=== PATIENT | male | born 1950 | race Caucasian/White ===

== ENCOUNTER → 2017-02-04 | Outpatient (CLI) | payer BC ==
[2017-02-04 09:48] LABS: CH 35.5; CHCM 35.2; HCT 42.6 % (39.0-53.0); HDW 2.65; HGB 14.9 gm/dL (13.0-17.5); MCH 35.5 pg (25.0-35.0); MCV 101.5 fL (80.0-100.0); Macrocytosis Slight; Mean Platelet Volume 7.3; RDW 14.2 % (11.5-15.5); WBC 5.9 k/uL (3.8-10.6)
[2017-02-04 11:35] LABS: ALT 150 U/L (21-72); AST 156 U/L (17-59); Alkaline Phosphatase 157 U/L (38-126); Anion Gap 7 mmol/L; Blood Urea Nitrogen 10 mg/dL (9-20); Carbon Dioxide 28 mmol/L (22-30); Chloride 107 mmol/L (98-107); Cholesterol 167 mg/dL (<200); Glucose 111 mg/dL (74-99); HDL Cholesterol 82 mg/dL (40-60); Non-African American GFR(MDRD) >60 (>60 ml/min/1.73 sqM); Potassium 4.7 mmol/L (3.5-5.1); Sodium 142 mmol/L (137-145); Total Bilirubin 1.1 mg/dL (0.2-1.3); Total Protein 8.2 g/dL (6.3-8.2)
[2017-02-04 11:41] LABS: Calcium 9.4 mg/dL (8.4-10.2)
== END | disposition home or self-care (01) ==
LOC: LABWHC1 09:21
PROVIDERS: ATTEND Internal Medicine
DX: J45.40 Moderate persistent asthma, uncomplicated (principal); E78.5 Hyperlipidemia, unspecified; Z12.5 Encounter for screening for malignant neoplasm of prostate
CPT/HCPCS: 80061; 80053; 85027; 36415; G0103

== ENCOUNTER 2021-03-16 08:02 | Day surgery (SDC) | payer MEDICARE ==
[2021-03-14 13:19] VITALS: BMI 27.2
[~2021-03-16 08:02] MED LIST: ACETAMINOPHEN TAB 500 MG TAB PO PRN; HEPARIN SODIUM,PORCINE/PF 5,000 UNIT/0.5 ML SYRINGE SQ PRN
[2021-03-16] MEDS ORDERED: CLINDAMYCIN 600 MG in DEXTROSE 5% IN WATER 50 ML IVPB STA ×4 (08:15→08:17)
[2021-03-16 08:45] LABS: Glucose,Whole Blood 118 mg/dL (75-99)
--- NOTE | 2021-03-16 08:48 | P.GSHP ---
History of Present Illness H&P Date: 03/16/21 Chief Complaint: Incarcerated umbilical hernia 70-year-old male seen in the office in December. Patient with history of cirrhosis and hepatitis C. Patient has had good liver function and no further ascites after a previous TIPS procedure. Was told by his liver specialist re cently but now was good time for him to proceed with repair of his symptomatic incarcerated umbilical hernia. Patient with chronic thrombocytopenia however platelet level recently at 80. Complains of intermittent nausea and vomiting at times. Increased soreness and increased size to the umbilical hernia. Past Medical History Past Medical History: Asthma, Cancer, Diabetes Mellitus, GERD/Reflux Additional Past Medical History / Comment(s): umbilical hernia,hx cirrhosis,Hepatitis C-treated(was previous on liver transplant list in the past,had TIPS procedure-prior to TIPS procedure was having recurrent problems with ascites and elevated liver enzymes-which improved after TIPS procedure,hx basal cell CA face and left chest History of Any Multi-Drug Resistant Organisms: None Reported Past Surgical History: Orthopedic Surgery Additional Past Surgical History / Comment(s): TIPS( transjugular intrahepatic portosystemic shunt 2018), sinus surgery, Left wrist tendon injury repair Past Anesthesia/Blood Transfusion Reactions: No Reported Reaction Additional Past Anesthesia/Blood Transfusion Reaction / Comment(s): no problems with prior blood transfusion Smoking Status: Former smoker - Past Family History Mother Family Medical History: No Reported History Medications and Allergies Home Medications Medication Instructions Recorded Confirmed Type Omalizumab [Xolair] 150 mg SQ Q14D 04/28/18 03/16/21 History metFORMIN HCL [Glucophage] 500 mg PO DAILY 04/28/18 03/16/21 History Ferrous Sulfate [Feosol] 325 mg PO Q2D 03/14/21 03/16/21 History Fluticasone Nasal [place] [Flonase 2 spray EA NOSTRIL DAILY 03/14/21 03/16/21 History Nasal [place]] Fluticasone/Salmeterol [Advair 1 inhalation PO BID PRN 03/14/21 03/16/21 History 500-50 Diskus] Lactulose 10 gm PO BID 03/14/21 03/16/21 History Omeprazole 20 mg PO QAM 03/14/21 03/16/21 History Rifaximin [Xifaxan] 550 mg PO BID 03/14/21 03/16/21 History Spironolactone 50 mg PO BID 03/14/21 03/16/21 History diphenhydrAMINE [Benadryl] 50 mg PO HS PRN 03/14/21 03/16/21 History Allergies Allergy/AdvReac Type Severity Reaction Status Date / Time cefuroxime [From Ceftin] AdvReac Rash/Hives Verified 03/16/21 08:19 Surgical - Exam Vital Signs Temp Pulse Resp BP Pulse Ox 98.2 F 88 16 123/63 96 03/16/21 08:33 03/16/21 08:33 03/16/21 08:33 03/16/21 08:33 03/16/21 08:33 Physical exam: General: Well-developed, well-nourished HEENT: Normocephalic, sclerae nonicteric Abdomen: Nondistended, incarcerated umbilical hernia, mildly tender Extremities: No edema Neuro: Alert and oriented Results - Labs Abnormal Lab Results - Last 24 Hours (Table) 03/16/21 Range/Units 08:40 POC Glucose (mg/dL) 118 H (75-99) mg/dL Assessment and Plan (1) Incarcerated umbilical hernia Narrative/Plan: Will proceed with repair incarcerated umbilical hernia with possible mesh at this time. Risks of bleeding, infection, recurrence, bladder and bowel injury, numbness, nerve injury, ascites leak, exacerbation of liver failure, were discussed with the patient. The patient understands and wishes to proceed. Current Visit: Yes Status: Acute Code(s): K42.0 - UMBILICAL HERNIA WITH OBSTRUCTION, WITHOUT GANGRENE SNOMED Code(s): 655996448
[2021-03-16] MEDS: LACTATED RINGERS 1,000 ML IV SCH ×2 (08:49→08:58)
[2021-03-16] MEDS ORDERED: ONDANSETRON 4 MG/2 ML VIAL ONE (08:51)
[2021-03-16] MEDS ORDERED: GLYCOPYRROLATE 0.2 MG/ML 2 ML VIAL ONE (08:55)
[2021-03-16] MEDS ORDERED: SUCCINYLCHOLINE CHLORIDE 100 MG/5 ML SYR IV ONE (08:55)
[2021-03-16] MEDS ORDERED: KETAMINE 10 MG/ML 20 ML VIAL ONE (08:55)
[2021-03-16] MEDS ORDERED: LIDOCAINE 1% INJ 10MG/ML (20 ML MDV) ONE (08:55)
[2021-03-16] MEDS ORDERED: fentaNYL (PF) 50 MCG/ML 2 ML AMP ONE (08:55)
[2021-03-16] MEDS ORDERED: PROPOFOL 10 MG/ML 20 ML VIAL IV ONE (08:55)
[2021-03-16] MEDS ORDERED: NEOSTIGMINE 1 MG/ML 10 ML VIAL ONE (08:55)
[2021-03-16] MEDS ORDERED: ROCURONIUM 10 MG/ML (5 ML VIAL) IV ONE (08:55)
[2021-03-16] MEDS ORDERED: MIDAZOLAM 2 MG/2 ML VIAL ONE (08:55)
[2021-03-16] MEDS ORDERED: BUPIVACAINE (PF) 0.25% 30 ML VIAL SQ ONE ×2 (09:15)
[2021-03-16] MEDS ORDERED: diphenhydrAMINE 50 MG/ML 1 ML VIAL ONE (09:57)
[2021-03-16] MEDS ORDERED: HYDROmorphone 0.5 MG/0.5 ML SYRINGE IVP ONE ×2 (10:01→10:17)
[2021-03-16] MEDS ORDERED: ONDANSETRON 4 MG/2 ML VIAL IVP ONE (10:02)
[2021-03-16] MEDS ORDERED: diphenhydrAMINE 50 MG/ML 1 ML VIAL IVP ONE (10:02)
--- NOTE | 2021-03-16 10:05 | P.OP ---
Date of Procedure: 03/16/21 Procedure(s) Performed: PREOPERATIVE DIAGNOSIS: Incarcerated umbilical hernia POSTOPERATIVE DIAGNOSIS: Same PROCEDURE: Umbilical herniorrhaphy SURGEON: Edilma EBL: Minimal ANESTHESIA: General COMPLICATIONS: None OPERATIVE PROCEDURE: The patient was placed in the operating table in the supine position. A left sided periumbilical incision was made using the scalpel. The subcutaneous tissues were dissected bluntly and with cautery. The hernia sac was identified. The umbilical attachments to the fascia were divided using electrocautery. The hernia sac was partially excised. The hernia sac was closed after the majority of it was removed using a running locking 2-0 Vicryl stitch. This was then reduced back into the preperitoneal space. The defect in the fascia measured less than 1 cm in size. This was closed horizontally using 3 separate interrupted 0 Ethibond mattress sutures. The folding edge was sutured down using 0 Ethibond sutures as well. The subcutaneous tissues were reapproximated using inverted 2-0 & 3-0 Vicryl sutures. The umbilicus was tacked back down to the fascia using a 2-0 Vicryl suture. The skin was closed using 4-0 Monocryl sutures. Skin glue and sterile dressings were then applied. DISPOSITION: Stable to recovery room
[2021-03-16 10:08] VITALS: TEMP 98.6
[2021-03-16] MEDS ORDERED: KETOROLAC 15 MG/ML 1 ML VIAL ONE (10:33)
[2021-03-16] MEDS ORDERED: KETOROLAC 15 MG/ML 1 ML VIAL IVP ONE (10:35)
[2021-03-16] MEDS ORDERED: LACTATED RINGERS 1,000 ML IV ONE ×3 (10:37→13:40)
[2021-03-16 11:23] VITALS: RESP 14
[2021-03-16] MEDS ORDERED: ACETAMINOPHEN TAB 325 MG TAB PO SCH (15:00)
[2021-03-16] MEDS ORDERED: ALBUMIN HUMAN 5% 500 ML in EMPTY BAG 1 BAG IVPB ONE (15:25)
[2021-03-16 16:44] VITALS: BP 101/53; PULSE 91
[2021-03-16] MEDS ORDERED: IBUPROFEN 600 MG TAB PO SCH (18:00)
== END 2021-03-16 18:28 | disposition home or self-care (01) ==
LOC: OR 08:02
PROVIDERS: ATTEND Surgery
DX: K42.0 Umbilical hernia with obstruction, without gangrene (principal); E11.9 Type 2 diabetes mellitus without complications; F41.9 Anxiety disorder, unspecified; J45.909 Unspecified asthma, uncomplicated; K21.9 Gastro-esophageal reflux disease without esophagitis; K74.60 Unspecified cirrhosis of liver; K75.9 Inflammatory liver disease, unspecified; Z79.899 Other long term (current) drug therapy; Z79.84 Long term (current) use of oral hypoglycemic drugs
CPT/HCPCS: 88302; 49587; J2250; J2710; J2405; J2001; J3010; P9045; J1885; J0330; J2704; J1170; J1644

== ENCOUNTER 2021-03-25 02:38 | Emergency (ER) | payer MEDICARE ==
[2021-03-25] MEDS ORDERED: ONDANSETRON 4 MG/2 ML VIAL IVP STA (02:59)
[2021-03-25] MEDS ORDERED: IBUPROFEN 800 MG TAB PO STA (02:59)
[2021-03-25] MEDS ORDERED: MORPHINE SULFATE 4 MG/ML SYRINGE IV STA (02:59)
[2021-03-25] MEDS ORDERED: SODIUM CHLORIDE 0.9% 1,000 ML IV STA (02:59)
[2021-03-25] MEDS ORDERED: ACETAMINOPHEN TAB 500 MG TAB PO STA (02:59)
--- NOTE | 2021-03-25 03:01 | ED ---
Fever HPI - General Chief Complaint: Nausea/Vomiting/Diarrhea Stated Complaint: vomiting, fever Time Seen by Provider: 03/25/21 02:57 Source: patient, EMS, RN notes reviewed, old records reviewed Mode of arrival: EMS Limitations: no limitations - History of Present Illness Initial Comments: This is a 70-year-old male to the ER for evaluation patient is a postop of a hernia surgery coming with severe abdominal pain. This patient again is recent. Patient coming in with fever nausea vomiting abdominal pain persistent fever. No recent other travel history or complaints no cough just nausea vomiting and diarrhea. MD Complaint: fever, malaise, weakness -: hour(s) Temperature Source: subjective Context: sick contacts, multiple patients with similar symptoms Associated Symptoms: chills, rigors, myalgias Treatments Prior to Arrival: none - Related Data Home Medications Medication Instructions Recorded Confirmed Omalizumab [Xolair] 150 mg SQ Q14D 04/28/18 03/16/21 metFORMIN HCL [Glucophage] 500 mg PO DAILY 04/28/18 03/16/21 Ferrous Sulfate [Feosol] 325 mg PO Q2D 03/14/21 03/16/21 Fluticasone Nasal [place] [Flonase 2 spray EA NOSTRIL DAILY 03/14/21 03/16/21 Nasal [place]] Fluticasone/Salmeterol [Advair 1 inhalation PO BID PRN 03/14/21 03/16/21 500-50 Diskus] Lactulose 10 gm PO BID 03/14/21 03/16/21 Omeprazole 20 mg PO QAM 03/14/21 03/16/21 Rifaximin [Xifaxan] 550 mg PO BID 03/14/21 03/16/21 Spironolactone 50 mg PO BID 03/14/21 03/16/21 diphenhydrAMINE [Benadryl] 50 mg PO HS PRN 03/14/21 03/16/21 Previous Rx's Medication Instructions Recorded oxyCODONE HCL [OxyIR] 5 mg PO Q6H PRN 3 Days #6 tab 03/16/21 Ondansetron Odt [Zofran ODT] 4 mg PO Q8HR PRN #10 tab 03/25/21 Allergies Allergy/AdvReac Type Severity Reaction Status Date / Time cefuroxime [From Ceftin] AdvReac Rash/Hives Verified 03/16/21 08:19 Review of Systems ROS Statement: Those systems with pertinent positive or pertinent negative responses have been documented in the HPI. ROS Other: All systems not noted in ROS Statement are negative. Past Medical History Past Medical History: Asthma, Cancer, Diabetes Mellitus, GERD/Reflux Additional Past Medical History / Comment(s): basal cell CA face and left chest History of Any Multi-Drug Resistant Organisms: None Reported Additional Past Surgical History / Comment(s): contractrure release right, sinus surgery, Left writst tendon injury repair Past Anesthesia/Blood Transfusion Reactions: No Reported Reaction Past Psychological History: No Psychological Hx Reported Smoking Status: Never smoker Past Alcohol Use History: None Reported Past Drug Use History: Marijuana General Exam Limitations: no limitations General appearance: alert, in no apparent distress Head exam: Present: atraumatic, normocephalic, normal inspection Eye exam: Present: normal appearance, PERRL, EOMI. Absent: scleral icterus, conjunctival injection, periorbital swelling ENT exam: Present: normal exam, mucous membranes moist Neck exam: Present: normal inspection. Absent: tenderness, meningismus, lymphadenopathy Respiratory exam: Present: normal lung sounds bilaterally. Absent: respiratory distress, wheezes, rales, rhonchi, stridor Cardiovascular Exam: Present: regular rate, normal rhythm, normal heart sounds. Absent: systolic murmur, diastolic murmur, rubs, gallop, clicks GI/Abdominal exam: Present: soft, normal bowel sounds. Absent: distended, tenderness, guarding, rebound, rigid Extremities exam: Present: normal inspection, full ROM, normal capillary refill. Absent: tenderness, pedal edema, joint swelling, calf tenderness Back exam: Present: normal inspection Neurological exam: Present: alert, oriented X3, CN II-XII intact Psychiatric exam: Present: normal affect, normal mood Skin exam: Present: warm, dry, intact, normal color. Absent: rash Course Vital Signs 03/25/21 03/25/21 03/25/21 02:44 03:37 04:42 Temperature 103.1 F H 102.4 F H Pulse Rate 105 H 83 112 H Respiratory 20 24 18 Rate Blood Pressure 109/61 129/50 118/82 O2 Sat by Pulse 94 L 98 98 Oximetry 03/25/21 03/25/21 05:55 06:52 Temperature 99.9 F H 98.2 F Pulse Rate 104 H 93 Respiratory 18 18 Rate Blood Pressure 117/69 100/54 O2 Sat by Pulse 97 95 Oximetry - Reevaluation(s) Reevaluation #1: Medical record is reviewed Patient is adequately improvement pain no other symptoms Informed results and questions answered Patient can be discharged Medical Decision Making - Medical Decision Making 70 male with hernia surgery only prior positive nausea vomiting. Symptoms improved here in the ER patient can be discharged home - Lab Data Result diagrams: 03/25/21 03:21 03/25/21 03:21 Lab Results 03/25/21 03/25/21 03/25/21 Range/Units 03:21 03:21 03:21 WBC 9.3 (3.8-10.6) k/uL RBC 3.56 L (4.30-5.90) m/uL Hgb 13.0 (13.0-17.5) gm/dL Hct 36.5 L (39.0-53.0) % MCV 102.6 H (80.0-100.0) fL MCH 36.4 H (25.0-35.0) pg MCHC 35.5 (31.0-37.0) g/dL RDW 16.4 H (11.5-15.5) % Plt Count 54 L (150-450) k/uL MPV 7.2 Neutrophils % 91 % Lymphocytes % 3 % Monocytes % 4 % Eosinophils % 1 % Basophils % 0 % Neutrophils # 8.5 H (1.3-7.7) k/uL Lymphocytes # 0.3 L (1.0-4.8) k/uL Monocytes # 0.4 (0-1.0) k/uL Eosinophils # 0.1 (0-0.7) k/uL Basophils # 0.0 (0-0.2) k/uL Hyperchromasia Slight Poikilocytosis Slight Anisocytosis Slight Macrocytosis Moderate Sodium 131 L (137-145) mmol/L Potassium 4.0 (3.5-5.1) mmol/L Chloride 105 (98-107) mmol/L Carbon Dioxide 19 L (22-30) mmol/L Anion Gap 7 mmol/L BUN 14 (9-20) mg/dL Creatinine 0.79 (0.66-1.25) mg/dL Est GFR (CKD-EPI)AfAm >90 (>60 ml/min/1.73 sqM) Est GFR (CKD-EPI)NonAf >90 (>60 ml/min/1.73 sqM) Glucose 145 H (74-99) mg/dL Lactic Ac Sepsis Rflx Plasma Lactic Acid Jono (0.7-2.0) mmol/L Calcium 9.2 (8.4-10.2) mg/dL Phosphorus 2.4 L (2.5-4.5) mg/dL Magnesium 1.4 L (1.6-2.3) mg/dL Total Bilirubin 2.4 H (0.2-1.3) mg/dL AST 53 (17-59) U/L ALT 27 (4-49) U/L Alkaline Phosphatase 118 (38-126) U/L Lactate Dehydrogenase 486 (313-618) U/L Troponin I (0.000-0.034) ng/mL C-Reactive Protein 2.3 H (<1.0) mg/dL Total Protein 6.5 (6.3-8.2) g/dL Albumin 2.9 L (3.5-5.0) g/dL Lipase 70 (23-300) U/L Urine Color Light Brown Urine Appearance Clear (Clear) Urine pH 6.0 (5.0-8.0) Ur Specific [place] >1.050 H (1.001-1.035) Urine Protein 1+ H (Negative) Urine Glucose (UA) Trace H (Negative) Urine Ketones Trace H (Negative) Urine Blood Negative (Negative) Urine Nitrite Negative (Negative) Urine Bilirubin 1+ H (Negative) Urine Urobilinogen <2.0 (<2.0) mg/dL Ur Leukocyte Esterase Negative (Negative) Urine RBC 6 H (0-5) /hpf Urine WBC 1 (0-5) /hpf Ur Squamous Epith Cells <1 (0-4) /hpf Urine Mucus Few H (None) /hpf Coronavirus (PCR) (Not Detectd) 03/25/21 03/25/21 03/25/21 Range/Units 03:21 03:21 03:54 WBC (3.8-10.6) k/uL RBC (4.30-5.90) m/uL Hgb (13.0-17.5) gm/dL Hct (39.0-53.0) % MCV (80.0-100.0) fL MCH (25.0-35.0) pg MCHC (31.0-37.0) g/dL RDW (11.5-15.5) % Plt Count (150-450) k/uL MPV Neutrophils % % Lymphocytes % % Monocytes % % Eosinophils % % Basophils % % Neutrophils # (1.3-7.7) k/uL Lymphocytes # (1.0-4.8) k/uL Monocytes # (0-1.0) k/uL Eosinophils # (0-0.7) k/uL Basophils # (0-0.2) k/uL Hyperchromasia Poikilocytosis Anisocytosis Macrocytosis Sodium (137-145) mmol/L Potassium (3.5-5.1) mmol/L Chloride (98-107) mmol/L Carbon Dioxide (22-30) mmol/L Anion Gap mmol/L BUN (9-20) mg/dL Creatinine (0.66-1.25) mg/dL Est GFR (CKD-EPI)AfAm (>60 ml/min/1.73 sqM) Est GFR (CKD-EPI)NonAf (>60 ml/min/1.73 sqM) Glucose (74-99) mg/dL Lactic Ac Sepsis Rflx Y Plasma Lactic Acid Jono 2.4 H* (0.7-2.0) mmol/L Calcium (8.4-10.2) mg/dL Phosphorus (2.5-4.5) mg/dL Magnesium (1.6-2.3) mg/dL Total Bilirubin (0.2-1.3) mg/dL AST (17-59) U/L ALT (4-49) U/L Alkaline Phosphatase (38-126) U/L Lactate Dehydrogenase (313-618) U/L Troponin I <0.012 (0.000-0.034) ng/mL C-Reactive Protein (<1.0) mg/dL Total Protein (6.3-8.2) g/dL Albumin (3.5-5.0) g/dL Lipase (23-300) U/L Urine Color Urine Appearance (Clear) Urine pH (5.0-8.0) Ur Specific [place] (1.001-1.035) Urine Protein (Negative) Urine Glucose (UA) (Negative) Urine Ketones (Negative) Urine Blood (Negative) Urine Nitrite (Negative) Urine Bilirubin (Negative) Urine Urobilinogen (<2.0) mg/dL Ur Leukocyte Esterase (Negative) Urine RBC (0-5) /hpf Urine WBC (0-5) /hpf Ur Squamous Epith Cells (0-4) /hpf Urine Mucus (None) /hpf Coronavirus (PCR) (Not Detectd) 03/25/21 Range/Units 05:27 WBC (3.8-10.6) k/uL RBC (4.30-5.90) m/uL Hgb (13.0-17.5) gm/dL Hct (39.0-53.0) % MCV (80.0-100.0) fL MCH (25.0-35.0) pg MCHC (31.0-37.0) g/dL RDW (11.5-15.5) % Plt Count (150-450) k/uL MPV Neutrophils % % Lymphocytes % % Monocytes % % Eosinophils % % Basophils % % Neutrophils # (1.3-7.7) k/uL Lymphocytes # (1.0-4.8) k/uL Monocytes # (0-1.0) k/uL Eosinophils # (0-0.7) k/uL Basophils # (0-0.2) k/uL Hyperchromasia Poikilocytosis Anisocytosis Macrocytosis Sodium (137-145) mmol/L Potassium (3.5-5.1) mmol/L Chloride (98-107) mmol/L Carbon Dioxide (22-30) mmol/L Anion Gap mmol/L BUN (9-20) mg/dL Creatinine (0.66-1.25) mg/dL Est GFR (CKD-EPI)AfAm (>60 ml/min/1.73 sqM) Est GFR (CKD-EPI)NonAf (>60 ml/min/1.73 sqM) Glucose (74-99) mg/dL Lactic Ac Sepsis Rflx Plasma Lactic Acid Jono (0.7-2.0) mmol/L Calcium (8.4-10.2) mg/dL Phosphorus (2.5-4.5) mg/dL Magnesium (1.6-2.3) mg/dL Total Bilirubin (0.2-1.3) mg/dL AST (17-59) U/L ALT (4-49) U/L Alkaline Phosphatase (38-126) U/L Lactate Dehydrogenase (313-618) U/L Troponin I (0.000-0.034) ng/mL C-Reactive Protein (<1.0) mg/dL Total Protein (6.3-8.2) g/dL Albumin (3.5-5.0) g/dL Lipase (23-300) U/L Urine Color Urine Appearance (Clear) Urine pH (5.0-8.0) Ur Specific [place] (1.001-1.035) Urine Protein (Negative) Urine Glucose (UA) (Negative) Urine Ketones (Negative) Urine Blood (Negative) Urine Nitrite (Negative) Urine Bilirubin (Negative) Urine Urobilinogen (<2.0) mg/dL Ur Leukocyte Esterase (Negative) Urine RBC (0-5) /hpf Urine WBC (0-5) /hpf Ur Squamous Epith Cells (0-4) /hpf Urine Mucus (None) /hpf Coronavirus (PCR) Not Detected (Not Detectd) - Radiology Data Radiology results: report reviewed (CT pelvis negative for acute disease), image reviewed Disposition Clinical Impression: Dehydration, Gastroenteritis, Fever Disposition: HOME SELF-CARE Condition: Good Instructions (If sedation given, give patient instructions): Fever in Adults (ED), Acute Nausea and Vomiting (ED), Colitis (ED) Prescriptions: Ondansetron Odt [Zofran ODT] 4 mg PO Q8HR PRN #10 tab PRN Reason: nausea/vomiting Is patient prescribed a controlled substance at d/c from ED?: No Referrals: Rick Jaquez MD [Primary Care Provider] - 1-2 days
[2021-03-25 03:41] LABS: Anisocytosis Slight; Basophils % (A) 0 %; Eosinophils # (A) 0.1 k/uL (0-0.7); Eosinophils % (A) 1 %; HCT 36.5 % (39.0-53.0); Hyperchromasia Slight; Lymphocytes # (A) 0.3 k/uL (1.0-4.8); Lymphocytes % (A) 3 %; MCH 36.4 pg (25.0-35.0); MCHC 35.5 g/dL (31.0-37.0); MCV 102.6 fL (80.0-100.0); Macrocytosis Moderate; Mean Platelet Volume 7.2; Monocytes # (A) 0.4 k/uL (0-1.0); Monocytes % (A) 4 %; Neutrophils # (A) 8.5 k/uL (1.3-7.7); Neutrophils % (A) 91 %; Poikilocytosis Slight; RBC 3.56 m/uL (4.30-5.90); RDW 16.4 % (11.5-15.5); WBC 9.3 k/uL (3.8-10.6)
[2021-03-25 03:50] LABS: Platelet Count 54 k/uL (150-450)
[2021-03-25 03:56] LABS: ALT 27 U/L (4-49); AST 53 U/L (17-59); African American GFR (CKD) >90 (>60 ml/min/1.73 sqM); Albumin 2.9 g/dL (3.5-5.0); Alkaline Phosphatase 118 U/L (38-126); Anion Gap 7 mmol/L; Blood Urea Nitrogen 14 mg/dL (9-20); C Reactive Protein 2.3 mg/dL (<1.0); Calcium 9.2 mg/dL (8.4-10.2); Carbon Dioxide 19 mmol/L (22-30); Chloride 105 mmol/L (98-107); Glucose 145 mg/dL (74-99); LDH 486 U/L (313-618); Lipase 70 U/L (23-300); Magnesium 1.4 mg/dL (1.6-2.3); Non-African American GFR(CKD) >90 (>60 ml/min/1.73 sqM); Phosphorus 2.4 mg/dL (2.5-4.5); Sodium 131 mmol/L (137-145); Total Bilirubin 2.4 mg/dL (0.2-1.3); Total Protein 6.5 g/dL (6.3-8.2)
--- NOTE | 2021-03-25 04:20 | XR ---
EXAMINATION TYPE: XR chest 2V DATE OF EXAM: 03/25/2021 COMPARISON: 10/01/2010 HISTORY: Weakness TECHNIQUE: 2 views FINDINGS: There is no heart failure nor confluent pneumonic infiltrate. Costophrenic angles are clear . Bony thorax is intact. Heart size is normal. IMPRESSION: No active cardiopulmonary disease. No change.
[2021-03-25 04:47] VITALS: RESP 18
--- NOTE | 2021-03-25 05:02 | CT ---
EXAMINATION TYPE: CT abdomen pelvis w con DATE OF EXAM: 03/25/2021 COMPARISON: None HISTORY: bruising on stomach, vomiting and fever. post op hernia sx x 1week CT DLP: 1074.7 mGycm Automated exposure control for dose reduction was used. CONTRAST: Performed with IV Contrast, patient injected with 100 mL of Isovue 300. There is small left pleural effusion. Heart size is normal. There is no pericardial effusion. Left danette ng base is clear. There is TIPS catheter in the portal vein extending to the inferior vena cava.. Liver somewhat irregu lar consistent with cirrhosis. Gallbladder is intact. Spleen is intact. There is no pancreatic mass. Stomach is intact. There is no adrenal mass. Kidneys show satisfactory contrast opacification. There is no hydronephrosi s. There is 5 mm calculus posterior left kidney. Ureters are not dilated. There is 2 mm calculus lowe r pole left kidney. There is 1 cm cortical cyst posterior left kidney. There is 2 cm cortical cyst la teral left kidney. There is no retroperitoneal adenopathy. Bladder distends smoothly. There is no inguinal hernia. There is retained material in the rectosigmoid colon with small fluid levels consistent with diarrhea. The re is some mild wall thickening of the large bowel. There is also some wall thickening of multiple lo ops of small bowel in the mid abdomen. There is no ascites. There is no free air. There is small amou nt of fluid in the right paracolic gutter. There is 3 cm rounded fluid collection at the umbilicus co nsistent with fluid-containing umbilical hernia. Lumbar vertebra have normal alignment. There is mild compression deformity of L4 vertebra with biconc ave changes. The bony pelvis is intact. Hip joints are intact. IMPRESSION: Right pleural effusion. Liver changes consistent with cirrhosis. There is some wall thickening of the large bowel and the small bowel suggestive of nonspecific inflammatory process. This could be coliti s and enteritis.
[2021-03-25] MEDS ORDERED: SODIUM CHLORIDE 0.9% 1,000 ML IV ONE (05:21)
[2021-03-25 06:29] LABS: Appearance,Urine Clear (Clear); Bilirubin,Urine 1+ (Negative); Blood,Urine Negative (Negative); Color,Urine Light Brown; Glucose,Urine (UA) Trace (Negative); Ketones,Urine Trace (Negative); Leukocyte Esterase,Urine Negative (Negative); Mucus,Urine Few /hpf; Nitrite,Urine Negative (Negative); Protein,Urine 1+ (Negative); RBC,Urine 6 /hpf (0-5); Squamous Epithelial Cell,Urine <1 /hpf (0-4); Urobilinogen,Urine <2.0 mg/dL (<2.0); WBC,Urine 1 /hpf (0-5)
[2021-03-25 06:42] LABS: Specific Gravity,Urine >1.050 (1.001-1.035)
[2021-03-25] MEDS ORDERED: ONDANSETRON 4 MG ODT STARTER PACK 2 TAB BTL PO STA (06:45)
[2021-03-25 06:53] VITALS: BP 100/54; PULSE 93
[2021-03-25 06:54] VITALS: TEMP 98.2
[2021-03-25] MEDS ORDERED: ONDANSETRON 4 MG TAB PO STA (06:55)
== END 2021-03-25 07:03 | disposition home or self-care (01) ==
LOC: EC 02:38
DX: E86.0 Dehydration (principal); K52.9 Noninfective gastroenteritis and colitis, unspecified; J45.909 Unspecified asthma, uncomplicated; K21.9 Gastro-esophageal reflux disease without esophagitis; E11.9 Type 2 diabetes mellitus without complications; Z79.84 Long term (current) use of oral hypoglycemic drugs; Z79.899 Other long term (current) drug therapy; Z79.51 Long term (current) use of inhaled steroids; Z20.822 Contact with and (suspected) exposure to COVID-19; Z88.1 Allergy status to other antibiotic agents
CPT/HCPCS: 36415; 80053; 83605; 83615; 83690; 83735; 84100; 84484; 85025; 86140; 81001; 87635; 71046; 74177; 99285; 96374; 96361; J2405; S0119; Q9967

== ENCOUNTER → 2021-08-01 | Outpatient (CLI) | payer MEDICARE ==
--- NOTE | 2021-08-01 21:02 | CT ---
EXAMINATION TYPE: CT soft tissue neck wo con DATE OF EXAM: 08/01/2021 HISTORY: Generalized enlarged lymph nodes COMPARISON: None available CT DLP: 422.4 mGycm. Automated Exposure Control for Dose Reduction was Utilized. TECHNIQUE: CT scan of the neck is performed without IV contrast, axial images are obtained, coronal and sagittal reformatted images are reviewed. FINDINGS: Unremarkable nasopharynx, oropharynx, hypopharynx, larynx and visualized portion of the trachea and e sophagus. Unremarkable thyroid gland. Right parotid gland lesion measuring 14 x 19 x 29 mm. Unremarka ble left parotid gland and submandibular salivary glands. No pathologically enlarged lymph nodes in t he neck. Minimal arterial atherosclerotic calcifications. Chronic inflammatory changes of the sphenoid sinus a nd maxillary sinuses with previous sinus surgery and mucosal thickening of the ethmoid air cells. Hyp opneumatized left mastoid air cells. No aggressive bone lesion. 2 mm nodule in the right upper lobe a nd 3 mm nodule in the left lung apex, for further CT chest assessment. IMPRESSION: No pathologically enlarged lymph nodes in the neck. Right parotid gland lesion as described above, in completely identified by this CT scan. It could represent Warthin tumor, enlarged lymph node, pleomor phic adenoma or other primary neoplasm of the right parotid gland. Recommend further ultrasound asses sment, surgery consultation and tissue diagnosis. Other incidental findings as described above.
== END | disposition home or self-care (01) ==
LOC: RADCTMAIN 13:20
PROVIDERS: ATTEND Internal Medicine
DX: R59.1 Generalized enlarged lymph nodes (principal)
CPT/HCPCS: 70490

== ENCOUNTER → 2021-08-16 | Outpatient (CLI) | payer MEDICARE ==
[2021-08-16 12:30] LABS: African American GFR (CKD) >90 (>60 ml/min/1.73 sqM); Blood Urea Nitrogen 12 mg/dL (9-20); Non-African American GFR(CKD) >90 (>60 ml/min/1.73 sqM)
--- NOTE | 2021-08-16 14:02 | CT ---
EXAMINATION TYPE: CT soft tissue neck w con DATE OF EXAM: 08/16/2021 12:47 PM COMPARISON: CT dated 08/01/2021 HISTORY: Right neck mass marked by BB. CT DLP: 424 mGycm Automated exposure control for dose reduction was used. CONTRAST: CT scan of the neck is performed following with IV Contrast, patient injected with 100 mL of Isovue M 300. Axial images are obtained, coronal and sagittal reformatted images are reviewed. FINDINGS: Redemonstration of the previously described well-defined solid lesion at the posterior aspect of the superficial portion of the right parotid gland measuring 16 x 19 mm. Tiny tail is seen extending medi ally into the posterior aspect of the deep portion of the right parotid gland. No cystic component or calcification. Unremarkable left parotid gland. Symmetrical unremarkable submandibular salivary glan ds. Grossly unremarkable thyroid gland. Unremarkable nasopharynx, oropharynx, hypopharynx, larynx and visualized portion of the trachea and e sophagus. Scattered arterial atherosclerotic calcifications. Patent major neck vessels. No pathologic ally enlarged lymph nodes in the neck. Persistent chronic inflammatory changes of the visualized port ion of the paranasal sinuses. Osteopenia. No gross aggressive bone lesion. Few bilateral apical pulmo nary nodules measuring up to 3 mm, for further CT chest assessment. IMPRESSION: Right parotid gland solid lesion as described above. As previously described, differential diagnoses include Warthin tumor, enlarged lymph node, pleomorphic adenoma or other primary neoplasm of the righ t parotid gland. Recommend further PET scan assessment and tissue diagnosis. Other findings as descri bed above.
== END | disposition home or self-care (01) ==
LOC: RADCTMAIN 11:38
PROVIDERS: ATTEND Otolaryngology
DX: R22.1 Localized swelling, mass and lump, neck (principal)
CPT/HCPCS: 82565; 84520; 70491; 36415; Q9967

== ENCOUNTER 2021-09-21 09:15 | Day surgery (SDC) | payer MEDICARE ==
[2021-09-21 09:59] VITALS: RESP 16; TEMP 97.6
[2021-09-21] MEDS ORDERED: ALPRAZolam 0.25 MG TAB PO STA (10:00)
[2021-09-21 10:10] LABS: Glucose,Whole Blood 128 mg/dL (75-99)
[2021-09-21 11:49] VITALS: BP 126/61; PULSE 79
--- NOTE | 2021-09-21 13:08 | US ---
EXAMINATION TYPE: US FNA first lesion DATE OF EXAM: 09/21/2021 HISTORY: Right neck mass. FINDINGS: Maximal barrier technique was utilized. Hand hygiene achieved with soap and water and alco hol-based hand rub. The skin overlying a suitable path to the patient's mass in the right neck was lo calized with ultrasound and the overlying skin prepped and draped. Ultrasound was utilized with ster ile technique. Lidocaine was used for local anesthesia. 23-gauge needle was advanced under ultrasoun d guidance and approximately 5 cc of dark fluid were aspirated. Using similar technique, 3 passes wit h a 25-gauge needle were made into the more solid component and aspirated specimen submitted to cytol ogy. Following the procedure, hemostasis achieved and the patient is discharged in stable condition w ithout complication. IMPRESSION:STATUS POST ULTRASOUND GUIDED CORE BIOPSY OF a needle aspiration of right neck MASS, PATHO LOGY IS PENDING. THIS PROCEDURE IS PERFORMED BY THE UNDERSIGNED.
== END 2021-09-21 11:49 | disposition home or self-care (01) ==
LOC: RADPROMAIN 09:15
PROVIDERS: ATTEND Otolaryngology
DX: D11.0 Benign neoplasm of parotid gland (principal); C44.91 Basal cell carcinoma of skin, unspecified
CPT/HCPCS: 10005; 88173; 88305

== ENCOUNTER 2022-04-05 07:21 | Day surgery (SDC) | payer MEDICARE ==
[~2022-04-05 07:21] MED LIST changes: -ACETAMINOPHEN TAB 500 MG TAB PO PRN; -HEPARIN SODIUM,PORCINE/PF 5,000 UNIT/0.5 ML SYRINGE SQ PRN; +LACTATED RINGERS 1,000 ML IV SCH
[2022-04-05 07:41] VITALS: RESP 16; TEMP 98.9
[2022-04-05 07:57] LABS: Glucose,Whole Blood 166 mg/dL (70-110)
[2022-04-05] MEDS ORDERED: PROPOFOL 10 MG/ML 20 ML VIAL IV ONE (08:39)
[2022-04-05] MEDS ORDERED: LIDOCAINE 2% INJ 20 MG/ML (2 ML VIAL) ONE (08:39)
--- NOTE | 2022-04-05 08:48 | P.PCN ---
Date of Procedure: 04/05/22 Procedure(s) Performed: BRIEF HISTORY: Patient is a 71-year-old, pleasant, white female with history of alcoholic cirrhosis of the liver and prior history of esophageal variceal bleeding, status post TIPS in 2019 is scheduled for an upper endoscopy as a part of evaluation of intermittent nausea vomiting for the last 1 month duration. PROCEDURE PERFORMED: Esophagogastroduodenoscopy With biopsy PREOPERATIVE DIAGNOSIS: Nausea vomiting of one month duration. IV sedation per anesthesia. PROCEDURE: After informed consent was obtained, the patient was brought into the endoscopy unit. IV sedation was administered by Anesthesia under continuous monitoring. Initially the Olympus GIF-140 video endoscope was inserted into the mouth. Esophagus intubated without any difficulty. It was gradually advanced into the stomach and duodenum and carefully examined. The bulb and the second part of the duodenum appeared normal. The scope at this time was withdrawn to the stomach, adequately insufflated with air, and upon careful examination, mucosa of the antrum, had gastritis with polyps which were biopsied. Mucosa of thebody, cardia and the fundus had changes consistent with moderate to severe portal hypertensive gastropathy The scope was then withdrawn into the esophagus. The GE junction was located at 39 cm from the incisors. The esophagus appeared normal. There were no erosions or ulcerations seen,. Small distal esophageal varices seen and the patient tolerated the procedure well. IMPRESSION: 1. Mild antral gastritis. 2. Small distal esophageal varices. 3. Moderate to severe portal hypertensive gastropathy RECOMMENDATIONS: The findings of this examination were discussed with the patient as well as his family. He was advised to follow with the biopsy results. Continue with omeprazole 20 mg daily and follow antireflux measures..
[2022-04-05 09:13] VITALS: BP 108/50; PULSE 77
== END 2022-04-05 09:41 | disposition home or self-care (01) ==
LOC: ORWHC2ENDO 07:21
PROVIDERS: ATTEND Internal Medicine Gastroenterology
DX: K29.50 Unspecified chronic gastritis without bleeding (principal); K31.7 Polyp of stomach and duodenum; I85.10 Secondary esophageal varices without bleeding; J44.9 Chronic obstructive pulmonary disease, unspecified; E11.9 Type 2 diabetes mellitus without complications; K21.9 Gastro-esophageal reflux disease without esophagitis; Z87.19 Personal history of other diseases of the digestive system; Z79.899 Other long term (current) drug therapy; Z79.84 Long term (current) use of oral hypoglycemic drugs; Z87.891 Personal history of nicotine dependence; Z91.018 Allergy to other foods
CPT/HCPCS: 88305; 43239; J2704; J2001

== ENCOUNTER 2022-11-08 11:25 | Inpatient (IN) | payer MEDICARE ==
[2022-11-08] MEDS ORDERED: SODIUM CHLORIDE 0.9% 1,000 ML IV ONE ×2 (12:05→14:33)
[2022-11-08 12:31] LABS: Basophils % (A) 0 %; Eosinophils # (A) 1.1 k/uL (0-0.7); Eosinophils % (A) 18 %; HCT 29.9 % (39.0-53.0); HGB 10.7 gm/dL (13.0-17.5); Hyperchromasia Moderate; Lymphocytes # (A) 0.6 k/uL (1.0-4.8); Lymphocytes % (A) 10 %; MCH 35.9 pg (25.0-35.0); MCHC 35.9 g/dL (31.0-37.0); MCV 99.9 fL (80.0-100.0); Macrocytosis Slight; Mean Platelet Volume 7.5; Monocytes # (A) 0.4 k/uL (0-1.0); Monocytes % (A) 6 %; Neutrophils # (A) 3.9 k/uL (1.3-7.7); Neutrophils % (A) 65 %; Poikilocytosis Slight; RBC 2.99 m/uL (4.30-5.90); RDW 15.9 % (11.5-15.5)
[2022-11-08 12:36] LABS: INR 1.2 (<1.2); Partial Thromboplastin Time 22.3 sec (22.0-30.0); Prothrombin Time 12.2 sec (9.0-12.0)
[2022-11-08 12:40] LABS: ALT 38 U/L (4-49); AST 69 U/L (17-59); African American GFR (CKD) >90 (>60 ml/min/1.73 sqM); Albumin 2.3 g/dL (3.5-5.0); Alkaline Phosphatase 189 U/L (38-126); Anion Gap 6 mmol/L; Blood Urea Nitrogen 16 mg/dL (9-20); Calcium 8.4 mg/dL (8.4-10.2); Carbon Dioxide 24 mmol/L (22-30); Chloride 99 mmol/L (98-107); Glucose 246 mg/dL (74-99); Non-African American GFR(CKD) >90 (>60 ml/min/1.73 sqM); Potassium 3.9 mmol/L (3.5-5.1); Sodium 129 mmol/L (137-145); Total Bilirubin 2.7 mg/dL (0.2-1.3); Total Protein 5.5 g/dL (6.3-8.2)
[2022-11-08 12:59] LABS: Platelet Count 79 k/uL (150-450)
--- NOTE | 2022-11-08 13:01 | XR ---
EXAMINATION TYPE: XR chest 2V DATE OF EXAM: 11/08/2022 COMPARISON: 03/25/2021 TECHNIQUE: PA and lateral views submitted. HISTORY: Altered mental status FINDINGS: The lungs are clear and there is no pneumothorax, pleural effusion, or focal pneumonia. Heart size normal and no overt failure. Osseous structures demonstrate hypertrophic and degenerative changes of the spine. Diffuse osteopenia. Hyperinflation suggests COPD. Coarsened interstitium likely reflects chronic inte rstitial pulmonary fibrosis. Similar to prior exam. Metallic stent seen in the upper abdomen. The villa unt of fluid or thickening within the minor fissure. IMPRESSION: 1. No acute process. 2. COPD correlate for chronic interstitial pulmonary fibrosis.
--- NOTE | 2022-11-08 13:32 | ED ---
General Adult HPI - General Chief complaint: Altered Mental Status Stated complaint: AMS Time Seen by Provider: 11/08/22 11:30 Source: patient, EMS, RN notes reviewed, old records reviewed Mode of arrival: EMS Limitations: no limitations - History of Present Illness Initial comments: This a 71-year-old male who presents emergency Department with his and his gives all the history. Patient has a past medical history significant for hepatitis C and cirrhosis. Patient has been admitted multiple times in the past for hepatic encephalopathy. states she has been down and [facility] multiple times but she is looking to stay here and does not want to go today for possible. Patient's altered mental status is been intermittent throughout the week but got much worse since yesterday according to the . Patient does take lactulose 3 times a day at home already. states his been no fevers no chills patient is not any difficulty breathing there's been no nausea vomiting or diarrhea. - Related Data Home Medications Medication Instructions Recorded Confirmed Omalizumab [Xolair] 150 mg SQ Q14D 04/28/18 11/08/22 Ferrous Sulfate [Feosol] 325 mg PO MOWEFR 03/14/21 11/08/22 Fluticasone Nasal [place] [Flonase 2 spray EA NOSTRIL DAILY 03/14/21 11/08/22 Nasal [place]] Lactulose 30 gm PO BID 03/14/21 11/08/22 Omeprazole 20 mg PO DAILY 03/14/21 11/08/22 Rifaximin [Xifaxan] 550 mg PO BID 03/14/21 11/08/22 Fluticasone Propion/Salmeterol 1 puff INHALATION RT-BID 09/07/21 11/08/22 [Advair 500-50 Diskus] Albuterol Sulfate [Albuterol 2 puff PO RT-QID 11/08/22 11/08/22 Sulfate Hfa] Furosemide [Lasix] 40 mg PO BID 11/08/22 11/08/22 Insulin Glargine,Hum.rec.anlog 10 units SQ HS 11/08/22 11/08/22 [Lantus Solostar Pen] Spironolactone [Aldactone] 100 mg PO DAILY 11/08/22 11/08/22 hydrOXYzine HCL [Atarax] 10 mg PO HS 11/08/22 11/08/22 metFORMIN HCL ER [Glucophage XR] 500 mg PO BID 11/08/22 11/08/22 Allergies Allergy/AdvReac Type Severity Reaction Status Date / Time cefuroxime [From Ceftin] AdvReac Rash/Hives Verified 11/08/22 12:30 Review of Systems ROS Statement: Those systems with pertinent positive or pertinent negative responses have been documented in the HPI. ROS Other: All systems not noted in ROS Statement are negative. Past Medical History Past Medical History: Asthma, Cancer, Diabetes Mellitus, GERD/Reflux, Liver Disease, Osteoarthritis (OA) Additional Past Medical History / Comment(s): basal cell CA face and left chest, cirrhosis of the liver, hepatitis C possibly from blood transfusion as a child, palpable mass right parotid ,left leg arthritis with occasional edema to lower leg, has had recent us to r/o dvt was negative test History of Any Multi-Drug Resistant Organisms: None Reported Past Surgical History: Hernia Repair Additional Past Surgical History / Comment(s): sinus surgery, left wrist tendon injury repair, shunt placed "in liver" per patient Past Anesthesia/Blood Transfusion Reactions: No Reported Reaction Past Psychological History: Anxiety, Depression, PTSD Smoking Status: Former smoker Past Alcohol Use History: None Reported, Heavy Past Drug Use History: None Reported - Past Family History Mother Family Medical History: Cancer Additional Family Medical History / Comment(s): patient is unsure if ovarian or colon General Exam - General Exam Comments Initial Comments: GENERAL: Patient is well-developed and well-nourished. Patient is nontoxic and well- hydrated and is in mild distress. ENT: Neck is soft and supple. No significant lymphadenopathy is noted. Oropharynx is clear. Moist mucous membranes. Neck has full range of motion without eliciting any pain. EYES: The sclera were anicteric and conjunctiva were pink and moist. Extraocular movements were intact and pupils were equal round and reactive to light. Eyelids were unremarkable. PULMONARY: Unlabored respirations. Good breath sounds bilaterally. No audible rales rhonchi or wheezing was noted. CARDIOVASCULAR: There is a regular rate and rhythm without any murmurs gallops or rubs. ABDOMEN: Abdomen is mildly distended states this is baseline SKIN: Skin is clear with no lesions or rashes and otherwise unremarkable. NEUROLOGIC: Patient is alert and oriented times one. Cranial nerves II through XII are aaron ssly intact. Motor and sensory are also intact. Normal speech, volume and content. Symmetrical smile. MUSCULOSKELETAL: Normal extremities with adequate strength and full range of motion. LYMPHATICS: No significant lymphadenopathy is noted PSYCHIATRIC: Normal psychiatric evaluation. Limitations: no limitations Course Vital Signs 11/08/22 11/08/22 11:27 13:56 Temperature 98.0 F Pulse Rate 92 82 Respiratory 20 18 Rate Blood Pressure 93/59 93/56 O2 Sat by Pulse 94 L 96 Oximetry Medical Decision Making - Medical Decision Making EKG was interpreted by myself shows a sinus rhythm at 88 bpm MD interval 280 QRSs 1 Q-T intervals 400 QTC is 445 per patient's EKG shows no ST segment elevation or depression. Was pt. sent in by a medical professional or institution (, PA, [facility], urgent care, hospital, or [facility]...) When possible be specific @ -No Did you speak to anyone other than the patient for history (EMS, parent, family, police, friend...)? What history was obtained from this source @ -Patient's gave all of the history Did you review nursing and triage notes (agree or disagree)? Why? @ -I reviewed and agree with nursing and triage notes Were old charts reviewed (outside hosp., previous admission, EMS record, old EKG, old radiological studies, urgent care reports/EKG's, [facility] records)? Report findings @ -No old charts were reviewed Differential Diagnosis (chest pain, altered mental status, abdominal pain women, abdominal pain men, vaginal bleeding, weakness, fever, dyspnea, syncope, headache, dizziness, GI bleed, back pain, seizure, CVA, palpatations, mental health, musculoskeletal)? @ -Differential Altered Mental Status: Hypoglycemia, DKA, hypercapnia, ETOH, overdose, CO poisoning, trauma, myxedema coma, HTN encephalopathy, infection, encephalitis, psychosis, intercranial hemorrhage, hepatic encephalopathy, meningitis, CVA, this is not meant to be an all-inclusive list EKG interpreted by me (3pts min.). @ -As above X-rays interpreted by me (1pt min.). @ -None done CT interpreted by me (1pt min.). @ -None done U/S interpreted by me (1pt. min.). @ -None done What testing was considered but not performed or refused? (CT, X-rays, U/S, labs)? Why? @ -None What meds were considered but not given or refused? Why? @ -None Did you discuss the management of the patient with other professionals (professionals i.e. , PA, [facility], lab, RT, psych nurse, public health social worker, meter reader inspector, teacher, sales and service officer, bilingual case manager)? Give summary @ -I spoke with Dr. Collins and he agreed to admit the patient Was smoking cessation discussed for >3mins.? @ -No Was critical care preformed (if so, how long)? @ -35 minutes Were there social determinants of health that impacted care today? How? (Homelessness, low income, unemployed, alcoholism, drug addiction, trans portation, low edu. Level, literacy, decrease access to med. care, correction, rehab)? @ -No Was there de-escalation of care discussed even if they declined (Discuss DNR or withdrawal of care, Hospice)? DNR status @ -No What co-morbidities impacted this encounter? (DM, HTN, Smoking, COPD, CAD, Cancer, CVA, ARF, Chemo, Hep., AIDS, mental health diagnosis, sleep apnea, morbid obesity)? @ -None Was patient admitted / discharged? Hospital course, mention meds given and route, prescriptions, significant lab abnormalities, going to OR and other pertinent info. @ -Patient came in for altered mental status with a past medical history significant for cirrhosis and hepatic encephalopathy multiple times. Patient's ammonia level is 131*the patient on lactulose and spoke with Dr. dutta who he accepted the admission I admitted the patient Undiagnosed new problem with uncertain prognosis? @ -No Drug Therapy requiring intensive monitoring for toxicity (Heparin, Nitro, Insulin, Cardizem)? @ -No Were any procedures done? @ -No Diagnosis/symptom? @ -Hepatic Encephalopathy Acute, or Chronic, or Acute on Chronic? @ -Acute on chronic Uncomplicated (without systemic symptoms) or Complicated (systemic symptoms)? @ -Complicated Side effects of treatment? @ -No Exacerbation, Progression, or Severe Exacerbation? @ -No Poses a threat to life or bodily function? How? (Chest pain, [place], [place], pneumonia, PE, COPD, DKA, ARF, appy, cholecystitis, CVA, Diverticulitis, Homicidal, Suicidal, threat to staff... and all critical care pts) @ -Yes this could lead to further altered mental status and - Lab Data Result diagrams: 11/08/22 12:20 11/08/22 12:20 Lab Results 11/08/22 11/08/22 11/08/22 Range/Units 12:20 12:20 12:20 WBC 6.0 (3.8-10.6) k/uL RBC 2.99 L (4.30-5.90) m/uL Hgb 10.7 L (13.0-17.5) gm/dL Hct 29.9 L (39.0-53.0) % MCV 99.9 (80.0-100.0) fL MCH 35.9 H (25.0-35.0) pg MCHC 35.9 (31.0-37.0) g/dL RDW 15.9 H (11.5-15.5) % Plt Count 79 L (150-450) k/uL MPV 7.5 Neutrophils % 65 % Lymphocytes % 10 % Monocytes % 6 % Eosinophils % 18 % Basophils % 0 % Neutrophils # 3.9 (1.3-7.7) k/uL Lymphocytes # 0.6 L (1.0-4.8) k/uL Monocytes # 0.4 (0-1.0) k/uL Eosinophils # 1.1 H (0-0.7) k/uL Basophils # 0.0 (0-0.2) k/uL Manual Slide Review Performed Hyperchromasia Moderate Poikilocytosis Slight Macrocytosis Slight PT 12.2 H (9.0-12.0) sec INR 1.2 H (<1.2) APTT 22.3 (22.0-30.0) sec Sodium (137-145) mmol/L Potassium (3.5-5.1) mmol/L Chloride (98-107) mmol/L Carbon Dioxide (22-30) mmol/L Anion Gap mmol/L BUN (9-20) mg/dL Creatinine (0.66-1.25) mg/dL Est GFR (CKD-EPI)AfAm (>60 ml/min/1.73 sqM) Est GFR (CKD-EPI)NonAf (>60 ml/min/1.73 sqM) Glucose (74-99) mg/dL Calcium (8.4-10.2) mg/dL Total Bilirubin (0.2-1.3) mg/dL AST (17-59) U/L ALT (4-49) U/L Alkaline Phosphatase (38-126) U/L Ammonia (<30) umol/L Troponin I (0.000-0.034) ng/mL Total Protein (6.3-8.2) g/dL Albumin (3.5-5.0) g/dL Urine Color Yellow Urine Appearance Clear (Clear) Urine pH 6.5 (5.0-8.0) Ur Specific [place] 1.007 (1.001-1.035) Urine Protein Negative (Negative) Urine Glucose (UA) Negative (Negative) Urine Ketones Negative (Negative) Urine Blood Negative (Negative) Urine Nitrite Negative (Negative) Urine Bilirubin Negative (Negative) Urine Urobilinogen <2.0 (<2.0) mg/dL Ur Leukocyte Esterase Negative (Negative) Urine Opiates Screen Not Detected (NotDetected) Ur Oxycodone Screen Not Detected (NotDetected) Urine Methadone Screen Not Detected (NotDetected) Ur Propoxyphene Screen Not Detected (NotDetected) Ur Barbiturates Screen Not Detected (NotDetected) U Tricyclic Antidepress Not Detected (NotDetected) Ur Phencyclidine Scrn Not Detected (NotDetected) Ur Amphetamines Screen Not Detected (NotDetected) U Methamphetamines Scrn Not Detected (NotDetected) U Benzodiazepines Scrn Not Detected (NotDetected) Urine Cocaine Screen Not Detected (NotDetected) U Marijuana (THC) Screen Not Detected (NotDetected) 11/08/22 11/08/22 11/08/22 Range/Units 12:20 12:20 12:20 WBC (3.8-10.6) k/uL RBC (4.30-5.90) m/uL Hgb (13.0-17.5) gm/dL Hct (39.0-53.0) % MCV (80.0-100.0) fL MCH (25.0-35.0) pg MCHC (31.0-37.0) g/dL RDW (11.5-15.5) % Plt Count (150-450) k/uL MPV Neutrophils % % Lymphocytes % % Monocytes % % Eosinophils % % Basophils % % Neutrophils # (1.3-7.7) k/uL Lymphocytes # (1.0-4.8) k/uL Monocytes # (0-1.0) k/uL Eosinophils # (0-0.7) k/uL Basophils # (0-0.2) k/uL Manual Slide Review Hyperchromasia Poikilocytosis Macrocytosis PT (9.0-12.0) sec INR (<1.2) APTT (22.0-30.0) sec Sodium 129 L (137-145) mmol/L Potassium 3.9 (3.5-5.1) mmol/L Chloride 99 (98-107) mmol/L Carbon Dioxide 24 (22-30) mmol/L Anion Gap 6 mmol/L BUN 16 (9-20) mg/dL Creatinine 0.52 L (0.66-1.25) mg/dL Est GFR (CKD-EPI)AfAm >90 (>60 ml/min/1.73 sqM) Est GFR (CKD-EPI)NonAf >90 (>60 ml/min/1.73 sqM) Glucose 246 H (74-99) mg/dL Calcium 8.4 (8.4-10.2) mg/dL Total Bilirubin 2.7 H (0.2-1.3) mg/dL AST 69 H (17-59) U/L ALT 38 (4-49) U/L Alkaline Phosphatase 189 H (38-126) U/L Ammonia 131 H (<30) umol/L Troponin I 0.017 (0.000-0.034) ng/mL Total Protein 5.5 L (6.3-8.2) g/dL Albumin 2.3 L (3.5-5.0) g/dL Urine Color Urine Appearance (Clear) Urine pH (5.0-8.0) Ur Specific [place] (1.001-1.035) Urine Protein (Negative) Urine Glucose (UA) (Negative) Urine Ketones (Negative) Urine Blood (Negative) Urine Nitrite (Negative) Urine Bilirubin (Negative) Urine Urobilinogen (<2.0) mg/dL Ur Leukocyte Esterase (Negative) Urine Opiates Screen (NotDetected) Ur Oxycodone Screen (NotDetected) Urine Methadone Screen (NotDetected) Ur Propoxyphene Screen (NotDetected) Ur Barbiturates Screen (NotDetected) U Tricyclic Antidepress (NotDetected) Ur Phencyclidine Scrn (NotDetected) Ur Amphetamines Screen (NotDetected) U Methamphetamines Scrn (NotDetected) U Benzodiazepines Scrn (NotDetected) Urine Cocaine Screen (NotDetected) U Marijuana (THC) Screen (NotDetected) Critical Care Time Critical Care Time: Yes Total Critical Care Time: 35 Disposition Clinical Impression: Hepatic encephalopathy Disposition: ADMITTED IP TO THIS HOSP Referrals: Taiwo Ac MD [Primary Care Provider] - 1-2 days Time of Disposition: 14:33
[2022-11-08 14:06] LABS: Appearance,Urine Clear (Clear); Bilirubin,Urine Negative (Negative); Blood,Urine Negative (Negative); Color,Urine Yellow; Glucose,Urine (UA) Negative (Negative); Ketones,Urine Negative (Negative); Leukocyte Esterase,Urine Negative (Negative); Nitrite,Urine Negative (Negative); PH, Urine 6.5 (5.0-8.0); Protein,Urine Negative (Negative); Specific Gravity,Urine 1.007 (1.001-1.035); Urobilinogen,Urine <2.0 mg/dL (<2.0)
[2022-11-08 14:29] LABS: Amphetamine Screen,Urine Not Detected (NotDetected); Barbiturate Screen,Urine Not Detected (NotDetected); Benzodiazepines Screen,Urine Not Detected (NotDetected); Cocaine Screen,Urine Not Detected (NotDetected); Methadone Screen, Urine Not Detected (NotDetected); Opiate Screen,Urine Not Detected (NotDetected); Oxycodone Screen, Urine Not Detected (NotDetected); Phencyclidine Screen,Urine Not Detected (NotDetected); Tricyclic Antidepressant,Urine Not Detected (NotDetected); Urn Cannabinoid Scrn Not Detected (NotDetected)
[2022-11-08] MEDS ORDERED: LACTULOSE 20 GM/30 ML CUP PO ONE (14:34)
[2022-11-08] MEDS ORDERED: QUEtiapine 25 MG TAB PO STA (17:58)
[2022-11-08] MEDS: ALBUTEROL HFA INHALER INHALATION SCH (20:36)
[2022-11-08] MEDS: hydrOXYzine HCL 10 MG TAB PO SCH (20:47)
[2022-11-08] MEDS: INSULIN DETEMIR (LEVEMIR) 100 UNIT/ML SYR SQ SCH (20:47)
[2022-11-08] MEDS: RIFAXIMIN 550 MG TABLET PO SCH (20:47)
[2022-11-08] MEDS: LACTULOSE 20 GM/30 ML CUP PO SCH (20:48)
[2022-11-08 20:49] LABS: Glucose,Whole Blood 159 mg/dL (70-110)
[2022-11-08] MEDS ORDERED: DEXTROSE 50% SYRINGE 50 ML IVP PRN ×2 (23:36)
--- NOTE | 2022-11-08 23:40 | P.HPIM ---
History of Present Illness H&P Date: 11/08/22 Chief Complaint: Altered mental status Patient is a 71-year-old male with a known history of hepatitis C status posttreatment, alcohol abuse, liver cirrhosis, diabetes, anxiety/depression and PTSD and prior history of smoking was brought to the hospital due to altered mental status which is worsening for the past 2 days. Patient was previously admitted to the hospital for hepatic encephalopathy multiple times to [facility]. Patient is awake alert but could not provide any history at this time. Patient's stated that he was treated for hepatitis C about 4 years ago. Does have history of alcohol abuse. Patient was on liver transplant list at [facility] but recently removed due to improvement in his MELD score. Patient does take lactulose 45 g 3 times daily at home as recommended by his physician. Patient does not have any fever or chills. Denies any chest pain or shortness of breath. No nausea vomiting abdominal pain or diarrhea. No cough or sputum production. Chest x-ray showed no acute process. COPD correlate for chronic interstitial pulmonary fibrosis. EKG showed sinus rhythm. Patient was hypotensive with blood pressure 93/59 and pulse ox 94% on room air on admission. Patient does take Lasix and spironolactone at home. Laboratory data showed WBC 6.0 hemoglobin 10.7 platelets 79 Sodium 129 potassium 3.9 chloride 99 bicarb is 24 BUN 16 and creatinine 0.52 and blood sugar is 246 Total bilirubin level is 2.7 AST 69 ALT 38 and alk phos 189 ammonia level is 131 and albumin 2.1 Troponin x1 negative Review of Systems ROS unobtainable: due to mental status Past Medical History Past Medical History: Asthma, Cancer, Diabetes Mellitus, GERD/Reflux, Liver Disease, Osteoarthritis (OA) Additional Past Medical History / Comment(s): basal cell CA face and left chest, cirrhosis of the liver, hepatitis C possibly from blood transfusion as a child, palpable mass right parotid ,left leg arthritis with occasional edema to lower leg, has had recent us to r/o dvt was negative test History of Any Multi-Drug Resistant Organisms: None Reported Past Surgical History: Hernia Repair Additional Past Surgical History / Comment(s): sinus surgery, left wrist tendon injury repair, shunt placed "in liver" per patient Past Anesthesia/Blood Transfusion Reactions: No Reported Reaction Past Psychological History: Anxiety, Depression, PTSD Smoking Status: Former smoker Past Alcohol Use History: None Reported, Heavy Past Drug Use History: None Reported - Past Family History Mother Family Medical History: Cancer Additional Family Medical History / Comment(s): patient is unsure if ovarian or colon Medications and Allergies Home Medications Medication Instructions Recorded Confirmed Type Omalizumab [Xolair] 150 mg SQ Q14D 04/28/18 11/08/22 History Ferrous Sulfate [Feosol] 325 mg PO MOWEFR 03/14/21 11/08/22 History Fluticasone Nasal [place] [Flonase 2 spray EA NOSTRIL DAILY 03/14/21 11/08/22 His tory Nasal [place]] Lactulose 30 gm PO BID 03/14/21 11/08/22 History Omeprazole 20 mg PO DAILY 03/14/21 11/08/22 History Rifaximin [Xifaxan] 550 mg PO BID 03/14/21 11/08/22 History Fluticasone Propion/Salmeterol 1 puff INHALATION RT-BID 09/07/21 11/08/22 History [Advair 500-50 Diskus] Albuterol Sulfate [Albuterol 2 puff PO RT-QID 11/08/22 11/08/22 History Sulfate Hfa] Furosemide [Lasix] 40 mg PO BID 11/08/22 11/08/22 History Insulin Glargine,Hum.rec.anlog 10 units SQ HS 11/08/22 11/08/22 History [Lantus Solostar Pen] Spironolactone [Aldactone] 100 mg PO DAILY 11/08/22 11/08/22 History hydrOXYzine HCL [Atarax] 10 mg PO HS 11/08/22 11/08/22 History metFORMIN HCL ER [Glucophage XR] 500 mg PO BID 11/08/22 11/08/22 History Allergies Allergy/AdvReac Type Severity Reaction Status Date / Time cefuroxime [From Ceftin] AdvReac Rash/Hives Verified 11/08/22 12:30 Physical Exam Vitals: Vital Signs Temp Pulse Pulse Resp BP BP Pulse Ox 11/08/22 21:03 99/50 11/08/22 20:26 97.3 F L 97 16 94/45 98 11/08/22 19:00 87 93/57 98 11/08/22 18:00 98.4 F 89 18 97/60 99 11/08/22 17:57 89 18 97/60 97 11/08/22 17:00 95 96/56 97 11/08/22 16:00 89 18 96/57 97 11/08/22 15:00 85 98/58 96 11/08/22 14:00 85 95/52 95 11/08/22 13:56 82 18 93/56 96 11/08/22 12:00 89 98/57 97 11/08/22 11:27 98.0 F 92 20 93/59 94 L Intake and Output 11/08/22 11/08/22 11/08/22 06:59 14:59 22:59 Output Total 20 Balance -20 Output: Urine 20 Straight 20 Other: Weight 63.503 kg PHYSICAL EXAMINATION: Patient is awake and alert but lethargic and drowsy... HEENT: Normocephalic. Neck is supple. Pupils reactive. Nostrils clear. Oral cavity is moist. Neck reveals no JVD, carotid bruits, or thyromegaly. CHEST EXAMINATION: Trachea is central. Symmetrical expansion. Lung shah clear to auscultation and percussion. CARDIAC: Normal S1, S2 with no gallops. No murmurs ABDOMEN: Soft. Bowel sounds present. Nontender. No organomegaly. No abdominal bruits. Extremities: reveal no edema. No clubbing or cyanosis Neurologically awake, alert, oriented x1. Able to move extremities while in bed.. No gross focal deficits noted Skin: No rash or skin lesions. Psychiatric: Coperative. Could not be assessed completely., Musculoskeletal: No joint swelling or deformity Results CBC & Chem 7: 11/08/22 12:20 11/08/22 12:20 Labs: Abnormal Lab Results - Last 24 Hours (Table) 11/08/22 11/08/22 11/08/22 Range/Units 12:20 12:20 12:20 RBC 2.99 L (4.30-5.90) m/uL Hgb 10.7 L (13.0-17.5) gm/dL Hct 29.9 L (39.0-53.0) % MCH 35.9 H (25.0-35.0) pg RDW 15.9 H (11.5-15.5) % Plt Count 79 L (150-450) k/uL Lymphocytes # 0.6 L (1.0-4.8) k/uL Eosinophils # 1.1 H (0-0.7) k/uL PT 12.2 H (9.0-12.0) sec INR 1.2 H (<1.2) Sodium 129 L (137-145) mmol/L Creatinine 0.52 L (0.66-1.25) mg/dL Glucose 246 H (74-99) mg/dL POC Glucose (mg/dL) (70-110) mg/dL Total Bilirubin 2.7 H (0.2-1.3) mg/dL AST 69 H (17-59) U/L Alkaline Phosphatase 189 H (38-126) U/L Ammonia (<30) umol/L Total Protein 5.5 L (6.3-8.2) g/dL Albumin 2.3 L (3.5-5.0) g/dL 11/08/22 11/08/22 Range/Units 12:20 20:48 RBC (4.30-5.90) m/uL Hgb (13.0-17.5) gm/dL Hct (39.0-53.0) % MCH (25.0-35.0) pg RDW (11.5-15.5) % Plt Count (150-450) k/uL Lymphocytes # (1.0-4.8) k/uL Eosinophils # (0-0.7) k/uL PT (9.0-12.0) sec INR (<1.2) Sodium (137-145) mmol/L Creatinine (0.66-1.25) mg/dL Glucose (74-99) mg/dL POC Glucose (mg/dL) 159 H (70-110) mg/dL Total Bilirubin (0.2-1.3) mg/dL AST (17-59) U/L Alkaline Phosphatase (38-126) U/L Ammonia 131 H (<30) umol/L Total Protein (6.3-8.2) g/dL Albumin (3.5-5.0) g/dL Thrombosis Risk Factor Assmnt - DVT/VTE Prophylaxis DVT/VTE Prophylaxis: Pharmacologic Prophylaxis ordered Assessment and Plan Assessment: Acute hepatic encephalopathy with ammonia level 131 on admission Alcoholic liver cirrhosis History hepatitis C s/p treatment 4 years ago Chronic thrombocytopenia Hyperglycemia uncontrolled diabetes type 2 Elevated AST and alk phos levels History of basal cell cancer of the face and left chest Anxiety/depression and PTSD Prior history of smoking History of daily alcohol abuse DVT prophylaxis with heparin SQ every 12 Plan: Patient will be continued on IV hydration and monitor fluid status closely. Continue with lactulose 40 g p.o. 3 times daily. Patient was started back on Lasix, spironolactone and rifaximin. Continue with other home medications and follow-up closely. Discussed with his family at bedside in detail. Prognosis guarded at this time Time with Patient: Greater than 30
[2022-11-09 07:14] LABS: Glucose,Whole Blood 112 mg/dL (70-110)
[2022-11-09 07:58] LABS: Basophils % (A) 0 %; Eosinophils # (A) 0.6 k/uL (0-0.7); Eosinophils % (A) 16 %; HCT 26.1 % (39.0-53.0); HGB 9.3 gm/dL (13.0-17.5); Lymphocytes # (A) 0.4 k/uL (1.0-4.8); Lymphocytes % (A) 11 %; MCH 36.6 pg (25.0-35.0); MCHC 35.7 g/dL (31.0-37.0); MCV 102.5 fL (80.0-100.0); Macrocytosis Slight; Monocytes # (A) 0.3 k/uL (0-1.0); Monocytes % (A) 7 %; Neutrophils # (A) 2.4 k/uL (1.3-7.7); Neutrophils % (A) 65 %; Poikilocytosis Slight; RBC 2.54 m/uL (4.30-5.90); RDW 15.2 % (11.5-15.5); WBC 3.7 k/uL (3.8-10.6)
[2022-11-09 08:06] LABS: Platelet Count 66 k/uL (150-450)
[2022-11-09] MEDS: INSULIN ASPART (NovoLOG) 100 UNIT/ML VIAL SQ SCH ×4 (08:15→20:37)
[2022-11-09 08:47] LABS: ALT 35 U/L (4-49); AST 57 U/L (17-59); African American GFR (CKD) >90 (>60 ml/min/1.73 sqM); Albumin/Globulin Ratio 0.7; Alkaline Phosphatase 166 U/L (38-126); Anion Gap 3 mmol/L; Blood Urea Nitrogen 15 mg/dL (9-20); Calcium 7.8 mg/dL (8.4-10.2); Carbon Dioxide 26 mmol/L (22-30); Chloride 102 mmol/L (98-107); Globulin 2.9 g/dL; Glucose 107 mg/dL (74-99); Non-African American GFR(CKD) >90 (>60 ml/min/1.73 sqM); Potassium 4.1 mmol/L (3.5-5.1); Sodium 131 mmol/L (137-145); Total Protein 4.9 g/dL (6.3-8.2)
[2022-11-09] MEDS ORDERED: PANTOPRAZOLE 40 MG/10 ML VIAL IVP SCH (09:00)
[2022-11-09 09:04] VITALS: BMI 21.2
[2022-11-09] MEDS: ALBUTEROL HFA INHALER INHALATION SCH ×4 (09:05→20:57)
[2022-11-09] MEDS: SPIRONOLACTONE 25 MG TAB PO SCH (09:34)
[2022-11-09] MEDS: PANTOPRAZOLE 40 MG TABLET PO SCH (09:34)
[2022-11-09] MEDS: LACTULOSE 20 GM/30 ML CUP PO SCH (09:34)
[2022-11-09] MEDS: RIFAXIMIN 550 MG TABLET PO SCH ×2 (09:35→20:36)
[2022-11-09] MEDS: HEPARIN SODIUM,PORCINE/PF 5,000 UNIT/0.5 ML SYRINGE SQ SCH ×2 (09:59→20:36)
[2022-11-09] MEDS: FLUTICASONE 50MCG/SPRAY NASAL 16GM EA NOSTRIL SCH (10:34)
[2022-11-09] MEDS: SYMBICORT 160-4.5 MCG INHALER INHALATION SCH ×2 (10:57→10:58)
[2022-11-09 11:27] LABS: Glucose,Whole Blood 162 mg/dL (70-110)
[2022-11-09] MEDS: SODIUM CHLORIDE 0.9% 1,000 ML IV SCH ×2 (15:25→20:37)
[2022-11-09] MEDS: LACTULOSE 200 GM/300 ML (FROM 1/2 GAL JUG) RECTAL SCH (15:25)
[2022-11-09 17:37] LABS: Glucose,Whole Blood 162 mg/dL (70-110)
[2022-11-09 20:26] LABS: Glucose,Whole Blood 159 mg/dL (70-110)
[2022-11-09] MEDS: hydrOXYzine HCL 10 MG TAB PO SCH (20:36)
[2022-11-09] MEDS: INSULIN DETEMIR (LEVEMIR) 100 UNIT/ML SYR SQ SCH (20:37)
[2022-11-10 07:07] LABS: Glucose,Whole Blood 139 mg/dL (70-110)
[2022-11-10] MEDS: SYMBICORT 160-4.5 MCG INHALER INHALATION SCH ×3 (07:34→20:11)
[2022-11-10] MEDS: INSULIN ASPART (NovoLOG) 100 UNIT/ML VIAL SQ SCH ×4 (07:34→21:21)
[2022-11-10 07:52] LABS: Basophils % (A) 0 %; Eosinophils # (A) 0.8 k/uL (0-0.7); Eosinophils % (A) 14 %; HCT 26.2 % (39.0-53.0); HGB 9.5 gm/dL (13.0-17.5); Lymphocytes # (A) 0.5 k/uL (1.0-4.8); Lymphocytes % (A) 8 %; MCH 37.2 pg (25.0-35.0); MCHC 36.2 g/dL (31.0-37.0); MCV 102.5 fL (80.0-100.0); Macrocytosis Slight; Mean Platelet Volume 6.8; Monocytes # (A) 0.4 k/uL (0-1.0); Monocytes % (A) 6 %; Neutrophils # (A) 4.4 k/uL (1.3-7.7); Neutrophils % (A) 71 %; Poikilocytosis Slight; RBC 2.56 m/uL (4.30-5.90); RDW 15.2 % (11.5-15.5); WBC 6.2 k/uL (3.8-10.6)
[2022-11-10 07:57] LABS: Platelet Count 73 k/uL (150-450)
[2022-11-10 08:20] LABS: ALT 33 U/L (4-49); AST 55 U/L (17-59); African American GFR (CKD) >90 (>60 ml/min/1.73 sqM); Albumin/Globulin Ratio 0.6; Alkaline Phosphatase 155 U/L (38-126); Anion Gap 2 mmol/L; Blood Urea Nitrogen 14 mg/dL (9-20); Calcium 7.6 mg/dL (8.4-10.2); Carbon Dioxide 22 mmol/L (22-30); Chloride 103 mmol/L (98-107); Globulin 3.1 g/dL; Glucose 125 mg/dL (74-99); Non-African American GFR(CKD) >90 (>60 ml/min/1.73 sqM); Potassium 3.8 mmol/L (3.5-5.1); Sodium 127 mmol/L (137-145); Total Bilirubin 3.6 mg/dL (0.2-1.3); Total Protein 5.1 g/dL (6.3-8.2)
[2022-11-10] MEDS: ALBUTEROL HFA INHALER INHALATION SCH ×4 (08:45→20:11)
[2022-11-10] MEDS: HEPARIN SODIUM,PORCINE/PF 5,000 UNIT/0.5 ML SYRINGE SQ SCH ×2 (09:20→21:21)
[2022-11-10] MEDS: FLUTICASONE 50MCG/SPRAY NASAL 16GM EA NOSTRIL SCH (09:20)
[2022-11-10] MEDS: RIFAXIMIN 550 MG TABLET PO SCH ×2 (09:21→21:21)
[2022-11-10] MEDS: PANTOPRAZOLE 40 MG TABLET PO SCH (09:21)
[2022-11-10] MEDS: SPIRONOLACTONE 25 MG TAB PO SCH (09:22)
[2022-11-10 11:15] LABS: Glucose,Whole Blood 200 mg/dL (70-110)
[2022-11-10] MEDS: LACTULOSE 200 GM/300 ML (FROM 1/2 GAL JUG) RECTAL SCH (12:32)
[2022-11-10] MEDS: SODIUM CHLORIDE 0.9% 1,000 ML IV SCH (16:19)
[2022-11-10] MEDS: LACTULOSE 20 GM/30 ML CUP PO SCH ×2 (16:19→21:22)
[2022-11-10 17:03] LABS: Glucose,Whole Blood 192 mg/dL (70-110)
[2022-11-10 20:40] LABS: Glucose,Whole Blood 293 mg/dL (70-110)
[2022-11-10] MEDS: hydrOXYzine HCL 10 MG TAB PO SCH (21:21)
[2022-11-10] MEDS: INSULIN DETEMIR (LEVEMIR) 100 UNIT/ML SYR SQ SCH (21:21)
--- NOTE | 2022-11-11 02:19 | P.PN ---
Subjective Progress Note Date: 11/09/22 Patient is a 71-year-old male with a known history of hepatitis C status posttreatment, alcohol abuse, liver cirrhosis, diabetes, anxiety/depression and PTSD and prior history of smoking was brought to the hospital due to altered mental status which is worsening for the past 2 days. Patient was previously admitted to the hospital for hepatic encephalopathy multiple times to [facility]. Patient is awake alert but could not provide any history at this time. Patient's stated that he was treated for hepatitis C about 4 years ago. Does have history of alcohol abuse. Patient was on liver transplant list at [facility] but recently removed due to improvement in his MELD score. Patient does take lactulose 45 g 3 times daily at home as recommended by his physician. Patient does not have any fever or chills. Denies any chest pain or shortness of breath. No nausea vomiting abdominal pain or diarrhea. No cough or sputum production. Chest x-ray showed no acute process. COPD correlate for chronic interstitial pulmonary fibrosis. EKG showed sinus rhythm. Patient was hypotensive with blood pressure 93/59 and pulse ox 94% on room air on admission. Patient does take Lasix and spironolactone at home. Laboratory data showed WBC 6.0 hemoglobin 10.7 platelets 79 Sodium 129 potassium 3.9 chloride 99 bicarb is 24 BUN 16 and creatinine 0.52 and blood sugar is 246 Total bilirubin level is 2.7 AST 69 ALT 38 and alk phos 189 ammonia level is 131 and albumin 2.1 Troponin x1 negative 11/09/2022 Patient is lying in the bed comfortably. Patient is more lethargic and encephalopathic today. Unable to tolerate oral intake.. Patient has been afebrile. No cough or sputum production. Laboratory showed WBC 3.7 hemoglobin 9.3 and platelets 66 sodium 131 potassium 4.1 chloride 102 bicarb is 26 BUN 15 and creatinine 0.56 and A1c 6.6 Total bilirubin level 3.0 AST 57 ALT 35 and alk phos 166. Ammonia level went up to 172 today. Current medications reviewed. Objective - Vital Signs Vital signs: Vital Signs Temp 97.9 F 11/09/22 19:20 Pulse 98 11/09/22 19:40 Resp 16 11/09/22 19:40 BP 94/40 11/09/22 19:20 Pulse Ox 95 11/09/22 19:20 FiO2 Intake & Output 11/09/22 11/09/22 11/10/22 06:59 18:59 06:59 Intake Total 120 180 Output Total 600 800 Balance -480 -620 Weight 63.503 kg 63.503 kg Intake: Oral 120 180 Output: Urine 600 800 Other: Voiding Method Incontinent Incontinent Incontinent External Catheter External Catheter External Catheter # Bowel Movements 1 - Exam PHYSICAL EXAMINATION: Patient is awake and alert but lethargic and drowsy... HEENT: Normocephalic. Neck is supple. Pupils reactive. Nostrils clear. Oral cavity is moist. Neck reveals no JVD, carotid bruits, or thyromegaly. CHEST EXAMINATION: Trachea is central. Symmetrical expansion. Lung shah clear to auscultation and percussion. CARDIAC: Normal S1, S2 with no gallops. No murmurs ABDOMEN: Soft. Bowel sounds present. Nontender. No organomegaly. No abdominal bruits. Extremities: reveal no edema. No clubbing or cyanosis Neurologically awake, alert, oriented x1. Able to move extremities while in bed.. No gross focal deficits noted Skin: No rash or skin lesions. Psychiatric: Coperative. Could not be assessed completely., Musculoskeletal: No joint swelling or deformity - Labs CBC & Chem 7: 11/10/22 06:56 11/10/22 06:56 Labs: Abnormal Lab Results - Last 24 Hours (Table) 11/09/22 11/09/22 11/09/22 Range/Units 07:12 07:22 07:22 WBC 3.7 L (3.8-10.6) k/uL RBC 2.54 L (4.30-5.90) m/uL Hgb 9.3 L (13.0-17.5) gm/dL Hct 26.1 L (39.0-53.0) % MCV 102.5 H (80.0-100.0) fL MCH 36.6 H (25.0-35.0) pg Plt Count 66 L (150-450) k/uL Lymphocytes # 0.4 L (1.0-4.8) k/uL Sodium 131 L (137-145) mmol/L Creatinine 0.56 L (0.66-1.25) mg/dL Glucose 107 H (74-99) mg/dL POC Glucose (mg/dL) 112 H (70-110) mg/dL Hemoglobin A1c (<=6.0) % Calcium 7.8 L (8.4-10.2) mg/dL Total Bilirubin 3.0 H (0.2-1.3) mg/dL Alkaline Phosphatase 166 H (38-126) U/L Ammonia (<30) umol/L Total Protein 4.9 L (6.3-8.2) g/dL Albumin 2.0 L (3.5-5.0) g/dL 11/09/22 11/09/22 11/09/22 Range/Units 07:22 07:22 11:20 WBC (3.8-10.6) k/uL RBC (4.30-5.90) m/uL Hgb (13.0-17.5) gm/dL Hct (39.0-53.0) % MCV (80.0-100.0) fL MCH (25.0-35.0) pg Plt Count (150-450) k/uL Lymphocytes # (1.0-4.8) k/uL Sodium (137-145) mmol/L Creatinine (0.66-1.25) mg/dL Glucose (74-99) mg/dL POC Glucose (mg/dL) 162 H (70-110) mg/dL Hemoglobin A1c 6.6 H (<=6.0) % Calcium (8.4-10.2) mg/dL Total Bilirubin (0.2-1.3) mg/dL Alkaline Phosphatase (38-126) U/L Ammonia 172 H (<30) umol/L Total Protein (6.3-8.2) g/dL Albumin (3.5-5.0) g/dL 11/09/22 11/09/22 Range/Units 17:34 20:24 WBC (3.8-10.6) k/uL RBC (4.30-5.90) m/uL Hgb (13.0-17.5) gm/dL Hct (39.0-53.0) % MCV (80.0-100.0) fL MCH (25.0-35.0) pg Plt Count (150-450) k/uL Lymphocytes # (1.0-4.8) k/uL Sodium (137-145) mmol/L Creatinine (0.66-1.25) mg/dL Glucose (74-99) mg/dL POC Glucose (mg/dL) 162 H 159 H (70-110) mg/dL Hemoglobin A1c (<=6.0) % Calcium (8.4-10.2) mg/dL Total Bilirubin (0.2-1.3) mg/dL Alkaline Phosphatase (38-126) U/L Ammonia (<30) umol/L Total Protein (6.3-8.2) g/dL Albumin (3.5-5.0) g/dL Assessment and Plan Assessment: Acute hepatic encephalopathy with ammonia level 131 on admission Alcoholic liver cirrhosis History hepatitis C s/p treatment 4 years ago Chronic thrombocytopenia Hyperglycemia uncontrolled diabetes type 2 Elevated AST and alk phos levels History of basal cell cancer of the face and left chest Anxiety/depression and PTSD Prior history of smoking History of daily alcohol abuse DVT prophylaxis with heparin SQ every 12 Plan: Patient will be continued on IV hydration and monitor fluid status closely. Continue with lactulose 40 g p.o. 3 times daily.Patient is unable to take any oral intake. Was given lactulose enema today. Patient was started back on Lasix, spironolactone and rifaximin. Continue with other home medications and follow-up closely. Discussed with his family at bedside in detail. Prognosis guarded at this time Time with Patient: Greater than 30
--- NOTE | 2022-11-11 02:21 | P.PN ---
Subjective Progress Note Date: 11/10/22 Patient is a 71-year-old male with a known history of hepatitis C status posttreatment, alcohol abuse, liver cirrhosis, diabetes, anxiety/depression and PTSD and prior history of smoking was brought to the hospital due to altered mental status which is worsening for the past 2 days. Patient was previously admitted to the hospital for hepatic encephalopathy multiple times to [facility]. Patient is awake alert but could not provide any history at this time. Patient's stated that he was treated for hepatitis C about 4 years ago. Does have history of alcohol abuse. Patient was on liver transplant list at [facility] but recently removed due to improvement in his MELD score. Patient does take lactulose 45 g 3 times daily at home as recommended by his physician. Patient does not have any fever or chills. Denies any chest pain or shortness of breath. No nausea vomiting abdominal pain or diarrhea. No cough or sputum production. Chest x-ray showed no acute process. COPD correlate for chronic interstitial pulmonary fibrosis. EKG showed sinus rhythm. Patient was hypotensive with blood pressure 93/59 and pulse ox 94% on room air on admission. Patient does take Lasix and spironolactone at home. Laboratory data showed WBC 6.0 hemoglobin 10.7 platelets 79 Sodium 129 potassium 3.9 chloride 99 bicarb is 24 BUN 16 and creatinine 0.52 and blood sugar is 246 Total bilirubin level is 2.7 AST 69 ALT 38 and alk phos 189 ammonia level is 131 and albumin 2.1 Troponin x1 negative 11/09/2022 Patient is lying in the bed comfortably. Patient is more lethargic and encephalopathic today. Unable to tolerate oral intake.. Patient has been afebrile. No cough or sputum production. Laboratory showed WBC 3.7 hemoglobin 9.3 and platelets 66 sodium 131 potassium 4.1 chloride 102 bicarb is 26 BUN 15 and creatinine 0.56 and A1c 6.6 Total bilirubin level 3.0 AST 57 ALT 35 and alk phos 166. Ammonia level went up to 172 today. 11/10/2022 Patient was more awake and was able to tolerate oral intake after giving lactulose enema. Lactulose changed to by mouth now. Ammonia level is elevated but came down to 91. Other laboratory showed WBC 6.2 hemoglobin 9.5 and platelets 73, sodium 137 potassium 3.8 chloride 103 bicarb is 22 BUN 14 and creatinine 0.53 and blood sugar is 125. Bilirubin level is 3.6,, alk phos 155. Albumin 2.0. Patient is also on IV hydration with normal saline at 75 cc/h. Current medications reviewed. Objective - Vital Signs Vital signs: Vital Signs Temp 98.3 F 11/10/22 12:02 Pulse 103 H 11/10/22 12:02 Resp 16 11/10/22 12:02 BP 77/36 11/10/22 12:02 Pulse Ox 94 L 11/10/22 12:02 FiO2 Intake & Output 11/09/22 11/10/22 11/10/22 18:59 06:59 18:59 Intake Total 180 1610 Output Total 800 600 Balance -620 1010 Weight 63.503 kg Intake: Intake, IV Titration 900 Amount Sodium Chloride 0.9% 1, 900 000 ml @ 75 mls/hr IV . [id number] [facility] Rx#:[id number] Oral 180 710 Output: Urine 800 600 Other: Voiding Method Incontinent Incontinent Incontinent External Catheter External Catheter External Catheter # Voids 1 # Bowel Movements 1 - Exam PHYSICAL EXAMINATION: Patient is awake and alert but lethargic and drowsy... HEENT: Normocephalic. Neck is supple. Pupils reactive. Nostrils clear. Oral cavity is moist. Neck reveals no JVD, carotid bruits, or thyromegaly. CHEST EXAMINATION: Trachea is central. Symmetrical expansion. Lung shah clear to auscultation and percussion. CARDIAC: Normal S1, S2 with no gallops. No murmurs ABDOMEN: Soft. Bowel sounds present. Nontender. No organomegaly. No abdominal bruits. Extremities: reveal no edema. No clubbing or cyanosis Neurologically awake, alert, oriented x1. Able to move extremities while in bed.. No gross focal deficits noted Skin: No rash or skin lesions. Psychiatric: Coperative. Could not be assessed completely., Musculoskeletal: No joint swelling or deformity - Labs CBC & Chem 7: 11/10/22 06:56 11/10/22 06:56 Labs: Abnormal Lab Results - Last 24 Hours (Table) 11/09/22 11/09/22 11/10/22 Range/Units 17:34 20:24 06:56 RBC 2.56 L (4.30-5.90) m/uL Hgb 9.5 L (13.0-17.5) gm/dL Hct 26.2 L (39.0-53.0) % MCV 102.5 H (80.0-100.0) fL MCH 37.2 H (25.0-35.0) pg Plt Count 73 L (150-450) k/uL Lymphocytes # 0.5 L (1.0-4.8) k/uL Eosinophils # 0.8 H (0-0.7) k/uL Sodium (137-145) mmol/L Creatinine (0.66-1.25) mg/dL Glucose (74-99) mg/dL POC Glucose (mg/dL) 162 H 159 H (70-110) mg/dL Calcium (8.4-10.2) mg/dL Total Bilirubin (0.2-1.3) mg/dL Alkaline Phosphatase (38-126) U/L Ammonia (<30) umol/L Total Protein (6.3-8.2) g/dL Albumin (3.5-5.0) g/dL 11/10/22 11/10/22 11/10/22 Range/Units 06:56 06:56 07:06 RBC (4.30-5.90) m/uL Hgb (13.0-17.5) gm/dL Hct (39.0-53.0) % MCV (80.0-100.0) fL MCH (25.0-35.0) pg Plt Count (150-450) k/uL Lymphocytes # (1.0-4.8) k/uL Eosinophils # (0-0.7) k/uL Sodium 127 L (137-145) mmol/L Creatinine 0.53 L (0.66-1.25) mg/dL Glucose 125 H (74-99) mg/dL POC Glucose (mg/dL) 139 H (70-110) mg/dL Calcium 7.6 L (8.4-10.2) mg/dL Total Bilirubin 3.6 H (0.2-1.3) mg/dL Alkaline Phosphatase 155 H (38-126) U/L Ammonia 91 H (<30) umol/L Total Protein 5.1 L (6.3-8.2) g/dL Albumin 2.0 L (3.5-5.0) g/dL 11/10/22 Range/Units 11:14 RBC (4.30-5.90) m/uL Hgb (13.0-17.5) gm/dL Hct (39.0-53.0) % MCV (80.0-100.0) fL MCH (25.0-35.0) pg Plt Count (150-450) k/uL Lymphocytes # (1.0-4.8) k/uL Eosinophils # (0-0.7) k/uL Sodium (137-145) mmol/L Creatinine (0.66-1.25) mg/dL Glucose (74-99) mg/dL POC Glucose (mg/dL) 200 H (70-110) mg/dL Calcium (8.4-10.2) mg/dL Total Bilirubin (0.2-1.3) mg/dL Alkaline Phosphatase (38-126) U/L Ammonia (<30) umol/L Total Protein (6.3-8.2) g/dL Albumin (3.5-5.0) g/dL Assessment and Plan Assessment: Acute hepatic encephalopathy with ammonia level 131 on admission Alcoholic liver cirrhosis History hepatitis C s/p treatment 4 years ago Chronic thrombocytopenia Hyperglycemia uncontrolled diabetes type 2 Elevated AST and alk phos levels History of basal cell cancer of the face and left chest Anxiety/depression and PTSD Prior history of smoking History of daily alcohol abuse DVT prophylaxis with heparin SQ every 12 Plan: Patient will be continued on IV hydration and monitor fluid status closely. Continue with lactulose 40 g p.o. 3 times daily. Was given lactulose enema on 11/09. Patient was started back on Lasix, spironolactone and rifaximin. Continue with other home medications and follow-up closely. Discussed with his family at bedside in detail. Prognosis guarded at this time Time with Patient: Greater than 30
[2022-11-11 06:38] LABS: Basophils % (A) 0 %; Eosinophils # (A) 0.5 k/uL (0-0.7); Eosinophils % (A) 11 %; HCT 24.8 % (39.0-53.0); HGB 9.1 gm/dL (13.0-17.5); Lymphocytes # (A) 0.3 k/uL (1.0-4.8); Lymphocytes % (A) 7 %; MCH 37.6 pg (25.0-35.0); MCHC 36.7 g/dL (31.0-37.0); MCV 102.6 fL (80.0-100.0); Macrocytosis Slight; Mean Platelet Volume 7.6; Monocytes # (A) 0.3 k/uL (0-1.0); Monocytes % (A) 6 %; Neutrophils # (A) 3.2 k/uL (1.3-7.7); Neutrophils % (A) 75 %; Poikilocytosis Slight; RBC 2.42 m/uL (4.30-5.90); RDW 14.8 % (11.5-15.5); WBC 4.3 k/uL (3.8-10.6)
[2022-11-11 06:56] LABS: Platelet Count 55 k/uL (150-450)
[2022-11-11 07:04] LABS: ALT 31 U/L (4-49); AST 49 U/L (17-59); African American GFR (CKD) >90 (>60 ml/min/1.73 sqM); Albumin/Globulin Ratio 0.6; Alkaline Phosphatase 143 U/L (38-126); Anion Gap 3 mmol/L; Blood Urea Nitrogen 10 mg/dL (9-20); Calcium 7.7 mg/dL (8.4-10.2); Carbon Dioxide 22 mmol/L (22-30); Chloride 105 mmol/L (98-107); Globulin 3.1 g/dL; Glucose 80 mg/dL (74-99); Non-African American GFR(CKD) >90 (>60 ml/min/1.73 sqM); Potassium 3.7 mmol/L (3.5-5.1); Sodium 130 mmol/L (137-145); Total Bilirubin 2.7 mg/dL (0.2-1.3); Total Protein 5.1 g/dL (6.3-8.2)
[2022-11-11] MEDS: ALBUTEROL HFA INHALER INHALATION SCH ×4 (07:58→18:25)
[2022-11-11] MEDS: SYMBICORT 160-4.5 MCG INHALER INHALATION SCH ×2 (07:58→18:25)
[2022-11-11 08:00] LABS: Glucose,Whole Blood 92 mg/dL (70-110)
[2022-11-11] MEDS: INSULIN ASPART (NovoLOG) 100 UNIT/ML VIAL SQ SCH ×4 (08:00→21:49)
[2022-11-11 08:10] LABS: Spherocytes Present
[2022-11-11] MEDS: FLUTICASONE 50MCG/SPRAY NASAL 16GM EA NOSTRIL SCH (09:25)
[2022-11-11] MEDS: HEPARIN SODIUM,PORCINE/PF 5,000 UNIT/0.5 ML SYRINGE SQ SCH ×2 (09:26→21:49)
[2022-11-11] MEDS: LACTULOSE 20 GM/30 ML CUP PO SCH ×3 (09:32→21:51)
[2022-11-11 11:10] LABS: Glucose,Whole Blood 182 mg/dL (70-110)
[2022-11-11] MEDS: LEVOFLOXACIN 500MG-D5W PMX 500 MG in DEXTROSE/WATER 1 100ML.BAG IVPB SCH (11:37)
[2022-11-11] MEDS: PANTOPRAZOLE 40 MG TABLET PO SCH (12:58)
[2022-11-11] MEDS: SPIRONOLACTONE 25 MG TAB PO SCH (12:58)
[2022-11-11] MEDS: RIFAXIMIN 550 MG TABLET PO SCH ×2 (12:58→21:49)
--- NOTE | 2022-11-11 13:07 | PN ---
PROGRESS NOTE DATE OF SERVICE: 11/11/2022 SUBJECTIVE: This is a 71-year-old gentleman admitted with severe hepatic encephalopathy. He continues to be confused. The patient is unable to drink fluids and the food is actually drooling out of the mouth. The patient is confused. Some dysarthria also noted. PAST MEDICAL HISTORY: Reviewed. REVIEW OF SYSTEMS: Could not be taken. CURRENT MEDICATIONS: Reviewed include lactulose and dose and rest of medication noted. PHYSICAL EXAMINATION: VITAL SIGNS: Pulse is 120, blood pressure 84/58, respirations 20. HEENT: Conjunctivae normal. NECK: No JVD. CARDIOVASCULAR: S1, S2 muffled. RESPIRATIONS: Breath sounds diminished at the bases. Scattered rhonchi. ABDOMEN: Soft. Ascites present. LEGS: No edema. NERVOUS SYSTEM: Nonfocal. LABORATORY DATA: Reviewed. ASSESSMENT: 1. Acute hepatic encephalopathy with ammonia 131. 2. Rule out spontaneous bacterial peritonitis. 3. Alcoholic liver cirrhosis. 4. History of hepatitis C. 5. Chronic thrombocytopenia. 6. Hyperglycemia. 7. Elevated AST. 8. Change in mental status, metabolic encephalopathy. 9. Diminished p.o. intake. RECOMMENDATIONS: Recommend to continue current management. Continue symptomatic treatment. We will initiate empiric antibiotics, cultures and prognosis extremely guarded. The patient continues to be confused. We will get speech pathology and continue with lactulose, repeat ammonia levels. See orders for further details. Further recommendations to follow. MMODL / ЕКАТЕРИНАN: [id number] /
[2022-11-11 17:32] LABS: Glucose,Whole Blood 231 mg/dL (70-110)
[2022-11-11 20:28] LABS: Glucose,Whole Blood 244 mg/dL (70-110)
[2022-11-11] MEDS: INSULIN DETEMIR (LEVEMIR) 100 UNIT/ML SYR SQ SCH (21:48)
[2022-11-11] MEDS: hydrOXYzine HCL 10 MG TAB PO SCH (21:51)
[2022-11-11] MEDS: SODIUM CHLORIDE 0.9% 1,000 ML IV SCH ×2 (21:53→21:59)
--- NOTE | 2022-11-11 22:28 | P.CONS ---
History of Present Illness - Reason for Consult Consult date: 11/11/22 - History of Present Illness Patient is 71-year old male with a past medical history significant for Diabetes mellitus reflux osteoarthritis cirrhosis of the liver PTSD depression and anxiety has been brought into the ER about 4 days ago for evaluation of mental status changes apparently has been intermittent throughout the week before the patient was brought to the hospital worse the day of presentation on arrival to the ER patient was afebrile and no fever has been recorded during this hospital stay patient started getting tachycardic since yesterday morning however not hypotensive and not hypoxic patient did have a normal white count with no left shift creatinine 0.49 liver enzymes are normal urine has been negative urine drug screen was negative patient did have elevated ammonia level of 131 on admission is down to 69 as of this morning patient did have a chest x-ray COPD no acute process infectious disease consult due to concern for possible sepsis most information has been obtained from review the chart as the patient is not a very good historian patient is sleepy but arousable and nonspecific denies any headache no chest pain shortness of breath, abdominal pain no vomiting or diarrhea has been reported Past Medical History Past Medical History: Asthma, Cancer, Diabetes Mellitus, GERD/Reflux, Liver Disease, Osteoarthritis (OA) Additional Past Medical History / Comment(s): basal cell CA face and left chest, cirrhosis of the liver, hepatitis C possibly from blood transfusion as a child, palpable mass right parotid ,left leg arthritis with occasional edema to lower leg, has had recent us to r/o dvt was negative test History of Any Multi-Drug Resistant Organisms: None Reported Past Surgical History: Hernia Repair Additional Past Surgical History / Comment(s): sinus surgery, left wrist tendon injury repair, shunt placed "in liver" per patient Past Anesthesia/Blood Transfusion Reactions: No Reported Reaction Past Psychological History: Anxiety, Depression, PTSD Smoking Status: Former smoker Past Alcohol Use History: None Reported, Heavy Past Drug Use History: None Reported - Past Family History Mother Family Medical History: Cancer Additional Family Medical History / Comment(s): patient is unsure if ovarian or colon Medications and Allergies Home Medications Medication Instructions Recorded Confirmed Type Omalizumab [Xolair] 150 mg SQ Q14D 04/28/18 11/08/22 History Ferrous Sulfate [Feosol] 325 mg PO MOWEFR 03/14/21 11/08/22 History Fluticasone Nasal [place] [Flonase 2 spray EA NOSTRIL DAILY 03/14/21 11/08/22 History Nasal Harrah] Lactulose 30 gm PO BID 03/14/21 11/08/22 History Omeprazole 20 mg PO DAILY 03/14/21 11/08/22 History Rifaximin [Xifaxan] 550 mg PO BID 03/14/21 11/08/22 History Fluticasone Propion/Salmeterol 1 puff INHALATION RT-BID 09/07/21 11/08/22 History [Advair 500-50 Diskus] Albuterol Sulfate [Albuterol 2 puff PO RT-QID 11/08/22 11/08/22 History Sulfate Hfa] Furosemide [Lasix] 40 mg PO BID 11/08/22 11/08/22 History Insulin Glargine,Hum.rec.anlog 10 units SQ HS 11/08/22 11/08/22 History [Lantus Solostar Pen] Spironolactone [Aldactone] 100 mg PO DAILY 11/08/22 11/08/22 History hydrOXYzine HCL [Atarax] 10 mg PO HS 11/08/22 11/08/22 History metFORMIN HCL ER [Glucophage XR] 500 mg PO BID 11/08/22 11/08/22 History Allergies Allergy/AdvReac Type Severity Reaction Status Date / Time cefuroxime [From Ceftin] AdvReac Rash/Hives Verified 11/08/22 12:30 Physical Exam Vitals: Vital Signs Temp Pulse Resp BP Pulse Ox 11/11/22 08:00 97.6 F 111 H 16 100/57 97 11/11/22 07:59 97 11/11/22 03:02 97.8 F 120 H 20 84/50 96 11/10/22 20:00 16 11/10/22 19:54 98.5 F 88 16 88/53 97 11/10/22 12:02 98.3 F 103 H 16 77/36 94 L Intake and Output 11/10/22 11/11/22 11/11/22 22:59 06:59 14:59 Intake Total 900 Output Total 1000 700 Balance -1000 200 Intake: Intake, IV Titration 900 Amount Sodium Chloride 0.9% 1, 900 000 ml @ 75 mls/hr IV . [id number] [facility] Rx#:[id number] Output: Urine 1000 700 Other: Voiding Method Incontinent External Catheter # Voids 1 # Bowel Movements 1 Results CBC & Chem 7: 11/11/22 06:06 11/11/22 06:06 Labs: Abnormal Lab Results - Last 24 Hours (Table) 11/10/22 11/10/22 11/10/22 Range/Units 11:14 17:02 20:38 RBC (4.30-5.90) m/uL Hgb (13.0-17.5) gm/dL Hct (39.0-53.0) % MCV (80.0-100.0) fL MCH (25.0-35.0) pg Plt Count (150-450) k/uL Lymphocytes # (1.0-4.8) k/uL Sodium (137-145) mmol/L Creatinine (0.66-1.25) mg/dL POC Glucose (mg/dL) 200 H 192 H 293 H (70-110) mg/dL Calcium (8.4-10.2) mg/dL Total Bilirubin (0.2-1.3) mg/dL Alkaline Phosphatase (38-126) U/L Ammonia (<30) umol/L Total Protein (6.3-8.2) g/dL Albumin (3.5-5.0) g/dL 11/11/22 11/11/22 11/11/22 Range/Units 06:06 06:06 06:06 RBC 2.42 L (4.30-5.90) m/uL Hgb 9.1 L (13.0-17.5) gm/dL Hct 24.8 L (39.0-53.0) % MCV 102.6 H (80.0-100.0) fL MCH 37.6 H (25.0-35.0) pg Plt Count 55 L (150-450) k/uL Lymphocytes # 0.3 L (1.0-4.8) k/uL Sodium 130 L (137-145) mmol/L Creatinine 0.49 L (0.66-1.25) mg/dL POC Glucose (mg/dL) (70-110) mg/dL Calcium 7.7 L (8.4-10.2) mg/dL Total Bilirubin 2.7 H (0.2-1.3) mg/dL Alkaline Phosphatase 143 H (38-126) U/L Ammonia 69 H (<30) umol/L Total Protein 5.1 L (6.3-8.2) g/dL Albumin 2.0 L (3.5-5.0) g/dL 11/11/22 Range/Units 11:09 RBC (4.30-5.90) m/uL Hgb (13.0-17.5) gm/dL Hct (39.0-53.0) % MCV (80.0-100.0) fL MCH (25.0-35.0) pg Plt Count (150-450) k/uL Lymphocytes # (1.0-4.8) k/uL Sodium (137-145) mmol/L Creatinine (0.66-1.25) mg/dL POC Glucose (mg/dL) 182 H (70-110) mg/dL Calcium (8.4-10.2) mg/dL Total Bilirubin (0.2-1.3) mg/dL Alkaline Phosphatase (38-126) U/L Ammonia (<30) umol/L Total Protein (6.3-8.2) g/dL Albumin (3.5-5.0) g/dL Assessment and Plan Plan: 1patient presented to hospital with mental status changes possibly related to hepatic encephalopathy this patient did have a history of cirrhosis of the liver from chronic hepatitis C and the patient have elevated ammonia level patient noticed to have slight tachycardia however no fever white count has been normal patient did have a negative UA chest x-ray reported negative for no evidence of any cellulitis joint swelling underlying SBP not entirely excluded 2-patient with a cefuroxime allergies that limit the number of antibiotics safe to use 3-we will obtain ultrasound of the abdomen and evidence of significant ascites he will benefit from paracentesis 4-check blood cultures and inflammatory markers 5-continue empiric Levaquin started by medical team We will follow on clinical condition and cultures to further adjust medication if needed Thank you for this consultation we will follow the patient along with you Time with Patient: Greater than 30
[2022-11-12 07:30] LABS: Glucose,Whole Blood 107 mg/dL (70-110)
[2022-11-12] MEDS: INSULIN ASPART (NovoLOG) 100 UNIT/ML VIAL SQ SCH ×4 (07:32→20:21)
[2022-11-12] MEDS: SYMBICORT 160-4.5 MCG INHALER INHALATION SCH ×2 (07:57→19:31)
[2022-11-12] MEDS: ALBUTEROL HFA INHALER INHALATION SCH ×4 (07:57→19:31)
[2022-11-12] MEDS: FLUTICASONE 50MCG/SPRAY NASAL 16GM EA NOSTRIL SCH (08:06)
[2022-11-12] MEDS: RIFAXIMIN 550 MG TABLET PO SCH ×2 (08:06→20:11)
[2022-11-12] MEDS: HEPARIN SODIUM,PORCINE/PF 5,000 UNIT/0.5 ML SYRINGE SQ SCH ×2 (08:06→20:07)
[2022-11-12] MEDS: PANTOPRAZOLE 40 MG TABLET PO SCH (08:06)
[2022-11-12] MEDS: SPIRONOLACTONE 25 MG TAB PO SCH (08:06)
[2022-11-12] MEDS: LACTULOSE 20 GM/30 ML CUP PO SCH ×3 (08:07→20:12)
--- NOTE | 2022-11-12 08:20 | US ---
EXAMINATION TYPE: US abdomen limited DATE OF EXAM: 11/12/2022 COMPARISON: NONE CLINICAL INDICATION: Male, 71 years old with history of ascities; Ascities No evidence of ascites within ABD by ultrasound IMPRESSION: No evidence of ascites.
[2022-11-12 10:44] LABS: Basophils # (A) 0.03 X 10*3/uL (0.00-0.10); Basophils % (A) 0.6 %; Eosinophils # (A) 0.78 X 10*3/uL (0.04-0.35); HCT 23.2 % (39.6-50.0); HGB 8.4 d/dL (12.0-15.0); Immature Platelet Fraction 2.2 % (1.1-6.1); Lymphocytes # (A) 0.39 X 10*3/uL (0.90-5.00); Lymphocytes % (A) 7.5 %; MCH 36.2 pg (27.0-32.0); MCHC 36.2 d/dL (32.0-37.0); Mean Platelet Volume 10.2 FL (9.5-12.2); Monocytes # (A) 0.48 X 10*3/uL (0.20-1.00); Monocytes % (A) 9.2 %; NRBC Per 100 WBC 0 X 10*3/uL (0.00-0.01); Neutrophils # (A) 3.49 X 10*3/uL (1.80-7.70); Neutrophils % (A) 67.3 %; Platelet Count 51 X 10*3/uL (140-440); RBC 2.32 X 10*6/uL (4.40-5.60); RBC Morphology Normal (Normal); RDW 15.1 % (11.5-14.5); WBC 5.19 X 10*3/uL (4.50-10.00)
[2022-11-12] MEDS: SODIUM CHLORIDE 0.9% 1,000 ML IV SCH (11:35)
[2022-11-12] MEDS: LEVOFLOXACIN 500MG-D5W PMX 500 MG in DEXTROSE/WATER 1 100ML.BAG IVPB SCH (11:36)
[2022-11-12 12:16] LABS: Glucose,Whole Blood 181 mg/dL (70-110)
--- NOTE | 2022-11-12 15:31 | P.PN ---
Subjective Progress Note Date: 11/12/22 Patient is a 71-year-old male with a known history of hepatitis C status posttreatment, alcohol abuse, liver cirrhosis, diabetes, anxiety/depression and PTSD and prior history of smoking was brought to the hospital due to altered mental status which is worsening for the past 2 days. Patient was previously admitted to the hospital for hepatic encephalopathy multiple times to [facility]. Patient is awake alert but could not provide any history at this time. Patient's stated that he was treated for hepatitis C about 4 years ago. Does have history of alcohol abuse. Patient was on liver transplant list at [facility] but recently removed due to improvement in his MELD score . Patient does take lactulose 45 g 3 times daily at home as recommended by his physician. Patient does not have any fever or chills. Denies any chest pain or shortness of breath. No nausea vomiting abdominal pain or diarrhea. No cough or sputum production. Chest x-ray showed no acute process. COPD correlate for chronic interstitial pulmonary fibrosis. EKG showed sinus rhythm. Patient was hypotensive with blood pressure 93/59 and pulse ox 94% on room air on admission. Patient does take Lasix and spironolactone at home. Laboratory data showed WBC 6.0 hemoglobin 10.7 platelets 79 Sodium 129 potassium 3.9 chloride 99 bicarb is 24 BUN 16 and creatinine 0.52 and blood sugar is 246 Total bilirubin level is 2.7 AST 69 ALT 38 and alk phos 189 ammonia level is 131 and albumin 2.1 Troponin x1 negative 11/09/2022 Patient is lying in the bed comfortably. Patient is more lethargic and encephalopathic today. Unable to tolerate oral intake.. Patient has been afebrile. No cough or sputum production. Laboratory showed WBC 3.7 hemoglobin 9.3 and platelets 66 sodium 131 potassium 4.1 chloride 102 bicarb is 26 BUN 15 and creatinine 0.56 and A1c 6.6 Total bilirubin level 3.0 AST 57 ALT 35 and alk phos 166. Ammonia level went up to 172 today. 11/10/2022 Patient was more awake and was able to tolerate oral intake after giving lactulose enema. Lactulose changed to by mouth now. Ammonia level is elevated but came down to 91. Other laboratory showed WBC 6.2 hemoglobin 9.5 and platelets 73, sodium 137 potassium 3.8 chloride 103 bicarb is 22 BUN 14 and creatinine 0.53 and blood sugar is 125. Bilirubin level is 3.6,, alk phos 155. Albumin 2.0. Patient is also on IV hydration with normal saline at 75 cc/h. 11/11/2022 Patient is seen and evaluated in follow-up today continues to be confused although somewhat improved from yesterday. Ammonia level remains elevated at 96 and recommend continue with lactulose 4 times daily until having at least 2-3 soft bowel movements daily. Patient is maintained on gentle IV hydration along with oral Aldactone and will continue. Per patient normally takes 2 water pills that causes him to become frequently dehydrated and becoming more altered and then refusing to take medications and noncompliance with lactulose. Patient reports he would like to go home although a significant weakness. We'll have physical therapy evaluate the patient and discuss further with case management and the a.m. Recommend follow-up labs in the a.m. Review of systems: Constitutional: No reports of fatigue, fever, or chills Cardiovascular: No reports of chest pain or palpitations Respiratory: No reports of shortness of breath or cough GI: No reports of nausea, vomiting, or diarrhea : No reports of dysuria or retention Neurovascular: reports of generalized weakness All medications have been reviewed PHYSICAL EXAMINATION: Patient is awake and alert but lethargic and drowsy... HEENT: Normocephalic. Neck is supple. Pupils reactive. Nostrils clear. Oral cavity is moist. Neck reveals no JVD, carotid bruits, or thyromegaly. CHEST EXAMINATION: Trachea is central. Symmetrical expansion. Lung shah clear to auscultation and percussion. CARDIAC: Normal S1, S2 with no gallops. No murmurs ABDOMEN: Soft. Bowel sounds present. Nontender. No organomegaly. No abdominal bruits. Extremities: reveal no edema. No clubbing or cyanosis Neurologically awake, alert, oriented x1. Able to move extremities while in bed.. No gross focal deficits noted Skin: No rash or skin lesions. Psychiatric: Coperative. Could not be assessed completely., Musculoskeletal: No joint swelling or deformity Assessment: Acute hepatic encephalopathy with ammonia level 131 on admission Change in mental status, metabolic encephalopathy Alcoholic liver cirrhosis History hepatitis C s/p treatment 4 years ago Chronic thrombocytopenia Hyperglycemia uncontrolled diabetes type 2 Moderate protein calorie malnutrition with a BMI of 21.3 Elevated AST and alk phos levels History of basal cell cancer of the face and left chest Anxiety/depression and PTSD Gait dysfunction Prior history of smoking History of daily alcohol abuse DVT prophylaxis with heparin SQ every 12 Plan: Patient will be continued on gentle IV hydration and monitor fluid status closely. Will follow-up with repeat labs including ammonia level as ammonia is 96 today Patient was seen and evaluated by speech therapy recommending dysphagia pured diet and nectar thickened liquids along with low sodium diet Continue with lactulose 40 g p.o. 3 times daily and to continue until having at least 2-3 soft bowel movements daily Patient to continue on spironolactone and rifaximin. Patient has [facility] specialist for GI in the outpatient setting Discussed with in detail about treatment plan and agreeable to have physical therapy evaluate the patient and discuss possible rehab in the event they're recommending subacute rehab. Patient and would like him to return home. Patient was scheduled for home care in the outpatient setting along with rehab in the home but was only home one day from previous admission at [facility] and was brought back to the hospital for altered mentation. Will follow up with Guillermina in the morning Prognosis guarded at this time The impression and plan of care has been dictated by Madison Hilliard, Nurse Practitioner as directed. Dr. Junior MD I have performed a history and examination and MDM of this patient, discussed the same with the dictator, and agree with the dictator's assessment and plan as written ,documented as a scribe. Based on total visit time, I have performed more than 50% of the visit. Objective - Vital Signs Vital signs: Vital Signs Temp 98.3 F 11/12/22 07:29 Pulse 100 11/12/22 07:29 Resp 18 11/12/22 07:29 BP 98/34 11/12/22 07:29 Pulse Ox 95 11/12/22 08:03 FiO2 Intake & Output 11/11/22 11/12/22 11/12/22 18:59 06:59 18:59 Intake Total 1487 Output Total 250 575 Balance 1237 -575 Intake: Intake, IV Titration 925 Amount Levofloxacin 500Mg-D5w 100 Pmx 500 mg In Dextrose/ Water 1 100ml.bag @ 100 mls/hr IVPB Q24H [facility] Rx#: [id number] Sodium Chloride 0.9% 1, 825 000 ml @ 75 mls/hr IV . [id number] [facility] Rx#:[id number] Oral 562 Output: Urine 250 575 Other: Voiding Method Incontinent Incontinent Incontinent External Catheter External Catheter External Catheter - Labs CBC & Chem 7: 11/12/22 06:05 11/11/22 06:06 Labs: Abnormal Lab Results - Last 24 Hours (Table) 11/11/22 11/11/22 11/12/22 Range/Units 17:30 20:26 06:05 RBC 2.32 L (4.40-5.60) X 10*6/uL Hgb 8.4 L (12.0-15.0) d/dL Hct 23.2 L (39.6-50.0) % MCV 100.0 H (80.0-97.0) FL MCH 36.2 H (27.0-32.0) pg RDW 15.1 H (11.5-14.5) % Plt Count 51 L (140-440) X 10*3/uL Lymphocytes # 0.39 L (0.90-5.00) X 10*3/uL Eosinophils # 0.78 H (0.04-0.35) X 10*3/uL POC Glucose (mg/dL) 231 H 244 H (70-110) mg/dL Ammonia (<30) umol/L 11/12/22 11/12/22 Range/Units 06:05 12:16 RBC (4.40-5.60) X 10*6/uL Hgb (12.0-15.0) d/dL Hct (39.6-50.0) % MCV (80.0-97.0) FL MCH (27.0-32.0) pg RDW (11.5-14.5) % Plt Count (140-440) X 10*3/uL Lymphocytes # (0.90-5.00) X 10*3/uL Eosinophils # (0.04-0.35) X 10*3/uL POC Glucose (mg/dL) 181 H (70-110) mg/dL Ammonia 96 H (<30) umol/L
[2022-11-12 17:12] LABS: Glucose,Whole Blood 256 mg/dL (70-110)
[2022-11-12 20:03] LABS: Glucose,Whole Blood 227 mg/dL (70-110)
[2022-11-12] MEDS: hydrOXYzine HCL 10 MG TAB PO SCH (20:07)
[2022-11-12] MEDS: INSULIN DETEMIR (LEVEMIR) 100 UNIT/ML SYR SQ SCH (20:22)
[2022-11-12 20:46] LABS: ALT 29 U/L (10-49); AST 39 U/L (14-35); Albumin 2.1 d/dL (3.8-4.9); Albumin/Globulin Ratio 0.81 Ratio (1.60-3.17); Alkaline Phosphatase 145 U/L (41-126); BUN/Creat Ratio 17.33 Ratio (12.00-20.00); Blood Urea Nitrogen 10.4 mg/dL (9.0-27.0); Calcium 7.8 mg/dL (8.7-10.3); Carbon Dioxide 20.1 mmol/L (21.6-31.8); Chloride 106 mmol/L (96-109); Globulin 2.6 d/dL (1.6-3.3); Glucose 58 mg/dL (70-110); Sodium 135 mmol/L (135-145); Total Bilirubin 1.6 mg/dL (0.3-1.2); Total Protein 4.7 d/dL (6.2-8.2)
[2022-11-13] MEDS: SODIUM CHLORIDE 0.9% 1,000 ML IV SCH ×2 (05:45→12:07)
[2022-11-13 06:49] LABS: Basophils % (A) 0 %; Eosinophils # (A) 0.8 k/uL (0-0.7); Eosinophils % (A) 12 %; HCT 25.1 % (39.0-53.0); HGB 9.2 gm/dL (13.0-17.5); Lymphocytes # (A) 0.4 k/uL (1.0-4.8); Lymphocytes % (A) 6 %; MCH 37.7 pg (25.0-35.0); MCHC 36.4 g/dL (31.0-37.0); MCV 103.4 fL (80.0-100.0); Macrocytosis Slight; Mean Platelet Volume 7.3; Monocytes # (A) 0.5 k/uL (0-1.0); Monocytes % (A) 8 %; Neutrophils # (A) 4.7 k/uL (1.3-7.7); Neutrophils % (A) 73 %; Poikilocytosis Slight; RBC 2.43 m/uL (4.30-5.90); RDW 14.8 % (11.5-15.5); WBC 6.4 k/uL (3.8-10.6)
[2022-11-13 07:12] LABS: Platelet Count 64 k/uL (150-450)
[2022-11-13 07:33] LABS: Glucose,Whole Blood 53 mg/dL (70-110)
[2022-11-13] MEDS: ALBUTEROL HFA INHALER INHALATION SCH ×4 (07:38→20:58)
[2022-11-13] MEDS: SYMBICORT 160-4.5 MCG INHALER INHALATION SCH ×2 (07:38→20:58)
[2022-11-13 08:05] LABS: Glucose,Whole Blood 84 mg/dL (70-110)
[2022-11-13] MEDS: INSULIN ASPART (NovoLOG) 100 UNIT/ML VIAL SQ SCH ×4 (09:02→20:36)
[2022-11-13] MEDS: LACTULOSE 20 GM/30 ML CUP PO SCH ×5 (09:05→20:34)
[2022-11-13] MEDS: PANTOPRAZOLE 40 MG TABLET PO SCH (09:06)
[2022-11-13] MEDS: FLUTICASONE 50MCG/SPRAY NASAL 16GM EA NOSTRIL SCH (09:06)
[2022-11-13] MEDS: RIFAXIMIN 550 MG TABLET PO SCH ×2 (09:06→20:35)
[2022-11-13] MEDS: HEPARIN SODIUM,PORCINE/PF 5,000 UNIT/0.5 ML SYRINGE SQ SCH ×2 (09:06→20:35)
[2022-11-13] MEDS: SPIRONOLACTONE 25 MG TAB PO SCH (09:06)
[2022-11-13] MEDS ORDERED: Magnesium Replacement Protocol 1 EACH MISC MISCELLANE PRN (10:28)
[2022-11-13 11:51] LABS: Glucose,Whole Blood 154 mg/dL (70-110)
[2022-11-13] MEDS: MAGNESIUM SULFATE-D5W PMX 1 GM in DEXTROSE/WATER 1 100ML.BAG IVPB SCH ×2 (12:01→14:11)
[2022-11-13] MEDS: LEVOFLOXACIN 500MG-D5W PMX 500 MG in DEXTROSE/WATER 1 100ML.BAG IVPB SCH (12:01)
--- NOTE | 2022-11-13 16:30 | P.PN ---
Subjective Progress Note Date: 11/12/22 Principal diagnosis: Infection Patient is 71-year old male with a past medical history significant for Diabetes mellitus reflux osteoarthritis cirrhosis of the liver PTSD depression and anxiety has been brought into the ER for evaluation of mental status changes patient has been diagnosed with a possible hepatic encephalopathy did have elevated ammonia however no fever. On today's evaluation that is 11/12/2022, the patient is more awake and alert today patient is afebrile he is breathing comfortably on room air and no chest pain shortness of breath or cough no abdominal pain did have diarrhea Objective - Vital Signs Vital signs: Vital Signs Temp 98.3 F 11/12/22 07:29 Pulse 100 11/12/22 07:29 Resp 18 11/12/22 07:29 BP 98/34 11/12/22 07:29 Pulse Ox 95 11/12/22 08:03 FiO2 Intake & Output 11/11/22 11/12/22 11/12/22 18:59 06:59 18:59 Intake Total 1487 Output Total 250 575 Balance 1237 -575 Intake: Intake, IV Titration 925 Amount Levofloxacin 500Mg-D5w 100 Pmx 500 mg In Dextrose/ Water 1 100ml.bag @ 100 mls/hr IVPB Q24H [facility] Rx#: [id number] Sodium Chloride 0.9% 1, 825 000 ml @ 75 mls/hr IV . [id number] [facility] Rx#:[id number] Oral 562 Output: Urine 250 575 Other: Voiding Method Incontinent Incontinent Incontinent External Catheter External Catheter External Catheter - Exam GENERAL DESCRIPTION: An elderly male lying in bed in no distress RESPIRATORY SYSTEM: Unlabored breathing , decreased breath sounds at bases HEART: S1 S2 regular rate and rhythm , ABDOMEN: Soft , no tenderness EXTREMITIES: No edema feet - Labs CBC & Chem 7: 11/13/22 06:20 11/12/22 06:05 Labs: Abnormal Lab Results - Last 24 Hours (Table) 11/11/22 11/11/22 11/12/22 Range/Units 17:30 20:26 06:05 RBC 2.32 L (4.40-5.60) X 10*6/uL Hgb 8.4 L (12.0-15.0) d/dL Hct 23.2 L (39.6-50.0) % MCV 100.0 H (80.0-97.0) FL MCH 36.2 H (27.0-32.0) pg RDW 15.1 H (11.5-14.5) % Plt Count 51 L (140-440) X 10*3/uL Lymphocytes # 0.39 L (0.90-5.00) X 10*3/uL Eosinophils # 0.78 H (0.04-0.35) X 10*3/uL POC Glucose (mg/dL) 231 H 244 H (70-110) mg/dL Ammonia (<30) umol/L 11/12/22 11/12/22 Range/Units 06:05 12:16 RBC (4.40-5.60) X 10*6/uL Hgb (12.0-15.0) d/dL Hct (39.6-50.0) % MCV (80.0-97.0) FL MCH (27.0-32.0) pg RDW (11.5-14.5) % Plt Count (140-440) X 10*3/uL Lymphocytes # (0.90-5.00) X 10*3/uL Eosinophils # (0.04-0.35) X 10*3/uL POC Glucose (mg/dL) 181 H (70-110) mg/dL Ammonia 96 H (<30) umol/L Assessment and Plan Plan: 1patient presented to hospital with mental status changes possibly related to hepatic encephalopathy this patient did have a history of cirrhosis of the liver from chronic hepatitis C and the patient have elevated ammonia level patient noticed to have slight tachycardia however no fever white count has been normal patient did have a negative UA chest x-ray reported negative for no evidence of any cellulitis joint swelling underlying SBP not entirely excluded 2-patient with a cefuroxime allergies that limit the number of antibiotics safe to use 3- ultrasound of the abdomen did not show any evidence of ascites 4-blood cultures and inflammatory markers are currently pending 5-patient to continue empiric Levaquin in view of clinical improvement Time with Patient: Less than 30
--- NOTE | 2022-11-13 16:30 | P.PN ---
Subjective Progress Note Date: 11/13/22 Patient is a 71-year-old male with a known history of hepatitis C status posttreatment, alcohol abuse, liver cirrhosis, diabetes, anxiety/depression and PTSD and prior history of smoking was brought to the hospital due to altered mental status which is worsening for the past 2 days. Patient was previously admitted to the hospital for hepatic encephalopathy multiple times to [facility]. Patient is awake alert but could not provide any history at this time. Patient's stated that he was treated for hepatitis C about 4 years ago. Does have history of alcohol abuse. Patient was on liver transplant list at [facility] but recently removed due to improvement in his MELD score . Patient does take lactulose 45 g 3 times daily at home as recommended by his physician. Patient does not have any fever or chills. Denies any chest pain or shortness of breath. No nausea vomiting abdominal pain or diarrhea. No cough or sputum production. Chest x-ray showed no acute process. COPD correlate for chronic interstitial pulmonary fibrosis. EKG showed sinus rhythm. Patient was hypotensive with blood pressure 93/59 and pulse ox 94% on room air on admission. Patient does take Lasix and spironolactone at home. Laboratory data showed WBC 6.0 hemoglobin 10.7 platelets 79 Sodium 129 potassium 3.9 chloride 99 bicarb is 24 BUN 16 and creatinine 0.52 and blood sugar is 246 Total bilirubin level is 2.7 AST 69 ALT 38 and alk phos 189 ammonia level is 131 and albumin 2.1 Troponin x1 negative 11/09/2022 Patient is lying in the bed comfortably. Patient is more lethargic and encephalopathic today. Unable to tolerate oral intake.. Patient has been afebrile. No cough or sputum production. Laboratory showed WBC 3.7 hemoglobin 9.3 and platelets 66 sodium 131 potassium 4.1 chloride 102 bicarb is 26 BUN 15 and creatinine 0.56 and A1c 6.6 Total bilirubin level 3.0 AST 57 ALT 35 and alk phos 166. Ammonia level went up to 172 today. 11/10/2022 Patient was more awake and was able to tolerate oral intake after giving lactulose enema. Lactulose changed to by mouth now. Ammonia level is elevated but came down to 91. Other laboratory showed WBC 6.2 hemoglobin 9.5 and platelets 73, sodium 137 potassium 3.8 chloride 103 bicarb is 22 BUN 14 and creatinine 0.53 and blood sugar is 125. Bilirubin level is 3.6,, alk phos 155. Albumin 2.0. Patient is also on IV hydration with normal saline at 75 cc/h. 11/12/2022 Patient is seen and evaluated in follow-up today continues to be confused although somewhat improved from yesterday. Ammonia level remains elevated at 96 and recommend continue with lactulose 4 times daily until having at least 2-3 soft bowel movements daily. Patient is maintained on gentle IV hydration along with oral Aldactone and will continue. Per patient normally takes 2 water pills that causes him to become frequently dehydrated and becoming more altered and then refusing to take medications and noncompliance with lactulose. Patient reports he would like to go home although a significant weakness. We'll have physical therapy evaluate the patient and discuss further with case management and the a.m. Recommend follow-up labs in the a.m. 11/13/2022 Patient seen and evaluated this morning improving daily and was evaluated by physical therapy and reported as unsteady although able to walk with walker. Patient reports he has a walker at home and this was verified with his . Patient's ammonia level remains elevated although slightly improved and patient reports he last had a bowel movement yesterday. Will increase lactulose and a gain instructed and encouraged the nursing staff to continue for at least 2-3 loose bowel movements daily. Awaiting a.m. labs and will replace electrolytes per protocol. Patient is afebrile denies chest pain or shortness of breath. Patient reports he would like to go home. Infectious disease is following and patient is maintained on an. Antibiotics. Patient does have a liver specialist at [facility] and would be close outpatient follow-up. Will evaluate the patient again in the a.m. and follow-up with repeat labs with possible discharge in the next 24-48 hours. Review of systems: Constitutional: No reports of fatigue, fever, or chills Cardiovascular: No reports of chest pain or palpitations Respiratory: No reports of shortness of breath or cough GI: No reports of nausea, vomiting, or diarrhea : No reports of dysuria or retention Neurovascular: reports of generalized weakness All medications have been reviewed PHYSICAL EXAMINATION: Patient is awake and alert and appears more oriented today. Thin built, elderly appearing HEENT: Normocephalic. Neck is supple. Pupils reactive. Nostrils clear. Oral cavity is moist. Neck reveals no JVD, carotid bruits, or thyromegaly. CHEST EXAMINATION: Trachea is central. Symmetrical expansion. Lung shah clear to auscultation and percussion. CARDIAC: Normal S1, S2 with no gallops. No murmurs ABDOMEN: Soft. Bowel sounds present. Nontender. No organomegaly. No abdominal bruits. Extremities: reveal no edema. No clubbing or cyanosis Neurologically awake, alert, oriented x1. Able to move extremities while in bed.. No gross focal deficits noted Skin: No rash or skin lesions. Psychiatric: Coperative. Could not be assessed completely., Musculoskeletal: No joint swelling or deformity Assessment: Acute hepatic encephalopathy with ammonia level 131 on admission Change in mental status, metabolic encephalopathy, improving Alcoholic liver cirrhosis History hepatitis C s/p treatment 4 years ago Chronic thrombocytopenia Hyperglycemia uncontrolled diabetes type 2 Moderate protein calorie malnutrition with a BMI of 21.3 Elevated AST and alk phos levels History of basal cell cancer of the face and left chest Anxiety/depression and PTSD Gait dysfunction Prior history of smoking History of daily alcohol abuse DVT prophylaxis with heparin SQ every 12 Plan: Patient will be continued on gentle IV hydration and monitor fluid status closely. Will follow-up with repeat labs including ammonia level as ammonia is slightly improved in the 70s although remains elevated. Patient reports last bowel movement was last night. Discussed with nursing staff about continuing lactulose 4 times daily Patient is continued on dysphagia pured diet and nectar thickened liquids along with low sodium diet and would also recommend aspiration precautions and head of the bed elevated 30-45 at all times Continue with lactulose 40 g p.o. 4 times daily and to continue until having at least 2-3 soft bowel movements daily Patient to continue on spironolactone and rifaximin. Patient has [facility] specialist for GI in the outpatient setting Patient was evaluated by physical therapy although was somewhat unsteady gait with balance patient was able to walk with his walker and has wanted to home. Recommending 24/7 supervision with continued home care. Patient Guillermina reports that he was scheduled to undergo rehab in the home although had to come back to the hospital for readmission. would like to take him home as patient would like to go home as well and is refusing rehab. Prognosis guarded at this time Possible discharge in the next 24 hours The impression and plan of care has been dictated by Madison Hilliard, Nurse Practitioner as directed. Dr. Junior MD I have performed a history and examination and MDM of this patient, discussed the same with the dictator, and agree with the dictator's assessment and plan as written ,documented as a scribe. Based on total visit time, I have performed more than 50% of the visit. Objective - Vital Signs Vital signs: Vital Signs Temp 97.5 F L 11/13/22 06:45 Pulse 101 H 11/13/22 06:45 Resp 16 11/13/22 06:45 BP 104/48 11/13/22 06:45 Pulse Ox 94 L 11/13/22 06:45 FiO2 Intake & Output 11/12/22 11/13/22 11/13/22 18:59 06:59 18:59 Intake Total 118 Output Total 700 400 Balance -582 -400 Intake: Oral 118 Output: Urine 700 400 Other: Voiding Method Incontinent Incontinent Incontinent External Catheter External Catheter External Catheter # Bowel Movements 1 - Labs CBC & Chem 7: 11/13/22 06:20 11/12/22 06:05 Labs: Abnormal Lab Results - Last 24 Hours (Table) 11/12/22 11/12/22 11/12/22 Range/Units 06:05 06:05 12:16 RBC 2.32 L (4.40-5.60) X 10*6/uL Hgb 8.4 L (12.0-15.0) d/dL Hct 23.2 L (39.6-50.0) % MCV 100.0 H (80.0-97.0) FL MCH 36.2 H (27.0-32.0) pg RDW 15.1 H (11.5-14.5) % Plt Count 51 L (140-440) X 10*3/uL Lymphocytes # 0.39 L (0.90-5.00) X 10*3/uL Eosinophils # 0.78 H (0.04-0.35) X 10*3/uL Carbon Dioxide 20.1 L (21.6-31.8) mmol/L Glucose 58 L (70-110) mg/dL POC Glucose (mg/dL) 181 H (70-110) mg/dL Calcium 7.8 L (8.7-10.3) mg/dL Total Bilirubin 1.6 H (0.3-1.2) mg/dL AST 39 H (14-35) U/L Alkaline Phosphatase 145 H (41-126) U/L Ammonia (<30) umol/L Total Protein 4.7 L (6.2-8.2) d/dL Albumin 2.1 L (3.8-4.9) d/dL Albumin/Globulin Ratio 0.81 L (1.60-3.17) Ratio 11/12/22 11/12/22 11/13/22 Range/Units 17:11 20:01 06:20 RBC 2.43 L (4.40-5.60) X 10*6/uL Hgb 9.2 L (12.0-15.0) d/dL Hct 25.1 L (39.6-50.0) % MCV 103.4 H (80.0-97.0) FL MCH 37.7 H (27.0-32.0) pg RDW (11.5-14.5) % Plt Count 64 L (140-440) X 10*3/uL Lymphocytes # 0.4 L (0.90-5.00) X 10*3/uL Eosinophils # 0.8 H (0.04-0.35) X 10*3/uL Carbon Dioxide (21.6-31.8) mmol/L Glucose (70-110) mg/dL POC Glucose (mg/dL) 256 H 227 H (70-110) mg/dL Calcium (8.7-10.3) mg/dL Total Bilirubin (0.3-1.2) mg/dL AST (14-35) U/L Alkaline Phosphatase (41-126) U/L Ammonia (<30) umol/L Total Protein (6.2-8.2) d/dL Albumin (3.8-4.9) d/dL Albumin/Globulin Ratio (1.60-3.17) Ratio 11/13/22 11/13/22 Range/Units 06:20 07:26 RBC (4.40-5.60) X 10*6/uL Hgb (12.0-15.0) d/dL Hct (39.6-50.0) % MCV (80.0-97.0) FL MCH (27.0-32.0) pg RDW (11.5-14.5) % Plt Count (140-440) X 10*3/uL Lymphocytes # (0.90-5.00) X 10*3/uL Eosinophils # (0.04-0.35) X 10*3/uL Carbon Dioxide (21.6-31.8) mmol/L Glucose (70-110) mg/dL POC Glucose (mg/dL) 53 L (70-110) mg/dL Calcium (8.7-10.3) mg/dL Total Bilirubin (0.3-1.2) mg/dL AST (14-35) U/L Alkaline Phosphatase (41-126) U/L Ammonia 72 H (<30) umol/L Total Protein (6.2-8.2) d/dL Albumin (3.8-4.9) d/dL Albumin/Globulin Ratio (1.60-3.17) Ratio Microbiology - Last 24 Hours (Table) 11/11/22 12:35 Urine Culture - Preliminary Urine,Voided Group D Enterococcus 11/11/22 11:00 Blood Culture - Preliminary Blood
--- NOTE | 2022-11-13 16:40 | P.PN ---
Subjective Progress Note Date: 11/13/22 Principal diagnosis: Infection Patient is 71-year old male with a past medical history significant for Diabetes mellitus reflux osteoarthritis cirrhosis of the liver PTSD depression and anxiety has been brought into the ER for evaluation of mental status changes patient has been diagnosed with a possible hepatic encephalopathy did have elevated ammonia however no fever. On today's evaluation that is 11/13/2022, the patient remains to be afebrile, the patient is breathing comfortably on room air and no chest pain shortness of breath or cough no abdominal pain did have diarrhea Objective - Vital Signs Vital signs: Vital Signs Temp 97.6 F 11/13/22 11:02 Pulse 96 11/13/22 11:02 Resp 16 11/13/22 11:02 BP 102/40 11/13/22 11:02 Pulse Ox 98 11/13/22 11:02 FiO2 Intake & Output 11/12/22 11/13/22 11/13/22 18:59 06:59 18:59 Intake Total 118 Output Total 700 400 Balance -582 -400 Intake: Oral 118 Output: Urine 700 400 Other: Voiding Method Incontinent Incontinent Incontinent External Catheter External Catheter External Catheter # Bowel Movements 1 - Exam GENERAL DESCRIPTION: An elderly male lying in bed in no distress RESPIRATORY SYSTEM: Unlabored breathing , decreased breath sounds at bases HEART: S1 S2 regular rate and rhythm , ABDOMEN: Soft , no tenderness EXTREMITIES: No edema feet - Labs CBC & Chem 7: 11/13/22 06:20 11/12/22 06:05 Labs: Abnormal Lab Results - Last 24 Hours (Table) 11/12/22 11/12/22 11/12/22 Range/Units 06:05 17:11 20:01 RBC (4.30-5.90) m/uL Hgb (13.0-17.5) gm/dL Hct (39.0-53.0) % MCV (80.0-100.0) fL MCH (25.0-35.0) pg Plt Count (150-450) k/uL Lymphocytes # (1.0-4.8) k/uL Eosinophils # (0-0.7) k/uL Carbon Dioxide 20.1 L (21.6-31.8) mmol/L Glucose 58 L (70-110) mg/dL POC Glucose (mg/dL) 256 H 227 H (70-110) mg/dL Calcium 7.8 L (8.7-10.3) mg/dL Total Bilirubin 1.6 H (0.3-1.2) mg/dL AST 39 H (14-35) U/L Alkaline Phosphatase 145 H (41-126) U/L Ammonia (<30) umol/L Total Protein 4.7 L (6.2-8.2) d/dL Albumin 2.1 L (3.8-4.9) d/dL Albumin/Globulin Ratio 0.81 L (1.60-3.17) Ratio 11/13/22 11/13/22 11/13/22 Range/Units 06:20 06:20 07:26 RBC 2.43 L (4.30-5.90) m/uL Hgb 9.2 L (13.0-17.5) gm/dL Hct 25.1 L (39.0-53.0) % MCV 103.4 H (80.0-100.0) fL MCH 37.7 H (25.0-35.0) pg Plt Count 64 L (150-450) k/uL Lymphocytes # 0.4 L (1.0-4.8) k/uL Eosinophils # 0.8 H (0-0.7) k/uL Carbon Dioxide (21.6-31.8) mmol/L Glucose (70-110) mg/dL POC Glucose (mg/dL) 53 L (70-110) mg/dL Calcium (8.7-10.3) mg/dL Total Bilirubin (0.3-1.2) mg/dL AST (14-35) U/L Alkaline Phosphatase (41-126) U/L Ammonia 72 H (<30) umol/L Total Protein (6.2-8.2) d/dL Albumin (3.8-4.9) d/dL Albumin/Globulin Ratio (1.60-3.17) Ratio 11/13/22 Range/Units 11:49 RBC (4.30-5.90) m/uL Hgb (13.0-17.5) gm/dL Hct (39.0-53.0) % MCV (80.0-100.0) fL MCH (25.0-35.0) pg Plt Count (150-450) k/uL Lymphocytes # (1.0-4.8) k/uL Eosinophils # (0-0.7) k/uL Carbon Dioxide (21.6-31.8) mmol/L Glucose (70-110) mg/dL POC Glucose (mg/dL) 154 H (70-110) mg/dL Calcium (8.7-10.3) mg/dL Total Bilirubin (0.3-1.2) mg/dL AST (14-35) U/L Alkaline Phosphatase (41-126) U/L Ammonia (<30) umol/L Total Protein (6.2-8.2) d/dL Albumin (3.8-4.9) d/dL Albumin/Globulin Ratio (1.60-3.17) Ratio Microbiology - Last 24 Hours (Table) 11/11/22 12:35 Urine Culture - Preliminary Urine,Voided Group D Enterococcus 11/11/22 11:00 Blood Culture - Preliminary Blood Assessment and Plan Plan: 1patient presented to hospital with mental status changes possibly related to hepatic encephalopathy this patient did have a history of cirrhosis of the liver from chronic hepatitis C and the patient have elevated ammonia level patient noticed to have slight tachycardia however no fever white count has been normal patient did have a negative UA chest x-ray reported negative for no evidence of any cellulitis joint swelling underlying SBP not entirely excluded 2-patient with a cefuroxime allergies that limit the number of antibiotics safe to use 3- ultrasound of the abdomen did not show any evidence of ascites 4-blood cultures and inflammatory markers are currently pending, patient in urine is growing enterococcus however no UA was done, we will repeat UA stat to see the significance of this urine culture continue with Levaquin review of clinical improvement at the bedside questions were answered Time with Patient: Less than 30
[2022-11-13 17:13] LABS: Glucose,Whole Blood 218 mg/dL (70-110)
[2022-11-13 20:15] LABS: Glucose,Whole Blood 192 mg/dL (70-110)
[2022-11-13] MEDS: hydrOXYzine HCL 10 MG TAB PO SCH (20:35)
[2022-11-13] MEDS: INSULIN DETEMIR (LEVEMIR) 100 UNIT/ML SYR SQ SCH (20:36)
[2022-11-14 02:48] VITALS: TEMP 98.3
[2022-11-14] MEDS: SODIUM CHLORIDE 0.9% 1,000 ML IV SCH (05:28)
[2022-11-14 06:33] LABS: Appearance,Urine Clear (Clear); Bilirubin,Urine Negative (Negative); Blood,Urine Negative (Negative); Color,Urine Yellow; Glucose,Urine (UA) Negative (Negative); Hyaline Casts,Urine 1 /lpf (0-2); Ketones,Urine Trace (Negative); Leukocyte Esterase,Urine Large (Negative); Mucus,Urine Rare /hpf; Nitrite,Urine Negative (Negative); Protein,Urine Negative (Negative); RBC,Urine 1 /hpf (0-5); Specific Gravity,Urine 1.021 (1.001-1.035); Urobilinogen,Urine <2.0 mg/dL (<2.0); WBC,Urine 43 /hpf (0-5)
[2022-11-14] MEDS: LACTULOSE 20 GM/30 ML CUP PO SCH ×2 (07:30→12:28)
[2022-11-14 07:31] LABS: Glucose,Whole Blood 51 mg/dL (70-110)
[2022-11-14] MEDS: SPIRONOLACTONE 25 MG TAB PO SCH (07:31)
[2022-11-14] MEDS: FLUTICASONE 50MCG/SPRAY NASAL 16GM EA NOSTRIL SCH (07:31)
[2022-11-14] MEDS: INSULIN ASPART (NovoLOG) 100 UNIT/ML VIAL SQ SCH (07:31)
[2022-11-14] MEDS: HEPARIN SODIUM,PORCINE/PF 5,000 UNIT/0.5 ML SYRINGE SQ SCH (07:31)
[2022-11-14] MEDS: RIFAXIMIN 550 MG TABLET PO SCH (07:32)
[2022-11-14] MEDS: PANTOPRAZOLE 40 MG TABLET PO SCH (07:32)
[2022-11-14 07:42] VITALS: BP 101/52; PULSE 100; RESP 18
[2022-11-14 07:47] LABS: Glucose,Whole Blood 64 mg/dL (70-110)
[2022-11-14] MEDS ORDERED: AMPICILLIN-SULBACTAM 1.5 GM in SODIUM CHLORIDE 0.9% 50 ML IVPB SCH (08:00)
[2022-11-14 08:06] LABS: Glucose,Whole Blood 90 mg/dL (70-110)
[2022-11-14] MEDS: SYMBICORT 160-4.5 MCG INHALER INHALATION SCH (09:31)
[2022-11-14] MEDS: ALBUTEROL HFA INHALER INHALATION SCH ×2 (09:31→13:04)
[2022-11-14 11:07] LABS: Magnesium 1.7 mg/dL (1.5-2.4)
[2022-11-14 11:27] LABS: Blood Urea Nitrogen 7.9 mg/dL (9.0-27.0); Calcium 7.8 mg/dL (8.7-10.3); Carbon Dioxide 20.6 mmol/L (21.6-31.8); Chloride 109 mmol/L (96-109); Glucose 45 mg/dL (70-110); Sodium 137 mmol/L (135-145)
[2022-11-14 11:48] LABS: Glucose,Whole Blood 196 mg/dL (70-110)
[2022-11-14 11:57] LABS: Basophils # (A) 0.04 X 10*3/uL (0.00-0.10); Basophils % (A) 0.5 %; Eosinophils # (A) 1.45 X 10*3/uL (0.04-0.35); Eosinophils % (A) 18.6 %; HCT 24.6 % (39.6-50.0); HGB 8.8 d/dL (12.0-15.0); Immature Platelet Fraction 2.1 % (1.1-6.1); Lymphocytes # (A) 0.62 X 10*3/uL (0.90-5.00); MCH 36.5 pg (27.0-32.0); MCHC 35.8 d/dL (32.0-37.0); MCV 102.1 FL (80.0-97.0); Mean Platelet Volume 9.9 FL (9.5-12.2); Monocytes # (A) 0.72 X 10*3/uL (0.20-1.00); Monocytes % (A) 9.2 %; NRBC Per 100 WBC 0 X 10*3/uL (0.00-0.01); Neutrophils # (A) 4.93 X 10*3/uL (1.80-7.70); Neutrophils % (A) 63.3 %; Platelet Count 83 X 10*3/uL (140-440); RBC 2.41 X 10*6/uL (4.40-5.60); RBC Morphology Normal (Normal); RDW 15.3 % (11.5-14.5); WBC 7.79 X 10*3/uL (4.50-10.00)
--- NOTE | 2022-11-14 16:06 | FL ---
Modified barium swallow. HISTORY: Dysphagia. Modified barium swallow was performed with the department of speech pathology. The patient was prese nted with various consistencies of barium. There is no evidence for aspiration or penetration. Full report is to follow from the department of speech pathology. Impression: Normal study.
--- NOTE | 2022-11-14 21:33 | P.DS ---
Providers Date of admission: 11/08/22 14:35 Expected date of discharge: 11/14/22 Attending physician: Janet Collins Consults: 11/11/22 10:45 Consult Physician Routine Consulting Provider: Delicia Sheth Consult Reason/Comments: sepsis Do you want consulting provider notified?: Yes Primary care physician: Taiwo Ac Hospital Course: Final diagnosis Acute hepatic encephalopathy with ammonia level 131 on admission mild improving Change in mental status, metabolic encephalopathy, multifactorial secondary to elevated ammonia and component of acute urinary tract infection with dehydration Acute urinary tract infection, present on admission with enterococcus Alcoholic liver cirrhosis History hepatitis C s/p treatment 4 years ago Chronic thrombocytopenia Hyperglycemia uncontrolled diabetes type 2 Moderate protein calorie malnutrition with a BMI of 21.3 Elevated AST and alk phos levels History of basal cell cancer of the face and left chest Anxiety/depression and PTSD Gait dysfunction Prior history of smoking History of daily alcohol abuse DVT prophylaxis Discharge disposition Patient is being discharged in a stable condition with guarded prognosis to home with home care. Patient will follow-up with Dr. Ac in the outpatient setting upon discharge. Patient is to continue with oral Augmentin twice daily for the next 5 days to complete the course. Recommend close outpatient follow-up with GI specialist out of [facility] as scheduled. Total time taken is greater than 35 minutes. Hospital course This is a 71-year-old male who was recently admitted with altered mental status and hepatic encephalopathy secondary to liver disease. Patient ammonia level was over 131 on admission and had not been taking lactulose as instructed. reports he was just in the hospital at [facility] earlier this month. Patient was to start Homecare and rehab in the home as he was significantly weak at that time. Patient had urinalysis done here which showed enterococcus with infectious disease following and patient was started on Levaquin and we'll transition to Unasyn and continue short course of oral Augmentin on discharge. Patient's mentation is improving in ammonia level is improved and strongly encourage the patient along with to be compliant with medications and close outpatient follow-up with GI specialist. Patient evaluated by physical therapy for his weakness recommending 24/7 home with someone and Homecare and rehab. Patient does have a walker in the home. Please refer to other consultation notes for further HPI. Patient was also evaluated by speech recommending upgrading to regular diet/thin liquids as tolerated, upright positioning with meals and dry follow up swallows to clear residuals. Also recommend aspiration precautions with head of bed elevated 30-45 at all times and supervision with meals as instructed by speech. Recommending speech follow-up in the outpatient setting. Currently no reports of chest pain, shortness of breath, or palpitations. Patient is afebrile. No reports of nausea or vomiting and patient is tolerating diet. Patient will be discharged home today. Guarded prognosis and high risk for readmission given patient's significant comorbidities and noncompliance of medications. Physical exam: Gen: This is a 71-year-old male who is awake, alert and oriented 2, thin built, elderly appearing, cachectic HEENT: Head is atraumatic, normocephalic. Pupils equal, round. Sclerae is anicteric. NECK: Supple. No JVD. No lymphadenopathy. No thyromegaly. LUNGS: Clear to auscultation. No wheezes or rhonchi. No intercostal retractions. HEART: Regular rate and rhythm. No murmur. ABDOMEN: Soft. Bowel sounds are present. No masses. No tenderness. EXTREMITIES: No pedal edema. No calf tenderness. NEUROLOGICAL: Patient is awake, alert and oriented x2-3. Cranial nerves 2 through 12 are grossly intact. Diffusely weak Please refer to medication reconciliation sheet for a list of medications. The impression and plan of care has been dictated by Madison Hilliard, Nurse Practitioner as directed. Dr. Junior MD I have performed a history and examination and MDM of this patient, discussed t he same with the dictator, and agree with the dictator's assessment and plan as written ,documented as a scribe. Based on total visit time, I have performed more than 50% of the visit. Patient Condition at Discharge: Fair Plan - Discharge Summary Discharge Rx Participant: No New Discharge Prescriptions: New Lactulose [Cephulac] 40 gm PO QID ml Amoxic-Pot Clav 875-125Mg [Augmentin 875-125] 1 tab PO Q12HR 5 Days #10 tab Continue Omalizumab [Xolair] 150 mg SQ Q14D Fluticasone Nasal [place] [Flonase Nasal [place]] 2 spray EA NOSTRIL DAILY Rifaximin [Xifaxan] 550 mg PO BID Fluticasone Propion/Salmeterol [Advair 500-50 Diskus] 1 puff INHALATION RT- BID Omeprazole 20 mg PO DAILY Ferrous Sulfate [Iron (65 MG Elemental)] 325 mg PO MOWEFR metFORMIN HCL ER [Glucophage XR] 500 mg PO BID hydrOXYzine HCL [Atarax] 10 mg PO HS Spironolactone [Aldactone] 100 mg PO DAILY Albuterol Sulfate [Albuterol Sulfate Hfa] 2 puff PO RT-QID Changed Insulin Glargine,Hum.rec.anlog [Lantus Solostar Pen] 5 - 10 units SQ HS #0 Discontinued Furosemide [Lasix] 40 mg PO BID Lactulose 30 gm PO BID Discharge Medication List Omalizumab [Xolair] 150 mg SQ Q14D 04/28/18 [History] Ferrous Sulfate [Iron (65 MG Elemental)] 325 mg PO MOWEFR 03/14/21 [History] Fluticasone Nasal [place] [Flonase Nasal [place]] 2 spray EA NOSTRIL DAILY 03/14/21 [History] Omeprazole 20 mg PO DAILY 03/14/21 [History] Rifaximin [Xifaxan] 550 mg PO BID 03/14/21 [History] Fluticasone Propion/Salmeterol [Advair 500-50 Diskus] 1 puff INHALATION RT-BID 09/07/21 [History] Albuterol Sulfate [Albuterol Sulfate Hfa] 2 puff PO RT-QID 11/08/22 [History] Spironolactone [Aldactone] 100 mg PO DAILY 11/08/22 [History] hydrOXYzine HCL [Atarax] 10 mg PO HS 11/08/22 [History] metFORMIN HCL ER [Glucophage XR] 500 mg PO BID 11/08/22 [History] Amoxic-Pot Clav 875-125Mg [Augmentin 875-125] 1 tab PO Q12HR 5 Days #10 tab 11/14/22 [Rx] Insulin Glargine,Hum.rec.anlog [Lantus Solostar Pen] 5 - 10 units SQ HS #0 11/14/22 [Rx] Lactulose [Cephulac] 40 gm PO QID ml 11/14/22 [Rx] Follow up Appointment(s)/Referral(s): Esther Zamora,Home Care [NON-STAFF] - 1 Week Taiwo Ac MD [Primary Care Provider] - 11/15/22 8:30 am (At the [facility]) Ambulatory/Diagnostic Orders: Basic Metabolic Panel [LAB.AMB] Time Frame: 3 Days, Location: None Selected Patient Instructions/Handouts: Amoxicillin/Clavulanate Potassium (By mouth), Urinary Tract Infection in Men (DC), Hyponatremia (DC), Hepatic Encephalopathy (DC) Activity/Diet/Wound Care/Special Instructions: Activity Limited until follow-up Follow-up with liver specialist out of [facility] Continue taking medications as prescribed continue holding Lasix for now Continue lactulose 3-4 times daily so patient continues to have 2-3 soft bowel movements daily Recommend follow-up labs in the next 2-3 days - see prescription to have labs done Continue low-sodium low-protein diet - patient may have regular solid food and thin liquids per Speech Therapist recommendations Discharge Disposition: HOME WITH HOME HEALTH SERVICES
== END 2022-11-14 13:33 | disposition home health service (06) | DRG 441 ==
LOC: EC 11:25 → 5NMEDONC 14:35
PROVIDERS: ADMIT Internal Medicine; ATTEND Internal Medicine
DX: K76.82 Hepatic encephalopathy (principal); G93.41 Metabolic encephalopathy; E44.0 Moderate protein-calorie malnutrition; N39.0 Urinary tract infection, site not specified; K70.30 Alcoholic cirrhosis of liver without ascites; D69.6 Thrombocytopenia, unspecified; E11.9 Type 2 diabetes mellitus without complications; Z68.21 Body mass index [BMI] 21.0-21.9, adult; E11.65 Type 2 diabetes mellitus with hyperglycemia; R26.9 Unspecified abnormalities of gait and mobility; M19.90 Unspecified osteoarthritis, unspecified site; E86.0 Dehydration; F32.A Depression, unspecified; F43.10 Post-traumatic stress disorder, unspecified; F41.9 Anxiety disorder, unspecified; J44.9 Chronic obstructive pulmonary disease, unspecified; Z79.84 Long term (current) use of oral hypoglycemic drugs; Z79.899 Other long term (current) drug therapy; Z85.828 Personal history of other malignant neoplasm of skin; Z91.148 Patient's other noncompliance with medication regimen for other reason; Z71.3 Dietary counseling and surveillance; Z86.19 Personal history of other infectious and parasitic diseases
CPT/HCPCS: 36415; 71046; 74230; 76705; 80048; 80053; 80306; 81001; 81003; 82140; 83036; 83735; 84484; 85025; 85610; 85730; 87040; 87077; 87086; 87186; 93005; 94640; 94760; 96360; 96361; 99291

== ENCOUNTER → 2022-12-19 | Outpatient (CLI) | payer MEDICARE ==
[2022-12-20 04:11] LABS: Basophils # (A) 0.05 X 10*3/uL (0.00-0.10); Eosinophils # (A) 0.49 X 10*3/uL (0.04-0.35); HCT 32.4 % (39.6-50.0); HGB 11.2 d/dL (13.0-17.0); Immature Platelet Fraction 1.6 % (1.1-6.1); Lymphocytes # (A) 0.42 X 10*3/uL (0.90-5.00); Lymphocytes % (A) 8.6 %; MCH 36.1 pg (27.0-32.0); MCHC 34.6 d/dL (32.0-37.0); MCV 104.5 FL (80.0-97.0); Mean Platelet Volume 12.5 FL (9.5-12.2); Monocytes # (A) 0.55 X 10*3/uL (0.20-1.00); Monocytes % (A) 11.3 %; NRBC Per 100 WBC 0 X 10*3/uL (0.00-0.01); Neutrophils # (A) 3.35 X 10*3/uL (1.80-7.70); Neutrophils % (A) 68.7 %; Platelet Count 57 X 10*3/uL (140-440); WBC 4.88 X 10*3/uL (4.50-10.00)
== END | disposition home or self-care (01) ==
LOC: LABPAT 13:40
PROVIDERS: ATTEND Surgery
DX: Z01.812 Encounter for preprocedural laboratory examination (principal); K40.90 Unilateral inguinal hernia, without obstruction or gangrene, not specified as recurrent
CPT/HCPCS: 85025

== ENCOUNTER 2022-12-31 05:51 | Day surgery (SDC) | payer MEDICARE ==
[~2022-12-31 05:51] MED LIST changes: +ACETAMINOPHEN TAB 500 MG TAB PO PRN; +HEPARIN SODIUM,PORCINE/PF 5,000 UNIT/0.5 ML SYRINGE SQ PRN; -LACTATED RINGERS 1,000 ML IV SCH
[2022-12-31] MEDS ORDERED: LACTATED RINGERS 1,000 ML IV SCH ×2 (05:56)
[2022-12-31] MEDS ORDERED: fentaNYL (PF) 50 MCG/ML 2 ML AMP IV PRN (05:56)
[2022-12-31] MEDS ORDERED: DEXAMETHASONE SOD PHOSPHATE 4 MG/ML 1 ML VIAL IV ONE (05:56)
[2022-12-31] MEDS ORDERED: ONDANSETRON 4 MG/2 ML VIAL IVP ONE (05:56)
[2022-12-31 06:55] LABS: Basophils % (A) 0 %; Eosinophils # (A) 0.6 k/uL (0-0.7); Eosinophils % (A) 11 %; HCT 32.5 % (39.0-53.0); HGB 11.1 gm/dL (13.0-17.5); Lymphocytes # (A) 0.6 k/uL (1.0-4.8); Lymphocytes % (A) 10 %; MCH 35.8 pg (25.0-35.0); MCHC 34.3 g/dL (31.0-37.0); MCV 104.5 fL (80.0-100.0); Macrocytosis Moderate; Mean Platelet Volume 7.3; Monocytes # (A) 0.4 k/uL (0-1.0); Monocytes % (A) 7 %; Neutrophils # (A) 4.1 k/uL (1.3-7.7); Neutrophils % (A) 70 %; RBC 3.11 m/uL (4.30-5.90); RDW 15.8 % (11.5-15.5); WBC 5.8 k/uL (3.8-10.6)
[2022-12-31 06:57] LABS: Platelet Count 72 k/uL (150-450)
[2022-12-31 07:00] LABS: Glucose,Whole Blood 121 mg/dL (70-110)
[2022-12-31 07:17] LABS: ALT 44 U/L (4-49); AST 68 U/L (17-59); African American GFR (CKD) >90 (>60 ml/min/1.73 sqM); Albumin 2.7 g/dL (3.5-5.0); Alkaline Phosphatase 300 U/L (38-126); Anion Gap 6 mmol/L; Blood Urea Nitrogen 14 mg/dL (9-20); Calcium 8.7 mg/dL (8.4-10.2); Carbon Dioxide 22 mmol/L (22-30); Chloride 106 mmol/L (98-107); Glucose 129 mg/dL (74-99); Non-African American GFR(CKD) >90 (>60 ml/min/1.73 sqM); Potassium 4.5 mmol/L (3.5-5.1); Sodium 134 mmol/L (137-145); Total Bilirubin 1.5 mg/dL (0.2-1.3); Total Protein 6.4 g/dL (6.3-8.2)
[2022-12-31] MEDS ORDERED: ETOMIDATE 2 MG/ML 10 ML VIAL ONE (07:25)
[2022-12-31] MEDS ORDERED: SUCCINYLCHOLINE CHLORIDE 200 MG/10 ML VIAL IV ONE (07:25)
[2022-12-31] MEDS ORDERED: LIDOCAINE 2% INJ 20 MG/ML (2 ML VIAL) ONE (07:25)
[2022-12-31] MEDS ORDERED: MIDAZOLAM 2 MG/2 ML VIAL ONE (07:25)
[2022-12-31] MEDS ORDERED: GLYCOPYRROLATE 0.2 MG/ML 2 ML VIAL ONE (07:25)
[2022-12-31] MEDS ORDERED: NEOSTIGMINE 1 MG/ML 10 ML VIAL ONE (07:25)
[2022-12-31] MEDS ORDERED: fentaNYL (PF) 50 MCG/ML 2 ML AMP ONE (07:25)
[2022-12-31] MEDS ORDERED: ROCURONIUM 10 MG/ML (5 ML VIAL) IV ONE (07:25)
[2022-12-31 07:28] LABS: INR 1.1 (<1.2); Prothrombin Time 11.5 sec (9.0-12.0)
[2022-12-31] MEDS ORDERED: CLINDAMYCIN 600 MG in DEXTROSE 5% IN WATER 50 ML IVPB STA ×2 (07:28)
--- NOTE | 2022-12-31 07:33 | P.GSHP ---
History of Present Illness H&P Date: 12/31/22 Chief Complaint: right inguinal hernia incarcerated right inguinal hernia Past Medical History Past Medical History: Asthma, Cancer, Diabetes Mellitus, GERD/Reflux, Liver Disease, Osteoarthritis (OA) Additional Past Medical History / Comment(s): 11/08/22 IP FOR HEPATIC ENCEPHOLOGY, DOING WELL TODAY. Basal cell CA face and left chest, cirrhosis of the liver, hepatitis C possibly from blood transfusion as a child, palpable mass right parotid ,left leg arthritis with occasional edema to lower leg, has had re cent us to r/o dvt was negative test History of Any Multi-Drug Resistant Organisms: None Reported Past Surgical History: Hernia Repair Additional Past Surgical History / Comment(s): sinus surgery, left wrist tendon injury repair, shunt placed "in liver" per patient Past Anesthesia/Blood Transfusion Reactions: No Reported Reaction Past Psychological History: Anxiety, Depression, PTSD Smoking Status: Former smoker Past Alcohol Use History: None Reported Additional Past Alcohol Use History / Comment(s): quit smoking in approximately 2004 was 1/2 pack a day smoker for approximately 35 years, no longer drinks any alcohol and denies every drinking daily Past Drug Use History: None Reported - Past Family History Mother Family Medical History: Cancer Additional Family Medical History / Comment(s): patient is unsure if ovarian or colon Medications and Allergies Home Medications Medication Instructions Recorded Confirmed Type Omalizumab [Xolair] 150 mg SQ Q14D 04/28/18 12/23/22 History Ferrous Sulfate [Iron (65 MG 325 mg PO MOWEFR 03/14/21 12/23/22 History Elemental)] Omeprazole 20 mg PO QAM 03/14/21 12/23/22 History Rifaximin [Xifaxan] 550 mg PO BID 03/14/21 12/23/22 History Fluticasone Propion/Salmeterol 1 puff INHALATION RT-BID 09/07/21 12/23/22 History [Advair 500-50 Diskus] Albuterol Sulfate [Albuterol 2 puff PO RT-QID 11/08/22 12/23/22 History Sulfate Hfa] Spironolactone [Aldactone] 50 mg PO BID 11/08/22 12/23/22 History hydrOXYzine HCL [Atarax] 10 mg PO HS 11/08/22 12/23/22 History Furosemide [Lasix] 10 mg PO MOWEFR PRN 12/23/22 12/23/22 History Lactulose [Cephulac] 40 gm PO QID PRN 12/23/22 12/23/22 History glipiZIDE 5 mg PO BID 12/23/22 12/23/22 History Allergies Allergy/AdvReac Type Severity Reaction Status Date / Time cefuroxime [From Ceftin] AdvReac Rash/Hives Verified 12/31/22 06:19 Surgical - Exam Vital Signs Temp Pulse Resp BP Pulse Ox 97.3 F L 75 16 107/62 98 12/31/22 06:31 12/31/22 06:31 12/31/22 06:31 12/31/22 06:31 12/31/22 06:31 - General well developed, well nourished, no distress - Eyes PERRL - ENT normal pinna - Neck no masses - Respiratory normal expansion - Cardiovascular Rhythm: regular - Abdomen Abdomen: soft, non tender Hernia: inguinal (right incarcerated) Results - Labs 12/31/22 06:45 12/31/22 06:45 Abnormal Lab Results - Last 24 Hours (Table) 12/31/22 12/31/22 12/31/22 Range/Units 06:45 06:45 06:48 RBC 3.11 L (4.30-5.90) m/uL Hgb 11.1 L (13.0-17.5) gm/dL Hct 32.5 L (39.0-53.0) % MCV 104.5 H (80.0-100.0) fL MCH 35.8 H (25.0-35.0) pg RDW 15.8 H (11.5-15.5) % Plt Count 72 L (150-450) k/uL Lymphocytes # 0.6 L (1.0-4.8) k/uL Sodium 134 L (137-145) mmol/L Creatinine 0.45 L (0.66-1.25) mg/dL Glucose 129 H (74-99) mg/dL POC Glucose (mg/dL) 121 H (70-110) mg/dL Total Bilirubin 1.5 H (0.2-1.3) mg/dL AST 68 H (17-59) U/L Alkaline Phosphatase 300 H (38-126) U/L Albumin 2.7 L (3.5-5.0) g/dL Diabetes panel 12/31/22 Range/Units 06:45 Sodium 134 L (137-145) mmol/L Potassium 4.5 (3.5-5.1) mmol/L Chloride 106 (98-107) mmol/L Carbon Dioxide 22 (22-30) mmol/L BUN 14 (9-20) mg/dL Creatinine 0.45 L (0.66-1.25) mg/dL Glucose 129 H (74-99) mg/dL Calcium 8.7 (8.4-10.2) mg/dL AST 68 H (17-59) U/L ALT 44 (4-49) U/L Alkaline Phosphatase 300 H (38-126) U/L Total Protein 6.4 (6.3-8.2) g/dL Albumin 2.7 L (3.5-5.0) g/dL Calcium panel 12/31/22 Range/Units 06:45 Calcium 8.7 (8.4-10.2) mg/dL Albumin 2.7 L (3.5-5.0) g/dL Pituitary panel 12/31/22 Range/Units 06:45 Sodium 134 L (137-145) mmol/L Potassium 4.5 (3.5-5.1) mmol/L Chloride 106 (98-107) mmol/L Carbon Dioxide 22 (22-30) mmol/L BUN 14 (9-20) mg/dL Creatinine 0.45 L (0.66-1.25) mg/dL Glucose 129 H (74-99) mg/dL Calcium 8.7 (8.4-10.2) mg/dL Adrenal panel 12/31/22 Range/Units 06:45 Sodium 134 L (137-145) mmol/L Potassium 4.5 (3.5-5.1) mmol/L Chloride 106 (98-107) mmol/L Carbon Dioxide 22 (22-30) mmol/L BUN 14 (9-20) mg/dL Creatinine 0.45 L (0.66-1.25) mg/dL Glucose 129 H (74-99) mg/dL Calcium 8.7 (8.4-10.2) mg/dL Total Bilirubin 1.5 H (0.2-1.3) mg/dL AST 68 H (17-59) U/L ALT 44 (4-49) U/L Alkaline Phosphatase 300 H (38-126) U/L Total Protein 6.4 (6.3-8.2) g/dL Albumin 2.7 L (3.5-5.0) g/dL Assessment and Plan (1) Inguinal hernia of right side with obstruction Current Visit: Yes Status: Chronic Code(s): K40.30 - UNIL INGUINAL HERNIA, W OBST, W/O GANGR, NOT SPCF RECUR SNOMED Code(s): 704154696 Plan: laproscopic right robotic inguinal hernia
[2022-12-31] MEDS ORDERED: BUPIVACAINE (PF) 0.5% 30 ML VIAL SQ ONE ×2 (07:52)
[2022-12-31 08:42] VITALS: TEMP 98
[2022-12-31 08:51] VITALS: RESP 16
--- NOTE | 2022-12-31 09:12 | P.OP ---
Date of Procedure: 12/31/22 Preoperative Diagnosis: Right inguinal hernia incarcerated Postoperative Diagnosis: Bilateral inguinal hernia Left cord lipoma Procedure(s) Performed: Laparoscopic robotic repair of left inguinal hernia Laparoscopic robotic repair of right inguinal hernia incarcerated Excision of left cord lipoma Transversus abdominis plane block Anesthesia: ROSALIE Surgeon: Aaron Breen Estimated Blood Loss (ml): 5 Pathology: other (Left cord lipoma) Condition: stable Disposition: PACU Description of Procedure: The patient's placed on the operating table in the supine position. The patient received general anesthesia. The patient's abdomen was prepped and draped in usual sterile fashion. The skin was anesthetized 1% local Xylocaine at the incision sites. Using an 11 blade a skin incision was made at the umbilicus. The fascia was grasped with a Golden and then the peritoneal cavity was entered with the Veress needle. Position of the Veress needle was confirmed with a positive drop test. After adequate insufflation a 5 mm trocar was placed into the peritoneal cavity. The Laparoscope was placed the peritoneal cavity. And a robotic 8 mm trocar was placed in the right lateral position and then another 8 mm robotic trochars placed in the left lateral position. The original 5 mm trocar was exchanged for a 12 mm trocar. A four-quadrant transversus abdominis plane block was then performed using 1% local Xylocaine. The patient was placed in reverse Trendelenburg and then the patient was docked to the robot. Next the peritoneum over top of the right inguinal hernia was incised and then using blunt and sharp dissection and electrocautery the hernia sac was dissected free from the floor of the inguinal canal. The hernia sac was completely reduced into the peritoneal cavity. And then using the Pro childcare teacher mesh the hernia was repaired. The peritoneum was then sutured with 20V lock suture. Next the peritoneum over top of the left inguinal hernia was incised and then using blunt and sharp dissection and electrocautery the hernia sac was dissected free from the floor of the inguinal canal. The cord lipoma was dissected free to pathology. The hernia sac was completely reduced into the peritoneal cavity. And then using the Pro childcare teacher mesh the hernia was repaired. The peritoneum was then sutured with 20V lock suture. The patient was then undocked the robot. The needle was withdrawn from the peritoneal cavity. The umbilical trocar site was closed with 0 Ethibond suture. The skin was closed interrupted 3-0 Monocryl suture. Dermabond dressing was applied. Patient was sent to recovery in stable condition.
[2022-12-31] MEDS ORDERED: HYDROmorphone 0.5 MG/0.5 ML SYRINGE IVP ONE ×2 (09:16→09:31)
[2022-12-31 13:31] VITALS: PULSE 95
[2022-12-31 14:13] VITALS: BP 124/65
[2022-12-31] MEDS ORDERED: LACTATED RINGERS 1,000 ML IV ONE (14:19)
== END 2022-12-31 15:45 | disposition home or self-care (01) ==
LOC: OR 05:51
PROVIDERS: ATTEND Surgery
DX: K40.30 Unilateral inguinal hernia, with obstruction, without gangrene, not specified as recurrent (principal); D17.6 Benign lipomatous neoplasm of spermatic cord; J45.909 Unspecified asthma, uncomplicated; E11.9 Type 2 diabetes mellitus without complications; M19.90 Unspecified osteoarthritis, unspecified site; Z86.19 Personal history of other infectious and parasitic diseases; Z87.891 Personal history of nicotine dependence; Z79.51 Long term (current) use of inhaled steroids; Z79.899 Other long term (current) drug therapy
CPT/HCPCS: 86900; 86901; 88304; 80053; 85025; 85610; 86850; 49650; C1781 ×2; J2250; J0330; J1100; J2710; J2405; J3010; J1170; J2001; J0736; J0665

== ENCOUNTER 2023-01-10 12:28 | Observation (INO) | payer MEDICARE ==
[2023-01-10 14:21] LABS: Basophils % (A) 0 %; Eosinophils # (A) 0.3 k/uL (0-0.7); Eosinophils % (A) 5 %; HGB 11.8 gm/dL (13.0-17.5); Lymphocytes # (A) 0.4 k/uL (1.0-4.8); Lymphocytes % (A) 6 %; MCH 36.5 pg (25.0-35.0); MCHC 34.6 g/dL (31.0-37.0); MCV 105.4 fL (80.0-100.0); Macrocytosis Moderate; Mean Platelet Volume 8.2; Monocytes # (A) 0.4 k/uL (0-1.0); Monocytes % (A) 6 %; Neutrophils # (A) 4.6 k/uL (1.3-7.7); Neutrophils % (A) 81 %; RBC 3.23 m/uL (4.30-5.90); RDW 15.2 % (11.5-15.5); WBC 5.7 k/uL (3.8-10.6)
--- NOTE | 2023-01-10 14:21 | ED ---
General Adult HPI - General Chief complaint: Shortness of Breath Stated complaint: SOB Time Seen by Provider: 01/10/23 13:55 Source: patient, RN notes reviewed Mode of arrival: ambulatory Limitations: no limitations - History of Present Illness Initial comments: 72-year-old male presents emergency Department chief complaint shortness of breath. Patient have increasing shortness of breath he states his been having leg swelling, cough, with feels like fluid in his chest. Patient states he is had issues with fluid related to liver failure, cirrhosis. Patient saw his PCP had an x-ray 2 days ago does not know the results. Patient has been taking ext ra Lasix as directed yesterday did not take Today. Patient had no reported fever patient had an inguinal hernia repair 10 days ago with no comp medications he did have abdominal distention after - Related Data Home Medications Medication Instructions Recorded Confirmed Omalizumab [Xolair] 150 mg SQ Q14D 04/28/18 12/23/22 Ferrous Sulfate [Iron (65 MG 325 mg PO MOWEFR 03/14/21 12/23/22 Elemental)] Omeprazole 20 mg PO QAM 03/14/21 12/23/22 Rifaximin [Xifaxan] 550 mg PO BID 03/14/21 12/23/22 Fluticasone Propion/Salmeterol 1 puff INHALATION RT-BID 09/07/21 12/23/22 [Advair 500-50 Diskus] Albuterol Sulfate [Albuterol 2 puff PO RT-QID 11/08/22 12/23/22 Sulfate Hfa] Spironolactone [Aldactone] 50 mg PO BID 11/08/22 12/23/22 hydrOXYzine HCL [Atarax] 10 mg PO HS 11/08/22 12/23/22 Furosemide [Lasix] 10 mg PO MOWEFR PRN 12/23/22 12/23/22 Lactulose [Cephulac] 40 gm PO QID PRN 12/23/22 12/23/22 glipiZIDE 5 mg PO BID 12/23/22 12/23/22 Previous Rx's Medication Instructions Recorded Acetaminophen Tab [Tylenol] 650 mg PO Q6H #30 tab 12/31/22 Docusate [Colace] 100 mg PO BID #20 capsule 12/31/22 Ibuprofen [Motrin] 600 mg PO Q6HR PRN #40 tab 12/31/22 oxyCODONE HCL [OxyIR] 5 mg PO Q6H PRN 3 Days #10 tab 12/31/22 Allergies Allergy/AdvReac Type Severity Reaction Status Date / Time cefuroxime [From Ceftin] AdvReac Rash/Hives Verified 12/31/22 06:19 Review of Systems ROS Statement: Those systems with pertinent positive or pertinent negative responses have been documented in the HPI. ROS Other: All systems not noted in ROS Statement are negative. Past Medical History Past Medical History: Asthma, Cancer, Diabetes Mellitus, GERD/Reflux, Liver D isease, Osteoarthritis (OA) Additional Past Medical History / Comment(s): basal cell CA face and left chest, cirrhosis of the liver, hepatitis C possibly from blood transfusion as a child, palpable mass right parotid ,left leg arthritis with occasional edema to lower leg, has had recent us to r/o dvt was negative test History of Any Multi-Drug Resistant Organisms: None Reported Past Surgical History: Hernia Repair Additional Past Surgical History / Comment(s): sinus surgery, left wrist tendon injury repair, shunt placed "in liver" per patient Past Anesthesia/Blood Transfusion Reactions: No Reported Reaction Past Psychological History: Anxiety, Depression, PTSD Past Alcohol Use History: None Reported, Heavy Past Drug Use History: None Reported - Past Family History Mother Family Medical History: Cancer Additional Family Medical History / Comment(s): patient is unsure if ovarian or colon General Exam Limitations: no limitations Course Vital Signs 01/10/23 01/10/23 01/10/23 12:30 14:04 15:00 Temperature 98.1 F 97.8 F Pulse Rate 102 H 94 Respiratory 20 18 20 Rate Blood Pressure 108/65 101/71 O2 Sat by Pulse 96 96 Oximetry EKG Findings - EKG Comments: EKG Findings:: EKG performed at 12:42 sinus rhythm rate of 96 QRS is 103 QT/QTC 352/407 - EKG Results: EKG: interpreted by STEPHANIED Medical Decision Making - Medical Decision Making Was pt. sent in by a medical professional or institution (, PA, HOSPICE ENTRANCE ATTENDANT, urgent care, hospital, or correction...) When possible be specific @ -none Did you speak to anyone other than the patient for history (EMS, parent, family, police, friend...)? What history was obtained from this source @ -No Did you review nursing and triage notes (agree or disagree)? Why? @ -I reviewed and agree with nursing and triage notes Were old charts reviewed (outside hosp., previous admission, EMS record, old EKG, old radiological studies, urgent care reports/EKG's, correction records)? Report findings @ -Reviewed prior chest x-ray, laboratory studies Differential Diagnosis (chest pain, altered mental status, abdominal pain women, abdominal pain men, vaginal bleeding, weakness, fever, dyspnea, syncope, headache, dizziness, GI bleed, back pain, seizure, CVA, palpatations, mental health, musculoskeletal)? @ -Differential Dyspnea: Coronary syndrome, arrhythmia, tamponade, asthma, COPD, pulmonary embolism, pneumonia, pneumothorax, pulmonary effusion, anaphylaxis, diabetic ketoacidosis, flailed chest, pulmonary contusion, diaphragmatic rupture, anemia, neuromuscular, this is not meant to be an all-inclusive list. EKG interpreted by me (3pts min.). @ -As above X-rays interpreted by me (1pt min.). @ -Chest x-ray shows large pleural effusion on the right CT interpreted by me (1pt min.). @ -None done U/S interpreted by me (1pt. min.). @ -None done What testing was considered but not performed or refused? (CT, X-rays, U/S, labs)? Why? @ -None What meds were considered but not given or refused? Why? @ -None Did you discuss the management of the patient with other professionals (professionals i.e. , PA, HOSPICE ENTRANCE ATTENDANT, lab, RT, psych nurse, social problems specialist, aboriginal community council member, teacher, commanding officer motorized squad, caser up)? Give summary @ -EM for admission secondary to large pleural effusion requiring thoracentesis Was smoking cessation discussed for >3mins.? @ -No Was critical care preformed (if so, how long)? @ -No Were there social determinants of health that impacted care today? How? (Homelessness, low income, unemployed, alcoholism, drug addiction, transportation, low edu. Level, literacy, decrease access to med. care, long term, rehab)? @ -No Was there de-escalation of care discussed even if they declined (Discuss DNR or withdrawal of care, Hospice)? DNR status @ -No What co-morbidities impacted this encounter? (DM, HTN, Smoking, COPD, CAD, Cancer, CVA, ARF, Chemo, Hep., AIDS, mental health diagnosis, sleep apnea, morbid obesity)? @ -None Was patient admitted / discharged? Hospital course, mention meds given and route, prescriptions, significant lab abnormalities, going to OR and other pertinent info. @ -Admitted patient is large pleural effusion requiring thoracentesis. Patient will be admitted for pulmonary consult. Laboratory studies were reviewed patient is Undiagnosed new problem with uncertain prognosis? @ -No Drug Therapy requiring intensive monitoring for toxicity (Heparin, Nitro, Insulin, Cardizem)? @ -No Were any procedures done? @ -No Diagnosis/symptom? @ -Dyspnea, pleural effusion Acute, or Chronic, or Acute on Chronic? @ -Acute Uncomplicated (without systemic symptoms) or Complicated (systemic symptoms)? @ -Complicated Side effects of treatment? @ -No Exacerbation, Progression, or Severe Exacerbation? @ -No Poses a threat to life or bodily function? How? (Chest pain, [place], [place], pneumonia, PE, COPD, DKA, ARF, appy, cholecystitis, CVA, Diverticulitis, Homicidal, Suicidal, threat to staff... and all critical care pts) @ -yes - Lab Data Result diagrams: 01/10/23 14:10 01/10/23 14:10 Lab Results 01/10/23 01/10/23 01/10/23 Range/Units 14:10 14:10 14:10 WBC 5.7 (3.8-10.6) k/uL RBC 3.23 L (4.30-5.90) m/uL Hgb 11.8 L (13.0-17.5) gm/dL Hct 34.0 L (39.0-53.0) % MCV 105.4 H (80.0-100.0) fL MCH 36.5 H (25.0-35.0) pg MCHC 34.6 (31.0-37.0) g/dL RDW 15.2 (11.5-15.5) % Plt Count 64 L (150-450) k/uL MPV 8.2 Neutrophils % 81 % Lymphocytes % 6 % Monocytes % 6 % Eosinophils % 5 % Basophils % 0 % Neutrophils # 4.6 (1.3-7.7) k/uL Lymphocytes # 0.4 L (1.0-4.8) k/uL Monocytes # 0.4 (0-1.0) k/uL Eosinophils # 0.3 (0-0.7) k/uL Basophils # 0.0 (0-0.2) k/uL Manual Slide Review Performed Macrocytosis Moderate PT 12.1 H (9.0-12.0) sec INR 1.2 H (<1.2) APTT 24.7 (22.0-30.0) sec Sodium 131 L (137-145) mmol/L Potassium 5.0 (3.5-5.1) mmol/L Chloride 102 (98-107) mmol/L Carbon Dioxide 26 (22-30) mmol/L Anion Gap 3 mmol/L BUN 15 (9-20) mg/dL Creatinine 0.49 L (0.66-1.25) mg/dL Est GFR (CKD-EPI)AfAm >90 (>60 ml/min/1.73 sqM) Est GFR (CKD-EPI)NonAf >90 (>60 ml/min/1.73 sqM) Glucose 189 H (74-99) mg/dL Calcium 8.5 (8.4-10.2) mg/dL Magnesium 1.6 (1.6-2.3) mg/dL Total Bilirubin 2.0 H (0.2-1.3) mg/dL AST 55 (17-59) U/L ALT 38 (4-49) U/L Alkaline Phosphatase 189 H (38-126) U/L Troponin I (0.000-0.034) ng/mL NT-Pro-B Natriuret Pep 161 pg/mL Total Protein 6.4 (6.3-8.2) g/dL Albumin 2.6 L (3.5-5.0) g/dL 01/10/23 Range/Units 14:10 WBC (3.8-10.6) k/uL RBC (4.30-5.90) m/uL Hgb (13.0-17.5) gm/dL Hct (39.0-53.0) % MCV (80.0-100.0) fL MCH (25.0-35.0) pg MCHC (31.0-37.0) g/dL RDW (11.5-15.5) % Plt Count (150-450) k/uL MPV Neutrophils % % Lymphocytes % % Monocytes % % Eosinophils % % Basophils % % Neutrophils # (1.3-7.7) k/uL Lymphocytes # (1.0-4.8) k/uL Monocytes # (0-1.0) k/uL Eosinophils # (0-0.7) k/uL Basophils # (0-0.2) k/uL Manual Slide Review Macrocytosis PT (9.0-12.0) sec INR (<1.2) APTT (22.0-30.0) sec Sodium (137-145) mmol/L Potassium (3.5-5.1) mmol/L Chloride (98-107) mmol/L Carbon Dioxide (22-30) mmol/L Anion Gap mmol/L BUN (9-20) mg/dL Creatinine (0.66-1.25) mg/dL Est GFR (CKD-EPI)AfAm (>60 ml/min/1.73 sqM) Est GFR (CKD-EPI)NonAf (>60 ml/min/1.73 sqM) Glucose (74-99) mg/dL Calcium (8.4-10.2) mg/dL Magnesium (1.6-2.3) mg/dL Total Bilirubin (0.2-1.3) mg/dL AST (17-59) U/L ALT (4-49) U/L Alkaline Phosphatase (38-126) U/L Troponin I <0.012 (0.000-0.034) ng/mL NT-Pro-B Natriuret Pep pg/mL Total Protein (6.3-8.2) g/dL Albumin (3.5-5.0) g/dL Disposition Clinical Impression: Dyspnea, Pleural effusion Disposition: ADMITTED IP TO THIS HOSP Condition: Fair Referrals: Taiwo Ac [Primary Care Provider] - 1-2 days Time of Disposition: 15:15
[2023-01-10 14:42] LABS: INR 1.2 (<1.2); Partial Thromboplastin Time 24.7 sec (22.0-30.0); Prothrombin Time 12.1 sec (9.0-12.0)
[2023-01-10 14:44] LABS: ALT 38 U/L (4-49); AST 55 U/L (17-59); African American GFR (CKD) >90 (>60 ml/min/1.73 sqM); Albumin 2.6 g/dL (3.5-5.0); Alkaline Phosphatase 189 U/L (38-126); Anion Gap 3 mmol/L; Blood Urea Nitrogen 15 mg/dL (9-20); Calcium 8.5 mg/dL (8.4-10.2); Carbon Dioxide 26 mmol/L (22-30); Chloride 102 mmol/L (98-107); Glucose 189 mg/dL (74-99); Magnesium 1.6 mg/dL (1.6-2.3); Non-African American GFR(CKD) >90 (>60 ml/min/1.73 sqM); Sodium 131 mmol/L (137-145); Total Protein 6.4 g/dL (6.3-8.2)
--- NOTE | 2023-01-10 14:52 | XR ---
EXAMINATION TYPE: XR chest 2V DATE OF EXAM: 01/10/2023 COMPARISON: 11/08/2022 TECHNIQUE: PA and lateral views submitted. HISTORY: Shortness of breath FINDINGS: The lungs are clear and there is no pneumothorax, pleural effusion, or focal pneumonia. Heart size normal and no overt failure. Osseous structures demonstrate hypertrophic and degenerative changes of the spine. There is a large right pleural effusion with consolidation. Heart size is stable. Left lung clear cor relate for underlying COPD. Diffuse osteopenia and AC joint arthropathy. IMPRESSION: 1. Large area of right-sided consolidation and pleural effusion.
[2023-01-10 14:53] LABS: NT-Pro-B-Type Natriuretic Pept 161 pg/mL
[2023-01-10 15:27] LABS: Platelet Count 64 k/uL (150-450)
[2023-01-10] MEDS ORDERED: ONDANSETRON 4 MG/2 ML VIAL IVP PRN (15:35)
[2023-01-10] MEDS ORDERED: NALOXONE 0.4 MG/ML 1 ML VIAL IV PRN (15:35)
[2023-01-10] MEDS ORDERED: PROTEASE PO SCH (17:45)
[2023-01-10] MEDS ORDERED: LIPASE PO SCH (17:45)
[2023-01-10] MEDS ORDERED: AMYLASE PO SCH (17:45)
[2023-01-10] MEDS: glipiZIDE 5 MG TAB PO SCH (17:50)
[2023-01-10] MEDS: SYMBICORT 160-4.5 MCG INHALER INHALATION SCH (19:48)
[2023-01-10] MEDS: ALBUTEROL NEBULIZED 2.5 MG/3 ML INHALATION SCH (19:48)
[2023-01-10] MEDS ORDERED: hydrOXYzine HCL 10 MG TAB PO SCH (21:00)
[2023-01-10] MEDS: RIFAXIMIN 550 MG TABLET PO SCH (22:38)
[2023-01-10] MEDS: SPIRONOLACTONE 25 MG TAB PO SCH (22:39)
[2023-01-11 06:22] LABS: Glucose,Whole Blood 203 mg/dL (70-110)
[2023-01-11] MEDS: glipiZIDE 5 MG TAB PO SCH (06:23)
[2023-01-11] MEDS ORDERED: PANTOPRAZOLE 40 MG TABLET PO SCH (07:30)
[2023-01-11] MEDS: ALBUTEROL NEBULIZED 2.5 MG/3 ML INHALATION SCH ×3 (08:14→15:48)
[2023-01-11] MEDS: SYMBICORT 160-4.5 MCG INHALER INHALATION SCH (08:16)
[2023-01-11] MEDS: RIFAXIMIN 550 MG TABLET PO SCH (08:33)
[2023-01-11] MEDS: SPIRONOLACTONE 25 MG TAB PO SCH (08:34)
--- NOTE | 2023-01-11 08:38 | US ---
EXAMINATION TYPE: US chest DATE OF EXAM: 01/11/2023 COMPARISON: Chest radiograph 01/10/2023 CLINICAL INDICATION: Male, 72 years old with history of Right pleural effusion; Right pleural effusio n. TECHNIQUE: Targeted ultrasound of the posterior lower right hemithorax EXAM MEASUREMENTS: Right Pleural Effusion pocket size: 18.9 cm Right skin surface to fluid distance: 1.7 cm lung tissue visualized 12 cm in fluid pocket. Right side marked for possible thoracentesis outside the dept. Pulmonologists are able to review the images in the patient?s EMR. IMPRESSIONS: Large right pleural effusion with associated atelectasis.
[2023-01-11 10:05] LABS: Basophils # (A) 0.03 X 10*3/uL (0.00-0.10); Basophils % (A) 0.5 %; Eosinophils # (A) 0.35 X 10*3/uL (0.04-0.35); Eosinophils % (A) 5.8 %; HCT 32.6 % (39.6-50.0); HGB 11.3 d/dL (13.0-17.0); Immature Platelet Fraction 2.5 % (1.1-6.1); Lymphocytes # (A) 0.36 X 10*3/uL (0.90-5.00); MCHC 34.7 d/dL (32.0-37.0); MCV 103.8 FL (80.0-97.0); Mean Platelet Volume 10.1 FL (9.5-12.2); Monocytes # (A) 0.58 X 10*3/uL (0.20-1.00); Monocytes % (A) 9.7 %; NRBC Per 100 WBC 0 X 10*3/uL (0.00-0.01); Neutrophils # (A) 4.67 X 10*3/uL (1.80-7.70); Neutrophils % (A) 77.7 %; Platelet Count 64 X 10*3/uL (140-440); RBC 3.14 X 10*6/uL (4.40-5.60); RDW 15.5 % (11.5-14.5); WBC 6.01 X 10*3/uL (4.50-10.00)
[2023-01-11 10:24] LABS: BUN/Creat Ratio 19.83 Ratio (12.00-20.00); Blood Urea Nitrogen 11.9 mg/dL (9.0-27.0); Glucose 183 mg/dL (70-110)
[2023-01-11 10:25] LABS: Calcium 8.5 mg/dL (8.7-10.3); Carbon Dioxide 23.2 mmol/L (21.6-31.8); Chloride 100 mmol/L (96-109); Potassium 4.5 mmol/L (3.5-5.5); Sodium 130 mmol/L (135-145)
--- NOTE | 2023-01-11 11:07 | P.CNPUL ---
History of Present Illness Consult date: 01/11/23 Requesting physician: Jethro Luong Reason for consult: dyspnea, abnormal CXR/CT Chief complaint: Shortness of breath History of present illness: This is a pleasant 72-year-old male patient with a known history of recent hernia repair, cirrhosis of the liver, hepatitis C, mild intermittent chronic bronchial asthma receiving Xolair in the outpatient setting, diabetes mellitus, osteoarthritis. He has had recurrent right-sided pleural effusions and had previous thoracentesis. He presented here to the emergency room yesterday with increasing shortness of breath and lower extremity edema cough and congestion. Chest x-ray reveals a large area of right-sided consolidation and pleural effusi on. Ultrasound of the right chest reveals and 18.9 cm pocket. I count 6.0. Hemoglobin 11.3. Platelets 64,000. Sodium 1:30. Potassium 4.5. Bicarb 23. BUN 12. Creatinine 0.6. Glucose 183. ProBNP 161. He is seen today in consultation on the regular medical floor. He is awake and alert in no acute distress. 18 O2 saturations in the mid 90s on room air. Afebrile. Hemodynamically stable. He is on oral Lasix and Aldactone. Did not Symbicort and albuterol. Review of Systems REVIEW OF SYSTEMS: CONSTITUTIONAL: Denies any recent significant weight loss or weight gain. EYES: Denies change in vision. EARS, NOSE, MOUTH, THROAT: Denies headaches, denies sore throat. CARDIOVASCULAR: Denies chest pain, palpitations or syncopal episodes. RESPIRATORY: Positive for shortness of breath, cough, congestion no hemoptysis. GASTROINTESTINAL: Denies change in appetite, denies abdominal pain GENITOURINARY: Denies hematuria, denies infections. MUSKULOSKELETAL: Denies pain, denies swelling. INTEGUMENTARY: Denies rash, denies eczema. NEUROLOGICAL: Denies recent memory loss, no recent seizure activity. PSYCHIATRIC: Denies anxiety, denies depression. HEMATOLOGIC/LYMPHATIC: Denies anemia, denies enlarged lymph nodes. Past Medical History Past Medical History: Asthma, Cancer, Diabetes Mellitus, GERD/Reflux, Liver Disease, Osteoarthritis (OA) Additional Past Medical History / Comment(s): basal cell CA face and left chest, cirrhosis of the liver, hepatitis C possibly from blood transfusion as a child, palpable mass right parotid ,left leg arthritis with occasional edema to lower leg, has had recent us to r/o dvt was negative test History of Any Multi-Drug Resistant Organisms: None Reported Past Surgical History: Hernia Repair Additional Past Surgical History / Comment(s): sinus surgery, left wrist tendon injury repair, shunt placed "in liver" per patient Past Anesthesia/Blood Transfusion Reactions: No Reported Reaction Past Psychological History: Anxiety, Depression, PTSD Past Alcohol Use History: None Reported, Heavy Past Drug Use History: None Reported - Past Family History Mother Family Medical History: Cancer Additional Family Medical History / Comment(s): patient is unsure if ovarian or colon Medications and Allergies Home Medications Medication Instructions Recorded Confirmed Type Omalizumab [Xolair] 150 mg SQ Q14D 04/28/18 01/10/23 History Ferrous Sulfate [Iron (65 MG 325 mg PO MOWEFR 03/14/21 01/10/23 History Elemental)] Omeprazole 20 mg PO DAILY 03/14/21 01/10/23 History Rifaximin [Xifaxan] 550 mg PO BID 03/14/21 01/10/23 History Fluticasone Propion/Salmeterol 1 puff INHALATION RT-BID 09/07/21 01/10/23 History [Advair 500-50 Diskus] Albuterol Sulfate [Albuterol 2 puff PO RT-QID 11/08/22 01/10/23 History Sulfate Hfa] Spironolactone [Aldactone] 50 mg PO BID 11/08/22 01/10/23 History hydrOXYzine HCL [Atarax] 10 mg PO HS 11/08/22 01/10/23 History Lactulose [Cephulac] 40 gm PO QID PRN 12/23/22 01/10/23 History glipiZIDE 5 mg PO BID 12/23/22 01/10/23 History Ibuprofen [Motrin] 600 mg PO Q6HR PRN #40 tab 12/31/22 01/10/23 Rx Furosemide [Lasix] 10 mg PO MOWEFR 01/10/23 01/10/23 History Lipase/Protease/Amylase [Creon Dr 1 cap PO DIRECTED 01/10/23 01/10/23 History 12,000 Units Capsule] Allergies Allergy/AdvReac Type Severity Reaction Status Date / Time cefuroxime [From Ceftin] AdvReac Rash/Hives Verified 01/10/23 15:34 Physical Exam Vitals: Vital Signs Temp Pulse Pulse Resp BP BP Pulse Ox 01/11/23 08:28 95 01/11/23 08:17 92 01/11/23 07:00 98.3 F 91 17 108/67 95 01/11/23 03:44 97.7 F 94 18 107/67 93 L 01/11/23 02:00 96 01/10/23 20:55 98.3 F 96 16 115/68 95 01/10/23 19:57 96 01/10/23 19:48 92 01/10/23 18:18 98.1 F 101 H 22 109/70 94 L 01/10/23 17:33 98.2 F 101 H 20 118/79 97 01/10/23 15:00 20 01/10/23 14:04 97.8 F 94 18 101/71 96 01/10/23 12:30 98.1 F 102 H 20 108/65 96 Intake and Output 01/10/23 01/11/23 01/11/23 22:59 06:59 14:59 Intake Total 0 Balance 0 Intake: Oral 0 Other: # Voids 1 1 Weight 66.678 kg GENERAL EXAM: Alert, active, pleasant 72-year-old male, thin, on room air, fairly comfortable in no apparent distress. HEAD: Normocephalic. EYES: Normal reaction of pupils, equal size. NOSE: Clear with pink turbinates. THROAT: No erythema or exudates. NECK: No masses, no JVD. CHEST: No chest wall deformity. LUNGS: Equal air entry with crackles, diminished right lung. CVS: S1 and S2 normal with no audible murmur, regular rhythm. ABDOMEN: No hepatosplenomegaly, normal bowel sounds, no guarding or rigidity. SPINE: No scoliosis or deformity SKIN: No rashes CENTRAL NERVOUS SYSTEM: No focal deficits, tone is normal in all 4 extremities. EXTREMITIES: There is no peripheral edema. No clubbing, no cyanosis. Peripheral pulses are intact. Results - Laboratory Findings CBC and BMP: 01/11/23 05:55 01/11/23 05:55 PT/INR, D-dimer PT 12.1 sec (9.0-12.0) H 01/10/23 14:10 INR 1.2 (<1.2) H 01/10/23 14:10 Abnormal lab findings: Abnormal Labs 01/10/23 01/10/23 01/10/23 14:10 14:10 14:10 RBC 3.23 L Hgb 11.8 L Hct 34.0 L MCV 105.4 H MCH 36.5 H RDW Plt Count 64 L Lymphocytes # 0.4 L PT 12.1 H INR 1.2 H Sodium 131 L Creatinine 0.49 L Glucose 189 H POC Glucose (mg/dL) Calcium Total Bilirubin 2.0 H Alkaline Phosphatase 189 H Albumin 2.6 L 01/11/23 01/11/23 01/11/23 05:55 05:55 06:21 RBC 3.14 L Hgb 11.3 L Hct 32.6 L MCV 103.8 H MCH 36.0 H RDW 15.5 H Plt Count 64 L Lymphocytes # 0.36 L PT INR Sodium 130 L Creatinine Glucose 183 H POC Glucose (mg/dL) 203 H Calcium 8.5 L Total Bilirubin Alkaline Phosphatase Albumin - Diagnostic Findings Chest x-ray: image reviewed Assessment and Plan Assessment: Dyspnea secondary to recurrent right-sided pleural effusion, status post right- sided thoracentesis today 01/11/2023 with 2.4 L of hazy yellow fluid removed History of recurrent right-sided pleural effusions with previous thoracentesis History of liver cirrhosis and had been on a liver transplant list at [facility] removed due to improvement in his MELD score History of hepatitis C History of previous heavy alcohol use History of mild anemia and chronic bronchial asthma History of PTSD History of anxiety/depression Plan: The patient was seen and evaluated Chest x-ray, ultrasound of the chest, labs and medications reviewed reviewed A right-sided thoracentesis was performed today 2.4 L of hazy yellow fluid removed Follow-up chest x-ray pending If no complications patient could be discharged home today Follow up with his field cane scale clerk as scheduled I have personally seen and examined the patient, performed the documentation and the assessment and plan as written. Number of minutes spent on the visit: 20.
--- NOTE | 2023-01-11 11:32 | XR ---
EXAMINATION TYPE: XR chest 1V portable DATE OF EXAM: 01/11/2023 11:23 AM COMPARISON: Chest radiographs from 01/10/2023 TECHNIQUE: XR chest 1V portable Portable AP radiograph of the chest. CLINICAL INDICATION:Male, 72 years old with history of r/o pneumothorax; FINDINGS: Lungs/Pleura: Moderate right pleural effusion status post thoracentesis. Associated atelectasis. No s izable pneumothorax. Hyperinflation. Chronic senescent parenchyma changes. Pulmonary vascularity: Unremarkable. Heart/mediastinum: Cardiomediastinal silhouette is partially obscured due to overlying and adjacent o pacities. Musculoskeletal: No acute osseous pathology. IMPRESSION: 1. Decreased now moderate right-sided pleural effusion status post thoracentesis. No sizable pneumot horax. 2. COPD changes.
[2023-01-11 11:51] LABS: Glucose,Whole Blood 169 mg/dL (70-110)
--- NOTE | 2023-01-11 12:38 | PCN ---
PROCEDURE NOTE PROCEDURE PERFORMED: Right thoracentesis. PREOPERATIVE DIAGNOSIS: Large right-sided pleural effusion. POSTOPERATIVE DIAGNOSIS: Large right-sided pleural effusion. CO-SOFT BOARDER: Dr. Ugalde. DESCRIPTION OF PROCEDURE: A time-out was completed verifying correct patient, procedure, site, positioning , and implant (s) or special equipment if applicable. Patient was positioned, prepped and draped in usual sterile fashion. Lidocaine was used to anesthetize the area. The posterior chest was marked by ultrasound. 2.4 L of yellow fluid was removed from the right pleural space. The patient tolerated the procedure well. There was no immediate complication. The fluid will be sent for analysis including cytology, microbiology, and chemistry. A chest x-ray was ordered to rule out pneumothorax. If the chest x-ray is okay, from our perspective, the patient could be discharged. A thoracentesis catheter was introduced into the pleural space and fluid was removed. Blood loss was none. Patient tolerated the procedure well and there were no complications. MMODL / IJN: [id number] /
--- NOTE | 2023-01-11 13:05 | P.HPIM ---
History of Present Illness H&P Date: 01/10/23 Chief Complaint: Shortness of breath 72-year-old male presents emergency Department chief complaint shortness of breath. Patient have increasing shortness of breath he states his been having leg swelling, cough, with feels like fluid in his chest. Patient states he is had issues with fluid related to liver failure, cirrhosis. Patient saw his PCP had an x-ray 2 days ago does not know the results. Patient has been taking extra Lasix as directed yesterday did not take Today. Patient had no reported fever patient had an inguinal hernia repair 10 days ago He has had recurrent right-sided pleural effusions and had previous thoracentesis. He presented here to the emergency room yesterday with increasing shortness of breath and lower extremity edema cough and congestion. Chest x-ray reveals a large area of right-sided consolidation and pleural effusion. Ultrasound of the right chest reveals and 18.9 cm pocket. I count 6.0. Hemoglobin 11.3. Platelets 64,000. Sodium 1:30. Potassium 4.5. Bicarb 23. BUN 12. Creatinine 0.6. Glucose 183. ProBNP 161. Review of Systems REVIEW OF SYSTEMS: CONSTITUTIONAL: No fever, no malaise, no fatigue. HEENT: No recent visual problems or hearing problems. Denied any sore throat. CARDIOVASCULAR: No chest pain, orthopnea, PND, no palpitations, no syncope. PULMONARY: No shortness of breath, no cough, no hemoptysis. GASTROINTESTINAL: No diarrhea, no nausea, no vomiting, no abdominal pain. NEUROLOGICAL: No headaches, no weakness, no numbness. HEMATOLOGICAL: Denies any bleeding or petechiae. GENITOURINARY: Denies any burning micturition, frequency, or urgency. MUSCULOSKELETAL/RHEUMATOLOGICAL: Denies any joint pain, swelling, or any muscle pain. ENDOCRINE: Denies any polyuria or polydipsia. The rest of the 14-point review of systems is negative. Past Medical History Past Medical History: Asthma, Cancer, Diabetes Mellitus, GERD/Reflux, Liver Disease, Osteoarthritis (OA) Additional Past Medical History / Comment(s): basal cell CA face and left chest, cirrhosis of the liver, hepatitis C possibly from blood transfusion as a child, palpable mass right parotid ,left leg arthritis with occasional edema to lower leg, has had recent us to r/o dvt was negative test History of Any Multi-Drug Resistant Organisms: None Reported Past Surgical History: Hernia Repair Additional Past Surgical History / Comment(s): sinus surgery, left wrist tendon injury repair, shunt placed "in liver" per patient Past Anesthesia/Blood Transfusion Reactions: No Reported Reaction Past Psychological History: Anxiety, Depression, PTSD Past Alcohol Use History: None Reported, Heavy Past Drug Use History: None Reported - Past Family History Mother Family Medical History: Cancer Additional Family Medical History / Comment(s): patient is unsure if ovarian or colon Medications and Allergies Home Medications Medication Instructions Recorded Confirmed Type Omalizumab [Xolair] 150 mg SQ Q14D 04/28/18 01/10/23 History Ferrous Sulfate [Iron (65 MG 325 mg PO MOWEFR 03/14/21 01/10/23 History Elemental)] Omeprazole 20 mg PO DAILY 03/14/21 01/10/23 History Rifaximin [Xifaxan] 550 mg PO BID 03/14/21 01/10/23 History Fluticasone Propion/Salmeterol 1 puff INHALATION RT-BID 09/07/21 01/10/23 History [Advair 500-50 Diskus] Albuterol Sulfate [Albuterol 2 puff PO RT-QID 11/08/22 01/10/23 History Sulfate Hfa] Spironolactone [Aldactone] 50 mg PO BID 11/08/22 01/10/23 History hydrOXYzine HCL [Atarax] 10 mg PO HS 11/08/22 01/10/23 History Lactulose [Cephulac] 40 gm PO QID PRN 12/23/22 01/10/23 History glipiZIDE 5 mg PO BID 12/23/22 01/10/23 History Ibuprofen [Motrin] 600 mg PO Q6HR PRN #40 tab 12/31/22 01/10/23 Rx Furosemide [Lasix] 10 mg PO MOWEFR 01/10/23 01/10/23 History Lipase/Protease/Amylase [Creon Dr 1 cap PO DIRECTED 01/10/23 01/10/23 History 12,000 Units Capsule] Allergies Allergy/AdvReac Type Severity Reaction Status Date / Time cefuroxime [From Ceftin] AdvReac Rash/Hives Verified 01/10/23 15:34 Physical Exam Vitals: Vital Signs Temp Pulse Resp BP Pulse Ox 01/10/23 17:33 98.2 F 101 H 20 118/79 97 01/10/23 15:00 20 01/10/23 14:04 97.8 F 94 18 101/71 96 01/10/23 12:30 98.1 F 102 H 20 108/65 96 Intake and Output 01/10/23 01/10/23 01/10/23 06:59 14:59 22:59 Other: Weight 66.678 kg GENERAL EXAM: Alert, active, pleasant 72-year-old male, thin, on room air, fairly comfortable in no apparent distress. HEAD: Normocephalic. EYES: Normal reaction of pupils, equal size. NOSE: Clear with pink turbinates. THROAT: No erythema or exudates. NECK: No masses, no JVD. CHEST: No chest wall deformity. LUNGS: Equal air entry with crackles, diminished right lung. CVS: S1 and S2 normal with no audible murmur, regular rhythm. ABDOMEN: No hepatosplenomegaly, normal bowel sounds, no guarding or rigidity. SPINE: No scoliosis or deformity SKIN: No rashes CENTRAL NERVOUS SYSTEM: No focal deficits, tone is normal in all 4 extremities. EXTREMITIES: There is no peripheral edema. No clubbing, no cyanosis. Peripheral pulses are intact. Results CBC & Chem 7: 01/11/23 05:55 01/11/23 05:55 Labs: Abnormal Lab Results - Last 24 Hours (Table) 01/10/23 01/10/23 01/10/23 Range/Units 14:10 14:10 14:10 RBC 3.23 L (4.30-5.90) m/uL Hgb 11.8 L (13.0-17.5) gm/dL Hct 34.0 L (39.0-53.0) % MCV 105.4 H (80.0-100.0) fL MCH 36.5 H (25.0-35.0) pg Plt Count 64 L (150-450) k/uL Lymphocytes # 0.4 L (1.0-4.8) k/uL PT 12.1 H (9.0-12.0) sec INR 1.2 H (<1.2) Sodium 131 L (137-145) mmol/L Creatinine 0.49 L (0.66-1.25) mg/dL Glucose 189 H (74-99) mg/dL Total Bilirubin 2.0 H (0.2-1.3) mg/dL Alkaline Phosphatase 189 H (38-126) U/L Albumin 2.6 L (3.5-5.0) g/dL Assessment and Plan Assessment: 1. Acute onset dyspnea/recurrent right-sided pleural effusion -- Patient does have history of recurrent right-sided pleural effusions with previous thoracentesis related to liver cirrhosis - Pulmonary service is consulted for repair thoracentesis - We will continue with diuretic therapy; supportive with oxygen per nasal cannula keeping saturation above 92% 2. Liver cirrhosis related to hepatitis C and EtOH abuse; patient had been on liver transplant list at [facility] but was removed due to improvement in his MELD score 3. History of heavy alcohol use; liver cirrhosis; not on transplant list anymore 4. History of hepatitis C; follows up at [facility] 5. Chronic anemia; hemoglobin remains at baseline; we will continue to monitor 6. Bronchial asthma; not in exacerbation; continue with home inhaler therapy
[2023-01-11 14:27] VITALS: BP 109/56; RESP 18; TEMP 98.1
[2023-01-11 15:58] VITALS: PULSE 93
[2023-01-12 06:41] LABS: Glucose, BF Source Pleural Fluid; Glucose, Body Fluid 209 mg/dL; LDH, Body Fluid Source Pleural Fluid; T. Protein, Body Fluid Source Pleural Fluid; Total Protein, Body Fluid 508 mg/dL
[2023-01-12 08:47] LABS: Appearance,BF Clear (Clear)
[2023-01-12 08:57] LABS: RBC, Body Fluid 2819 /UL (0-2000)
[2023-01-13] MEDS ORDERED: FERROUS SULFATE 325 MG TAB PO SCH (09:00)
[2023-01-13] MEDS ORDERED: FUROSEMIDE 10 MG TAB PO SCH (09:00)
[2023-01-13 13:04] LABS: Nucleated Cells, Body Fluid 2 /UL
== END 2023-01-11 17:00 | disposition home or self-care (01) ==
LOC: EC 12:28 → 6NMEDSUR 15:18
PROVIDERS: ADMIT Internal Medicine; ATTEND Internal Medicine
DX: J90 Pleural effusion, not elsewhere classified (principal); K70.30 Alcoholic cirrhosis of liver without ascites; K70.40 Alcoholic hepatic failure without coma; D64.9 Anemia, unspecified; J45.909 Unspecified asthma, uncomplicated; E11.9 Type 2 diabetes mellitus without complications; K21.9 Gastro-esophageal reflux disease without esophagitis; M19.90 Unspecified osteoarthritis, unspecified site; F32.A Depression, unspecified; F43.10 Post-traumatic stress disorder, unspecified; Z79.51 Long term (current) use of inhaled steroids; Z79.899 Other long term (current) drug therapy; Z79.84 Long term (current) use of oral hypoglycemic drugs; Z88.1 Allergy status to other antibiotic agents; Z85.828 Personal history of other malignant neoplasm of skin; Z80.9 Family history of malignant neoplasm, unspecified
CPT/HCPCS: 32554; 99285; 36415; 94640 ×3; 93005; 87798 ×3; 87496; 87498; 87529; 88108; 88305; 83880; 80053; 80048; 89050; 83735; 84484; 85025 ×2; 85610; 85730; 87502; 87634; 87070; 87205; 87116; 87102; 87206; 82945; 83615; 84157; 71045; 71046; 76604; G0378 ×2; 87252

== ENCOUNTER 2023-01-13 15:47 | Inpatient (IN) | payer MEDICARE ==
--- NOTE | 2023-01-13 17:32 | ED ---
Fever HPI - General Chief Complaint: Shortness of Breath Stated Complaint: SOB Time Seen by Provider: 01/13/23 16:56 Source: patient, RN notes reviewed, old records reviewed Mode of arrival: wheelchair Limitations: no limitations - History of Present Illness Initial Comments: This is a 72-year-old male to the emergency department for evaluation today. He presents today for evaluation regards to severe shortness of breath. Patient has severe significant fever weakness lightheadedness with shortness of breath. Also chest pain. Patient recently had a thoracentesis secondary significant pleural effusion and symptoms are much worse than prior to that event. Patient has no other complaints patient was just discharged from the hospital on Friday. Patient's history of asthma cancer diabetes and liver disease. Patient is unsure of cause of this pleural effusion MD Complaint: fever, malaise -: days(s) Temperature Source: subjective Associated Symptoms: chills, rigors Treatments Prior to Arrival: none - Related Data Home Medications Medication Instructions Recorded Confirmed Omalizumab [Xolair] 150 mg SQ Q14D 04/28/18 01/19/23 Ferrous Sulfate [Iron (65 MG 162.5 mg PO MOWEFR 03/14/21 01/19/23 Elemental)] Omeprazole 20 mg PO DAILY 03/14/21 01/19/23 Rifaximin [Xifaxan] 550 mg PO BID 03/14/21 01/19/23 Fluticasone Propion/Salmeterol 1 puff INHALATION RT-BID 09/07/21 01/19/23 [Advair 500-50 Diskus] Albuterol Sulfate [Albuterol 2 puff INHALATION RT-QID 11/08/22 01/19/23 Sulfate Hfa] Spironolactone [Aldactone] 50 mg PO BID 11/08/22 01/19/23 hydrOXYzine HCL [Atarax] 10 mg PO HS 11/08/22 01/19/23 Lactulose [Cephulac] 40 gm PO QID PRN 12/23/22 01/19/23 glipiZIDE 5 mg PO BID 12/23/22 01/19/23 Furosemide [Lasix] 10 mg PO MOWEFR 01/10/23 01/19/23 Lipase/Protease/Amylase [Creon Dr 1 cap PO DIRECTED 01/10/23 01/19/23 12,000 Units Capsule] Previous Rx's Medication Instructions Recorded Ibuprofen [Motrin] 600 mg PO Q6HR PRN #40 tab 12/31/22 Budesonide-Formot 160-4.5 Mcg 2 puff INHALATION RT-BID 30 Days 01/15/23 [Symbicort 160-4.5 Mcg Inhaler] #1 each Levofloxacin [Levaquin] 500 mg PO DAILY 7 Days #7 tab 01/15/23 Allergies Allergy/AdvReac Type Severity Reaction Status Date / Time cefuroxime [From Ceftin] AdvReac Rash/Hives Verified 01/19/23 13:00 Review of Systems ROS Statement: Those systems with pertinent positive or pertinent negative responses have been documented in the HPI. ROS Other: All systems not noted in ROS Statement are negative. Past Medical History Past Medical History: Asthma, Cancer, Diabetes Mellitus, GERD/Reflux, Liver Dis ease, Osteoarthritis (OA) Additional Past Medical History / Comment(s): basal cell CA face and left chest, cirrhosis of the liver, hepatitis C possibly from blood transfusion as a child, palpable mass right parotid ,left leg arthritis with occasional edema to lower leg, has had recent us to r/o dvt was negative test History of Any Multi-Drug Resistant Organisms: None Reported Past Surgical History: Hernia Repair Additional Past Surgical History / Comment(s): sinus surgery, left wrist tendon injury repair, shunt placed "in liver" per patient Past Anesthesia/Blood Transfusion Reactions: No Reported Reaction Past Psychological History: Anxiety, Depression, PTSD Smoking Status: Former smoker Past Alcohol Use History: None Reported, Heavy Past Drug Use History: None Reported - Past Family History Mother Family Medical History: Cancer Additional Family Medical History / Comment(s): patient is unsure if ovarian or colon General Exam Limitations: no limitations General appearance: alert, in no apparent distress Head exam: Present: atraumatic, normocephalic, normal inspection Eye exam: Present: normal appearance, PERRL, EOMI. Absent: scleral icterus, conjunctival injection, periorbital swelling ENT exam: Present: normal exam, mucous membranes moist Neck exam: Present: normal inspection. Absent: tenderness, meningismus, lymphadenopathy Respiratory exam: Present: normal lung sounds bilaterally. Absent: respiratory distress, wheezes, rales, rhonchi, stridor Cardiovascular Exam: Present: regular rate, normal rhythm, normal heart sounds. Absent: systolic murmur, diastolic murmur, rubs, gallop, clicks GI/Abdominal exam: Present: soft, normal bowel sounds. Absent: distended, tenderness, guarding, rebound, rigid Extremities exam: Present: normal inspection, full ROM, normal capillary refill. Absent: tenderness, pedal edema, joint swelling, calf tenderness Back exam: Present: normal inspection Neurological exam: Present: alert, oriented X3, CN II-XII intact Psychiatric exam: Present: normal affect, normal mood Skin exam: Present: warm, dry, intact, normal color. Absent: rash Course Vital Signs 01/13/23 01/13/23 01/13/23 16:39 18:42 20:00 Temperature 100.6 F H 99.7 F H 100.6 F H Pulse Rate 70 127 H 109 H Respiratory 24 18 18 Rate Blood Pressure 107/64 129/93 95/60 O2 Sat by Pulse 95 96 100 Oximetry 01/14/23 01/14/23 01/14/23 07:50 07:53 07:57 Temperature Pulse Rate 100 96 Respiratory 20 26 H Rate Blood Pressure 104/65 O2 Sat by Pulse 96 98 Oximetry 01/14/23 01/14/23 01/14/23 08:05 10:00 10:56 Temperature 99 F Pulse Rate 101 H 97 96 Respiratory 16 18 Rate Blood Pressure 108/59 98/58 O2 Sat by Pulse 99 99 Oximetry 01/14/23 01/14/23 01/14/23 13:04 13:12 13:56 Temperature Pulse Rate 92 92 108 H Respiratory 18 Rate Blood Pressure 104/59 O2 Sat by Pulse 99 Oximetry - Reevaluation(s) Reevaluation #1: 01/13/23 18:54 Medical record is reviewed Reevaluation #2: 01/13/23 18:54 Patient has no change in symptoms here in the ER Reevaluation #3: 01/13/23 18:54 A patient is informed results and questions answered Reevaluation #4: 01/13/23 18:55 Was pt. sent in by a medical professional or institution (, PA, FRAME BUILDER, urgent care, hospital, or retirement...) When possible be specific @ -no Did you speak to anyone other than the patient for history (EMS, parent, family, police, friend...)? What history was obtained from this source @ -no Did you review nursing and triage notes (agree or disagree)? Why? @ -agree Are old charts reviewed (outside hosp., previous admission, EMS record, old EKG, old radiological studies, urgent care reports/EKG's, retirement records)? Report findings @ -yes Differential Diagnosis (chest pain, altered mental status, abdominal pain women, abdominal pain men, vaginal bleeding, weakness, fever, dyspnea, syncope, headache, dizziness, GI bleed, back pain, seizure, CVA, palpatations, mental health, musculoskeletal)? @ -prior EKG interpreted by me (3pts min.). @ -yes X-rays interpreted by me (1pt min.). @ -yes CT interpreted by me (1pt min.). @ -no U/S interpreted by me (1pt. min.). @ -no What testing was considered but not performed or refused? (CT, X-rays, U/S, labs)? Why? @ -none What meds were considered but not given or refused? Why? @ -none Did you discuss the management of the patient with other professionals (professionals i.e. , PA, FRAME BUILDER, lab, RT, psych nurse, oncology social work, digital publishing specialist, teacher, correctional officer, pillowcase turner)? Give summary @ -no Was smoking cessation discussed for >3mins.? @ -no Was critical care preformed (if so, how long)? @ -yes31 Were there social determinants of health that impacted care today? How? (Homelessness, low income, unemployed, alcoholism, drug addiction, transportation, low edu. Level, literacy, decrease access to med. care, correction, rehab)? @ -none Was there de-escalation of care discussed even if they declined (Discuss DNR or withdrawal of care, Hospice)? DNR status @ -no What co-morbidities impacted this encounter? (DM, HTN, Smoking, COPD, CAD, Cancer, CVA, ARF, Chemo, Hep., AIDS, mental health diagnosis, sleep apnea, morbid obesity)? @ -none Was patient admitted / discharged? Hospital course, mention meds given and route, prescriptions, significant lab abnormalities, going to OR and other pertinent info. @ - 72 male to the emergency department for evaluation patient will be admitted for shortness of breath fever chest pain not feeling well. Patient will be recurrent evaluation by pulmonology and likely need for thoracentesis admitted Undiagnosed new problem with uncertain prognosis? @ -no Drug Therapy requiring intensive monitoring for toxicity (Heparin, Nitro, Insulin, Cardizem)? @ -no Were any procedures done? @ -no Diagnosis/symptom? @ -COPD, respiratory failure, hypoxia and pleural effusion Acute, or Chronic, or Acute on Chronic? @ -Acute Uncomplicated (without systemic symptoms) or Complicated (systemic symptoms)? @ -Complicated Side effects of treatment? @ -no Exacerbation, Progression, or Severe Exacerbation? @ -exacerbation Poses a threat to life or bodily function? How? (Chest pain, [place], [place], pneumonia, PE, COPD, DKA, ARF, appy, cholecystitis, CVA, Diverticulitis, Homicidal, Suicidal, threat to staff... and all critical care pts) @ -yes significant hypoxia with effusion and COPD Reevaluation #5: 01/13/23 18:55 Differential Dyspnea: Coronary syndrome, arrhythmia, tamponade, asthma, COPD, pulmonary embolism, pneumonia, pneumothorax, pulmonary effusion, anaphylaxis, diabetic ketoacidosis, flailed chest, pulmonary contusion, diaphragmatic rupture, anemia, neuromuscular, this is not meant to be an all-inclusive list. Differential Fever: Pneumonia, viral URI, endocarditis, myocarditis, pericarditis, otitis, sinusitis, peritonsillar Abscess, retropharyngeal Abscess, epiglottitis, peritonitis, appendicitis, Sheeba cystitis, diverticulitis, hepatitis, colitis, UTI, PID, TOA, pyelonephritis, prostatitis, epididymitis, meningitis, encephalitis, pulmonary embolism, CVA, thyroid storm, pancreatitis, adrenal crisis, cavernous sinus thrombosis, this is not meant to be an all-inclusive list. - Consultations Consultation #1: Spoke with [facility] who agree to admit this patient Medical Decision Making - Medical Decision Making 72 male to the emergency department for evaluation patient will be admitted for shortness of breath fever chest pain not feeling well. Patient will be recurrent evaluation by pulmonology and likely need for thoracentesis - Lab Data Result diagrams: 01/14/23 09:39 01/14/23 09:39 Lab Results 01/13/23 01/13/23 01/13/23 Range/Units 17:15 17:15 17:15 WBC 6.8 (3.8-10.6) k/uL RBC 3.41 L (4.30-5.90) m/uL Hgb 12.3 L (13.0-17.5) gm/dL Hct 36.1 L (39.0-53.0) % MCV 105.8 H (80.0-100.0) fL MCH 36.0 H (25.0-35.0) pg MCHC 34.0 (31.0-37.0) g/dL RDW 15.0 (11.5-15.5) % Plt Count 61 L (150-450) k/uL MPV 7.3 Neutrophils % 88 % Lymphocytes % 2 % Monocytes % 6 % Eosinophils % 3 % Basophils % 0 % Neutrophils # 6.0 (1.3-7.7) k/uL Lymphocytes # 0.1 L (1.0-4.8) k/uL Monocytes # 0.4 (0-1.0) k/uL Eosinophils # 0.2 (0-0.7) k/uL Basophils # 0.0 (0-0.2) k/uL Manual Slide Review Performed Macrocytosis Moderate PT 12.3 H (9.0-12.0) sec INR 1.2 H (<1.2) APTT 25.2 (22.0-30.0) sec D-Dimer 5.26 H (<0.60) mg/L FEU Sodium 128 L (137-145) mmol/L Potassium 5.2 H (3.5-5.1) mmol/L Chloride 100 (98-107) mmol/L Carbon Dioxide 23 (22-30) mmol/L Anion Gap 5 mmol/L BUN 17 (9-20) mg/dL Creatinine 0.54 L (0.66-1.25) mg/dL Est GFR (CKD-EPI)AfAm >90 (>60 ml/min/1.73 sqM) Est GFR (CKD-EPI)NonAf >90 (>60 ml/min/1.73 sqM) Glucose 162 H (74-99) mg/dL Plasma Lactic Acid Jono (0.7-2.0) mmol/L Calcium 8.2 L (8.4-10.2) mg/dL Phosphorus 3.3 (2.5-4.5) mg/dL Magnesium 1.4 L (1.6-2.3) mg/dL Total Bilirubin 2.4 H (0.2-1.3) mg/dL AST 69 H (17-59) U/L ALT 39 (4-49) U/L Alkaline Phosphatase 170 H (38-126) U/L Troponin I (0.000-0.034) ng/mL NT-Pro-B Natriuret Pep 175 pg/mL Total Protein 6.3 (6.3-8.2) g/dL Albumin 2.6 L (3.5-5.0) g/dL TSH 1.760 (0.465-4.680) mIU/L 01/13/23 01/13/23 Range/Units 17:15 17:15 WBC (3.8-10.6) k/uL RBC (4.30-5.90) m/uL Hgb (13.0-17.5) gm/dL Hct (39.0-53.0) % MCV (80.0-100.0) fL MCH (25.0-35.0) pg MCHC (31.0-37.0) g/dL RDW (11.5-15.5) % Plt Count (150-450) k/uL MPV Neutrophils % % Lymphocytes % % Monocytes % % Eosinophils % % Basophils % % Neutrophils # (1.3-7.7) k/uL Lymphocytes # (1.0-4.8) k/uL Monocytes # (0-1.0) k/uL Eosinophils # (0-0.7) k/uL Basophils # (0-0.2) k/uL Manual Slide Review Macrocytosis PT (9.0-12.0) sec INR (<1.2) APTT (22.0-30.0) sec D-Dimer (<0.60) mg/L FEU Sodium (137-145) mmol/L Potassium (3.5-5.1) mmol/L Chloride (98-107) mmol/L Carbon Dioxide (22-30) mmol/L Anion Gap mmol/L BUN (9-20) mg/dL Creatinine (0.66-1.25) mg/dL Est GFR (CKD-EPI)AfAm (>60 ml/min/1.73 sqM) Est GFR (CKD-EPI)NonAf (>60 ml/min/1.73 sqM) Glucose (74-99) mg/dL Plasma Lactic Acid Jono 1.5 (0.7-2.0) mmol/L Calcium (8.4-10.2) mg/dL Phosphorus (2.5-4.5) mg/dL Magnesium (1.6-2.3) mg/dL Total Bilirubin (0.2-1.3) mg/dL AST (17-59) U/L ALT (4-49) U/L Alkaline Phosphatase (38-126) U/L Troponin I 0.020 (0.000-0.034) ng/mL NT-Pro-B Natriuret Pep pg/mL Total Protein (6.3-8.2) g/dL Albumin (3.5-5.0) g/dL TSH (0.465-4.680) mIU/L - EKG Data -: EKG Interpreted by Me (EKG is sinus tachycardia 130 GA 169 QRS 99 QTC 381) - Radiology Data Radiology results: report reviewed (Chest x-ray positive for pleural effusion likely underlying pneumonia), image reviewed Critical Care Time Critical Care Time: Yes Total Critical Care Time: 31 Disposition Clinical Impression: Recurrent pleural effusion on right, Acute hypoxemic respiratory failure, Pleural effusion, Fever, Hypoxia, Hyperkalemia, Acute exacerbation of chronic obstructive pulmonary disease Disposition: ADMITTED IP TO THIS HOSP Condition: Stable Is patient prescribed a controlled substance at d/c from ED?: No Time of Disposition: 18:50
--- NOTE | 2023-01-13 18:05 | XR ---
EXAMINATION TYPE: XR chest 1V portable DATE OF EXAM: 01/13/2023 5:27 PM COMPARISON: Chest radiographs from 01/11/2023 TECHNIQUE: XR chest 1V portable Frontal view of the chest. CLINICAL INDICATION:Male, 72 years old with history of cp; FINDINGS: Lungs/Pleura: Increasing in size right pleural effusion. Large right pleural effusion with associated atelectasis. No left pleural effusion. No pneumothorax. Pulmonary vascularity: Unremarkable. Heart/mediastinum: Cardiomediastinal silhouette is unremarkable. Musculoskeletal: No acute osseous pathology. IMPRESSION: Increasing right pleural effusion now large with associated atelectasis. Emphysema changes.
[2023-01-13 18:12] LABS: Basophils % (A) 0 %; Eosinophils # (A) 0.2 k/uL (0-0.7); Eosinophils % (A) 3 %; HCT 36.1 % (39.0-53.0); HGB 12.3 gm/dL (13.0-17.5); Lymphocytes # (A) 0.1 k/uL (1.0-4.8); Lymphocytes % (A) 2 %; MCV 105.8 fL (80.0-100.0); Macrocytosis Moderate; Mean Platelet Volume 7.3; Monocytes # (A) 0.4 k/uL (0-1.0); Monocytes % (A) 6 %; Neutrophils % (A) 88 %; RBC 3.41 m/uL (4.30-5.90); WBC 6.8 k/uL (3.8-10.6)
[2023-01-13] MEDS ORDERED: LEVOFLOXACIN 750MG-D5W PMX 750 MG in DEXTROSE/WATER 1 150ML.BAG IVPB STA (18:17)
[2023-01-13 18:23] LABS: ALT 39 U/L (4-49); AST 69 U/L (17-59); African American GFR (CKD) >90 (>60 ml/min/1.73 sqM); Albumin 2.6 g/dL (3.5-5.0); Alkaline Phosphatase 170 U/L (38-126); Anion Gap 5 mmol/L; Blood Urea Nitrogen 17 mg/dL (9-20); Calcium 8.2 mg/dL (8.4-10.2); Carbon Dioxide 23 mmol/L (22-30); Chloride 100 mmol/L (98-107); Glucose 162 mg/dL (74-99); Magnesium 1.4 mg/dL (1.6-2.3); Non-African American GFR(CKD) >90 (>60 ml/min/1.73 sqM); Phosphorus 3.3 mg/dL (2.5-4.5); Potassium 5.2 mmol/L (3.5-5.1); Sodium 128 mmol/L (137-145); Total Bilirubin 2.4 mg/dL (0.2-1.3); Total Protein 6.3 g/dL (6.3-8.2)
[2023-01-13 18:32] LABS: NT-Pro-B-Type Natriuretic Pept 175 pg/mL
[2023-01-13 18:36] LABS: INR 1.2 (<1.2); Partial Thromboplastin Time 25.2 sec (22.0-30.0); Prothrombin Time 12.3 sec (9.0-12.0)
[2023-01-13] MEDS ORDERED: ACETAMINOPHEN TAB 500 MG TAB PO STA (18:38)
[2023-01-13] MEDS ORDERED: IBUPROFEN 800 MG TAB PO STA (18:38)
[2023-01-13] MEDS ORDERED: MORPHINE SULFATE 4 MG/ML SYRINGE IV PRN (18:43)
[2023-01-13] MEDS ORDERED: NALOXONE 0.4 MG/ML 1 ML VIAL IV PRN (18:43)
[2023-01-13] MEDS ORDERED: ONDANSETRON 4 MG/2 ML VIAL IVP PRN (18:43)
[2023-01-13 18:55] LABS: Platelet Count 61 k/uL (150-450)
[2023-01-13] MEDS ORDERED: SODIUM BICARB 8.4% 50 ML SYR (1 MEQ/ML) IV STA (18:57)
[2023-01-13] MEDS ORDERED: CALCIUM CHLORIDE 0.5 GM in SODIUM CHLORIDE 0.9% 50 ML IVPB ONE (18:57)
[2023-01-13] MEDS ORDERED: DEXTROSE 50% SYRINGE 50 ML IVP STA (18:57)
[2023-01-13] MEDS ORDERED: INSULIN REGULAR 100 UNIT/ML VIAL (IV) IV ONE (18:57)
[2023-01-13] MEDS: SODIUM CHLORIDE 0.9% 1,000 ML IV SCH (19:46)
[2023-01-14] MEDS ORDERED: IPRATROPIUM-ALBUTEROL 3 ML NEB INHALATION PRN (00:36)
[2023-01-14] MEDS ORDERED: DEXTROSE 50% SYRINGE 50 ML IVP PRN ×2 (00:44)
[2023-01-14] MEDS: methylPREDNISolone SOD SUCCI 125 MG/2 ML VIAL IV SCH ×4 (01:51→21:41)
[2023-01-14 01:58] LABS: Glucose,Whole Blood 115 mg/dL (70-110)
[2023-01-14] MEDS ORDERED: Magnesium Replacement Protocol 1 EACH MISC MISCELLANE PRN (03:55)
--- NOTE | 2023-01-14 04:20 | P.CNPUL ---
History of Present Illness Consult date: 01/14/23 Requesting physician: John Momin Reason for consult: pleural effusion Chief complaint: Shortness of breath and chest pain History of present illness: I am seeing this patient in consultation today 01/14/2023 for recurrent right pleural effusion. Patient is a 72-year-old male with past medical history significant for recurrent right-sided pleural effusion with previous thoracentesis, liver cirrhosis, hepatitis C, alcoholism, mild intermittent bronchial asthma, diabetes mellitus type 2, and recent laparoscopic hernia repair. Patient was recently admitted to the hospital for recurrent pleural effusion and had thoracentesis on January 11, with removal of 2.4 L of transudative fluid. Cytology is still pending. Patient returned the emergency room yesterday evening complaining of similar symptoms of shortness of breath and nonradiating right-sided chest pain. He is also found to be febrile with a T-max of 100.6F. Denies any change in his chronic cough or hemoptysis. Denies radiating chest pain, heart palpitations. He does have pitting bilateral lower extremity edema. There is mild ascites. There are 4 abdominal laparoscopic incisions. Denies any nausea or vomiting, abdominal pain. Does admit diarrhea for approximately one week. Denies hematemesis or bloody bowel movements. Patient is currently sitting up in bed, on 3 L/m nasal cannula, in no acute distress. He is oxygenating at 99%. Chest x-ray on arrival shows a recurrent large right pleural effusion with compressive atelectasis. CBC on arrival shows a WBC count of 6.8, hemoglobin 12.3, hematocrit 36.1, and platelets 61,000. INR was 1.2. D-dimer was elevated at 5.26, probably related to liver disease. AST 69, ALT 39, ALP 170. Albumin 2.6. NT proBNP only 175. Troponins less than 0.012. BMP sodium 128, potassium 5.2, chloride 100, serum bicarbonate 23, BUN 17, creatinine 0.54, glucose 162. Lactic acid level is 1.5. Normal saline is infusing at 75 ML's per hour. Patient is empirically been started on Levaquin. Also receiving a combination of bronchodilators, Symbicort inhaler, IV Solu- Medrol. There are expiratory wheezes on auscultation throughout. Patient is hemodynamically stable at this time. Review of Systems REVIEW OF SYSTEMS: CONSTITUTIONAL: Denies any recent significant weight loss or weight gain. EYES: Denies change in vision. EARS, NOSE, MOUTH, THROAT: Denies headaches, denies sore throat. CARDIOVASCULAR: See HPI RESPIRATORY: See HPI GASTROINTESTINAL: Denies change in appetite, abdominal pain, nausea and vomiti ng. Admits liquid diarrhea for approximately one week GENITOURINARY: Denies hematuria, denies infections. MUSKULOSKELETAL: Denies pain, admits lower extremity swelling. INTEGUMENTARY: Denies rash, denies eczema. NEUROLOGICAL: Denies recent memory loss, no recent seizure activity. PSYCHIATRIC: Denies anxiety, denies depression. HEMATOLOGIC/LYMPHATIC: Denies anemia, denies enlarged lymph node Past Medical History Past Medical History: Asthma, Cancer, Diabetes Mellitus, GERD/Reflux, Liver Disease, Osteoarthritis (OA) Additional Past Medical History / Comment(s): basal cell CA face and left chest, cirrhosis of the liver, hepatitis C possibly from blood transfusion as a child, palpable mass right parotid ,left leg arthritis with occasional edema to lower leg, has had recent us to r/o dvt was negative test History of Any Multi-Drug Resistant Organisms: None Reported Past Surgical History: Hernia Repair Additional Past Surgical History / Comment(s): sinus surgery, left wrist tendon injury repair, shunt placed "in liver" per patient Past Anesthesia/Blood Transfusion Reactions: No Reported Reaction Past Psychological History: Anxiety, Depression, PTSD Smoking Status: Former smoker Past Alcohol Use History: None Reported, Heavy Past Drug Use History: None Reported - Past Family History Mother Family Medical History: Cancer Additional Family Medical History / Comment(s): patient is unsure if ovarian or colon Medications and Allergies Home Medications Medication Instructions Recorded Confirmed Type Omalizumab [Xolair] 150 mg SQ Q14D 04/28/18 01/13/23 History Ferrous Sulfate [Iron (65 MG 325 mg PO MOWEFR 03/14/21 01/13/23 History Elemental)] Omeprazole 20 mg PO DAILY 03/14/21 01/13/23 History Rifaximin [Xifaxan] 550 mg PO BID 03/14/21 01/13/23 History Fluticasone Propion/Salmeterol 1 puff INHALATION RT-BID 09/07/21 01/13/23 History [Advair 500-50 Diskus] Albuterol Sulfate [Albuterol 2 puff PO RT-QID 11/08/22 01/13/23 History Sulfate Hfa] Spironolactone [Aldactone] 50 mg PO BID 11/08/22 01/13/23 History hydrOXYzine HCL [Atarax] 10 mg PO HS 11/08/22 01/13/23 History Lactulose [Cephulac] 40 gm PO QID PRN 12/23/22 01/13/23 History glipiZIDE 5 mg PO BID 12/23/22 01/13/23 History Ibuprofen [Motrin] 600 mg PO Q6HR PRN #40 tab 12/31/22 01/13/23 Rx Furosemide [Lasix] 10 mg PO MOWEFR 01/10/23 01/13/23 History Lipase/Protease/Amylase [Gordon [place] 1 cap PO DIRECTED 01/10/23 01/13/23 History 12,000 Units Capsule] Allergies Allergy/AdvReac Type Severity Reaction Status Date / Time cefuroxime [From Ceftin] AdvReac Rash/Hives Verified 01/13/23 18:46 Physical Exam Vitals: Vital Signs Temp Pulse Resp BP Pulse Ox 01/13/23 20:00 100.6 F H 109 H 18 95/60 100 01/13/23 18:42 99.7 F H 127 H 18 129/93 96 01/13/23 16:39 100.6 F H 70 24 107/64 95 Intake and Output 01/13/23 01/13/23 01/14/23 14:59 22:59 06:59 Other: Weight 66.678 kg GENERAL EXAM: Alert, 72-year-old white male, comfortable in no apparent distress. HEAD: Normocephalic and atraumatic EYES: Normal reaction of pupils, equal size. Icteric sclera NOSE: Clear with pink turbinates. THROAT: No erythema or exudates. NECK: No masses, no JVD. CHEST: No chest wall deformity. LUNGS: Diminished right lung sounds with expiratory wheezes heard throughout. On 3 L/m nasal cannula. Tachypnea without conversational dyspnea or accessory muscle use. CVS: S1 and S2 normal with no audible murmur, regular rhythm. No extra heart sounds ABDOMEN: Mild ascites, active bowel sounds, no guarding or rigidity. There are for laparoscopic incisional sites which are approximated SPINE: No scoliosis or deformity SKIN: No rashes CENTRAL NERVOUS SYSTEM: No focal deficits, tone is normal in all 4 extremities. EXTREMITIES: There is 1+ pitting bilateral lower extremity edema. No clubbing, or cyanosis. Peripheral pulses are intact. Results - Laboratory Findings CBC and BMP: 01/13/23 17:15 01/13/23 17:15 PT/INR, D-dimer PT 12.3 sec (9.0-12.0) H 01/13/23 17:15 INR 1.2 (<1.2) H 01/13/23 17:15 D-Dimer 5.26 mg/L FEU (<0.60) H 01/13/23 17:15 Abnormal lab findings: Abnormal Labs 01/13/23 01/13/23 01/13/23 17:15 17:15 17:15 RBC 3.41 L Hgb 12.3 L Hct 36.1 L MCV 105.8 H MCH 36.0 H Plt Count 61 L Lymphocytes # 0.1 L PT 12.3 H INR 1.2 H D-Dimer 5.26 H Sodium 128 L Potassium 5.2 H Creatinine 0.54 L Glucose 162 H POC Glucose (mg/dL) Calcium 8.2 L Magnesium 1.4 L Total Bilirubin 2.4 H AST 69 H Alkaline Phosphatase 170 H Albumin 2.6 L 01/14/23 01:54 RBC Hgb Hct MCV MCH Plt Count Lymphocytes # PT INR D-Dimer Sodium Potassium Creatinine Glucose POC Glucose (mg/dL) 115 H Calcium Magnesium Total Bilirubin AST Alkaline Phosphatase Albumin - Diagnostic Findings Chest x-ray: image reviewed Assessment and Plan Assessment: Recurrent right-sided pleural effusion, status post right-sided thoracentesis 01/11/2023 with 2.4 L of transudative removed. Cytology is still pending. Chest x-ray shows a recurrent large right-sided pleural effusion with associated compressive atelectasis. Underlying infiltrate cannot be excluded. Acute exacerbation of mild chronic bronchial asthma. Patient normally takes a combination of Advair, albuterol HFA, and Xolair, Acute hypoxemic respiratory failure, secondary to above, on 3 L/m nasal cannula Acute febrile illness, under investigation. Diarrhea Thrombocytopenia, likely related to liver disease Elevated d-dimer, likely related liver disease Hypoalbuminemia History of liver cirrhosis with ascites History of hepatitis C History of alcoholism Diabetes mellitus type 2, [id number]. History of recent laparoscopic hernia repair Plan: Patient's medications, labs, chest x-ray reviewed Continue supplemental oxygen Patient will likely need repeat thoracentesis, I will discuss this with Dr. Welch in the morning Not on anticoagulation Start patient on a combination of DuoNeb's, Symbicort, and IV Solu-Medrol Continue empiric antibiotic. Cover for possible SBP Obtain blood cultures Check C. diff We will continue to follow, and further recommendations are forthcoming I have personally seen and examined the patient, performed the documentation and the assessment and plan as written. Number of minutes spent on the visit:20 This is a joint evaluation that was done along with a nurse practitioner. The patient is coming in with fever and the recurrent right-sided pleural effusion. Consider hepatic hydrothorax. The patient has undergone previous thoracentesis and there is a recurrent large right-sided pleural effusion. The patient is currently on oxygen at 3 L nasal cannula. The patient is covered with broad- spectrum antibiotics. A bedside thoracentesis TO GIVE THE PATIENT SYMPTOMATIC RELIEF. CONTINUE THE FEVER WORKUP. POSSIBLE SBP. POSSIBLE CELLULITIS. WE'LL CONTINUE TO FOLLOW MAKE FURTHER RECOMMENDATIONS BASED ON HIS PROGRESS. HIS PLATELET COUNT IS ABOVE 50,000.COAGULATION PROFILE IS ADEQUATE. Time with Patient: Greater than 30
[2023-01-14] MEDS: SYMBICORT 160-4.5 MCG INHALER INHALATION SCH ×2 (07:55→20:20)
[2023-01-14] MEDS: IPRATROPIUM-ALBUTEROL 3 ML NEB INHALATION SCH ×4 (07:55→20:20)
--- NOTE | 2023-01-14 08:21 | P.PCN ---
Date of Procedure: 01/14/23 Preoperative Diagnosis: Right-sided pleural effusion Postoperative Diagnosis: Right-sided pleural effusion Procedure(s) Performed: Right-sided thoracentesis Anesthesia: local Surgeon: Stu Welch Estimated Blood Loss (ml): 0 Pathology: none sent Condition: stable Disposition: same day Operative Findings: A time out was performed and the chest x-ray was reviewed, the appropriate side was confirmed and marked. My hands were washed immediately prior to the procedure. I wore a surgical cap, mask with protective eyewear, sterile gown and sterile gloves throughout the procedure. The patient was prepped and draped in a sterile manner using chlorhexidine scrub after the appropriate level was percussed and confirmed by ultrasound. 1% lidocaine was used to anesthesize the skin, subcutaneous tissue, superior aspect of the rib periosteum and parietal pleura. A finder needle was then introduced over the superior aspect of the rib to locate the pleural fluid; 2colored fluid was aspirated at a depth of approximately 2 cm. A 10-blade scalpel was used to veto the skin at the insertion site. The [id number]-[id number] needle was then introduced through the skin incision into the pleural space using negative aspiration pressure and the red colometric indicator to confirm appropriate positioning of the needle. The thoracentesis catheter was then threaded without difficulty. 2500 ml of turbid colored fluid was removed without difficulty. The catheter was then removed. No immediate complications were noted during the procedure. A post-procedure chest x-ray is pending at the time of this note. The fluid will be sent for studies. Estimated blood loss is 0cc
--- NOTE | 2023-01-14 09:03 | XR ---
EXAMINATION TYPE: XR chest 1V DATE OF EXAM: 01/14/2023 COMPARISON: 01/13/2023 HISTORY: Post right thoracentesis TECHNIQUE: Single frontal view of the chest is obtained. FINDINGS: There is a moderate sized right pleural effusion reduced from previous exam. No sizable pn eumothorax. Clear. Heart prominent. No overt failure. Underlying COPD. There is elevation of the right clavicle c orrelate for chronic AC joint injury. IMPRESSION: Interval reduction in amount of fluid on the right with no sizable pneumothorax.
[2023-01-14 09:52] LABS: ALT 39 U/L (4-49); AST 86 U/L (17-59); African American GFR (CKD) >90 (>60 ml/min/1.73 sqM); Albumin 2.4 g/dL (3.5-5.0); Albumin/Globulin Ratio 0.7; Alkaline Phosphatase 163 U/L (38-126); Anion Gap 10 mmol/L; Blood Urea Nitrogen 23 mg/dL (9-20); Calcium 8.2 mg/dL (8.4-10.2); Carbon Dioxide 18 mmol/L (22-30); Chloride 101 mmol/L (98-107); Globulin 3.5 g/dL; Glucose 230 mg/dL (74-99); Magnesium 1.5 mg/dL (1.6-2.3); Non-African American GFR(CKD) >90 (>60 ml/min/1.73 sqM); Sodium 129 mmol/L (137-145); Total Bilirubin 1.9 mg/dL (0.2-1.3); Total Protein 5.9 g/dL (6.3-8.2)
[2023-01-14 09:53] LABS: Basophils % (A) 0 %; Eosinophils % (A) 0 %; HCT 32.6 % (39.0-53.0); HGB 10.9 gm/dL (13.0-17.5); Lymphocytes # (A) 0.1 k/uL (1.0-4.8); Lymphocytes % (A) 5 %; MCH 36.6 pg (25.0-35.0); MCHC 33.5 g/dL (31.0-37.0); MCV 109.2 fL (80.0-100.0); Macrocytosis Marked; Mean Platelet Volume 7.8; Monocytes # (A) 0.1 k/uL (0-1.0); Monocytes % (A) 5 %; Neutrophils # (A) 1.1 k/uL (1.3-7.7); Neutrophils % (A) 88 %; RBC 2.98 m/uL (4.30-5.90); RDW 15.3 % (11.5-15.5)
[2023-01-14 10:06] LABS: WBC 1.3 k/uL (3.8-10.6)
[2023-01-14] MEDS: INSULIN ASPART (NovoLOG) 100 UNIT/ML VIAL SQ SCH ×4 (11:41→21:24)
[2023-01-14 11:46] LABS: Glucose,Whole Blood 322 mg/dL (70-110)
[2023-01-14] MEDS: SODIUM CHLORIDE 0.9% 1,000 ML IV SCH (11:55)
--- NOTE | 2023-01-14 13:23 | P.HPIM ---
History of Present Illness Patient is on-year-old male came in with compensative short of breath found to have large effusion right side. Patient has pleural effusion on Friday which was drained. Patient had pleural effusion on the right side in month of July as well. Patient does take low-dose of Lasix along with Aldactone. Patient does have history of cirrhosis and the etiology of his pleural effusion was believed to be secondary to cirrhosis. Patient had removal of 2.5 L of pleural fluid today reducing the pleural effusion to moderate size. Patient had issues with renal failure with a high doses of diuretics in the past patient had history of hepatic encephalopathy is on rifaximin and lactulose at home. REVIEW OF SYSTEMS: CONSTITUTIONAL: No fever, no malaise, no fatigue. HEENT: No recent visual problems or hearing problems. Denied any sore throat. CARDIOVASCULAR: No chest pain, orthopnea, PND, no palpitations, no syncope. PULMONARY: no cough, no hemoptysis. GASTROINTESTINAL: No diarrhea, no nausea, no vomiting, no abdominal pain. NEUROLOGICAL: No headaches, no weakness, no numbness. HEMATOLOGICAL: Denies any bleeding or petechiae. GENITOURINARY: Denies any burning micturition, frequency, or urgency. MUSCULOSKELETAL/RHEUMATOLOGICAL: Denies any joint pain, swelling, or any muscle pain. ENDOCRINE: Denies any polyuria or polydipsia. The rest of the 14-point review of systems is negative. PHYSICAL EXAMINATION: GENERAL: The patient is alert and oriented x3, not in any acute distress. Well developed, well nourished. HEENT: Pupils are round and equally reacting to light. EOMI. No scleral icterus. No conjunctival pallor. Normocephalic, atraumatic. No pharyngeal erythema. No thyromegaly. CARDIOVASCULAR: S1 and S2 present. No murmurs, rubs, or gallops. PULMONARY: Chest is clear to auscultation, no wheezing or crackles. Decreased air entry right posterior lung shah. ABDOMEN: Soft, nontender, nondistended, normoactive bowel sounds. No palpable organomegaly. MUSCULOSKELETAL: No joint swelling or deformity. EXTREMITIES: No cyanosis, clubbing, or pedal edema. NEUROLOGICAL: Gross neurological examination did not reveal any focal deficits. SKIN: No rashes. Assessment and plan -Acute hypoxic respiratory failure secondary to right-sided for an effusion most probably transudative and is secondary to cirrhosis. Patient's IV fluids will be discontinued patient will need another thoracentesis. -Cirrhosis patient presently doesn't have any significant thoracentesis. Next and-COPD without any acute exacerbation -Pancytopenia secondary to cirrhosis -Chronic hepatitis C -Hyponatremia hypervolemic hyponatremia -History of hepatic encephalopathy patient will be resumed on -Fever: Probably secondary to atelectasis although pneumonia cannot be ruled out because of which patient was started on levofloxacin. Patient is ALLERGIC to cephalosporins DVT prophylaxis: No formal logical due to prophylaxis secondary to cytopenia Past Medical History Past Medical History: Asthma, Cancer, Diabetes Mellitus, GERD/Reflux, Liver Disease, Osteoarthritis (OA) Additional Past Medical History / Comment(s): basal cell CA face and left chest, cirrhosis of the liver, hepatitis C possibly from blood transfusion as a child, palpable mass right parotid ,left leg arthritis with occasional edema to lower leg, has had recent us to r/o dvt was negative test History of Any Multi-Drug Resistant Organisms: None Reported Past Surgical History: Hernia Repair Additional Past Surgical History / Comment(s): sinus surgery, left wrist tendon injury repair, shunt placed "in liver" per patient Past Anesthesia/Blood Transfusion Reactions: No Reported Reaction Past Psychological History: Anxiety, Depression, PTSD Smoking Status: Former smoker Past Alcohol Use History: None Reported, Heavy Past Drug Use History: None Reported - Past Family History Mother Family Medical History: Cancer Additional Family Medical History / Comment(s): patient is unsure if ovarian or colon Medications and Allergies Home Medications Medication Instructions Recorded Confirmed Type Omalizumab [Xolair] 150 mg SQ Q14D 04/28/18 01/13/23 History Ferrous Sulfate [Iron (65 MG 325 mg PO MOWEFR 03/14/21 01/13/23 History Elemental)] Omeprazole 20 mg PO DAILY 03/14/21 01/13/23 History Rifaximin [Xifaxan] 550 mg PO BID 03/14/21 01/13/23 History Fluticasone Propion/Salmeterol 1 puff INHALATION RT-BID 09/07/21 01/13/23 History [Advair 500-50 Diskus] Albuterol Sulfate [Albuterol 2 puff PO RT-QID 11/08/22 01/13/23 History Sulfate Hfa] Spironolactone [Aldactone] 50 mg PO BID 11/08/22 01/13/23 History hydrOXYzine HCL [Atarax] 10 mg PO HS 11/08/22 01/13/23 History Lactulose [Cephulac] 40 gm PO QID PRN 12/23/22 01/13/23 History glipiZIDE 5 mg PO BID 12/23/22 01/13/23 History Ibuprofen [Motrin] 600 mg PO Q6HR PRN #40 tab 12/31/22 01/13/23 Rx Furosemide [Lasix] 10 mg PO MOWEFR 01/10/23 01/13/23 History Lipase/Protease/Amylase [Gordon Dr 1 cap PO DIRECTED 01/10/23 01/13/23 History 12,000 Units Capsule] Allergies Allergy/AdvReac Type Severity Reaction Status Date / Time cefuroxime [From Ceftin] AdvReac Rash/Hives Verified 01/13/23 18:46 Physical Exam Vitals: Vital Signs Temp Pulse Resp BP Pulse Ox 01/14/23 13:12 92 01/14/23 13:04 92 01/14/23 10:56 99 F 96 18 98/58 99 01/14/23 10:00 97 16 108/59 99 01/14/23 08:05 101 H 01/14/23 07:57 96 98 01/14/23 07:53 26 H 01/14/23 07:50 100 20 104/65 96 01/13/23 20:00 100.6 F H 109 H 18 95/60 100 01/13/23 18:42 99.7 F H 127 H 18 129/93 96 01/13/23 16:39 100.6 F H 70 24 107/64 95 Intake and Output 01/13/23 01/14/23 01/14/23 22:59 06:59 14:59 Output Total 2500 Balance -2500 Output: Drainage 2500 Right Posterior Chest 2500 Other: Weight 66.678 kg Results CBC & Chem 7: 01/14/23 09:39 01/14/23 09:39 Labs: Abnormal Lab Results - Last 24 Hours (Table) 01/13/23 01/13/23 01/13/23 Range/Units 17:15 17:15 17:15 WBC (3.8-10.6) k/uL RBC 3.41 L (4.30-5.90) m/uL Hgb 12.3 L (13.0-17.5) gm/dL Hct 36.1 L (39.0-53.0) % MCV 105.8 H (80.0-100.0) fL MCH 36.0 H (25.0-35.0) pg Plt Count 61 L (150-450) k/uL Lymphocytes # 0.1 L (1.0-4.8) k/uL Macrocytosis PT 12.3 H (9.0-12.0) sec INR 1.2 H (<1.2) D-Dimer 5.26 H (<0.60) mg/L FEU Sodium 128 L (137-145) mmol/L Potassium 5.2 H (3.5-5.1) mmol/L Carbon Dioxide (22-30) mmol/L BUN (9-20) mg/dL Creatinine 0.54 L (0.66-1.25) mg/dL Glucose 162 H (74-99) mg/dL POC Glucose (mg/dL) (70-110) mg/dL Calcium 8.2 L (8.4-10.2) mg/dL Phosphorus (2.5-4.5) mg/dL Magnesium 1.4 L (1.6-2.3) mg/dL Total Bilirubin 2.4 H (0.2-1.3) mg/dL AST 69 H (17-59) U/L Alkaline Phosphatase 170 H (38-126) U/L Total Protein (6.3-8.2) g/dL Albumin 2.6 L (3.5-5.0) g/dL Procalcitonin (0.02-0.09) ng/mL 01/14/23 01/14/23 01/14/23 Range/Units 01:54 02:29 09:39 WBC (3.8-10.6) k/uL RBC (4.30-5.90) m/uL Hgb (13.0-17.5) gm/dL Hct (39.0-53.0) % MCV (80.0-100.0) fL MCH (25.0-35.0) pg Plt Count (150-450) k/uL Lymphocytes # (1.0-4.8) k/uL Macrocytosis PT (9.0-12.0) sec INR (<1.2) D-Dimer (<0.60) mg/L FEU Sodium 129 L (137-145) mmol/L Potassium (3.5-5.1) mmol/L Carbon Dioxide 18 L (22-30) mmol/L BUN 23 H (9-20) mg/dL Creatinine 0.61 L (0.66-1.25) mg/dL Glucose 230 H (74-99) mg/dL POC Glucose (mg/dL) 115 H (70-110) mg/dL Calcium 8.2 L (8.4-10.2) mg/dL Phosphorus 5.0 H (2.5-4.5) mg/dL Magnesium 1.5 L (1.6-2.3) mg/dL Total Bilirubin 1.9 H (0.2-1.3) mg/dL AST 86 H (17-59) U/L Alkaline Phosphatase 163 H (38-126) U/L Total Protein 5.9 L (6.3-8.2) g/dL Albumin 2.4 L (3.5-5.0) g/dL Procalcitonin 0.30 H (0.02-0.09) ng/mL 01/14/23 01/14/23 Range/Units 09:39 11:44 WBC 1.3 L* (3.8-10.6) k/uL RBC 2.98 L (4.30-5.90) m/uL Hgb 10.9 L (13.0-17.5) gm/dL Hct 32.6 L (39.0-53.0) % MCV 109.2 H (80.0-100.0) fL MCH 36.6 H (25.0-35.0) pg Plt Count 36 L (150-450) k/uL Lymphocytes # (1.0-4.8) k/uL Macrocytosis Marked A PT (9.0-12.0) sec INR (<1.2) D-Dimer (<0.60) mg/L FEU Sodium (137-145) mmol/L Potassium (3.5-5.1) mmol/L Carbon Dioxide (22-30) mmol/L BUN (9-20) mg/dL Creatinine (0.66-1.25) mg/dL Glucose (74-99) mg/dL POC Glucose (mg/dL) 322 H (70-110) mg/dL Calcium (8.4-10.2) mg/dL Phosphorus (2.5-4.5) mg/dL Magnesium (1.6-2.3) mg/dL Total Bilirubin (0.2-1.3) mg/dL AST (17-59) U/L Alkaline Phosphatase (38-126) U/L Total Protein (6.3-8.2) g/dL Albumin (3.5-5.0) g/dL Procalcitonin (0.02-0.09) ng/mL
[2023-01-14] MEDS ORDERED: hydrOXYzine HCL 10 MG TAB PO PRN (13:49)
[2023-01-14 14:21] LABS: Platelet Count 36 k/uL (150-450)
[2023-01-14] MEDS: ALBUTEROL NEBULIZED 2.5 MG/3 ML INHALATION SCH ×2 (15:10→20:24)
[2023-01-14 17:03] LABS: Glucose,Whole Blood 464 mg/dL (70-110)
[2023-01-14] MEDS: LACTULOSE 20 GM/30 ML CUP PO SCH ×2 (17:16→21:41)
[2023-01-14] MEDS: LIPASE 5,000/PROTEASE 17,000/AMYLASE 24,000 PO SCH (17:38)
[2023-01-14] MEDS ORDERED: LEVOFLOXACIN 750MG-D5W PMX 750 MG in DEXTROSE/WATER 1 150ML.BAG IVPB SCH (18:00)
[2023-01-14] MEDS ORDERED: SALMETEROL INHALATION SCH (20:00)
[2023-01-14] MEDS ORDERED: FLUTICASONE PROPION INHALATION SCH (20:00)
[2023-01-14 20:37] LABS: Glucose,Whole Blood 561 mg/dL (70-110)
[2023-01-14] MEDS ORDERED: INSULIN ASPART (NovoLOG) 100 UNIT/ML VIAL SQ ONE (20:53)
[2023-01-14] MEDS: RIFAXIMIN 550 MG TABLET PO SCH (21:42)
[2023-01-14] MEDS ORDERED: INSULIN DETEMIR (LEVEMIR) 100 UNIT/ML SYR SQ SCH (21:45)
[2023-01-14 22:29] LABS: Appearance,BF Clear (Clear)
[2023-01-15 00:06] LABS: Glucose,Whole Blood 357 mg/dL (70-110)
[2023-01-15] MEDS: methylPREDNISolone SOD SUCCI 125 MG/2 ML VIAL IV SCH ×2 (00:14→06:30)
[2023-01-15 06:27] LABS: Glucose,Whole Blood 195 mg/dL (70-110)
[2023-01-15] MEDS: INSULIN ASPART (NovoLOG) 100 UNIT/ML VIAL SQ SCH ×2 (06:30→12:55)
[2023-01-15] MEDS ORDERED: PANTOPRAZOLE 40 MG TABLET PO SCH (07:30)
[2023-01-15] MEDS: IPRATROPIUM-ALBUTEROL 3 ML NEB INHALATION SCH ×3 (07:54→19:51)
[2023-01-15] MEDS: SYMBICORT 160-4.5 MCG INHALER INHALATION SCH (07:54)
[2023-01-15] MEDS: LIPASE 5,000/PROTEASE 17,000/AMYLASE 24,000 PO SCH ×2 (08:20→12:56)
[2023-01-15] MEDS: RIFAXIMIN 550 MG TABLET PO SCH (08:22)
[2023-01-15] MEDS: LACTULOSE 20 GM/30 ML CUP PO SCH (08:23)
[2023-01-15] MEDS ORDERED: FERROUS SULFATE 325 MG TAB PO SCH (09:00)
[2023-01-15] MEDS ORDERED: Magnesium Replacement Protocol 1 EACH MISC MISCELLANE PRN (09:23)
[2023-01-15 11:57] LABS: Glucose,Whole Blood 336 mg/dL (70-110)
[2023-01-15] MEDS: MAGNESIUM SULFATE-D5W PMX 1 GM in DEXTROSE/WATER 1 100ML.BAG IVPB SCH ×2 (12:47→14:04)
--- NOTE | 2023-01-15 12:55 | XR ---
EXAMINATION TYPE: XR chest 1V portable DATE OF EXAM: 01/15/2023 COMPARISON: 01/14/2023 HISTORY: Shortness of breath TECHNIQUE: Single frontal view of the chest is obtained. FINDINGS: Right-sided consolidation and pleural effusion. Left lung clear. No pneumothorax. Elevatio n the right clavicle may be in the basis of chronic AC joint injury. Arthropathy of the left AC joint with diffuse osteopenia. IMPRESSION: 1. Right lower lobe infiltrate and moderate pleural effusion.
--- NOTE | 2023-01-15 13:31 | P.PN ---
Subjective Progress Note Date: 01/15/23 I am seeing this patient in consultation today 01/14/2023 for recurrent right pleural effusion. Patient is a 72-year-old male with past medical history significant for recurrent right-sided pleural effusion with previous thoracentesis, liver cirrhosis, hepatitis C, alcoholism, mild intermittent bronchial asthma, diabetes mellitus type 2, and recent laparoscopic hernia repair. Patient was recently admitted to the hospital for recurrent pleural effusion and had thoracentesis on January 11, with removal of 2.4 L of transudative fluid. Cytology is still pending. Patient returned the emergency room yesterday evening complaining of similar symptoms of shortness of breath and nonradiating right-sided chest pain. He is also found to be febrile with a T-max of 100.6F. Denies any change in his chronic cough or hemoptysis. Denies radiating chest pain, heart palpitations. He does have pitting bilateral lower extremity edema. There is mild ascites. There are 4 abdominal laparoscopic incisions. Denies any nausea or vomiting, abdominal pain. Does admit diarrhea for approximately one week. Denies hematemesis or bloody bowel movements. Patient is currently sitting up in bed, on 3 L/m nasal cannula, in no acute distress. He is oxygenating at 99%. Chest x-ray on arrival shows a recurrent large right pleural effusion with compressive atelectasis. CBC on arrival shows a WBC count of 6.8, hemoglobin 12.3, hematocrit 36.1, and platelets 61,000. INR was 1.2. D-dimer was elevated at 5.26, probably related to liver disease. AST 69, ALT 39, ALP 170. Albumin 2.6. NT proBNP only 175. Troponins less than 0.012. BMP sodium 128, potassium 5.2, chloride 100, serum bicarbonate 23, BUN 1 7, creatinine 0.54, glucose 162. Lactic acid level is 1.5. Normal saline is infusing at 75 ML's per hour. Patient is empirically been started on Levaquin. Also receiving a combination of bronchodilators, Symbicort inhaler, IV Solu- Medrol. There are expiratory wheezes on auscultation throughout. Patient is hemodynamically stable at this time. On today's evaluation of 01/15/2023, the patient is less short of breath. A repeat chest x-ray following thoracentesis showed a moderate-sized right-sided pleural effusion. There is improved aeration the right lung. The patient is currently doing well. No specific complaints. The patient is currently on 3 L O2 nasal cannula.. He is on Levaquin and the patient has afebrile. No significant ascites. He has a pancytopenia with a white cell count of 1.3, hemoglobin of 10.5 and a platelet count of 36. BUN is 23 and a creatinine of 0.6. The pleural fluid is a transudate with hepatic hydrothorax At the same time, the patient is currently on Xifaxan for hepatic encephalopathy. The patient will be started back on Aldactone and low-dose diuretics. The patient remains on lactulose. Objective - Vital Signs Vital signs: Vital Signs Temp 98.3 F 01/15/23 06:45 Pulse 92 01/15/23 12:51 Resp 20 01/15/23 06:45 BP 100/56 01/15/23 06:45 Pulse Ox 95 01/15/23 07:54 FiO2 Intake & Output 01/14/23 01/15/23 01/15/23 18:59 06:59 18:59 Intake Total 75 Output Total 2500 Balance -2500 75 Weight 66.678 kg Intake: Intake, IV Titration 75 Amount Sodium Chloride 0.9% 1, 75 000 ml @ 75 mls/hr IV . [id number] [facility] Rx#:[id number] Output: Drainage 2500 Right Posterior Chest 2500 Other: # Voids 2 2 # Bowel Movements 2 - Exam GENERAL EXAM: Alert, 72-year-old white male, comfortable in no apparent distress. HEAD: Normocephalic and atraumatic EYES: Normal reaction of pupils, equal size. Icteric sclera NOSE: Clear with pink turbinates. THROAT: No erythema or exudates. NECK: No masses, no JVD. CHEST: No chest wall deformity. LUNGS: Diminished right lung sounds with expiratory wheezes heard throughout. On 3 L/m nasal cannula. Tachypnea without conversational dyspnea or accessory muscle use. Air entry in the right lung is improved compared to yesterday. CVS: S1 and S2 normal with no audible murmur, regular rhythm. No extra heart sounds ABDOMEN: Mild ascites, active bowel sounds, no guarding or rigidity. There are for laparoscopic incisional sites which are approximated SPINE: No scoliosis or deformity SKIN: No rashes CENTRAL NERVOUS SYSTEM: No focal deficits, tone is normal in all 4 extremities. EXTREMITIES: There is 1+ pitting bilateral lower extremity edema. No clubbing, or cyanosis. Peripheral pulses are intact. - Labs CBC & Chem 7: 01/14/23 09:39 01/14/23 09:39 Labs: Abnormal Lab Results - Last 24 Hours (Table) 01/14/23 01/14/23 01/14/23 Range/Units 02:29 09:39 17:00 WBC 1.3 L* (3.8-10.6) k/uL RBC 2.98 L (4.30-5.90) m/uL Hgb 10.9 L (13.0-17.5) gm/dL Hct 32.6 L (39.0-53.0) % MCV 109.2 H (80.0-100.0) fL MCH 36.6 H (25.0-35.0) pg Plt Count 36 L (150-450) k/uL Neutrophils # 1.1 L (1.3-7.7) k/uL Lymphocytes # 0.1 L (1.0-4.8) k/uL Macrocytosis Marked A POC Glucose (mg/dL) 464 H (70-110) mg/dL Hemoglobin A1c 6.1 H (<=6.0) % 01/14/23 01/15/23 01/15/23 Range/Units 20:34 00:02 06:23 WBC (3.8-10.6) k/uL RBC (4.30-5.90) m/uL Hgb (13.0-17.5) gm/dL Hct (39.0-53.0) % MCV (80.0-100.0) fL MCH (25.0-35.0) pg Plt Count (150-450) k/uL Neutrophils # (1.3-7.7) k/uL Lymphocytes # (1.0-4.8) k/uL Macrocytosis POC Glucose (mg/dL) 561 H 357 H 195 H (70-110) mg/dL Hemoglobin A1c (<=6.0) % 01/15/23 Range/Units 11:55 WBC (3.8-10.6) k/uL RBC (4.30-5.90) m/uL Hgb (13.0-17.5) gm/dL Hct (39.0-53.0) % MCV (80.0-100.0) fL MCH (25.0-35.0) pg Plt Count (150-450) k/uL Neutrophils # (1.3-7.7) k/uL Lymphocytes # (1.0-4.8) k/uL Macrocytosis POC Glucose (mg/dL) 336 H (70-110) mg/dL Hemoglobin A1c (<=6.0) % Microbiology - Last 24 Hours (Table) 01/14/23 02:29 Blood Culture - Preliminary Blood 01/14/23 02:25 Blood Culture - Preliminary Blood 01/14/23 08:42 Gram Stain - Preliminary Pleural Fluid Body Fluid Culture - Preliminary Assessment and Plan Assessment: Recurrent right-sided pleural effusion, status post right-sided thoracentesis 01/11/2023 with 2.4 L of transudative removed. Cytology is still pending. Chest x-ray shows a recurrent large right-sided pleural effusion with associated compressive atelectasis. Underlying infiltrate cannot be excluded. Acute exacerbation of mild chronic bronchial asthma. Patient normally takes a combination of Advair, albuterol HFA, and Xolair, Acute hypoxemic respiratory failure, secondary to above, on 3 L/m nasal cannula Acute febrile illness, under investigation. Diarrhea Thrombocytopenia, likely related to liver disease Elevated d-dimer, likely related liver disease Hypoalbuminemia History of liver cirrhosis with ascites History of hepatitis C History of alcoholism Diabetes mellitus type 2, [id number]. History of recent laparoscopic hernia repair Plan: Thoracentesis was done yesterday and a total of 2.5 L of fluid was removed Clinically improved No significant shortness of breath Continue Levaquin and the patient is currently afebrile Complete the course of Levaquin with a total of 7 days May need another thoracentesis of the later stage as the patient has residual right-sided pleural effusion The patient will be started slowly on his diuretics Continue lactulose Continue Xifaxan Currently afebrile Has underlying pancytopenia related to chronic liver cirrhosis We'll need follow-up with a liver center to discuss treatment options regarding his chronic recurrent right-sided pleural effusion.
[2023-01-15 14:21] VITALS: BP 107/61; PULSE 99; RESP 18; TEMP 97.9
--- NOTE | 2023-01-15 19:53 | P.DS ---
Providers Date of admission: 01/13/23 18:43 Expected date of discharge: 01/15/23 Attending physician: Tanner Pacheco Consults: 01/13/23 18:43 Consult Physician Routine Consulting Provider: Stu Welch Consult Reason/Comments: effusion Do you want consulting provider notified?: Yes Primary care physician: Taiwo Ac Hospital Course: Final diagnosis -Acute hypoxic respiratory failure secondary to right-sided pleural effusion from cirrhosis. status post thoracentesis. -Cirrhosis -COPD without any acute exacerbation -Pancytopenia secondary to cirrhosis -Chronic hepatitis C -Hyponatremia hypervolemic hyponatremia -History of hepatic encephalopathy -Fever: Probably secondary to atelectasis although pneumonia cannot be ruled out Discharge disposition Patient is being discharged in a stable condition with guarded prognosis to home with home care. Patient will follow-up with Dr. Ac in the outpatient setting upon discharge. Patient is to continue with levaquin 500 mg for 7 days and close outpatient follow up with pulmonary as scheduled. Total time taken is greater than 35 minutes. Hospital course This is a 72-year-old male who was recently admitted increased shortness of breath secondary to right-sided pleural effusion status post thoracentesis. Patient was seen and evaluated by pulmonary maintained on breathing inhalational treatments along with IV Levaquin. Patient reports significant improvement in shortness of breath postthoracentesis and is requesting to go home. Patient will continue on 500 mg Levaquin daily for the next 7 days and close outpatient follow-up with pulmonary. Long discussion was had with the patient as well is patient follows out of [facility] with his liver specialist and would recommend getting further treatment at such tertiary treatment center. Patient has oxygen in the outpatient setting. Please refer to pulmonary consultations for further HPI. Currently no reports of chest pain, worsening shortness of breath, or palpitations. Patient is afebrile. No reports of nausea or vomiting and patient is tolerating diet. Patient will be discharged home today. Guarded prognosis and overall poor prognosis as well. High risk for readmissions given patient's significant comorbidities. Physical exam: Gen: This is a 72-year-old male who is awake, alert and oriented 3, thin built, cachectic, ill-appearing, elderly appearing HEENT: Head is atraumatic, normocephalic. Pupils equal, round. Sclerae is anicteric. NECK: Supple. No JVD. No lymphadenopathy. No thyromegaly. LUNGS: Diminished breath sounds bilaterally with scattered rhonchi and faint crackles noted. No intercostal retractions. HEART: Regular rate and rhythm. No murmur. ABDOMEN: Soft. Bowel sounds are present. No masses. No tenderness. EXTREMITIES: No pedal edema. No calf tenderness. NEUROLOGICAL: Patient is awake, alert and oriented x3. Cranial nerves 2 through 12 are grossly intact. Please refer to medication reconciliation sheet for a list of medications. The impression and plan of care has been dictated by Madison Hilliard, Nurse Practitioner as directed. Dr. William MD I have performed a history and examination and MDM of this patient, discussed the same with the dictator, and agree with the dictator's assessment and plan as written ,documented as a scribe. Based on total visit time, I have performed more than 50% of the visit. Patient Condition at Discharge: Stable Plan - Discharge Summary Discharge Rx Participant: Yes New Discharge Prescriptions: New Levofloxacin [Levaquin] 500 mg PO DAILY 7 Days #7 tab Budesonide-Formot 160-4.5 Mcg [Symbicort 160-4.5 Mcg Inhaler] 2 puff INHALATION RT-BID 30 Days #1 each Continue Omalizumab [Xolair] 150 mg SQ Q14D Rifaximin [Xifaxan] 550 mg PO BID Fluticasone Propion/Salmeterol [Advair 500-50 Diskus] 1 puff INHALATION RT- BID glipiZIDE 5 mg PO BID Ibuprofen [Motrin] 600 mg PO Q6HR PRN #40 tab PRN Reason: Pain Omeprazole 20 mg PO DAILY Ferrous Sulfate [Iron (65 MG Elemental)] 325 mg PO MOWEFR hydrOXYzine HCL [Atarax] 10 mg PO HS Spironolactone [Aldactone] 50 mg PO BID Albuterol Sulfate [Albuterol Sulfate Hfa] 2 puff PO RT-QID Lactulose [Cephulac] 40 gm PO QID PRN PRN Reason: Constipation Furosemide [Lasix] 10 mg PO MOWEFR Lipase/Protease/Amylase [Creon Dr 12,000 Units Capsule] 1 cap PO DIRECTED Discharge Medication List Omalizumab [Xolair] 150 mg SQ Q14D 04/28/18 [History] Ferrous Sulfate [Iron (65 MG Elemental)] 325 mg PO MOWEFR 03/14/21 [History] Omeprazole 20 mg PO DAILY 03/14/21 [History] Rifaximin [Xifaxan] 550 mg PO BID 03/14/21 [History] Fluticasone Propion/Salmeterol [Advair 500-50 Diskus] 1 puff INHALATION RT-BID 09/07/21 [History] Albuterol Sulfate [Albuterol Sulfate Hfa] 2 puff PO RT-QID 11/08/22 [History] Spironolactone [Aldactone] 50 mg PO BID 11/08/22 [History] hydrOXYzine HCL [Atarax] 10 mg PO HS 11/08/22 [History] Lactulose [Cephulac] 40 gm PO QID PRN 12/23/22 [History] glipiZIDE 5 mg PO BID 12/23/22 [History] Ibuprofen [Motrin] 600 mg PO Q6HR PRN #40 tab 12/31/22 [Rx] Furosemide [Lasix] 10 mg PO MOWEFR 01/10/23 [History] Lipase/Protease/Amylase [Creon Dr 12,000 Units Capsule] 1 cap PO DIRECTED 01/10/23 [History] Budesonide-Formot 160-4.5 Mcg [Symbicort 160-4.5 Mcg Inhaler] 2 puff INHALATION RT-BID 30 Days #1 each 01/15/23 [Rx] Levofloxacin [Levaquin] 500 mg PO DAILY 7 Days #7 tab 01/15/23 [Rx] Follow up Appointment(s)/Ref[facility] 1 Week Taiwo Ac [Primary Care Provider] - 1-2 days Stu Welch MD [STAFF PHYSICIAN] - 1 Week Activity/Diet/Wound Care/Special Instructions: Activity Limited until follow-up Follow-up with primary care provider on discharge Follow-up with your liver specialist and highly recommended if requiring hospitalization to go to [facility] in [place] Continue antibiotics for 7 days Discharge Disposition: HOME SELF-CARE
== END 2023-01-15 18:50 | disposition home health service (06) | DRG 441 ==
LOC: EC 15:47 → 4SSUR 18:43 → 1SOBS 01-14 14:42
PROVIDERS: ADMIT Hospitalist; ATTEND Hospitalist
PROC: 0W993ZZ Drainage of Right Pleural Cavity, Percutaneous Approach (ICD-10-PCS; principal; 2023-01-14)
DX: B18.2 Chronic viral hepatitis C (principal); J18.9 Pneumonia, unspecified organism; J96.01 Acute respiratory failure with hypoxia; J44.0 Chronic obstructive pulmonary disease with (acute) lower respiratory infection; R18.8 Other ascites; J91.8 Pleural effusion in other conditions classified elsewhere; D61.818 Other pancytopenia; E87.1 Hypo-osmolality and hyponatremia; J45.21 Mild intermittent asthma with (acute) exacerbation; K76.82 Hepatic encephalopathy; K74.60 Unspecified cirrhosis of liver; E87.5 Hyperkalemia; M19.09 Primary osteoarthritis, other specified site; K46.9 Unspecified abdominal hernia without obstruction or gangrene; K21.9 Gastro-esophageal reflux disease without esophagitis; E11.9 Type 2 diabetes mellitus without complications; E87.70 Fluid overload, unspecified; R19.7 Diarrhea, unspecified; D69.59 Other secondary thrombocytopenia; E88.09 Other disorders of plasma-protein metabolism, not elsewhere classified; F10.21 Alcohol dependence, in remission; F43.10 Post-traumatic stress disorder, unspecified; F41.9 Anxiety disorder, unspecified; F32.A Depression, unspecified; Z85.828 Personal history of other malignant neoplasm of skin; Z88.1 Allergy status to other antibiotic agents; Z86.19 Personal history of other infectious and parasitic diseases; Z87.891 Personal history of nicotine dependence; Z79.899 Other long term (current) drug therapy; Z79.84 Long term (current) use of oral hypoglycemic drugs
CPT/HCPCS: 36415; 71045; 80053; 83036; 83605; 83735; 83880; 84100; 84145; 84443; 84484; 85025; 85379; 85610; 85730; 87040; 87070; 87205; 87324; 89050; 93005; 94640; 94760; 96365; 96366; 96375; 96376; 99291

== ENCOUNTER 2023-01-18 23:03 | Inpatient (IN) | payer MEDICARE ==
--- NOTE | 2023-01-18 23:12 | ED ---
SOB HPI - General Chief Complaint: Shortness of Breath Stated Complaint: SOB Time Seen by Provider: 01/18/23 23:06 Source: EMS, RN notes reviewed, old records reviewed Mode of arrival: EMS - History of Present Illness Initial Comments: This is a 72-year-old male to the emergency department for evaluation today. Presents today for evaluation of severe shortness of breath. Patient states he cannot catch his breath and admits to multiple recent evaluations for similar symptoms. Patient states he cannot take a deep breath and has severe COPD with increasing cough and congestion. Patient symptoms are significantly increased with any activity at this point just while sitting he is in severe distress. MD Complaint: shortness of breath, cough, "asthma attack", anxiety -: days(s) Severity: severe Severity scale (1-10): 10 Quality: aching Consistency: constant Improves With: nothing Worsens With: nothing Context: recent URI Associated Symptoms: cough, sputum production, orthopnea, diaphoresis Treatments Prior to Arrival: none - Related Data Home Oxygen Therapy: No Home Medications Medication Instructions Recorded Confirmed Omalizumab [Xolair] 150 mg SQ Q14D 04/28/18 01/19/23 Ferrous Sulfate [Iron (65 MG 162.5 mg PO MOWEFR 03/14/21 01/19/23 Elemental)] Omeprazole 20 mg PO DAILY 03/14/21 01/19/23 Rifaximin [Xifaxan] 550 mg PO BID 03/14/21 01/19/23 Fluticasone Propion/Salmeterol 1 puff INHALATION RT-BID 09/07/21 01/19/23 [Advair 500-50 Diskus] Albuterol Sulfate [Albuterol 2 puff INHALATION RT-QID 11/08/22 01/19/23 Sulfate Hfa] Spironolactone [Aldactone] 50 mg PO BID 11/08/22 01/19/23 hydrOXYzine HCL [Atarax] 10 mg PO HS 11/08/22 01/19/23 Lactulose [Cephulac] 40 gm PO QID PRN 12/23/22 01/19/23 glipiZIDE 5 mg PO BID 12/23/22 01/19/23 Furosemide [Lasix] 10 mg PO MOWEFR 01/10/23 01/19/23 Lipase/Protease/Amylase [Creon Dr 1 cap PO DIRECTED 01/10/23 01/19/23 12,000 Units Capsule] Previous Rx's Medication Instructions Recorded Ibuprofen [Motrin] 600 mg PO Q6HR PRN #40 tab 12/31/22 Budesonide-Formot 160-4.5 Mcg 2 puff INHALATION RT-BID 30 Days 01/15/23 [Symbicort 160-4.5 Mcg Inhaler] #1 each Levofloxacin [Levaquin] 500 mg PO DAILY 7 Days #7 tab 01/15/23 Allergies Allergy/AdvReac Type Severity Reaction Status Date / Time cefuroxime [From Ceftin] AdvReac Rash/Hives Verified 01/19/23 13:00 Review of Systems ROS Statement: Those systems with pertinent positive or pertinent negative responses have been documented in the HPI. ROS Other: All systems not noted in ROS Statement are negative. Past Medical History Past Medical History: Asthma, Cancer, Diabetes Mellitus, GERD/Reflux, Liver Disease, Osteoarthritis (OA) Additional Past Medical History / Comment(s): basal cell CA face and left chest, cirrhosis of the liver, hepatitis C possibly from blood transfusion as a child, palpable mass right parotid ,left leg arthritis with occasional edema to lower leg, has had recent us to r/o dvt was negative test History of Any Multi-Drug Resistant Organisms: None Reported Past Surgical History: Hernia Repair Additional Past Surgical History / Comment(s): sinus surgery, left wrist tendon injury repair, shunt placed "in liver" per patient, paracentesis 01/12 & 01/14, hernia repair "last week" (possibly 01/07) Past Anesthesia/Blood Transfusion Reactions: No Reported Reaction Past Psychological History: Anxiety, Depression, PTSD Smoking Status: Former smoker Past Alcohol Use History: None Reported Past Drug Use History: None Reported - Past Family History Mother Family Medical History: Cancer Additional Family Medical History / Comment(s): patient is unsure if ovarian or colon General Exam General appearance: alert, anxious, in distress, cachectic Head exam: Present: atraumatic, normocephalic, normal inspection Eye exam: Present: normal appearance, PERRL, EOMI. Absent: scleral icterus, conjunctival injection, periorbital swelling ENT exam: Present: normal exam, mucous membranes dry Neck exam: Present: normal inspection. Absent: tenderness, meningismus, lymphadenopathy Respiratory exam: Present: wheezes, accessory muscle use, decreased breath sounds, prolonged expiratory. Absent: respiratory distress, rales, rhonchi, stridor Cardiovascular Exam: Present: regular rate, normal rhythm, normal heart sounds. Absent: systolic murmur, diastolic murmur, rubs, gallop, clicks GI/Abdominal exam: Present: soft, normal bowel sounds. Absent: distended, tenderness, guarding, rebound, rigid Extremities exam: Present: normal inspection, full ROM, normal capillary refill. Absent: tenderness, pedal edema, joint swelling, calf tenderness Back exam: Present: normal inspection Neurological exam: Present: alert, oriented X3, CN II-XII intact Psychiatric exam: Present: normal affect, normal mood Skin exam: Present: warm, dry, intact, normal color. Absent: rash Course Vital Signs 01/18/23 01/18/23 01/19/23 23:04 23:59 00:00 Temperature 97.9 F Pulse Rate 91 97 Respiratory 22 22 Rate Blood Pressure 126/71 O2 Sat by Pulse 94 L Oximetry 01/19/23 01/19/23 01/19/23 00:19 01:10 01:45 Temperature Pulse Rate 101 H 97 Respiratory 20 24 Rate Blood Pressure 119/70 125/72 O2 Sat by Pulse 95 93 L Oximetry 01/19/23 01/19/23 03:03 03:30 Temperature Pulse Rate Respiratory 20 Rate Blood Pressure O2 Sat by Pulse 98 95 Oximetry - Reevaluation(s) Reevaluation #1: 01/19/23 00:56 Medical records reviewed Reevaluation #2: 01/19/23 00:56 Patient symptoms relatively unchanged Patient may be worsening secondary to work of breathing, requiring increased le vels of oxygenation Reevaluation #3: 01/19/23 00:56 Patient continued to worsen here in the emergency department At this time secondary to worsening respiratory status work of breathing thoracentesis will be performed Reevaluation #4: 01/19/23 00:56 Was pt. sent in by a medical professional or institution (, PA, [employer] MANAGER, urgent care, hospital, or usp...) When possible be specific @ -no Did you speak to anyone other than the patient for history (EMS, parent, family, police, friend...)? What history was obtained from this source @ -no Did you review nursing and triage notes (agree or disagree)? Why? @ -agree Are old charts reviewed (outside hosp., previous admission, EMS record, old EKG, old radiological studies, urgent care reports/EKG's, usp records)? Report findings @ -yes Differential Diagnosis (chest pain, altered mental status, abdominal pain women, abdominal pain men, vaginal bleeding, weakness, fever, dyspnea, syncope, headache, dizziness, GI bleed, back pain, seizure, CVA, palpatations, mental hea lth, musculoskeletal)? @ -prior EKG interpreted by me (3pts min.). @ -yes X-rays interpreted by me (1pt min.). @ -yes CT interpreted by me (1pt min.). @ -no U/S interpreted by me (1pt. min.). @ -no What testing was considered but not performed or refused? (CT, X-rays, U/S, labs)? Why? @ -none What meds were considered but not given or refused? Why? @ -none Did you discuss the management of the patient with other professionals (professionals i.e. , PA, [employer]PLICATIONS MANAGER, lab, RT, psych nurse, social sciences department chair, property accountant, teacher, revenue officer, supportive employment case manager)? Give summary @ -no Was smoking cessation discussed for >3mins.? @ -no Was critical care preformed (if so, how long)? @ -yes31 Were there social determinants of health that impacted care today? How? (Homelessness, low income, unemployed, alcoholism, drug addiction, transportation, low edu. Level, literacy, decrease access to med. care, [facility], rehab)? @ -none Was there de-escalation of care discussed even if they declined (Discuss DNR or withdrawal of care, Hospice)? DNR status @ -no What co-morbidities impacted this encounter? (DM, HTN, Smoking, COPD, CAD, Cancer, CVA, ARF, Chemo, Hep., AIDS, mental health diagnosis, sleep apnea, mor bid obesity)? @ -none Was patient admitted / discharged? Hospital course, mention meds given and ro council, prescriptions, significant lab abnormalities, going to OR and other pertinent info. @ - 72 male to the emergency department for evaluation of severe shortness of breath. Patient is unable to take a deep breath unable to breathe unable to catch his breath with significant recurrent pleural effusion this is complicated by severe COPD. Patient will be admitted and resume evaluation by pulmonology. Patient continued to decompensate here in the emergency department eating therapeutic thoracentesis right lung Admitted Undiagnosed new problem with uncertain prognosis? @ -no Drug Therapy requiring intensive monitoring for toxicity (Heparin, Nitro, Insulin, Cardizem)? @ -no Were any procedures done? @ -Yes pleural effusion Diagnosis/symptom? @ -Respiratory distress failure secondary to hypoxia with pleural effusion, COPD Acute, or Chronic, or Acute on Chronic? @ -Acute Uncomplicated (without systemic symptoms) or Complicated (systemic symptoms)? @ -Complicated Side effects of treatment? @ -no Exacerbation, Progression, or Severe Exacerbation? @ -exacerbation Poses a threat to life or bodily function? How? (Chest pain, [place], [place], pneumonia, PE, COPD, DKA, ARF, appy, cholecystitis, CVA, Diverticulitis, Homicidal, Suicidal, threat to staff... and all critical care pts) @ -yes Reevaluation #5: 01/19/23 00:56 Differential Dyspnea: Coronary syndrome, arrhythmia, tamponade, asthma, COPD, pulmonary embolism, pneumonia, pneumothorax, pulmonary effusion, anaphylaxis, diabetic ketoacidosis, flailed chest, pulmonary contusion, diaphragmatic rupture, anemia, neuromuscular, this is not meant to be an all-inclusive list. - Consultations Consultation #1: Spoke with [facility] we'll admit this patient Procedures - Chest Tube Insertion Consent Obtained: verbal consent Side of Procedure: right Indication: Pleural effusion Placed on monitor/pulse oximetry: Yes Site Prep: Povidone-Iodine Local Anesthesia: Lidocaine 1%, With Epi Insertion Site: Other (Meds scapula eighth intercostal space) Returns: Other Dressing Applied: Tape (Influenza) Attached to Suction: No Repeat X-ray Results: Lung Inflated Patient Tolerated Procedure: well Complications: Pain Medical Decision Making - Medical Decision Making 72 male to the emergency department for evaluation of severe shortness of breath. Patient is unable to take a deep breath unable to breathe unable to catch his breath with significant recurrent pleural effusion this is complicated by severe COPD. Patient will be admitted and resume evaluation by pulmonology. Patient continued to decompensate here in the emergency department eating therapeutic thoracentesis right lung - Lab Data Result diagrams: 01/26/23 07:19 01/26/23 07:19 Lab Results 01/18/23 01/18/23 01/18/23 Range/Units 00:01 23:57 23:57 WBC 5.7 (3.8-10.6) k/uL RBC 3.45 L (4.30-5.90) m/uL Hgb 12.4 L (13.0-17.5) gm/dL Hct 36.5 L (39.0-53.0) % MCV 105.7 H (80.0-100.0) fL MCH 35.9 H (25.0-35.0) pg MCHC 34.0 (31.0-37.0) g/dL RDW 14.6 (11.5-15.5) % Plt Count 33 L (150-450) k/uL MPV 8.2 Neutrophils % 94 % Lymphocytes % 2 % Monocytes % 4 % Eosinophils % 0 % Basophils % 0 % Neutrophils # 5.4 (1.3-7.7) k/uL Lymphocytes # 0.1 L (1.0-4.8) k/uL Monocytes # 0.2 (0-1.0) k/uL Eosinophils # 0.0 (0-0.7) k/uL Basophils # 0.0 (0-0.2) k/uL Macrocytosis Moderate PT 13.8 H (9.0-12.0) sec INR 1.4 H (<1.2) APTT 24.1 (22.0-30.0) sec Sodium 125 L (137-145) mmol/L Potassium 4.8 (3.5-5.1) mmol/L Chloride 100 (98-107) mmol/L Carbon Dioxide 21 L (22-30) mmol/L Anion Gap 4 mmol/L BUN 20 (9-20) mg/dL Creatinine 0.56 L (0.66-1.25) mg/dL Est GFR (CKD-EPI)AfAm >90 (>60 ml/min/1.73 sqM) Est GFR (CKD-EPI)NonAf >90 (>60 ml/min/1.73 sqM) Glucose 307 H (74-99) mg/dL Lactic Ac Sepsis Rflx Plasma Lactic Acid Jono (0.7-2.0) mmol/L Calcium 8.2 L (8.4-10.2) mg/dL Magnesium 1.7 (1.6-2.3) mg/dL Total Bilirubin 1.6 H (0.2-1.3) mg/dL AST 59 (17-59) U/L ALT 42 (4-49) U/L Alkaline Phosphatase 205 H (38-126) U/L Troponin I (0.000-0.034) ng/mL NT-Pro-B Natriuret Pep 197 pg/mL Total Protein 5.9 L (6.3-8.2) g/dL Albumin 2.4 L (3.5-5.0) g/dL Influenza Type A (PCR) (Not Detectd) Influenza Type B (PCR) (Not Detectd) RSV (PCR) (Not Detectd) SARS-CoV-2 (PCR) (Not Detectd) 01/18/23 01/18/23 01/18/23 Range/Units 23:57 23:57 23:57 WBC (3.8-10.6) k/uL RBC (4.30-5.90) m/uL Hgb (13.0-17.5) gm/dL Hct (39.0-53.0) % MCV (80.0-100.0) fL MCH (25.0-35.0) pg MCHC (31.0-37.0) g/dL RDW (11.5-15.5) % Plt Count (150-450) k/uL MPV Neutrophils % % Lymphocytes % % Monocytes % % Eosinophils % % Basophils % % Neutrophils # (1.3-7.7) k/uL Lymphocytes # (1.0-4.8) k/uL Monocytes # (0-1.0) k/uL Eosinophils # (0-0.7) k/uL Basophils # (0-0.2) k/uL Macrocytosis PT (9.0-12.0) sec INR (<1.2) APTT (22.0-30.0) sec Sodium (137-145) mmol/L Potassium (3.5-5.1) mmol/L Chloride (98-107) mmol/L Carbon Dioxide (22-30) mmol/L Anion Gap mmol/L BUN (9-20) mg/dL Creatinine (0.66-1.25) mg/dL Est GFR (CKD-EPI)AfAm (>60 ml/min/1.73 sqM) Est GFR (CKD-EPI)NonAf (>60 ml/min/1.73 sqM) Glucose (74-99) mg/dL Lactic Ac Sepsis Rflx Plasma Lactic Acid Jono 2.7 H* (0.7-2.0) mmol/L Calcium (8.4-10.2) mg/dL Magnesium (1.6-2.3) mg/dL Total Bilirubin (0.2-1.3) mg/dL AST (17-59) U/L ALT (4-49) U/L Alkaline Phosphatase (38-126) U/L Troponin I <0.012 (0.000-0.034) ng/mL NT-Pro-B Natriuret Pep pg/mL Total Protein (6.3-8.2) g/dL Albumin (3.5-5.0) g/dL Influenza Type A (PCR) Not Detected (Not Detectd) Influenza Type B (PCR) Not Detected (Not Detectd) RSV (PCR) Not Detected (Not Detectd) SARS-CoV-2 (PCR) Detected A (Not Detectd) 01/19/23 Range/Units 00:44 WBC (3.8-10.6) k/uL RBC (4.30-5.90) m/uL Hgb (13.0-17.5) gm/dL Hct (39.0-53.0) % MCV (80.0-100.0) fL MCH (25.0-35.0) pg MCHC (31.0-37.0) g/dL RDW (11.5-15.5) % Plt Count (150-450) k/uL MPV Neutrophils % % Lymphocytes % % Monocytes % % Eosinophils % % Basophils % % Neutrophils # (1.3-7.7) k/uL Lymphocytes # (1.0-4.8) k/uL Monocytes # (0-1.0) k/uL Eosinophils # (0-0.7) k/uL Basophils # (0-0.2) k/uL Macrocytosis PT (9.0-12.0) sec INR (<1.2) APTT (22.0-30.0) sec Sodium (137-145) mmol/L Potassium (3.5-5.1) mmol/L Chloride (98-107) mmol/L Carbon Dioxide (22-30) mmol/L Anion Gap mmol/L BUN (9-20) mg/dL Creatinine (0.66-1.25) mg/dL Est GFR (CKD-EPI)AfAm (>60 ml/min/1.73 sqM) Est GFR (CKD-EPI)NonAf (>60 ml/min/1.73 sqM) Glucose (74-99) mg/dL Lactic Ac Sepsis Rflx Y Plasma Lactic Acid Jono (0.7-2.0) mmol/L Calcium (8.4-10.2) mg/dL Magnesium (1.6-2.3) mg/dL Total Bilirubin (0.2-1.3) mg/dL AST (17-59) U/L ALT (4-49) U/L Alkaline Phosphatase (38-126) U/L Troponin I (0.000-0.034) ng/mL NT-Pro-B Natriuret Pep pg/mL Total Protein (6.3-8.2) g/dL Albumin (3.5-5.0) g/dL Influenza Type A (PCR) (Not Detectd) Influenza Type B (PCR) (Not Detectd) RSV (PCR) (Not Detectd) SARS-CoV-2 (PCR) (Not Detectd) - Radiology Data Radiology results: report reviewed (Chest x-rays positive for severe right-sided pleural effusion increased from discharge), image reviewed Critical Care Time Critical Care Time: Yes Total Critical Care Time: 65 Disposition Clinical Impression: Dyspnea, Pleural effusion, Recurrent pleural effusion on right, Acute hypoxemic respiratory failure, Hyponatremia, Hypoxia, Coronavirus infection Disposition: ADMITTED IP TO THIS HOSP Condition: Serious Is patient prescribed a controlled substance at d/c from ED?: No Time of Disposition: 01:00
[2023-01-18] MEDS ORDERED: IPRATROPIUM-ALBUTEROL 3 ML NEB INHALATION STA (23:13)
--- NOTE | 2023-01-19 00:01 | XR ---
EXAMINATION TYPE: XR chest 1V portable DATE OF EXAM: 01/18/2023 Comparison: 01/15/2023 Clinical History: 72 year-old male shortness of breath Findings: Ongoing large right pleural effusion, increased in the interval. New patchy left perihilar and left b asilar opacities. Right heart margin obscured by adjacent pleural parenchymal opacity. Impression: Increasing, now large right pleural effusion with underlying atelectasis and/or consolidation. Only a small portion of the right upper lobe remains aerated. New perihilar and left basilar opacity could represent superimposed pulmonary vascular congestion or pneumonia including atypical pneumonias.
[2023-01-19] MEDS ORDERED: IPRATROPIUM-ALBUTEROL 3 ML NEB INHALATION STA (00:14)
[2023-01-19 00:18] LABS: ALT 42 U/L (4-49); AST 59 U/L (17-59); African American GFR (CKD) >90 (>60 ml/min/1.73 sqM); Albumin 2.4 g/dL (3.5-5.0); Alkaline Phosphatase 205 U/L (38-126); Anion Gap 4 mmol/L; Blood Urea Nitrogen 20 mg/dL (9-20); Calcium 8.2 mg/dL (8.4-10.2); Carbon Dioxide 21 mmol/L (22-30); Chloride 100 mmol/L (98-107); Glucose 307 mg/dL (74-99); Magnesium 1.7 mg/dL (1.6-2.3); Non-African American GFR(CKD) >90 (>60 ml/min/1.73 sqM); Potassium 4.8 mmol/L (3.5-5.1); Sodium 125 mmol/L (137-145); Total Bilirubin 1.6 mg/dL (0.2-1.3); Total Protein 5.9 g/dL (6.3-8.2)
[2023-01-19 00:20] LABS: Basophils % (A) 0 %; Eosinophils % (A) 0 %; HCT 36.5 % (39.0-53.0); HGB 12.4 gm/dL (13.0-17.5); Lymphocytes # (A) 0.1 k/uL (1.0-4.8); Lymphocytes % (A) 2 %; MCH 35.9 pg (25.0-35.0); MCV 105.7 fL (80.0-100.0); Macrocytosis Moderate; Mean Platelet Volume 8.2; Monocytes # (A) 0.2 k/uL (0-1.0); Monocytes % (A) 4 %; Neutrophils # (A) 5.4 k/uL (1.3-7.7); Neutrophils % (A) 94 %; RBC 3.45 m/uL (4.30-5.90); RDW 14.6 % (11.5-15.5); WBC 5.7 k/uL (3.8-10.6)
[2023-01-19 00:25] LABS: INR 1.4 (<1.2); Partial Thromboplastin Time 24.1 sec (22.0-30.0); Prothrombin Time 13.8 sec (9.0-12.0)
[2023-01-19 00:27] LABS: NT-Pro-B-Type Natriuretic Pept 197 pg/mL
[2023-01-19 00:30] LABS: Platelet Count 33 k/uL (150-450)
[2023-01-19] MEDS ORDERED: ONDANSETRON 4 MG/2 ML VIAL IVP PRN (00:52)
[2023-01-19] MEDS ORDERED: NALOXONE 0.4 MG/ML 1 ML VIAL IV PRN (00:52)
[2023-01-19] MEDS: SODIUM CHLORIDE 0.9% 1,000 ML IV SCH ×2 (01:09→13:04)
[2023-01-19] MEDS: MORPHINE SULFATE 4 MG/ML SYRINGE IV PRN (02:51)
[2023-01-19] MEDS: ALBUTEROL HFA INHALER INHALATION SCH ×6 (03:45→23:51)
[2023-01-19 04:03] LABS: Glucose,Whole Blood 281 mg/dL (70-110)
[2023-01-19] MEDS: INSULIN ASPART (NovoLOG) 100 UNIT/ML VIAL SQ SCH ×5 (04:45→20:41)
--- NOTE | 2023-01-19 05:21 | XR ---
EXAMINATION TYPE: XR chest 1V portable DATE OF EXAM: 01/19/2023 Comparison: 01/18/2023 Clinical History: 72-year-old male status post thoracentesis Findings: Significant interval improvement in the patient's previous right-sided pleural effusion. A some resid ual small right pleural effusion remains. Patchy perihilar and bibasilar opacities are demonstrated. There are prominent skin folds projecting along the periphery of the right lung. A trace 3 mm right l ateral pneumothorax is demonstrated. Impression: 1. After thoracentesis, only a small residual right pleural effusion remains. Questionable trace 3 mm right lateral pneumothorax versus artifact. Attention on follow-up. 2. Perihilar and bibasilar opacities are present. Consider pulmonary vascular congestion or atypical/ COVID pneumonias.
[2023-01-19 06:02] LABS: Glucose,Whole Blood 258 mg/dL (70-110)
--- NOTE | 2023-01-19 08:23 | P.HPIM ---
History of Present Illness This is a pleasant 72 years old male with past medical history ofAsthma, Diabetes Mellitus, GERD/Reflux,Osteoarthritis , cirrhosis of the liver, hepatitis C possibly from blood transfusion as a child, palpable mass right parotid ,left leg arthritis with occasional edema to lower leg Patient was recently discharged from this -01/15, he underwent thoracocentesis was 2.5 fluid removed oriented and thereafter patient was discharged on Levaquin Patient presents because of dyspnea slightly getting worse since been discharged from the hospital. No much coughing., Chest pain. His other complaint is diarrhea also started after discharge. He had 3-4 bouts of bowel movement yesterday. No abdominal pain or vomiting. He has somewhat low appetite. He is in the 3 L oxygen at home. He denies alcohol or smoking or illicit drugs. No headache weakness or numbness or confusion. He's on 3 L oxygen at home Patient states yesterday they tapped his lung and 3 L were taken out from his right side. No On admission he was saturating 94% on 6 L oxygen via nasal cannula, currently his oxygen requirement went up to 12 L permanent via high flow cannula. CBC showed mild anemia but significant thrombocytopenia at 33, which looks similar to 4 days ago where it was 36 on 01/14/2023. Before that baseline platelet count was 50-80k INR is 1.64. Lactic acid 2.7 Troponin is negative Sodium is 125, glucose elevated morning at 300 on admission. Liver enzymes AST/ALT are within the reference range. Bilirubin slightly up 1.6. ProBNP is low at 197 Chest x-ray showing almost complete opacification of the right lung with some bilateral infiltrates Review of Systems Review of systems CONSTITUTIONAL: No fever, no malaise, no fatigue. HEENT: No recent visual problems or hearing problems. Denied any sore throat. CARDIOVASCULAR: No orthopnea, PND, no palpitations, no syncope. PULMONARY: No chest wall tenderness, no cough, no hemoptysis. GASTROINTESTINAL: No diarrhea, no nausea, no vomiting, no abdominal pain. Normoactive bowel sounds. NEUROLOGICAL: No headaches, no weakness, no numbness. HEMATOLOGICAL: Denies any bleeding or petechiae. GENITOURINARY: Denies any burning micturition, frequency, or urgency. MUSCULOSKELETAL/RHEUMATOLOGICAL: Denies any joint pain, swelling, or any muscle pain. ENDOCRINE: Denies any polyuria or polydipsia. Past Medical History Past Medical History: Asthma, Cancer, Diabetes Mellitus, GERD/Reflux, Liver Disease, Osteoarthritis (OA) Additional Past Medical History / Comment(s): basal cell CA face and left chest, cirrhosis of the liver, hepatitis C possibly from blood transfusion as a child, palpable mass right parotid ,left leg arthritis with occasional edema to lower leg, has had recent us to r/o dvt was negative test History of Any Multi-Drug Resistant Organisms: None Reported Past Surgical History: Hernia Repair Additional Past Surgical History / Comment(s): sinus surgery, left wrist tendon injury repair, shunt placed "in liver" per patient, paracentesis 01/12 & 01/14, he rnia repair "last week" (possibly 01/07) Past Anesthesia/Blood Transfusion Reactions: No Reported Reaction Past Psychological History: Anxiety, Depression, PTSD Smoking Status: Former smoker Past Alcohol Use History: None Reported Additional Past Alcohol Use History / Comment(s): quit smoking in approximately 2004 was 1/2 pack a day smoker for approximately 35 years, no longer drinks any alcohol and denies every drinking daily Past Drug Use History: None Reported Additional Drug Use History / Comment(s): . - Past Family History Mother Family Medical History: Cancer Additional Family Medical History / Comment(s): patient is unsure if ovarian or colon Medications and Allergies Home Medications Medication Instructions Recorded Confirmed Type Omalizumab [Xolair] 150 mg SQ Q14D 04/28/18 01/13/23 History Ferrous Sulfate [Iron (65 MG 325 mg PO MOWEFR 03/14/21 01/13/23 History Elemental)] Omeprazole 20 mg PO DAILY 03/14/21 01/13/23 History Rifaximin [Xifaxan] 550 mg PO BID 03/14/21 01/13/23 History Fluticasone Propion/Salmeterol 1 puff INHALATION RT-BID 09/07/21 01/13/23 H istory [Advair 500-50 Diskus] Albuterol Sulfate [Albuterol 2 puff PO RT-QID 11/08/22 01/13/23 History Sulfate Hfa] Spironolactone [Aldactone] 50 mg PO BID 11/08/22 01/13/23 History hydrOXYzine HCL [Atarax] 10 mg PO HS 11/08/22 01/13/23 History Lactulose [Cephulac] 40 gm PO QID PRN 12/23/22 01/13/23 History glipiZIDE 5 mg PO BID 12/23/22 01/13/23 History Ibuprofen [Motrin] 600 mg PO Q6HR PRN #40 tab 12/31/22 01/13/23 Rx Furosemide [Lasix] 10 mg PO MOWEFR 01/10/23 01/13/23 History Lipase/Protease/Amylase [Gordon Lancaster 1 cap PO DIRECTED 01/10/23 01/13/23 History 12,000 Units Capsule] Budesonide-Formot 160-4.5 Mcg 2 puff INHALATION RT-BID 30 Days 01/15/23 Rx [Symbicort 160-4.5 Mcg Inhaler] #1 each Levofloxacin [Levaquin] 500 mg PO DAILY 7 Days #7 tab 01/15/23 Rx Allergies Allergy/AdvReac Type Severity Reaction Status Date / Time cefuroxime [From Ceftin] AdvReac Rash/Hives Verified 01/18/23 23:12 Physical Exam Vitals: Vital Signs Temp Pulse Pulse Resp BP BP Pulse Ox 01/19/23 05:03 95 20 01/19/23 04:07 18 92 L 01/19/23 03:56 93 L 01/19/23 03:46 97.5 F L 95 18 159/58 93 L 01/19/23 03:30 95 01/19/23 03:03 20 98 01/19/23 01:45 24 125/72 93 L 01/19/23 01:10 97 20 119/70 95 01/19/23 00:19 101 H 01/19/23 00:00 22 01/18/23 23:59 97 01/18/23 23:04 97.9 F 91 22 126/71 94 L Intake and Output 01/18/23 01/18/23 01/19/23 14:59 22:59 06:59 Output Total 3000 Balance -3000 Output: Other 3000 Other: Voiding Method Bedside Commode Weight 62 kg -GENERAL: The patient is alert and oriented x3, not in any acute distress. Looks thin built HEENT: Pupils are round and equally reacting to light. EOMI. No scleral icterus. No conjunctival pallor. Normocephalic, atraumatic. No pharyngeal erythema. No thyromegaly. CARDIOVASCULAR: S1 and S2 present. No murmurs, rubs, or gallops. -PULMONARY: Chest is clear to auscultation, no wheezing , no crackles. Decreased breath sounds with some crepitation, mildly tachypneic ABDOMEN: Soft, nontender, nondistended, normoactive bowel sounds. No palpable organomegaly. MUSCULOSKELETAL: No joint swelling or deformity. EXTREMITIES: No cyanosis, clubbing, or pedal edema. NEUROLOGICAL: Gross neurological examination did not reveal any focal deficits. SKIN: No rashes. no petechiae. Results CBC & Chem 7: 01/18/23 00:01 01/18/23 23:57 Labs: Abnormal Lab Results - Last 24 Hours (Table) 01/18/23 01/18/23 01/18/23 Range/Units 00:01 23:57 23:57 RBC 3.45 L (4.30-5.90) m/uL Hgb 12.4 L (13.0-17.5) gm/dL Hct 36.5 L (39.0-53.0) % MCV 105.7 H (80.0-100.0) fL MCH 35.9 H (25.0-35.0) pg Plt Count 33 L (150-450) k/uL Lymphocytes # 0.1 L (1.0-4.8) k/uL PT 13.8 H (9.0-12.0) sec INR 1.4 H (<1.2) Sodium 125 L (137-145) mmol/L Carbon Dioxide 21 L (22-30) mmol/L Creatinine 0.56 L (0.66-1.25) mg/dL Glucose 307 H (74-99) mg/dL POC Glucose (mg/dL) (70-110) mg/dL Plasma Lactic Acid Jono (0.7-2.0) mmol/L Calcium 8.2 L (8.4-10.2) mg/dL Total Bilirubin 1.6 H (0.2-1.3) mg/dL Alkaline Phosphatase 205 H (38-126) U/L Total Protein 5.9 L (6.3-8.2) g/dL Albumin 2.4 L (3.5-5.0) g/dL SARS-CoV-2 (PCR) (Not Detectd) 08/01/18/23 01/19/23 Range/Units 23:57 23:57 03:48 RBC (4.30-5.90) m/uL Hgb (13.0-17.5) gm/dL Hct (39.0-53.0) % MCV (80.0-100.0) fL MCH (25.0-35.0) pg Plt Count (150-450) k/uL Lymphocytes # (1.0-4.8) k/uL PT (9.0-12.0) sec INR (<1.2) Sodium (137-145) mmol/L Carbon Dioxide (22-30) mmol/L Creatinine (0.66-1.25) mg/dL Glucose (74-99) mg/dL POC Glucose (mg/dL) 281 H (70-110) mg/dL Plasma Lactic Acid Jono 2.7 H* (0.7-2.0) mmol/L Calcium (8.4-10.2) mg/dL Total Bilirubin (0.2-1.3) mg/dL Alkaline Phosphatase (38-126) U/L Total Protein (6.3-8.2) g/dL Albumin (3.5-5.0) g/dL SARS-CoV-2 (PCR) Detected A (Not Detectd) 01/19/23 01/19/23 Range/Units 04:02 05:56 RBC (4.30-5.90) m/uL Hgb (13.0-17.5) gm/dL Hct (39.0-53.0) % MCV (80.0-100.0) fL MCH (25.0-35.0) pg Plt Count (150-450) k/uL Lymphocytes # (1.0-4.8) k/uL PT (9.0-12.0) sec INR (<1.2) Sodium (137-145) mmol/L Carbon Dioxide (22-30) mmol/L Creatinine (0.66-1.25) mg/dL Glucose (74-99) mg/dL POC Glucose (mg/dL) 258 H (70-110) mg/dL Plasma Lactic Acid Jono 2.7 H* (0.7-2.0) mmol/L Calcium (8.4-10.2) mg/dL Total Bilirubin (0.2-1.3) mg/dL Alkaline Phosphatase (38-126) U/L Total Protein (6.3-8.2) g/dL Albumin (3.5-5.0) g/dL SARS-CoV-2 (PCR) (Not Detectd) Thrombosis Risk Factor Assmnt - Choose All That Apply Any of the Below Risk Factors Present?: No Other Risk Factors: Yes Each Risk Factor Represents 2 Points: Age 61-74 years Thrombosis Risk Factor Assessment Total Risk Factor Score: 2 Thrombosis Risk Factor Assessment Level: Low Risk Assessment and Plan Assessment: Acute respiratory failure Bilateral consolidation suspicious for bilateral covid pneumonia. Rule out bacterial pneumonia Right pleural effusion status post thoracocentesis on 01/18 with tapping 3 L out Hypervolemic hyponatremia Severe calorie protein malnutrition Slightly worsening thrombocytopenia in view of patient liver disease Liver cirrhosis History of hep C Diabetes mellitus, with hyperglycemia History of GERD History of osteoarthritis Plan: Continue with supplemental oxygen. Pulmonary team consult Start the patient and vitamin C, vitamin D and zinc. Start steroids, dexamethasone Monitor sodium consider start the patient empirically on antibiotic and checkcalcitonin given the patient failed therapy with Levaquin outpatient Continue with diuretic, currently on Lasix and Aldactone Try to avoid NSAIDs Monitor platelet count diet consult and add ensure for now Labs and medication were reviewed.. Continue same treatment. Continue with symptomatic treatment. Resume home medication. Monitor labs and vitals. DVT and GI prophylaxis. Further recommendations as per clinical course of the patient DVT prophylaxis: no Subcutaneous heparin in view of sever thrombocytopenia GI Prophylaxis: Pepcid PT/OT: Pending Prognosis is guarded
[2023-01-19 08:45] LABS: C Reactive Protein 4.1 mg/dL (<1.0)
[2023-01-19] MEDS ORDERED: ENOXAPARIN 40 MG/0.4 ML SYRINGE SQ SCH (09:00)
[2023-01-19 11:40] LABS: Glucose,Whole Blood 264 mg/dL (70-110)
--- NOTE | 2023-01-19 11:40 | P.CNPUL ---
History of Present Illness Consult date: 01/19/23 Reason for consult: dyspnea, pleural effusion, other (COVID) History of present illness: 72-year-old male patient, liver cirrhosis, hepatitis C, alcoholism, diabetes mellitus, recently hospitalized for a large right-sided pleural effusion and sh ortness of breath, the brain and a total of 3 L of fluid was aspirated from the right lung. He was running a low-grade fever. He also had increased edema in his lower extremities. The patient was given Levaquin and his cultures were negative. He was ultimately discharged home to be readmitted again with worsening shortness of breath and hypoxic respiratory failure. Still having diarrhea about 3-4 episodes of bowel movement. No abdominal pain. No nausea or vomiting. He was on oxygen at 3 L and currently he is on high flow oxygen. In the emergency, he was found to have recurrent right-sided pleural effusion. Based on his borderline respiratory status, the emergency physician performed a thoracentesis on him. He tested positive for Covid 19. His lactic acid level is at 2.7. His hemoglobin is at 12.4, white cell count is at 5.7, he does have chronic pancytopenia related to chronic liver disease. INR is at 1.4, sodium is 125, BUN is at 20 with a creatinine of 0.56. Lactic acid level was at 2.7 up to 2.4. Alkaline phosphatase 205, AST and ALP are normal, troponins are negative. He is cachectic, debilitated with a body mass index of 21.4. Review of Systems CONSTITUTIONAL: Denies any recent significant weight loss or weight gain. EYES: Denies change in vision. EARS, NOSE, MOUTH, THROAT: Denies headaches, denies sore throat. CARDIOVASCULAR: See HPI RESPIRATORY: See HPI GASTROINTESTINAL: Denies change in appetite, abdominal pain, nausea and vomiting. GENITOURINARY: Denies hematuria, denies infections. MUSKULOSKELETAL: Denies pain, admits lower extremity swelling. INTEGUMENTARY: Denies rash, denies eczema. NEUROLOGICAL: Denies recent memory loss, no recent seizure activity. PSYCHIATRIC: Denies anxiety, denies depression. HEMATOLOGIC/LYMPHATIC: Denies anemia, denies enlarged lymph node Past Medical History Past Medical History: Asthma, Cancer, Diabetes Mellitus, GERD/Reflux, Liver Disease, Osteoarthritis (OA) Additional Past Medical History / Comment(s): basal cell CA face and left chest, cirrhosis of the liver, hepatitis C possibly from blood transfusion as a child, palpable mass right parotid ,left leg arthritis with occasional edema to lower leg, has had recent us to r/o dvt was negative test History of Any Multi-Drug Resistant Organisms: None Reported Past Surgical History: Hernia Repair Additional Past Surgical History / Comment(s): sinus surgery, left wrist tendon injury repair, shunt placed "in liver" per patient, paracentesis 01/12 & 01/14, hernia repair "last week" (possibly 01/07) Past Anesthesia/Blood Transfusion Reactions: No Reported Reaction Past Psychological History: Anxiety, Depression, PTSD Smoking Status: Former smoker Past Alcohol Use History: None Reported Additional Past Alcohol Use History / Comment(s): quit smoking in approximately 2004 was 1/2 pack a day smoker for approximately 35 years, no longer drinks any alcohol and denies every drinking daily Past Drug Use History: None Reported Additional Drug Use History / Comment(s): . - Past Family History Mother Family Medical History: Cancer Additional Family Medical History / Comment(s): patient is unsure if ovarian or colon Medications and Allergies Home Medications Medication Instructions Recorded Confirmed Type Omalizumab [Xolair] 150 mg SQ Q14D 04/28/18 01/13/23 History Ferrous Sulfate [Iron (65 MG 325 mg PO MOWEFR 03/14/21 01/13/23 History Elemental)] Omeprazole 20 mg PO DAILY 03/14/21 01/13/23 History Rifaximin [Xifaxan] 550 mg PO BID 03/14/21 01/13/23 History Fluticasone Propion/Salmeterol 1 puff INHALATION RT-BID 09/07/21 01/13/23 History [Advair 500-50 Diskus] Albuterol Sulfate [Albuterol 2 puff PO RT-QID 11/08/22 01/13/23 History Sulfate Hfa] Spironolactone [Aldactone] 50 mg PO BID 11/08/22 01/13/23 History hydrOXYzine HCL [Atarax] 10 mg PO HS 11/08/22 01/13/23 History Lactulose [Cephulac] 40 gm PO QID PRN 12/23/22 01/13/23 History glipiZIDE 5 mg PO BID 12/23/22 01/13/23 History Ibuprofen [Motrin] 600 mg PO Q6HR PRN #40 tab 12/31/22 01/13/23 Rx Furosemide [Lasix] 10 mg PO MOWEFR 01/10/23 01/13/23 History Lipase/Protease/Amylase [Gordon Lancaster 1 cap PO DIRECTED 01/10/23 01/13/23 History 12,000 Units Capsule] Budesonide-Formot 160-4.5 Mcg 2 puff INHALATION RT-BID 30 Days 01/15/23 Rx [Symbicort 160-4.5 Mcg Inhaler] #1 each Levofloxacin [Levaquin] 500 mg PO DAILY 7 Days #7 tab 01/15/23 Rx Allergies Allergy/AdvReac Type Severity Reaction Status Date / Time cefuroxime [From Ceftin] AdvReac Rash/Hives Verified 01/18/23 23:12 Physical Exam Vitals: Vital Signs Temp Pulse Pulse Resp BP BP Pulse Ox 01/19/23 09:43 91 L 01/19/23 08:00 99 F 95 16 90/53 90 L 01/19/23 05:03 95 20 01/19/23 04:07 18 92 L 01/19/23 03:56 93 L 01/19/23 03:46 97.5 F L 95 18 159/58 93 L 01/19/23 03:30 95 01/19/23 03:03 20 98 01/19/23 01:45 24 125/72 93 L 01/19/23 01:10 97 20 119/70 95 01/19/23 00:19 101 H 01/19/23 00:00 22 01/18/23 23:59 97 01/18/23 23:04 97.9 F 91 22 126/71 94 L Intake and Output 01/18/23 01/19/23 01/19/23 22:59 06:59 14:59 Intake Total 540 420 Output Total 3000 Balance -2460 420 Intake: Oral 540 420 Output: Other 3000 Other: Voiding Method Bedside Commode Weight 62 kg GENERAL EXAM: Alert, 72-year-old white male, comfortable in no apparent distress., Currently on high flow oxygen at 12 L, cachectic with a body mass index of 21.4, temporal muscle wasting HEAD: Normocephalic and atraumatic EYES: Normal reaction of pupils, equal size. Icteric sclera NOSE: Clear with pink turbinates. THROAT: No erythema or exudates. NECK: No masses, no JVD. CHEST: No chest wall deformity. LUNGS: Diminished right lung sounds with expiratory wheezes heard throughout. CVS: S1 and S2 normal with no audible murmur, regular rhythm. No extra heart sounds ABDOMEN: Mild ascites, active bowel sounds, no guarding or rigidity. There are for laparoscopic incisional sites which are approximated SPINE: No scoliosis or deformity SKIN: No rashes CENTRAL NERVOUS SYSTEM: No focal deficits, tone is normal in all 4 extremities. EXTREMITIES: There is 1+ pitting bilateral lower extremity edema. No clubbing, or cyanosis. Peripheral pulses are intact. Results - Laboratory Findings CBC and BMP: 01/18/23 00:01 01/18/23 23:57 PT/INR, D-dimer PT 13.8 sec (9.0-12.0) H 01/18/23 23:57 INR 1.4 (<1.2) H 01/18/23 23:57 Abnormal lab findings: Abnormal Labs 01/18/23 01/18/23 01/18/23 00:01 23:57 23:57 RBC 3.45 L Hgb 12.4 L Hct 36.5 L MCV 105.7 H MCH 35.9 H Plt Count 33 L Lymphocytes # 0.1 L PT 13.8 H INR 1.4 H Sodium 125 L Carbon Dioxide 21 L Creatinine 0.56 L Glucose 307 H POC Glucose (mg/dL) Plasma Lactic Acid Jono Calcium 8.2 L Total Bilirubin 1.6 H Alkaline Phosphatase 205 H Lactate Dehydrogenase C-Reactive Protein Total Protein 5.9 L Albumin 2.4 L SARS-CoV-2 (PCR) 01/18/23 01/18/23 01/19/23 23:57 23:57 03:48 RBC Hgb Hct MCV MCH Plt Count Lymphocytes # PT INR Sodium Carbon Dioxide Creatinine Glucose POC Glucose (mg/dL) 281 H Plasma Lactic Acid Jono 2.7 H* Calcium Total Bilirubin Alkaline Phosphatase Lactate Dehydrogenase C-Reactive Protein Total Protein Albumin SARS-CoV-2 (PCR) Detected A 01/19/23 01/19/23 01/19/23 04:02 05:56 06:41 RBC Hgb Hct MCV MCH Plt Count Lymphocytes # PT INR Sodium Carbon Dioxide Creatinine Glucose POC Glucose (mg/dL) 258 H Plasma Lactic Acid Jono 2.7 H* Calcium Total Bilirubin Alkaline Phosphatase Lactate Dehydrogenase 258 H C-Reactive Protein 4.1 H Total Protein Albumin SARS-CoV-2 (PCR) 01/19/23 07:12 RBC Hgb Hct MCV MCH Plt Count Lymphocytes # PT INR Sodium Carbon Dioxide Creatinine Glucose POC Glucose (mg/dL) Plasma Lactic Acid Jono 2.4 H* Calcium Total Bilirubin Alkaline Phosphatase Lactate Dehydrogenase C-Reactive Protein Total Protein Albumin SARS-CoV-2 (PCR) - Diagnostic Findings Chest x-ray: image reviewed Assessment and Plan Plan: Recurrent right-sided pleural effusion, status post right-sided thoracentesis 01/11/2023 with 2.4 L of transudative removed. Repeat thoracentesis was done where another 3 L of fluid was aspirated from the right lung in the emergency on 01/19/2023. The fluid cultures were negative. Acute hypoxic respiratory failure currently on 12 L of oxygen by nasal cannula Covid 19 infection, chronicity of infection is not known. It is possible the patient was also instructed during his last admission and the testing was not done back then. The patient has not been infected with Covid 19 in the past. He has been vaccinated 2 Diarrhea, could be related to Covid 19. Rule out C. diff colitis Chronic bronchial asthma with an Advair and albuterol HFA and the patient takes Xolair on outpatient basis Chronic anemia Thrombocytopenia, likely related to liver disease Elevated d-dimer, likely related liver disease Hypoalbuminemia History of liver cirrhosis with ascites History of hepatitis C History of alcoholism Diabetes mellitus type 2, [id number]. History of recent laparoscopic hernia repair Chronic hyponatremia Plan Thoracentesis was done Put the patient on airvo and titrate oxygen flow to maintain a saturation above 90% We'll cover the patient with IV Zosyn as empiric antibiotic coverage We'll obtain a CT of the chest Continue Decadron 6 mg IV every 24 hours Stop diuretics Stop lactulose Continue Xifaxan We'll continue to follow
[2023-01-19] MEDS: DEXAMETHASONE SOD PHOSPHATE 10 MG/ML 1 ML VIAL IVP SCH (11:59)
[2023-01-19] MEDS: PIPERACILLIN-TAZOBACTAM 3.375 GM in SODIUM CHLORIDE 0.9% 100 ML IVPB SCH ×2 (12:00→20:41)
[2023-01-19] MEDS: FAMOTIDINE 20 MG/2 ML VIAL IV SCH ×2 (12:00→20:41)
[2023-01-19] MEDS ORDERED: SODIUM CHLORIDE 0.9% 1,000 ML IV ONE (12:32)
--- NOTE | 2023-01-19 12:40 | CT ---
EXAMINATION TYPE: CT angio chest DATE OF EXAM: 01/19/2023 COMPARISON: None HISTORY: PE, covid positive CT DLP: 273.1 mGycm CONTRAST: CT chest with contrast and 3D reconstruction with MIP imaging is performed with IV Contrast, patient injected with 100 mL of Isovue 370. Contrast-enhanced CT of the chest was performed through the course of the pulmonary arteries with conner g and mediastinal window settings submitted. 3D reconstruction with MIP imaging was also performed. PULMONARY ARTERIES: The pulmonary arteries and their major tributaries are patent. I do not see ailyn dence for sizable filling defect to suggest pulmonary embolic process. LUNGS: Airspace consolidation throughout both lung shah moderate to severe particularly within the mid and lower lung zones. There is a large right-sided pleural effusion. There is a small right-sided pneumothorax identified. Pneumothorax is estimated at less than 10%. MEDIASTINUM: Thoracic aorta is of normal caliber,however, evaluation is limited given timing of the contrast bolus. If there is concern for thoracic aortic pathology consider ALPESH. Correlate clinicall y . The heart is not enlarged. No evidence for mediastinal mass. No mediastinal lymph nodes greater than 1cm. HILAR STRUCTURES: No evidence for mass. No hilar lymph nodes greater than 1 cm. UPPER ABDOMEN: No significant abnormality is seen. IMPRESSION: 1. No evidence for Pulmonary embolism at this time. 2. Diffuse bilateral airspace infiltrates. 3. Less than 10% right-sided pneumothorax. Small amount of subcutaneous air seen.
[2023-01-19] MEDS: CHOLECALCIFEROL 25 MCG (1000 IU) TABLET PO SCH (12:56)
[2023-01-19] MEDS: RIFAXIMIN 550 MG TABLET PO SCH ×2 (12:57→20:41)
[2023-01-19] MEDS: ASCORBIC ACID 500 MG TAB PO SCH (12:57)
[2023-01-19] MEDS: ZINC SULFATE 220 MG CAP PO SCH (13:04)
[2023-01-19 16:35] LABS: Glucose,Whole Blood 310 mg/dL (70-110)
[2023-01-19] MEDS: MIDODRINE 5 MG TAB PO SCH ×2 (16:38→16:44)
[2023-01-19 20:14] LABS: Glucose,Whole Blood 389 mg/dL (70-110)
[2023-01-19] MEDS ORDERED: guaiFENesin-DM 100-10MG/5ML 10 ML CUP PO PRN (22:22)
[2023-01-20] MEDS: SODIUM CHLORIDE 0.9% 1,000 ML IV SCH ×3 (00:53→17:33)
[2023-01-20] MEDS: ALBUTEROL HFA INHALER INHALATION SCH ×5 (03:39→21:31)
[2023-01-20] MEDS: PIPERACILLIN-TAZOBACTAM 3.375 GM in SODIUM CHLORIDE 0.9% 100 ML IVPB SCH ×3 (04:54→21:17)
[2023-01-20 06:21] LABS: Glucose,Whole Blood 326 mg/dL (70-110)
[2023-01-20] MEDS: INSULIN ASPART (NovoLOG) 100 UNIT/ML VIAL SQ SCH ×4 (06:27→21:18)
[2023-01-20] MEDS: MIDODRINE 5 MG TAB PO SCH ×2 (06:27→17:33)
--- NOTE | 2023-01-20 08:57 | XR ---
EXAMINATION TYPE: XR chest 1V DATE OF EXAM: 01/20/2023 6:54 AM COMPARISON: Chest radiographs from 01/19/2023. TECHNIQUE: XR chest 1V Frontal view of the chest. CLINICAL INDICATION:Male, 72 years old with history of effusion; FINDINGS: Lungs/Pleura: There remains small pleural effusion. Small right pneumothorax. Scattered airspace opac ities throughout the lungs. Pulmonary vascularity: Unremarkable. Heart/mediastinum: Cardiomediastinal silhouette is unremarkable. Musculoskeletal: No acute osseous pathology. IMPRESSION: 1. Small apical right pneumothorax is confirmed from prior imaging 01/19/2023. 2. Small right pleural effusion remains. 3. Scattered airspace opacities throughout the lungs.
[2023-01-20 09:00] LABS: Basophils % (A) 0 %; Eosinophils % (A) 0 %; HCT 33.9 % (39.0-53.0); HGB 10.9 gm/dL (13.0-17.5); Lymphocytes # (A) 0.1 k/uL (1.0-4.8); Lymphocytes % (A) 3 %; MCH 34.7 pg (25.0-35.0); MCHC 32.3 g/dL (31.0-37.0); MCV 107.5 fL (80.0-100.0); Macrocytosis Marked; Mean Platelet Volume 8.8; Monocytes # (A) 0.2 k/uL (0-1.0); Monocytes % (A) 6 %; Neutrophils # (A) 3.4 k/uL (1.3-7.7); Neutrophils % (A) 90 %; RBC 3.15 m/uL (4.30-5.90); RDW 14.8 % (11.5-15.5); WBC 3.8 k/uL (3.8-10.6)
[2023-01-20 09:05] LABS: Platelet Count 30 k/uL (150-450)
[2023-01-20 09:22] LABS: ALT 31 U/L (4-49); AST 49 U/L (17-59); African American GFR (CKD) >90 (>60 ml/min/1.73 sqM); Albumin 1.9 g/dL (3.5-5.0); Alkaline Phosphatase 148 U/L (38-126); Anion Gap 5 mmol/L; Blood Urea Nitrogen 20 mg/dL (9-20); Calcium 7.7 mg/dL (8.4-10.2); Carbon Dioxide 18 mmol/L (22-30); Chloride 104 mmol/L (98-107); Glucose 276 mg/dL (74-99); Non-African American GFR(CKD) >90 (>60 ml/min/1.73 sqM); Potassium 4.3 mmol/L (3.5-5.1); Sodium 127 mmol/L (137-145); Total Bilirubin 1.5 mg/dL (0.2-1.3); Total Protein 4.9 g/dL (6.3-8.2)
[2023-01-20] MEDS: FAMOTIDINE 20 MG/2 ML VIAL IV SCH ×2 (09:29→21:18)
[2023-01-20] MEDS: DEXAMETHASONE SOD PHOSPHATE 10 MG/ML 1 ML VIAL IVP SCH (09:29)
[2023-01-20] MEDS: ZINC SULFATE 220 MG CAP PO SCH (09:29)
[2023-01-20] MEDS: RIFAXIMIN 550 MG TABLET PO SCH ×2 (09:30→21:20)
[2023-01-20] MEDS: CHOLECALCIFEROL 25 MCG (1000 IU) TABLET PO SCH (09:30)
[2023-01-20] MEDS: ASCORBIC ACID 500 MG TAB PO SCH (09:30)
[2023-01-20 11:50] LABS: Glucose,Whole Blood 333 mg/dL (70-110)
[2023-01-20] MEDS: LIPASE 5,000/PROTEASE 17,000/AMYLASE 24,000 PO SCH ×2 (12:59→17:55)
[2023-01-20] MEDS: FERROUS SULFATE ORAL ELIXIR 300 MG/5 ML CUP PO SCH (12:59)
--- NOTE | 2023-01-20 13:32 | P.PN ---
Subjective Progress Note Date: 01/20/23 Principal diagnosis: Acute hypoxic respiratory failure secondary to right-sided pleural effusion 72-year-old male patient, liver cirrhosis, hepatitis C, alcoholism, diabetes mellitus, recently hospitalized for a large right-sided pleural effusion and shortness of breath, the brain and a total of 3 L of fluid was aspirated from the right lung. He was running a low-grade fever. He also had increased edema in his lower extremities. The patient was given Levaquin and his cultures were negative. He was ultimately discharged home to be readmitted again with worsening shortness of breath and hypoxic respiratory failure. Still having diarrhea about 3-4 episodes of bowel movement. No abdominal pain. No nausea or vomiting. He was on oxygen at 3 L and currently he is on high flow oxygen. In the emergency, he was found to have recurrent right-sided pleural effusion. Ba sed on his borderline respiratory status, the emergency physician performed a thoracentesis on him. He tested positive for Covid 19. His lactic acid level is at 2.7. His hemoglobin is at 12.4, white cell count is at 5.7, he does have chronic pancytopenia related to chronic liver disease. INR is at 1.4, sodium is 125, BUN is at 20 with a creatinine of 0.56. Lactic acid level was at 2.7 up to 2.4. Alkaline phosphatase 205, AST and ALP are normal, troponins are negative. He is cachectic, debilitated with a body mass index of 21.4. Patient was reevaluated today on 01/20/2023, remains on high flow FiO2, airvo at 15 L flow and 70% FiO2 on the patient remains a relatively short of breath, and seems to be quite anxious that scan is 3.8 hemoglobin is 10.9. Sodium is 127 bicarb is 18 BUN is 20 creatinine 0.48 blood sugar is 333 in spite of having 3 L of fluid removed yesterday from his right pleural space, patient continues to have some shortness of breath, chest x-ray is showing bilateral airspace disease, I'm suspecting interstitial edema, and there is also a right sided small apical pneumothorax noted related to his recent thoracentesis. Platelets remained low as 30,000 Objective - Vital Signs Vital signs: Vital Signs Temp 98.8 F 01/20/23 08:00 Pulse 80 01/20/23 08:00 Resp 20 01/20/23 08:00 BP 111/74 01/20/23 08:00 Pulse Ox 90 L 01/20/23 12:14 FiO2 72 01/20/23 12:14 Intake & Output 01/19/23 01/20/23 01/20/23 18:59 06:59 18:59 Intake Total 1520 Output Total 625 Balance 1520 -625 Intake: Intake, IV Titration 1100 Amount Piperacillin-Tazobactam 3 100 .375 gm In Sodium Chloride 0.9% 100 ml @ 25 mls/hr IVPB Q8H [facility] Rx#: [id number] Sodium Chloride 0.9% 1, 1000 000 ml @ 999 mls/hr IV . Q1H1M ONE Rx#:[id number] Oral 420 Output: Urine 625 Other: Voiding Method Bedside Commode Urinal # Voids 1 # Bowel Movements 1 - Exam Physical Exam: Revealed a 72-year-old white male, looks frail, chronically ill, anxious, on airvo Head: Atraumatic, normocephalic. HEENT:[Neck is supple.] [No neck masses.] [No thyromegaly.] [No JVD.] Chest: [Diminished breath sound bilaterally with rhonchi bilaterally noted. Cardiac Exam: [Normal S1 and S2, no S3 gallop, no murmur.] Abdomen: [Soft, nontender, no megaly, no rebound, no guarding, normal bowel sounds.] Mild ascites is suspected. Extremities: [No clubbing, 1+ bipedal edema, no cyanosis.] Neurological Exam: [No focal neurologic deficit.] Alert oriented 3 Psychiatric: Anxious mood, as, normal affect. Skin: No rashes - Labs CBC & Chem 7: 01/20/23 08:26 01/20/23 08:26 Labs: Abnormal Lab Results - Last 24 Hours (Table) 01/19/23 01/19/23 01/19/23 Range/Units 06:38 16:32 20:12 RBC (4.30-5.90) m/uL Hgb (13.0-17.5) gm/dL Hct (39.0-53.0) % MCV (80.0-100.0) fL Plt Count (150-450) k/uL Lymphocytes # (1.0-4.8) k/uL Macrocytosis Sodium (137-145) mmol/L Carbon Dioxide (22-30) mmol/L Creatinine (0.66-1.25) mg/dL Glucose (74-99) mg/dL POC Glucose (mg/dL) 310 H 389 H (70-110) mg/dL Calcium (8.4-10.2) mg/dL Total Bilirubin (0.2-1.3) mg/dL Alkaline Phosphatase (38-126) U/L Total Protein (6.3-8.2) g/dL Albumin (3.5-5.0) g/dL Procalcitonin 0.21 H (0.02-0.09) ng/mL 01/20/23 01/20/23 01/20/23 Range/Units 06:20 08:26 08:26 RBC 3.15 L (4.30-5.90) m/uL Hgb 10.9 L (13.0-17.5) gm/dL Hct 33.9 L (39.0-53.0) % MCV 107.5 H (80.0-100.0) fL Plt Count 30 L (150-450) k/uL Lymphocytes # 0.1 L (1.0-4.8) k/uL Macrocytosis Marked A Sodium 127 L (137-145) mmol/L Carbon Dioxide 18 L (22-30) mmol/L Creatinine 0.48 L (0.66-1.25) mg/dL Glucose 276 H (74-99) mg/dL POC Glucose (mg/dL) 326 H (70-110) mg/dL Calcium 7.7 L (8.4-10.2) mg/dL Total Bilirubin 1.5 H (0.2-1.3) mg/dL Alkaline Phosphatase 148 H (38-126) U/L Total Protein 4.9 L (6.3-8.2) g/dL Albumin 1.9 L (3.5-5.0) g/dL Procalcitonin (0.02-0.09) ng/mL 01/20/23 Range/Units 11:49 RBC (4.30-5.90) m/uL Hgb (13.0-17.5) gm/dL Hct (39.0-53.0) % MCV (80.0-100.0) fL Plt Count (150-450) k/uL Lymphocytes # (1.0-4.8) k/uL Macrocytosis Sodium (137-145) mmol/L Carbon Dioxide (22-30) mmol/L Creatinine (0.66-1.25) mg/dL Glucose (74-99) mg/dL POC Glucose (mg/dL) 333 H (70-110) mg/dL Calcium (8.4-10.2) mg/dL Total Bilirubin (0.2-1.3) mg/dL Alkaline Phosphatase (38-126) U/L Total Protein (6.3-8.2) g/dL Albumin (3.5-5.0) g/dL Procalcitonin (0.02-0.09) ng/mL Assessment and Plan Assessment: Impression: Acute hypoxic respiratory failure Recurrent right-sided pleural effusion secondary to chronic liver disease COVID-19 infection, incidental finding, no clear-cut symptoms of COVID-19 infection Thrombocytopenia secondary to chronic liver disease Chronic anemia Diarrhea most likely secondary to COVID-19 infection Hypoalbuminemia History of liver cirrhosis and ascites History of hepatitis C History of alcoholism Type 2 diabetes Recent history of laparoscopic hernia repair Chronic hyponatremia/hypervolemic hyponatremia secondary to liver disease Recommendation: Continue oxygen and titrate accordingly Continue empiric antibiotics/Zosyn Reviewed CT of the chest Continue Decadron Hold diuretics for now, continue Xifaxan, hold lactulose We will continue to follow overall prognosis is extremely poor and guarded Continue to monitor right-sided apical pneumothorax, repeat chest x-ray in a.m. Time with Patient: Less than 30
--- NOTE | 2023-01-20 13:45 | P.PN ---
Subjective Progress Note Date: 01/20/23 This is a pleasant 72 years old male with past medical history ofAsthma, Diabetes Mellitus, GERD/Reflux,Osteoarthritis , cirrhosis of the liver, hepatitis C possibly from blood transfusion as a child, palpable mass right parotid ,left leg arthritis with occasional edema to lower leg Patient was recently discharged from this -01/15, he underwent thoracocentesis was 2.5 fluid removed oriented and thereafter patient was discharged on Levaquin Patient presents because of dyspnea slightly getting worse since been discharged from the hospital. No much coughing., Chest pain. His other complaint is diarrhea also started after discharge. He had 3-4 bouts of bowel movement yesterday. No abdominal pain or vomiting. He has somewhat low appetite. He is in the 3 L oxygen at home. He denies alcohol or smoking or illicit drugs. No headache weakness or numbness or confusion. He's on 3 L oxygen at home Patient states yesterday they tapped his lung and 3 L were taken out from his right side. No On admission he was saturating 94% on 6 L oxygen via nasal cannula, currently his oxygen requirement went up to 12 L permanent via high flow cannula. CBC showed mild anemia but significant thrombocytopenia at 33, which looks similar to 4 days ago where it was 36 on 01/14/2023. Before that baseline platelet count was 50-80k INR is 1.64. Lactic acid 2.7 Troponin is negative Sodium is 125, glucose elevated morning at 300 on admission. Liver enzymes AST/ALT are within the reference range. Bilirubin slightly up 1.6. ProBNP is low at 197 Chest x-ray showing almost complete opacification of the right lung with some bilateral infiltrates 01/20. Patient seen and examined. Patient is currently on airvo at 15 L flow and 70% FiO2. Gets short of breath on minimal exertion REVIEW OF SYSTEMS: CONSTITUTIONAL: No fever, no malaise,. CARDIOVASCULAR: No chest pain, no palpitations, no syncope. PULMONARY: As mentioned above GASTROINTESTINAL: No diarrhea, no nausea, no vomiting, no abdominal pain. NEUROLOGICAL: No headaches, no weakness, PHYSICAL EXAMINATION: GENERAL: The patient is alert and oriented x3, not in any acute distress. Well developed, well nourished. HEENT: Pupils are round and equally reacting to light. EOMI. No scleral icterus. No conjunctival pallor. Normocephalic, atraumatic. No pharyngeal erythema. No thyromegaly. CARDIOVASCULAR: S1 and S2 present. No murmurs, rubs, or gallops. PULMONARY: Tachypneic, coarse breath sounds bilaterally, no wheeze ABDOMEN: Soft, nontender, nondistended, normoactive bowel sounds. No palpable organomegaly. MUSCULOSKELETAL: No joint swelling or deformity. EXTREMITIES: No cyanosis, clubbing, or pedal edema. NEUROLOGICAL: Gross neurological examination did not reveal any focal deficits. SKIN: No rashes. Assessment and plan Acute respiratory failure Bilateral consolidation suspicious for bilateral covid pneumonia. Rule out bacterial pneumonia Right pleural effusion status post thoracocentesis on 01/18 with tapping 3 L out Apical pneumothorax right side Hypervolemic hyponatremia Severe calorie protein malnutrition Slightly worsening thrombocytopenia in view of patient liver disease Liver cirrhosis History of hep C Diabetes mellitus, with hyperglycemia History of GERD History of osteoarthritis Monitor vital signs Monitor CBC Monitor CMP Continue telemetry monitoring Continue breathing treatments Continue IV Zosyn Continue Decadron Continue rifaximin Repeat chest x-ray for tomorrow morning ordered to monitor for right apical pneumothorax Pulmonology following Labs and medication were reviewed.. Continue same treatment. Continue with symptomatic treatment. Resume home medication. Monitor labs and vitals. DVT and GI prophylaxis. Further recommendations as per clinical course of the patient Dictation was produced using [employer] dictation software. please excuse any grammatical, word or spelling errors. Objective - Vital Signs Vital signs: Vital Signs Temp 99.1 F 01/19/23 20:48 Pulse 82 01/20/23 04:57 Resp 18 01/20/23 04:57 BP 104/57 01/20/23 04:57 Pulse Ox 92 L 01/20/23 09:01 FiO2 73 01/20/23 09:01 Intake & Output 01/19/23 01/20/23 01/20/23 18:59 06:59 18:59 Intake Total 1520 Output Total 625 Balance 1520 -625 Intake: Intake, IV Titration 1100 Amount Piperacillin-Tazobactam 3 100 .375 gm In Sodium Chloride 0.9% 100 ml @ 25 mls/hr IVPB Q8H [facility] Rx#: [id number] Sodium Chloride 0.9% 1, 1000 000 ml @ 999 mls/hr IV . Q1H1M [facility] Rx#:[id number] Oral 420 Output: Urine 625 Other: Voiding Method Bedside Commode Urinal # Voids 1 # Bowel Movements 1 - Labs CBC & Chem 7: 01/20/23 08:26 01/20/23 08:26 Labs: Abnormal Lab Results - Last 24 Hours (Table) 01/19/23 01/19/23 01/19/23 Range/Units 06:38 11:34 11:38 RBC (4.30-5.90) m/uL Hgb (13.0-17.5) gm/dL Hct (39.0-53.0) % MCV (80.0-100.0) fL Plt Count (150-450) k/uL Lymphocytes # (1.0-4.8) k/uL Macrocytosis POC Glucose (mg/dL) 264 H (70-110) mg/dL Plasma Lactic Acid Jono 2.2 H* (0.7-2.0) mmol/L Procalcitonin 0.21 H (0.02-0.09) ng/mL 01/19/23 01/19/23 01/20/23 Range/Units 16:32 20:12 06:20 RBC (4.30-5.90) m/uL Hgb (13.0-17.5) gm/dL Hct (39.0-53.0) % MCV (80.0-100.0) fL Plt Count (150-450) k/uL Lymphocytes # (1.0-4.8) k/uL Macrocytosis POC Glucose (mg/dL) 310 H 389 H 326 H (70-110) mg/dL Plasma Lactic Acid Jono (0.7-2.0) mmol/L Procalcitonin (0.02-0.09) ng/mL 01/20/23 Range/Units 08:26 RBC 3.15 L (4.30-5.90) m/uL Hgb 10.9 L (13.0-17.5) gm/dL Hct 33.9 L (39.0-53.0) % MCV 107.5 H (80.0-100.0) fL Plt Count 30 L (150-450) k/uL Lymphocytes # 0.1 L (1.0-4.8) k/uL Macrocytosis Marked A POC Glucose (mg/dL) (70-110) mg/dL Plasma Lactic Acid Jono (0.7-2.0) mmol/L Procalcitonin (0.02-0.09) ng/mL
[2023-01-20 17:10] LABS: Glucose,Whole Blood 313 mg/dL (70-110)
[2023-01-20 20:36] LABS: Glucose,Whole Blood 326 mg/dL (70-110)
[2023-01-21] MEDS: ALBUTEROL HFA INHALER INHALATION SCH ×7 (00:03→23:36)
[2023-01-21] MEDS: PIPERACILLIN-TAZOBACTAM 3.375 GM in SODIUM CHLORIDE 0.9% 100 ML IVPB SCH ×3 (04:17→19:52)
[2023-01-21] MEDS: SODIUM CHLORIDE 0.9% 1,000 ML IV SCH ×2 (04:18→23:54)
[2023-01-21 06:20] LABS: Glucose,Whole Blood 282 mg/dL (70-110)
[2023-01-21] MEDS: MIDODRINE 5 MG TAB PO SCH (06:28)
[2023-01-21] MEDS: INSULIN ASPART (NovoLOG) 100 UNIT/ML VIAL SQ SCH ×4 (06:28→20:43)
[2023-01-21] MEDS: LIPASE 5,000/PROTEASE 17,000/AMYLASE 24,000 PO SCH ×3 (06:28→18:14)
[2023-01-21 08:04] LABS: HCT 35.3 % (39.0-53.0); HGB 11.8 gm/dL (13.0-17.5); MCH 36.1 pg (25.0-35.0); MCHC 33.5 g/dL (31.0-37.0); MCV 107.9 fL (80.0-100.0); Macrocytosis Marked; Mean Platelet Volume 8.9; RBC 3.27 m/uL (4.30-5.90); RDW 15.2 % (11.5-15.5); WBC 4.9 k/uL (3.8-10.6)
[2023-01-21 08:35] LABS: ALT 32 U/L (4-49); AST 53 U/L (17-59); African American GFR (CKD) >90 (>60 ml/min/1.73 sqM); Alkaline Phosphatase 141 U/L (38-126); Blood Urea Nitrogen 24 mg/dL (9-20); Calcium 8.2 mg/dL (8.4-10.2); Carbon Dioxide 22 mmol/L (22-30); Glucose 264 mg/dL (74-99); Non-African American GFR(CKD) >90 (>60 ml/min/1.73 sqM); Total Bilirubin 1.8 mg/dL (0.2-1.3); Total Protein 5.1 g/dL (6.3-8.2)
[2023-01-21 08:41] LABS: Platelet Count 35 k/uL (150-450)
[2023-01-21] MEDS: DEXAMETHASONE SOD PHOSPHATE 10 MG/ML 1 ML VIAL IVP SCH (09:05)
[2023-01-21] MEDS: ASCORBIC ACID 500 MG TAB PO SCH (09:06)
[2023-01-21] MEDS: CHOLECALCIFEROL 25 MCG (1000 IU) TABLET PO SCH (09:06)
[2023-01-21] MEDS: FAMOTIDINE 20 MG/2 ML VIAL IV SCH ×2 (09:06→20:42)
[2023-01-21] MEDS: ZINC SULFATE 220 MG CAP PO SCH (09:07)
[2023-01-21] MEDS: RIFAXIMIN 550 MG TABLET PO SCH ×2 (09:07→20:42)
[2023-01-21 09:50] LABS: Anion Gap 3 mmol/L; Chloride 105 mmol/L (98-107); Potassium 4.2 mmol/L (3.5-5.1); Sodium 130 mmol/L (137-145)
--- NOTE | 2023-01-21 11:14 | XR ---
EXAMINATION TYPE: XR chest 1V portable DATE OF EXAM: 01/21/2023 10:58 AM COMPARISON: Chest radiographs from 01/20/2023 TECHNIQUE: XR chest 1V portable Frontal view of the chest. CLINICAL INDICATION:Male, 72 years old with history of Hypoxemia, CoVID; FINDINGS: Lungs/Pleura: Increasing airspace opacities throughout the lungs with increased right pleural effusio n. Trace left pleural effusion suggested with blunting of the left phrenic angle. Pulmonary vascularity: Unremarkable. Heart/mediastinum: Cardiomediastinal silhouette is obscured due to overlying and adjacent opacities. Musculoskeletal: No acute osseous pathology. IMPRESSION: Previous pneumothorax no longer visualized. There is a increasing right pleural effusion with increas ed airspace opacities throughout the lungs.
[2023-01-21 11:48] LABS: Glucose,Whole Blood 260 mg/dL (70-110)
[2023-01-21 12:18] LABS: ABG Base Excess -3.7 mmol/L; ABG HCO3 22 mmol/L (21-25); ABG Oxygen Saturation 90.1 % (94-97); ABG PCO2 38 mmHg (35-45); ABG PH 7.36 (7.35-7.45); ABG PO2 61 mmHg (83-108); ABG TCO2 23 mmol/L (19-24); Allen Test Performed? Yes
--- NOTE | 2023-01-21 12:43 | P.PN ---
Subjective Progress Note Date: 01/21/23 This is a pleasant 72 years old male with past medical history ofAsthma, Diabetes Mellitus, GERD/Reflux,Osteoarthritis , cirrhosis of the liver, hepatitis C possibly from blood transfusion as a child, palpable mass right parotid ,left leg arthritis with occasional edema to lower leg Patient was recently discharged from this -01/15, he underwent thoracocentesis was 2.5 fluid removed oriented and thereafter patient was discharged on Levaquin Patient presents because of dyspnea slightly getting worse since been discharged from the hospital. No much coughing., Chest pain. His other complaint is diarrhea also started after discharge. He had 3-4 bouts of bowel movement yesterday. No abdominal pain or vomiting. He has somewhat low appetite. He is in the 3 L oxygen at home. He denies alcohol or smoking or illicit drugs. No headache weakness or numbness or confusion. He's on 3 L oxygen at home Patient states yesterday they tapped his lung and 3 L were taken out from his right side. No On admission he was saturating 94% on 6 L oxygen via nasal cannula, currently his oxygen requirement went up to 12 L permanent via high flow cannula. CBC showed mild anemia but significant thrombocytopenia at 33, which looks similar to 4 days ago where it was 36 on 01/14/2023. Before that baseline platelet count was 50-80k INR is 1.64. Lactic acid 2.7 Troponin is negative Sodium is 125, glucose elevated morning at 300 on admission. Liver enzymes AST/ALT are within the reference range. Bilirubin slightly up 1.6. ProBNP is low at 197 Chest x-ray showing almost complete opacification of the right lung with some bilateral infiltrates 01/20. Patient seen and examined. Patient is currently on airvo at 15 L flow and 70% FiO2. Gets short of breath on minimal exertion 01/21. Patient seen and examined. Continues to be on airvo heated high flow at 60 L and FiO2 of 90%. Hemoglobin 11.8, platelet count 35, BUN 24, creatinine 0.51. Gets short of breath on minimum exertion. REVIEW OF SYSTEMS: CONSTITUTIONAL: No fever, no malaise,. CARDIOVASCULAR: No chest pain, no palpitations, no syncope. PULMONARY: As mentioned above GASTROINTESTINAL: No diarrhea, no nausea, no vomiting, no abdominal pain. NEUROLOGICAL: No headaches, no weakness, PHYSICAL EXAMINATION: GENERAL: The patient is alert and oriented x3, tachypneic, sick looking HEENT: Pupils are round and equally reacting to light. EOMI. No scleral icterus. No conjunctival pallor. Normocephalic, atraumatic. No pharyngeal erythema. No thyromegaly. CARDIOVASCULAR: S1 and S2 present. No murmurs, rubs, or gallops. PULMONARY: Tachypneic, coarse breath sounds bilaterally, no wheeze ABDOMEN: Soft, nontender, nondistended, normoactive bowel sounds. No palpable organomegaly. MUSCULOSKELETAL: No joint swelling or deformity. EXTREMITIES: No cyanosis, clubbing, or pedal edema. NEUROLOGICAL: Gross neurological examination did not reveal any focal deficits. SKIN: No rashes. Assessment and plan Acute respiratory failure Bilateral consolidation suspicious for bilateral covid pneumonia. Rule out bacterial pneumonia Right pleural effusion status post thoracocentesis on 01/18 with tapping 3 L out Apical pneumothorax right side Hypervolemic hyponatremia Severe calorie protein malnutrition Slightly worsening thrombocytopenia in view of patient liver disease Liver cirrhosis History of hep C Thrombocytopenia Diabetes mellitus, with hyperglycemia History of GERD History of osteoarthritis Monitor vital signs Monitor CBC Monitor CMP Continue telemetry monitoring Continue breathing treatments Continue IV Zosyn Continue Decadron Continue rifaximin Pulmonology following, transfer patient to ICU Consult ID Labs and medication were reviewed.. Continue same treatment. Continue with symptomatic treatment. Resume home medication. Monitor labs and vitals. DVT and GI prophylaxis. Further recommendations as per clinical course of the patient Dictation was produced using [employer] dictation software. please excuse any grammatical, word or spelling errors. Objective - Vital Signs Vital signs: Vital Signs Temp 97.7 F 01/20/23 21:29 Pulse 90 01/21/23 04:21 Resp 20 01/21/23 04:21 BP 97/53 01/21/23 04:21 Pulse Ox 88 L 01/21/23 09:19 FiO2 90 01/21/23 09:19 Intake & Output 01/20/23 01/21/23 01/21/23 18:59 06:59 18:59 Intake Total 360 Output Total 450 Balance 360 -450 Weight 62 kg Intake: Oral 360 Output: Urine 450 Other: Voiding Method Urinal # Bowel Movements 1 - Labs CBC & Chem 7: 01/21/23 07:46 01/21/23 07:46 Labs: Abnormal Lab Results - Last 24 Hours (Table) 01/20/23 01/20/23 01/20/23 Range/Units 08:26 11:49 17:09 RBC (4.30-5.90) m/uL Hgb (13.0-17.5) gm/dL Hct (39.0-53.0) % MCV (80.0-100.0) fL MCH (25.0-35.0) pg Plt Count (150-450) k/uL Macrocytosis Sodium 127 L (137-145) mmol/L Carbon Dioxide 18 L (22-30) mmol/L BUN (9-20) mg/dL Creatinine 0.48 L (0.66-1.25) mg/dL Glucose 276 H (74-99) mg/dL POC Glucose (mg/dL) 333 H 313 H (70-110) mg/dL Calcium 7.7 L (8.4-10.2) mg/dL Total Bilirubin 1.5 H (0.2-1.3) mg/dL Alkaline Phosphatase 148 H (38-126) U/L Total Protein 4.9 L (6.3-8.2) g/dL Albumin 1.9 L (3.5-5.0) g/dL 01/20/23 01/21/23 01/21/23 Range/Units 20:34 06:13 07:46 RBC 3.27 L (4.30-5.90) m/uL Hgb 11.8 L (13.0-17.5) gm/dL Hct 35.3 L (39.0-53.0) % MCV 107.9 H (80.0-100.0) fL MCH 36.1 H (25.0-35.0) pg Plt Count 35 L (150-450) k/uL Macrocytosis Marked A Sodium (137-145) mmol/L Carbon Dioxide (22-30) mmol/L BUN (9-20) mg/dL Creatinine (0.66-1.25) mg/dL Glucose (74-99) mg/dL POC Glucose (mg/dL) 326 H 282 H (70-110) mg/dL Calcium (8.4-10.2) mg/dL Total Bilirubin (0.2-1.3) mg/dL Alkaline Phosphatase (38-126) U/L Total Protein (6.3-8.2) g/dL Albumin (3.5-5.0) g/dL 01/21/23 Range/Units 07:46 RBC (4.30-5.90) m/uL Hgb (13.0-17.5) gm/dL Hct (39.0-53.0) % MCV (80.0-100.0) fL MCH (25.0-35.0) pg Plt Count (150-450) k/uL Macrocytosis Sodium (137-145) mmol/L Carbon Dioxide (22-30) mmol/L BUN 24 H (9-20) mg/dL Creatinine 0.51 L (0.66-1.25) mg/dL Glucose 264 H (74-99) mg/dL POC Glucose (mg/dL) (70-110) mg/dL Calcium 8.2 L (8.4-10.2) mg/dL Total Bilirubin 1.8 H (0.2-1.3) mg/dL Alkaline Phosphatase 141 H (38-126) U/L Total Protein 5.1 L (6.3-8.2) g/dL Albumin 2.0 L (3.5-5.0) g/dL
--- NOTE | 2023-01-21 13:19 | CDI ---
Documentation Clarification Form Date: 01/21/2023 01:01:36 PM From: Brenda Adrian RN CDDS Phone: [phone] Admit Date: 01/19/2023 12:52:00 AM Patient Name: Jorge Luis Pearce Visit Number: [id number] Discharge Date: ATTENTION: The Clinical Documentation Specialists (CDI) and [facility] Coding Staff appreciate your assistance in clarifying documentation. Please respond to the clarification below the line at the bottom and electronically sign. The CDI & [facility] Coding staff will review the response and follow-up if needed. Please note: Queries are made part of the Legal Health Record. If you have any questions, please contact the author of this message via ITS. Dr. Lico Lyons Apical pneumothorax is documented 01/19, Pulmonary consult and patient had Thoracentesis 01/19. Additional clarification is requested regarding the relationship, if any, that exists between the diagnosis and the procedure. Patients Admitting Diagnosis: Acute Respiratory Failure, Recurrent right sided pleural effusion. Post-Operative Diagnosis: Same Procedure performed: Thoracentesis History/Risk Factors: 72-year-old male presents to the ED with worsening shortness of breath, recently hospitalized for a large right sided pleural effusion with shortness of breath. A total of 3L was aspirated from right lung. Medical History: Chronic liver disease, Recurrent right sided pleural effusion, DM2 and chronic anemia, hyponatremia, hypovolemic 2/2 liver disease; Clinical Indicators: 01/20, Pulmonary note: chest x-ray is showing bilateral airspace disease, I'm suspecting interstitial edema, and there is also a right sided small apical pneumothorax noted related to his recent thoracentesis. 01/18, CXR: increasing now large right pleural effusion w/ underlying atelectasis 01/19, CXR: After thoracentesis, only a small residual right pleural effusion remains. Questionable trace 3mm right lateral pneumothorax vs artifact. 01/19, CT: 2.Diffuse bilateral airspace infiltrates. 3.Less than 10% right-sided pneumothorax Small amount of subcutaneous air seen. 01/20, CXR: Small apical right pneumothorax is confirmed from prior imaging. 01/19 01/21, CXR: Previous pneumothorax no longer visualized. Increasing right pleural effusion with increased airspace opacities throughout the lung. Treatment: Serial chest xrays What relationship, if any, exists between the diagnosis of [insert dx] and the procedure: [ ] Due to procedure, expected [ ] Due to procedure, not expected. [ ] Due to pathophysiology of chronic liver disease [ ] Not clinically significant [x ] Other please specify _the pneumothorax was not an actual iatrogenic pneumothorax, it is related to trapped lung, not clinically significant, and has resolved___ [ ] Unable to determine (Template Last Revised: July 2020) MTDD
--- NOTE | 2023-01-21 13:33 | CDI ---
Documentation Clarification Form Date: 01/21/2023 01:22:01 PM From: Brenda Adrian RN CCDS Phone: [phone] Admit Date: 01/19/2023 12:52:00 AM Patient Name: Jorge Luis Pearce Visit Number: [id number] Discharge Date: ATTENTION: The Clinical Documentation Specialists (CDI) and [facility] Coding Staff appreciate your assistance in clarifying documentation. Please respond to the clarification below the line at the bottom and electronically sign. The CDI & [facility] Coding staff will review the response and follow-up if needed. Please note: Queries are made part of the Legal Health Record. If you have any questions, please contact the author of this message via ITS. Dr. Tristan Barfield Conflicting documentation has been found in the medical record. As attending physician, please provide clarification. COVID 19 Pneumonia, 01/21, Medicine note. Bacterial Pneumonia, 01/21 Medicine note. History/Risk Factors: 72-year-old male presents to the ED with worsening shortness of breath, recently hospitalized for a large right sided pleural effusion with shortness of breath. A total of 3L was aspirated from right lung. Medical History: 01/20 Pulmonary note: Chronic liver disease, Recurrent right sided pleural effusion, DM2 and chronic anemia, hyponatremia, hypovolemic 2/2 liver disease. Clinical Indicators: 01/18, CXR: increasing now large right pleural effusion w/ underlying atelectasis 01/19, CT: 2.Diffuse bilateral airspace infiltrates. 3.Less than 10% right-sided pneumothorax Small amount of subcutaneous air seen. 01/20, Pulmonary note: COVID-19 infection, incidental finding, no clear-cut symptoms of COVID-19 infection 01/18, Labs: Wbc 5.7; Lymphocytes 0.1; Lactic acid 2.7; Alk phos 205; Lactte Dehydrogenase 258; SARS-CoV-2 (PCR) Detected A Treatment: Duoneb Inhalation; Ventolin Hfa Inhaler; Decadron IV; Zosyn IV; Vitamin C PO; Vitamin D PO; Zinc PO. Oxygen BiPAP; Airvo Please clarify which diagnosis is most appropriate: [ ] COVID 19 Pneumonia [ ] Bacterial Pneumonia (please specify type) [ x ] COVID 19 Pneumonia and Bacterial Pneumonia (please specify type) [ ] Other (please specify) [ ] Unable to determine (Template Last Revised: July 2020) MTDD
--- NOTE | 2023-01-21 13:52 | P.PN ---
Subjective Progress Note Date: 01/21/23 Principal diagnosis: Acute hypoxic respiratory failure secondary to right-sided pleural effusion 72-year-old male patient, liver cirrhosis, hepatitis C, alcoholism, diabetes mellitus, recently hospitalized for a large right-sided pleural effusion and shortness of breath, the brain and a total of 3 L of fluid was aspirated from the right lung. He was running a low-grade fever. He also had increased edema in his lower extremities. The patient was given Levaquin and his cultures were negative. He was ultimately discharged home to be readmitted again with worsening shortness of breath and hypoxic respiratory failure. Still having diarrhea about 3-4 episodes of bowel movement. No abdominal pain. No nausea or vomiting. He was on oxygen at 3 L and currently he is on high flow oxygen. In the emergency, he was found to have recurrent right-sided pleural effusion. Ba sed on his borderline respiratory status, the emergency physician performed a thoracentesis on him. He tested positive for Covid 19. His lactic acid level is at 2.7. His hemoglobin is at 12.4, white cell count is at 5.7, he does have chronic pancytopenia related to chronic liver disease. INR is at 1.4, sodium is 125, BUN is at 20 with a creatinine of 0.56. Lactic acid level was at 2.7 up to 2.4. Alkaline phosphatase 205, AST and ALP are normal, troponins are negative. He is cachectic, debilitated with a body mass index of 21.4. Patient was reevaluated today on 01/20/2023, remains on high flow FiO2, airvo at 15 L flow and 70% FiO2 on the patient remains a relatively short of breath, and seems to be quite anxious that scan is 3.8 hemoglobin is 10.9. Sodium is 127 bicarb is 18 BUN is 20 creatinine 0.48 blood sugar is 333 in spite of having 3 L of fluid removed yesterday from his right pleural space, patient continues to have some shortness of breath, chest x-ray is showing bilateral airspace disease, I'm suspecting interstitial edema, and there is also a right sided small apical pneumothorax noted related to his recent thoracentesis. Platelets remained low as 30,000 Patient was reevaluated today on 01/21/2023, patient is requiring more oxygen, his FiO2 is up to 90%, his flow is up to 60 L/m, and the patient remains marginal, hence after regarding the patient today on the floor, and recommended transferring the patient to the ICU. I have a strong feeling that the patient may end up requiring intubation and mechanical ventilation in the meantime I will try the patient on Lasix drip especially with a chest x-ray showing significant pulmonary edema. His previous right sided pneumothorax has resolved his right-sided pleural effusion has become much worse and he has increased opacities consistent with pulmonary edema. ABG showed a pO2 of 61 pCO2 38 pH of 7.36 WBC count is 4.9 hemoglobin 11.8 electrolytes are normal bicarb is normal BUN is 24 creatinine 0.51 Objective - Vital Signs Vital signs: Vital Signs Temp 98.1 F 01/21/23 12:00 Pulse 89 01/21/23 12:00 Resp 32 H 01/21/23 12:00 BP 103/61 01/21/23 12:00 Pulse Ox 88 L 01/21/23 09:19 FiO2 90 01/21/23 12:13 Intake & Output 01/20/23 01/21/23 01/21/23 18:59 06:59 18:59 Intake Total 360 0 Output Total 450 400 Balance 360 -450 -400 Weight 62 kg Intake: Oral 360 0 Output: Urine 450 400 Other: Voiding Method Urinal # Bowel Movements 1 0 - Exam Physical Exam: Revealed a 72-year-old white male, looks frail, chronically ill, anxious, on airvo seems to be relatively in distress and quite anxious Head: Atraumatic, normocephalic. HEENT:[Neck is supple.] [No neck masses.] [No thyromegaly.] [No JVD.] Chest: Crackles and rhonchi noted bilaterally Cardiac Exam: [Normal S1 and S2, no S3 gallop, no murmur.] Abdomen: [Soft, nontender, no megaly, no rebound, no guarding, normal bowel sounds.] Mild ascites is suspected. Extremities: [No clubbing, 1+ bipedal edema, no cyanosis.] Neurological Exam: [No focal neurologic deficit.] Alert oriented 3 Psychiatric: Anxious mood, as, normal affect. Skin: No rashes - Labs CBC & Chem 7: 01/21/23 07:46 01/21/23 07:46 Labs: Abnormal Lab Results - Last 24 Hours (Table) 08/01/20/23 01/21/23 Range/Units 17:09 20:34 06:13 RBC (4.30-5.90) m/uL Hgb (13.0-17.5) gm/dL Hct (39.0-53.0) % MCV (80.0-100.0) fL MCH (25.0-35.0) pg Plt Count (150-450) k/uL Macrocytosis ABG pO2 (83-108) mmHg ABG O2 Saturation (94-97) % Sodium (137-145) mmol/L BUN (9-20) mg/dL Creatinine (0.66-1.25) mg/dL Glucose (74-99) mg/dL POC Glucose (mg/dL) 313 H 326 H 282 H (70-110) mg/dL Calcium (8.4-10.2) mg/dL Total Bilirubin (0.2-1.3) mg/dL Alkaline Phosphatase (38-126) U/L Total Protein (6.3-8.2) g/dL Albumin (3.5-5.0) g/dL 01/21/23 01/21/23 01/21/23 Range/Units 07:46 07:46 11:45 RBC 3.27 L (4.30-5.90) m/uL Hgb 11.8 L (13.0-17.5) gm/dL Hct 35.3 L (39.0-53.0) % MCV 107.9 H (80.0-100.0) fL MCH 36.1 H (25.0-35.0) pg Plt Count 35 L (150-450) k/uL Macrocytosis Marked A ABG pO2 (83-108) mmHg ABG O2 Saturation (94-97) % Sodium 130 L (137-145) mmol/L BUN 24 H (9-20) mg/dL Creatinine 0.51 L (0.66-1.25) mg/dL Glucose 264 H (74-99) mg/dL POC Glucose (mg/dL) 260 H (70-110) mg/dL Calcium 8.2 L (8.4-10.2) mg/dL Total Bilirubin 1.8 H (0.2-1.3) mg/dL Alkaline Phosphatase 141 H (38-126) U/L Total Protein 5.1 L (6.3-8.2) g/dL Albumin 2.0 L (3.5-5.0) g/dL 01/21/23 Range/Units 12:14 RBC (4.30-5.90) m/uL Hgb (13.0-17.5) gm/dL Hct (39.0-53.0) % MCV (80.0-100.0) fL MCH (25.0-35.0) pg Plt Count (150-450) k/uL Macrocytosis ABG pO2 61 L (83-108) mmHg ABG O2 Saturation 90.1 L (94-97) % Sodium (137-145) mmol/L BUN (9-20) mg/dL Creatinine (0.66-1.25) mg/dL Glucose (74-99) mg/dL POC Glucose (mg/dL) (70-110) mg/dL Calcium (8.4-10.2) mg/dL Total Bilirubin (0.2-1.3) mg/dL Alkaline Phosphatase (38-126) U/L Total Protein (6.3-8.2) g/dL Albumin (3.5-5.0) g/dL Assessment and Plan Assessment: Impression: Acute hypoxic respiratory failure, worsening bilateral pulmonary edema and pleural effusions Recurrent right-sided pleural effusion secondary to chronic liver disease COVID-19 infection, incidental finding, no clear-cut symptoms of COVID-19 infection Thrombocytopenia secondary to chronic liver disease Chronic anemia Diarrhea most likely secondary to COVID-19 infection Hypoalbuminemia History of liver cirrhosis and ascites History of hepatitis C History of alcoholism Type 2 diabetes Recent history of laparoscopic hernia repair Chronic hyponatremia/hypervolemic hyponatremia secondary to liver disease Right-sided pneumothorax was mostly related to trapped lung, doubt iatrogenic pneumothorax plus it is not clinically significant and it has resolved, mostly because of the lung did expand over the last 24 hour Recommendation: Transfer patient to ICU Continue airvo and titrate accordingly Start patient on Lasix drip and Aldactone Continue empiric antibiotics/Zosyn Continue Decadron Continue Xifaxan Overall prognosis is extremely poor and guarded Time with Patient: Less than 30
[2023-01-21] MEDS: FUROSEMIDE 100 MG in SODIUM CHLORIDE 0.9% 90 ML IV SCH ×2 (15:22→23:49)
[2023-01-21] MEDS: SPIRONOLACTONE 25 MG TAB PO SCH ×2 (15:23→20:42)
--- NOTE | 2023-01-21 16:56 | P.CONS ---
History of Present Illness - Reason for Consult Consult date: 01/21/23 - History of Present Illness Patient is a 72-year-old male with a past medical history significant for diabetes mellitus reflux cirrhosis of the liver osteoarthritis and asthma, patient is vaccinated for covid 19, both the patient and the developed respiratory symptoms and the tested positive for covid 19 about a week ago, patient also have a history of large right effusion recently did have a wound r elated to fluid aspirated patient has been brought back to the hospital on 01/19/2023 for evaluation of increasing shortness of breath that has been getting worse for due to before presentation to the hospital the patient denies having any chest pain patient did have a congested cough with occasional sputum production patient denies having any nausea no vomiting blood sugar before abdominal pain did have some diarrhea patient who presented to hospital was afebrile and no fever has been recorded was subsequently however the patient is requiring more supplemental oxygen currently on high flow nasal cannula oxygen and the patient has been transferred to the ICU, patient did have normal white count during his hospital stay creatinine is 0.51 lactic acid was elevated on admission subsequently normalized liver enzymes are normal will consider 0.21 dictated tested positive for Covid influenza RSV were negative patient did have associated clinical of the chest on admission that was negative for PE today shows diffuse bilateral airspace infiltrate less than 10% right pneumothorax, chest x-ray this morning no pneumothorax increasing right effusion with increased airspace opacity, infectious disease was consulted for further management of antibiotic therapy Past Medical History Past Medical History: Asthma, Cancer, Diabetes Mellitus, GERD/Reflux, Liver Disease, Osteoarthritis (OA) Additional Past Medical History / Comment(s): basal cell CA face and left chest, cirrhosis of the liver, hepatitis C possibly from blood transfusion as a child, palpable mass right parotid ,left leg arthritis with occasional edema to lower l eg, has had recent us to r/o dvt was negative test History of Any Multi-Drug Resistant Organisms: None Reported Past Surgical History: Hernia Repair Additional Past Surgical History / Comment(s): sinus surgery, left wrist tendon injury repair, shunt placed "in liver" per patient, paracentesis 01/12 & 01/14, hernia repair "last week" (possibly 01/07) Past Anesthesia/Blood Transfusion Reactions: No Reported Reaction Past Psychological History: Anxiety, Depression, PTSD Smoking Status: Former smoker Past Alcohol Use History: None Reported Past Drug Use History: None Reported - Past Family History Mother Family Medical History: Cancer Additional Family Medical History / Comment(s): patient is unsure if ovarian or colon Medications and Allergies Home Medications Medication Instructions Recorded Confirmed Type Omalizumab [Xolair] 150 mg SQ Q14D 04/28/18 01/19/23 History Ferrous Sulfate [Iron (65 MG 162.5 mg PO MOWEFR 03/14/21 01/19/23 History Elemental)] Omeprazole 20 mg PO DAILY 03/14/21 01/19/23 History Rifaximin [Xifaxan] 550 mg PO BID 03/14/21 01/19/23 History Fluticasone Propion/Salmeterol 1 puff INHALATION RT-BID 09/07/21 01/19/23 History [Advair 500-50 Diskus] Albuterol Sulfate [Albuterol 2 puff INHALATION RT-QID 11/08/22 01/19/23 History Sulfate Hfa] Spironolactone [Aldactone] 50 mg PO BID 11/08/22 01/19/23 History hydrOXYzine HCL [Atarax] 10 mg PO HS 11/08/22 01/19/23 History Lactulose [Cephulac] 40 gm PO QID PRN 12/23/22 01/19/23 History glipiZIDE 5 mg PO BID 12/23/22 01/19/23 History Ibuprofen [Motrin] 600 mg PO Q6HR PRN #40 tab 12/31/22 01/19/23 Rx Furosemide [Lasix] 10 mg PO MOWEFR 01/10/23 01/19/23 History Lipase/Protease/Amylase [Gordon [place] 1 cap PO DIRECTED 01/10/23 01/19/23 History 12,000 Units Capsule] Budesonide-Formot 160-4.5 Mcg 2 puff INHALATION RT-BID 30 Days 01/15/23 01/19/23 Rx [Symbicort 160-4.5 Mcg Inhaler] #1 each Levofloxacin [Levaquin] 500 mg PO DAILY 7 Days #7 tab 01/15/23 01/19/23 Rx Allergies Allergy/AdvReac Type Severity Reaction Status Date / Time cefuroxime [From Ceftin] AdvReac Rash/Hives Verified 01/19/23 13:00 Physical Exam Vitals: Vital Signs Temp Pulse Resp BP Pulse Ox FiO2 01/21/23 12:13 90 01/21/23 09:19 88 L 90 01/21/23 08:00 98.8 F 90 20 113/84 91 L 90 01/21/23 04:21 90 20 97/53 88 L 74 01/21/23 04:06 90 L 75 01/21/23 02:00 96 20 01/21/23 00:06 92 L 75 01/21/23 00:00 96 20 115/57 90 L 75 01/20/23 21:31 75 01/20/23 21:29 97.7 F 89 20 102/56 91 L 75 01/20/23 20:00 80 20 01/20/23 16:30 88 L 75 01/20/23 16:00 20 111/62 88 L 75 01/20/23 14:00 80 20 Intake and Output 01/20/23 01/21/23 01/21/23 22:59 06:59 14:59 Intake Total 180 0 Output Total 350 100 400 Balance -170 -100 -400 Intake: Oral 180 0 Output: Urine 350 100 400 Other: Voiding Method Urinal Urinal # Bowel Movements 1 0 Results CBC & Chem 7: 01/21/23 07:46 01/21/23 07:46 Labs: Abnormal Lab Results - Last 24 Hours (Table) 01/20/23 01/20/23 01/21/23 Range/Units 17:09 20:34 06:13 RBC (4.30-5.90) m/uL Hgb (13.0-17.5) gm/dL Hct (39.0-53.0) % MCV (80.0-100.0) fL MCH (25.0-35.0) pg Plt Count (150-450) k/uL Macrocytosis ABG pO2 (83-108) mmHg ABG O2 Saturation (94-97) % Sodium (137-145) mmol/L BUN (9-20) mg/dL Creatinine (0.66-1.25) mg/dL Glucose (74-99) mg/dL POC Glucose (mg/dL) 313 H 326 H 282 H (70-110) mg/dL Calcium (8.4-10.2) mg/dL Total Bilirubin (0.2-1.3) mg/dL Alkaline Phosphatase (38-126) U/L Total Protein (6.3-8.2) g/dL Albumin (3.5-5.0) g/dL 01/21/23 01/21/23 01/21/23 Range/Units 07:46 07:46 11:45 RBC 3.27 L (4.30-5.90) m/uL Hgb 11.8 L (13.0-17.5) gm/dL Hct 35.3 L (39.0-53.0) % MCV 107.9 H (80.0-100.0) fL MCH 36.1 H (25.0-35.0) pg Plt Count 35 L (150-450) k/uL Macrocytosis Marked A ABG pO2 (83-108) mmHg ABG O2 Saturation (94-97) % Sodium 130 L (137-145) mmol/L BUN 24 H (9-20) mg/dL Creatinine 0.51 L (0.66-1.25) mg/dL Glucose 264 H (74-99) mg/dL POC Glucose (mg/dL) 260 H (70-110) mg/dL Calcium 8.2 L (8.4-10.2) mg/dL Total Bilirubin 1.8 H (0.2-1.3) mg/dL Alkaline Phosphatase 141 H (38-126) U/L Total Protein 5.1 L (6.3-8.2) g/dL Albumin 2.0 L (3.5-5.0) g/dL 01/21/23 Range/Units 12:14 RBC (4.30-5.90) m/uL Hgb (13.0-17.5) gm/dL Hct (39.0-53.0) % MCV (80.0-100.0) fL MCH (25.0-35.0) pg Plt Count (150-450) k/uL Macrocytosis ABG pO2 61 L (83-108) mmHg ABG O2 Saturation 90.1 L (94-97) % Sodium (137-145) mmol/L BUN (9-20) mg/dL Creatinine (0.66-1.25) mg/dL Glucose (74-99) mg/dL POC Glucose (mg/dL) (70-110) mg/dL Calcium (8.4-10.2) mg/dL Total Bilirubin (0.2-1.3) mg/dL Alkaline Phosphatase (38-126) U/L Total Protein (6.3-8.2) g/dL Albumin (3.5-5.0) g/dL Assessment and Plan Plan: 1patient with the acute respiratory failure which is likely multifactorial in this patient tested positive for covid 19 more than a week ago and also history of recurrent right-sided effusion with worsening effusion and airspace opacities concerning for possible secondary bacterial pneumonia 2-cephalosporin ALLERGY that would limit the number of antibiotic safety use 3-we will try to obtain sputum for grams and culture 4-continue with the Zosyn along with supportive care and monitor clinical course closely at the bedside and multiple questions were answered We will follow on clinical condition and cultures to further adjust medication if needed Thank you for this consultation will follow this patient with you Dictation was produced using [employer] dictation software. please excuse any grammatical, word or spelling errors. Time with Patient: Greater than 30
[2023-01-21 18:18] LABS: Glucose,Whole Blood 307 mg/dL (70-110)
[2023-01-21 20:02] LABS: Glucose,Whole Blood 334 mg/dL (70-110)
[2023-01-21] MEDS ORDERED: ALPRAZolam 0.25 MG TAB PO STA (23:27)
[2023-01-22 00:25] LABS: African American GFR (CKD) >90 (>60 ml/min/1.73 sqM); Anion Gap 6 mmol/L; Blood Urea Nitrogen 31 mg/dL (9-20); Calcium 8.6 mg/dL (8.4-10.2); Carbon Dioxide 21 mmol/L (22-30); Chloride 103 mmol/L (98-107); Glucose 250 mg/dL (74-99); Non-African American GFR(CKD) >90 (>60 ml/min/1.73 sqM); Potassium 3.9 mmol/L (3.5-5.1); Sodium 130 mmol/L (137-145)
[2023-01-22] MEDS: PIPERACILLIN-TAZOBACTAM 3.375 GM in SODIUM CHLORIDE 0.9% 100 ML IVPB SCH ×3 (04:08→20:44)
[2023-01-22] MEDS: ALBUTEROL HFA INHALER INHALATION SCH ×5 (04:30→20:33)
[2023-01-22 04:52] LABS: Basophils % (A) 0 %; Eosinophils % (A) 0 %; HCT 39.1 % (39.0-53.0); HGB 12.9 gm/dL (13.0-17.5); Lymphocytes # (A) 0.1 k/uL (1.0-4.8); Lymphocytes % (A) 3 %; MCH 35.3 pg (25.0-35.0); MCHC 33.1 g/dL (31.0-37.0); MCV 106.5 fL (80.0-100.0); Macrocytosis Moderate; Mean Platelet Volume 8.1; Monocytes # (A) 0.2 k/uL (0-1.0); Monocytes % (A) 6 %; Neutrophils # (A) 3.3 k/uL (1.3-7.7); Neutrophils % (A) 90 %; RBC 3.67 m/uL (4.30-5.90); RDW 14.8 % (11.5-15.5); WBC 3.7 k/uL (3.8-10.6)
[2023-01-22 05:05] LABS: ALT 33 U/L (4-49); AST 51 U/L (17-59); African American GFR (CKD) >90 (>60 ml/min/1.73 sqM); Albumin 2.1 g/dL (3.5-5.0); Alkaline Phosphatase 146 U/L (38-126); Anion Gap 5 mmol/L; Blood Urea Nitrogen 34 mg/dL (9-20); Calcium 8.5 mg/dL (8.4-10.2); Carbon Dioxide 23 mmol/L (22-30); Chloride 101 mmol/L (98-107); Glucose 254 mg/dL (74-99); Non-African American GFR(CKD) >90 (>60 ml/min/1.73 sqM); Potassium 4.1 mmol/L (3.5-5.1); Sodium 129 mmol/L (137-145); Total Bilirubin 2.1 mg/dL (0.2-1.3); Total Protein 5.3 g/dL (6.3-8.2)
[2023-01-22 05:27] LABS: Platelet Count 28 k/uL (150-450)
[2023-01-22] MEDS: INSULIN ASPART (NovoLOG) 100 UNIT/ML VIAL SQ SCH ×4 (08:34→20:45)
[2023-01-22] MEDS: FUROSEMIDE 100 MG in SODIUM CHLORIDE 0.9% 90 ML IV SCH ×2 (08:46→17:15)
[2023-01-22] MEDS: ASCORBIC ACID 500 MG TAB PO SCH (08:47)
[2023-01-22] MEDS: LIPASE 5,000/PROTEASE 17,000/AMYLASE 24,000 PO SCH ×3 (08:47→17:12)
[2023-01-22] MEDS: RIFAXIMIN 550 MG TABLET PO SCH ×2 (08:48→20:34)
[2023-01-22] MEDS: DEXAMETHASONE SOD PHOSPHATE 10 MG/ML 1 ML VIAL IVP SCH (08:48)
[2023-01-22] MEDS: CHOLECALCIFEROL 25 MCG (1000 IU) TABLET PO SCH (08:48)
[2023-01-22] MEDS: FAMOTIDINE 20 MG/2 ML VIAL IV SCH (08:48)
[2023-01-22] MEDS: SPIRONOLACTONE 25 MG TAB PO SCH ×2 (08:48→20:34)
[2023-01-22] MEDS: FERROUS SULFATE ORAL ELIXIR 300 MG/5 ML CUP PO SCH (08:49)
[2023-01-22] MEDS: ZINC SULFATE 220 MG CAP PO SCH (08:49)
--- NOTE | 2023-01-22 08:52 | XR ---
EXAMINATION TYPE: XR chest 1V portable DATE OF EXAM: 01/22/2023 COMPARISON: 01/21/2023 HISTORY: Shortness of breath TECHNIQUE: Single frontal view of the chest is obtained. FINDINGS: Large right-sided pleural effusion is seen in the bilateral airspace disease cardiomegaly. Patchy left perihilar consolidation small left effusion is seen. IMPRESSION: Diffuse pleural-parenchymal changes with large effusion on the right bilateral airspace disease is stable. Could be the basis of ARDS, diffuse pneumonia or pulmonary edema.
[2023-01-22 10:12] LABS: Glucose,Whole Blood 258 mg/dL (70-110)
[2023-01-22 11:12] LABS: Glucose,Whole Blood 311 mg/dL (70-110)
--- NOTE | 2023-01-22 11:39 | P.PN ---
Subjective Progress Note Date: 01/22/23 Principal diagnosis: Acute hypoxic respiratory failure secondary to right-sided pleural effusion 72-year-old male patient, liver cirrhosis, hepatitis C, alcoholism, diabetes mellitus, recently hospitalized for a large right-sided pleural effusion and shortness of breath, the brain and a total of 3 L of fluid was aspirated from the right lung. He was running a low-grade fever. He also had increased edema in his lower extremities. The patient was given Levaquin and his cultures were negative. He was ultimately discharged home to be readmitted again with worsening shortness of breath and hypoxic respiratory failure. Still having diarrhea about 3-4 episodes of bowel movement. No abdominal pain. No nausea or vomiting. He was on oxygen at 3 L and currently he is on high flow oxygen. In the emergency, he was found to have recurrent right-sided pleural effusion. Ba sed on his borderline respiratory status, the emergency physician performed a thoracentesis on him. He tested positive for Covid 19. His lactic acid level is at 2.7. His hemoglobin is at 12.4, white cell count is at 5.7, he does have chronic pancytopenia related to chronic liver disease. INR is at 1.4, sodium is 125, BUN is at 20 with a creatinine of 0.56. Lactic acid level was at 2.7 up to 2.4. Alkaline phosphatase 205, AST and ALP are normal, troponins are negative. He is cachectic, debilitated with a body mass index of 21.4. Patient was reevaluated today on 01/20/2023, remains on high flow FiO2, airvo at 15 L flow and 70% FiO2 on the patient remains a relatively short of breath, and seems to be quite anxious that scan is 3.8 hemoglobin is 10.9. Sodium is 127 bicarb is 18 BUN is 20 creatinine 0.48 blood sugar is 333 in spite of having 3 L of fluid removed yesterday from his right pleural space, patient continues to have some shortness of breath, chest x-ray is showing bilateral airspace disease, I'm suspecting interstitial edema, and there is also a right sided small apical pneumothorax noted related to his recent thoracentesis. Platelets remained low as 30,000 Patient was reevaluated today on 01/21/2023, patient is requiring more oxygen, his FiO2 is up to 90%, his flow is up to 60 L/m, and the patient remains marginal, hence after regarding the patient today on the floor, and recommended transferring the patient to the ICU. I have a strong feeling that the patient may end up requiring intubation and mechanical ventilation in the meantime I will try the patient on Lasix drip especially with a chest x-ray showing significant pulmonary edema. His previous right sided pneumothorax has resolved his right-sided pleural effusion has become much worse and he has increased opacities consistent with pulmonary edema. ABG showed a pO2 of 61 pCO2 38 pH of 7.36 WBC count is 4.9 hemoglobin 11.8 electrolytes are normal bicarb is normal BUN is 24 creatinine 0.51 Patient was reevaluated today on 01/22/2023, remains in the ICU, I transferred the patient yesterday because of worsening pulmonary status recommended Lasix drip at 10 mg per hour, and the patient remains on Lasix drip. Patient was transitioned from airvo to BiPAP 12//100%, O2 saturation is in the high 90s. Some clinical improvement, nonetheless his chest x-ray continues to show bilateral pulmonary edema with right-sided pleural effusion and his urine output is over 200 mL an hour. I am recommending that he continue diuretics before I would consider thoracentesis on this patient. Although thoracentesis may be necessary if no improvement in the next 24 hours. Chest x-ray today continues to show bilateral pleural parenchymal changes with large pleural effusion on the right side, I believe were dealing mostly with pneumonia and pulmonary edema. WBC count is 3.7 hemoglobin is 12.9 electrolytes are normal however his sodium is 129 not much different from yesterday sodium. Renal profile remains abnormal Objective - Vital Signs Vital signs: Vital Signs Temp 97.1 F L 01/22/23 08:00 Pulse 68 01/22/23 11:00 Resp 26 H 01/22/23 11:00 BP 98/57 01/22/23 11:00 Pulse Ox 95 01/22/23 11:00 FiO2 80 01/22/23 11:05 Intake & Output 01/21/23 01/22/23 01/22/23 18:59 06:59 18:59 Intake Total 140 404.5 139.5 Output Total 900 2845 825 Balance -760 -2440.5 -685.5 Intake: IV 100 110 50 Sodium Chloride 0.9% 1, 100 110 50 000 ml @ 20 mls/hr IV . Q24H JORDAN Rx#:[id number] Intake, IV Titration 40 94.5 89.5 Amount Furosemide 100 mg In 40 94.5 89.5 Sodium Chloride 0.9% 90 ml @ 10 MG/HR 10 mls/hr IV .Q10H JORDAN Rx#: [id number] Oral 0 200 Output: Urine 900 2845 825 Other: Voiding Method Indwelling Catheter Indwelling Catheter Indwelling Catheter # Bowel Movements 0 - Exam Physical Exam: Revealed a 72-year-old white male, looks frail, chronically ill, less anxious today, on BiPAP. % Head: Atraumatic, normocephalic. HEENT:[Neck is supple.] [No neck masses.] [No thyromegaly.] [No JVD.] Chest: Rhonchi noted bilaterally. Crackles bilaterally. Cardiac Exam: [Normal S1 and S2, no S3 gallop, no murmur.] Abdomen: [Soft, nontender, no megaly, no rebound, no guarding, normal bowel sounds.] Mild ascites is suspected. Extremities: [No clubbing, 1+ bipedal edema, no cyanosis.] Neurological Exam: [No focal neurologic deficit.] Alert oriented 3 Psychiatric: Anxious mood, as, normal affect. Skin: No rashes - Labs CBC & Chem 7: 01/22/23 04:17 01/22/23 04:17 Labs: Abnormal Lab Results - Last 24 Hours (Table) 01/21/23 01/21/23 01/21/23 Range/Units 11:45 12:14 18:16 WBC (3.8-10.6) k/uL RBC (4.30-5.90) m/uL Hgb (13.0-17.5) gm/dL MCV (80.0-100.0) fL MCH (25.0-35.0) pg Plt Count (150-450) k/uL Lymphocytes # (1.0-4.8) k/uL ABG pO2 61 L (83-108) mmHg ABG O2 Saturation 90.1 L (94-97) % Sodium (137-145) mmol/L Carbon Dioxide (22-30) mmol/L BUN (9-20) mg/dL Creatinine (0.66-1.25) mg/dL Glucose (74-99) mg/dL POC Glucose (mg/dL) 260 H 307 H (70-110) mg/dL Total Bilirubin (0.2-1.3) mg/dL Alkaline Phosphatase (38-126) U/L Total Protein (6.3-8.2) g/dL Albumin (3.5-5.0) g/dL 01/21/23 01/21/23 01/22/23 Range/Units 20:01 23:43 04:17 WBC 3.7 L (3.8-10.6) k/uL RBC 3.67 L (4.30-5.90) m/uL Hgb 12.9 L (13.0-17.5) gm/dL MCV 106.5 H (80.0-100.0) fL MCH 35.3 H (25.0-35.0) pg Plt Count 28 L (150-450) k/uL Lymphocytes # 0.1 L (1.0-4.8) k/uL ABG pO2 (83-108) mmHg ABG O2 Saturation (94-97) % Sodium 130 L (137-145) mmol/L Carbon Dioxide 21 L (22-30) mmol/L BUN 31 H (9-20) mg/dL Creatinine 0.56 L (0.66-1.25) mg/dL Glucose 250 H (74-99) mg/dL POC Glucose (mg/dL) 334 H (70-110) mg/dL Total Bilirubin (0.2-1.3) mg/dL Alkaline Phosphatase (38-126) U/L Total Protein (6.3-8.2) g/dL Albumin (3.5-5.0) g/dL 01/22/23 01/22/23 01/22/23 Range/Units 04:17 08:20 11:11 WBC (3.8-10.6) k/uL RBC (4.30-5.90) m/uL Hgb (13.0-17.5) gm/dL MCV (80.0-100.0) fL MCH (25.0-35.0) pg Plt Count (150-450) k/uL Lymphocytes # (1.0-4.8) k/uL ABG pO2 (83-108) mmHg ABG O2 Saturation (94-97) % Sodium 129 L (137-145) mmol/L Carbon Dioxide (22-30) mmol/L BUN 34 H (9-20) mg/dL Creatinine 0.64 L (0.66-1.25) mg/dL Glucose 254 H (74-99) mg/dL POC Glucose (mg/dL) 258 H 311 H (70-110) mg/dL Total Bilirubin 2.1 H (0.2-1.3) mg/dL Alkaline Phosphatase 146 H (38-126) U/L Total Protein 5.3 L (6.3-8.2) g/dL Albumin 2.1 L (3.5-5.0) g/dL Assessment and Plan Assessment: Impression: Acute hypoxic respiratory failure, worsening bilateral pulmonary edema and pleural effusions Recurrent right-sided pleural effusion secondary to chronic liver disease COVID-19 infection, incidental finding, no clear-cut symptoms of COVID-19 infection underlying bacterial pneumonia is not entirely ruled out, felt to be less likely at this point. Thrombocytopenia secondary to chronic liver disease Chronic anemia Diarrhea most likely secondary to COVID-19 infection Hypoalbuminemia History of liver cirrhosis and ascites History of hepatitis C History of alcoholism Type 2 diabetes Recent history of laparoscopic hernia repair Chronic hyponatremia/hypervolemic hyponatremia secondary to liver disease Right-sided pneumothorax was mostly related to trapped lung, doubt iatrogenic pneumothorax plus it is not clinically significant and it has resolved, mostly because of the lung did expand over the last 24 hour Recommendation: Continue to monitor in the ICU Continue Lasix drip may consider thoracentesis in the next 24 hours if no improvement noted Continue BiPAP Continue Aldactone Continue empiric antibiotics/Zosyn Continue Decadron and Xifaxan Overall prognosis remains extremely poor and guarded patient may even require intubation mechanical ventilation if his condition gets worse. We continue to follow in the ICU. Time with Patient: Less than 30
--- NOTE | 2023-01-22 12:10 | P.PN ---
Subjective Progress Note Date: 01/22/23 Principal diagnosis: Pneumonia Patient is a 72-year-old male with a past medical history significant for diabetes mellitus reflux cirrhosis of the liver osteoarthritis and asthma, patient is vaccinated for covid 19, both the patient and the developed respiratory symptoms and the tested positive for covid 19 about a week before presentation to the hospital, patient was admitted to the cardiology floor did have worsening of his respiratory status requiring transfer to the ICU. on today's evaluation that is 01/22/2023, the patient is afebrile, patient did have worsening of his respiratory status currently on BiPAP requiring 90% FiO2, the patient is restless and unable to provide any history no vomiting diarrhea or any other changes reported by the nursing staff. Patient did have white count of 3.7 creatinine 0.64, sputum has not been obtained Objective - Vital Signs Vital signs: Vital Signs Temp 97.6 F 01/22/23 04:00 Pulse 82 01/22/23 07:00 Resp 32 H 01/22/23 07:00 BP 99/54 01/22/23 07:00 Pulse Ox 94 L 01/22/23 07:00 FiO2 100 01/22/23 08:22 Intake & Output 01/21/23 01/22/23 01/22/23 18:59 06:59 18:59 Intake Total 140 404.5 119.5 Output Total 900 2845 550 Balance -760 -2440.5 -430.5 Intake: IV 100 110 30 Sodium Chloride 0.9% 1, 100 110 30 000 ml @ 20 mls/hr IV . Q24H JORDAN Rx#:[id number] Intake, IV Titration 40 94.5 89.5 Amount Furosemide 100 mg In 40 94.5 89.5 Sodium Chloride 0.9% 90 ml @ 10 MG/HR 10 mls/hr IV .Q10H JORDAN Rx#: [id number] Oral 0 200 Output: Urine 900 2845 550 Other: Voiding Method Indwelling Catheter Indwelling Catheter # Bowel Movements 0 - Exam An elderly male lying in bed in mild distress Course breath sounds bilaterally - Labs CBC & Chem 7: 01/22/23 04:17 01/22/23 04:17 Labs: Abnormal Lab Results - Last 24 Hours (Table) 01/21/23 01/21/23 01/21/23 Range/Units 11:45 12:14 18:16 WBC (3.8-10.6) k/uL RBC (4.30-5.90) m/uL Hgb (13.0-17.5) gm/dL MCV (80.0-100.0) fL MCH (25.0-35.0) pg Plt Count (150-450) k/uL Lymphocytes # (1.0-4.8) k/uL ABG pO2 61 L (83-108) mmHg ABG O2 Saturation 90.1 L (94-97) % Sodium (137-145) mmol/L Carbon Dioxide (22-30) mmol/L BUN (9-20) mg/dL Creatinine (0.66-1.25) mg/dL Glucose (74-99) mg/dL POC Glucose (mg/dL) 260 H 307 H (70-110) mg/dL Total Bilirubin (0.2-1.3) mg/dL Alkaline Phosphatase (38-126) U/L Total Protein (6.3-8.2) g/dL Albumin (3.5-5.0) g/dL 01/21/23 01/21/23 01/22/23 Range/Units 20:01 23:43 04:17 WBC 3.7 L (3.8-10.6) k/uL RBC 3.67 L (4.30-5.90) m/uL Hgb 12.9 L (13.0-17.5) gm/dL MCV 106.5 H (80.0-100.0) fL MCH 35.3 H (25.0-35.0) pg Plt Count 28 L (150-450) k/uL Lymphocytes # 0.1 L (1.0-4.8) k/uL ABG pO2 (83-108) mmHg ABG O2 Saturation (94-97) % Sodium 130 L (137-145) mmol/L Carbon Dioxide 21 L (22-30) mmol/L BUN 31 H (9-20) mg/dL Creatinine 0.56 L (0.66-1.25) mg/dL Glucose 250 H (74-99) mg/dL POC Glucose (mg/dL) 334 H (70-110) mg/dL Total Bilirubin (0.2-1.3) mg/dL Alkaline Phosphatase (38-126) U/L Total Protein (6.3-8.2) g/dL Albumin (3.5-5.0) g/dL 01/22/23 01/22/23 Range/Units 04:17 08:20 WBC (3.8-10.6) k/uL RBC (4.30-5.90) m/uL Hgb (13.0-17.5) gm/dL MCV (80.0-100.0) fL MCH (25.0-35.0) pg Plt Count (150-450) k/uL Lymphocytes # (1.0-4.8) k/uL ABG pO2 (83-108) mmHg ABG O2 Saturation (94-97) % Sodium 129 L (137-145) mmol/L Carbon Dioxide (22-30) mmol/L BUN 34 H (9-20) mg/dL Creatinine 0.64 L (0.66-1.25) mg/dL Glucose 254 H (74-99) mg/dL POC Glucose (mg/dL) 258 H (70-110) mg/dL Total Bilirubin 2.1 H (0.2-1.3) mg/dL Alkaline Phosphatase 146 H (38-126) U/L Total Protein 5.3 L (6.3-8.2) g/dL Albumin 2.1 L (3.5-5.0) g/dL Assessment and Plan (1) Pneumonia Current Visit: Yes Status: Acute Code(s): J18.9 - PNEUMONIA, UNSPECIFIED ORGANISM SNOMED Code(s): 297944535 (2) Coronavirus infection Current Visit: Yes Status: Acute Code(s): B34.2 - CORONAVIRUS INFECTION, UNSPECIFIED SNOMED Code(s): 351680156 (3) Pleural effusion Current Visit: Yes Status: Acute Code(s): J90 - PLEURAL EFFUSION, NOT ELSEWHERE CLASSIFIED SNOMED Code(s): 54760717 Plan: 1patient with the acute respiratory failure which is likely multifactorial in this patient tested positive for covid 19 more than a week ago and also history of recurrent right-sided effusion with worsening effusion and airspace opacities concerning for possible secondary bacterial pneumonia 2-cephalosporin ALLERGY that would limit the number of antibiotic safety use 3-nursing staff has been instructed to obtain sputum for Gram stain and culture 4-patient to continue with the Zosyn along with supportive care and monitor clinical course closely Prognosis guarded Dictation was produced using [employer] dictation software. please excuse any grammatical, word or spelling errors. Time with Patient: Less than 30
--- NOTE | 2023-01-22 13:09 | P.PN ---
Subjective Progress Note Date: 01/22/23 This is a pleasant 72 years old male with past medical history ofAsthma, Diabetes Mellitus, GERD/Reflux,Osteoarthritis , cirrhosis of the liver, hepatitis C possibly from blood transfusion as a child, palpable mass right parotid ,left leg arthritis with occasional edema to lower leg Patient was recently discharged from this -01/15, he underwent thoracocentesis was 2.5 fluid removed oriented and thereafter patient was discharged on Levaquin Patient presents because of dyspnea slightly getting worse since been discharged from the hospital. No much coughing., Chest pain. His other complaint is diarrhea also started after discharge. He had 3-4 bouts of bowel movement yesterday. No abdominal pain or vomiting. He has somewhat low appetite. He is in the 3 L oxygen at home. He denies alcohol or smoking or illicit drugs. No headache weakness or numbness or confusion. He's on 3 L oxygen at home Patient states yesterday they tapped his lung and 3 L were taken out from his right side. No On admission he was saturating 94% on 6 L oxygen via nasal cannula, currently his oxygen requirement went up to 12 L permanent via high flow cannula. CBC showed mild anemia but significant thrombocytopenia at 33, which looks similar to 4 days ago where it was 36 on 01/14/2023. Before that baseline platelet count was 50-80k INR is 1.64. Lactic acid 2.7 Troponin is negative Sodium is 125, glucose elevated morning at 300 on admission. Liver enzymes AST/ALT are within the reference range. Bilirubin slightly up 1.6. ProBNP is low at 197 Chest x-ray showing almost complete opacification of the right lung with some bilateral infiltrates 01/20. Patient seen and examined. Patient is currently on airvo at 15 L flow and 70% FiO2. Gets short of breath on minimal exertion 01/21. Patient seen and examined. Continues to be on airvo heated high flow at 60 L and FiO2 of 90%. Hemoglobin 11.8, platelet count 35, BUN 24, creatinine 0.51. Gets short of breath on minimum exertion. 01/22. Patient seen and examined . Currently on BiPAP, FiO2 100%. Patient is lethargic, get short of breath on conversing. Currently on Lasix drip and IV Zosyn REVIEW OF SYSTEMS: CONSTITUTIONAL: No fever, no malaise,. CARDIOVASCULAR: No chest pain, no palpitations, no syncope. PULMONARY: As mentioned above GASTROINTESTINAL: No diarrhea, no nausea, no vomiting NEUROLOGICAL: No headaches, no weakness, PHYSICAL EXAMINATION: GENERAL: The patient is alert and oriented x3, tachypneic, sick looking, on BiPAP HEENT: Pupils are round and equally reacting to light. EOMI. No scleral icterus. No conjunctival pallor. Normocephalic, atraumatic. No pharyngeal erythema. No thyromegaly. CARDIOVASCULAR: S1 and S2 present. No murmurs, rubs, or gallops. PULMONARY: Tachypneic, coarse breath sounds bilaterally, no wheeze ABDOMEN: Soft, nontender, nondistended, normoactive bowel sounds. No palpable organomegaly. MUSCULOSKELETAL: No joint swelling or deformity. EXTREMITIES: No cyanosis, clubbing, or pedal edema. NEUROLOGICAL: Gross neurological examination did not reveal any focal deficits. SKIN: No rashes. Assessment and plan Acute respiratory failure Bilateral consolidation suspicious for bilateral covid pneumonia. Rule out bacterial pneumonia Right pleural effusion status post thoracocentesis on 01/18 with tapping 3 L out Apical pneumothorax right side Hypervolemic hyponatremia Severe calorie protein malnutrition Slightly worsening thrombocytopenia in view of patient liver disease Liver cirrhosis History of hep C Thrombocytopenia Diabetes mellitus, with hyperglycemia History of GERD History of osteoarthritis Monitor vital signs Monitor CBC Monitor CMP Continue telemetry monitoring Continue BiPAP Continue breathing treatments Continue Lasix drip Continue IV Zosyn Continue Decadron Continue rifaximin Critical care following ID following Labs and medication were reviewed.. Continue same treatment. Continue with symptomatic treatment. Resume home medication. Monitor labs and vitals. DVT and GI prophylaxis. Further recommendations as per clinical course of the patient Dictation was produced using [employer] dictation software. please excuse any grammatical, word or spelling errors. Objective - Vital Signs Vital signs: Vital Signs Temp 97.6 F 01/22/23 04:00 Pulse 82 01/22/23 07:00 Resp 32 H 01/22/23 07:00 BP 99/54 01/22/23 07:00 Pulse Ox 94 L 01/22/23 07:00 FiO2 100 01/22/23 08:22 Intake & Output 01/21/23 01/22/23 01/22/23 18:59 06:59 18:59 Intake Total 140 404.5 119.5 Output Total 900 2845 550 Balance -760 -2440.5 -430.5 Intake: IV 100 110 30 Sodium Chloride 0.9% 1, 100 110 30 000 ml @ 20 mls/hr IV . Q24H [facility]ORD[facility] Rx#:[id number] Intake, IV Titration 40 94.5 89.5 Amount Furosemide 100 mg In 40 94.5 89.5 Sodium Chloride 0.9% 90 ml @ 10 MG/HR 10 mls/hr IV .Q10H JORDAN Rx#: [id number] Oral 0 200 Output: Urine 900 2845 550 Other: Voiding Method Indwelling Catheter Indwelling Catheter # Bowel Movements 0 - Labs CBC & Chem 7: 01/22/23 04:17 01/22/23 04:17 Labs: Abnormal Lab Results - Last 24 Hours (Table) 01/21/23 01/21/23 01/21/23 Range/Units 11:45 12:14 18:16 WBC (3.8-10.6) k/uL RBC (4.30-5.90) m/uL Hgb (13.0-17.5) gm/dL MCV (80.0-100.0) fL MCH (25.0-35.0) pg Plt Count (150-450) k/uL Lymphocytes # (1.0-4.8) k/uL ABG pO2 61 L (83-108) mmHg ABG O2 Saturation 90.1 L (94-97) % Sodium (137-145) mmol/L Carbon Dioxide (22-30) mmol/L BUN (9-20) mg/dL Creatinine (0.66-1.25) mg/dL Glucose (74-99) mg/dL POC Glucose (mg/dL) 260 H 307 H (70-110) mg/dL Total Bilirubin (0.2-1.3) mg/dL Alkaline Phosphatase (38-126) U/L Total Protein (6.3-8.2) g/dL Albumin (3.5-5.0) g/dL 01/21/23 01/21/23 01/22/23 Range/Units 20:01 23:43 04:17 WBC 3.7 L (3.8-10.6) k/uL RBC 3.67 L (4.30-5.90) m/uL Hgb 12.9 L (13.0-17.5) gm/dL MCV 106.5 H (80.0-100.0) fL MCH 35.3 H (25.0-35.0) pg Plt Count 28 L (150-450) k/uL Lymphocytes # 0.1 L (1.0-4.8) k/uL ABG pO2 (83-108) mmHg ABG O2 Saturation (94-97) % Sodium 130 L (137-145) mmol/L Carbon Dioxide 21 L (22-30) mmol/L BUN 31 H (9-20) mg/dL Creatinine 0.56 L (0.66-1.25) mg/dL Glucose 250 H (74-99) mg/dL POC Glucose (mg/dL) 334 H (70-110) mg/dL Total Bilirubin (0.2-1.3) mg/dL Alkaline Phosphatase (38-126) U/L Total Protein (6.3-8.2) g/dL Albumin (3.5-5.0) g/dL 01/22/23 Range/Units 04:17 WBC (3.8-10.6) k/uL RBC (4.30-5.90) m/uL Hgb (13.0-17.5) gm/dL MCV (80.0-100.0) fL MCH (25.0-35.0) pg Plt Count (150-450) k/uL Lymphocytes # (1.0-4.8) k/uL ABG pO2 (83-108) mmHg ABG O2 Saturation (94-97) % Sodium 129 L (137-145) mmol/L Carbon Dioxide (22-30) mmol/L BUN 34 H (9-20) mg/dL Creatinine 0.64 L (0.66-1.25) mg/dL Glucose 254 H (74-99) mg/dL POC Glucose (mg/dL) (70-110) mg/dL Total Bilirubin 2.1 H (0.2-1.3) mg/dL Alkaline Phosphatase 146 H (38-126) U/L Total Protein 5.3 L (6.3-8.2) g/dL Albumin 2.1 L (3.5-5.0) g/dL
[2023-01-22 17:11] LABS: Glucose,Whole Blood 293 mg/dL (70-110)
[2023-01-22 20:16] LABS: Glucose,Whole Blood 269 mg/dL (70-110)
[2023-01-22] MEDS: FAMOTIDINE 20 MG TAB PO SCH (20:33)
[2023-01-23] MEDS: MORPHINE SULFATE 4 MG/ML SYRINGE IV PRN (00:04)
[2023-01-23] MEDS: ALBUTEROL HFA INHALER INHALATION SCH ×6 (00:26→20:54)
[2023-01-23] MEDS: FUROSEMIDE 100 MG in SODIUM CHLORIDE 0.9% 90 ML IV SCH ×2 (04:19→14:37)
[2023-01-23] MEDS: PIPERACILLIN-TAZOBACTAM 3.375 GM in SODIUM CHLORIDE 0.9% 100 ML IVPB SCH ×3 (04:58→20:48)
[2023-01-23 06:07] LABS: Basophils % (A) 0 %; Eosinophils % (A) 0 %; HCT 36.6 % (39.0-53.0); HGB 12.5 gm/dL (13.0-17.5); Lymphocytes # (A) 0.1 k/uL (1.0-4.8); Lymphocytes % (A) 2 %; MCH 35.8 pg (25.0-35.0); MCHC 34.1 g/dL (31.0-37.0); MCV 105.1 fL (80.0-100.0); Macrocytosis Moderate; Mean Platelet Volume 8.1; Monocytes # (A) 0.1 k/uL (0-1.0); Monocytes % (A) 4 %; Neutrophils # (A) 3.5 k/uL (1.3-7.7); Neutrophils % (A) 94 %; RBC 3.48 m/uL (4.30-5.90); RDW 15.2 % (11.5-15.5); WBC 3.7 k/uL (3.8-10.6)
[2023-01-23 06:09] LABS: Platelet Count 21 k/uL (150-450)
[2023-01-23] MEDS: LIPASE 5,000/PROTEASE 17,000/AMYLASE 24,000 PO SCH ×3 (06:11→16:58)
[2023-01-23] MEDS: SODIUM CHLORIDE 0.9% 1,000 ML IV SCH (06:19)
[2023-01-23 06:40] LABS: Glucose,Whole Blood 216 mg/dL (70-110)
[2023-01-23] MEDS: INSULIN ASPART (NovoLOG) 100 UNIT/ML VIAL SQ SCH ×4 (06:44→20:49)
[2023-01-23 07:01] LABS: African American GFR (CKD) >90 (>60 ml/min/1.73 sqM); Anion Gap 7 mmol/L; Blood Urea Nitrogen 50 mg/dL (9-20); Carbon Dioxide 25 mmol/L (22-30); Chloride 102 mmol/L (98-107); Glucose 224 mg/dL (74-99); Non-African American GFR(CKD) 87 (>60 ml/min/1.73 sqM); Potassium 3.8 mmol/L (3.5-5.1); Sodium 134 mmol/L (137-145)
--- NOTE | 2023-01-23 08:22 | XR ---
EXAMINATION TYPE: XR chest 1V portable DATE OF EXAM: 01/23/2023 COMPARISON: 01/22/2023 HISTORY: Shortness of breath TECHNIQUE: Single frontal view of the chest is obtained. FINDINGS: Large right-sided pleural effusion is seen in the bilateral airspace disease cardiomegaly. Patchy left perihilar consolidation small left effusion is seen. Air along the upper soft tissues li sue within the airway rather than representing pneumomediastinum correlate clinically IMPRESSION: Bilateral airspace disease\pleural-parenchymal changes stable.
[2023-01-23] MEDS: DEXAMETHASONE SOD PHOSPHATE 10 MG/ML 1 ML VIAL IVP SCH (08:45)
[2023-01-23] MEDS: NOREPINEPHRINE 4 MG in SODIUM CHLORIDE 0.9% 250 ML IV SCH (08:45)
--- NOTE | 2023-01-23 08:52 | US ---
EXAMINATION TYPE: US chest DATE OF EXAM: 01/23/2023 COMPARISON: XRAY today 01/23/23 CLINICAL INDICATION: Male, 72 years old with history of Markings for thoracentesis by pulmonary staff ; TECHNIQUE: Targeted ultrasound of the posterior lower bilateral hemithoraces EXAM MEASUREMENTS: Right Pleural Effusion pocket size: 14.4 cm Right skin surface to fluid distance: 2.5 cm Right side marked for possible thoracentesis outside the dept. Left side NOT marked for possible thoracentesis outside the dept. Pulmonologists are able to review the images in the patient?s EMR. Left lung space difficult to visualize due to patient immobility and condition IMPRESSIONS: Large right pleural effusion.
--- NOTE | 2023-01-23 10:18 | XR ---
EXAMINATION TYPE: XR chest 1V portable DATE OF EXAM: 01/23/2023 COMPARISON: 01/23/2023 HISTORY: Postthoracentesis TECHNIQUE: Single frontal view of the chest is obtained. FINDINGS: There is a approximate 20% right-sided pneumothorax which may represent trapped lung with right thoracentesis. Diffuse interstitial infiltrates stable with small residual right pleural effusi on. Heart size is stable. Chronic deformity of the right clavicle. IMPRESSION: 1. There is interval development approximately 20% right-sided pneumothorax. Trapped lung in the diff erential diagnosis. Persistent diffuse interstitial infiltrates correlate for atypical pneumonia.
[2023-01-23] MEDS: SPIRONOLACTONE 25 MG TAB PO SCH ×2 (12:39→20:41)
[2023-01-23] MEDS: FAMOTIDINE 20 MG TAB PO SCH ×2 (12:39→20:41)
[2023-01-23] MEDS: CHOLECALCIFEROL 25 MCG (1000 IU) TABLET PO SCH (12:39)
[2023-01-23] MEDS: ZINC SULFATE 220 MG CAP PO SCH (12:39)
[2023-01-23] MEDS: RIFAXIMIN 550 MG TABLET PO SCH ×2 (12:40→20:41)
[2023-01-23 12:41] LABS: Glucose,Whole Blood 177 mg/dL (70-110)
[2023-01-23] MEDS: ASCORBIC ACID 500 MG TAB PO SCH (12:45)
--- NOTE | 2023-01-23 12:52 | XR ---
EXAMINATION TYPE: XR chest 1V portable DATE OF EXAM: 01/23/2023 COMPARISON: 01/23/2023 HISTORY: pneumothorax TECHNIQUE: Single frontal view of the chest is obtained. FINDINGS: There is a approximate 20% right-sided pneumothorax which may represent trapped lung with right thoracentesis. Diffuse interstitial infiltrates stable with small residual right pleural effusi on. Heart size is stable. Chronic deformity of the right clavicle. IMPRESSION: 1. Stable development approximately 20% right-sided pneumothorax. Trapped lung in the differential di agnosis. Persistent diffuse interstitial infiltrates correlate for atypical pneumonia.
--- NOTE | 2023-01-23 12:58 | P.PN ---
Subjective Progress Note Date: 01/23/23 This is a pleasant 72 years old male with past medical history ofAsthma, Diabetes Mellitus, GERD/Reflux,Osteoarthritis , cirrhosis of the liver, hepatitis C possibly from blood transfusion as a child, palpable mass right parotid ,left leg arthritis with occasional edema to lower leg Patient was recently discharged from this -01/15, he underwent thoracocentesis was 2.5 fluid removed oriented and thereafter patient was discharged on Levaquin Patient presents because of dyspnea slightly getting worse since been discharged from the hospital. No much coughing., Chest pain. His other complaint is diarrhea also started after discharge. He had 3-4 bouts of bowel movement yesterday. No abdominal pain or vomiting. He has somewhat low appetite. He is in the 3 L oxygen at home. He denies alcohol or smoking or illicit drugs. No headache weakness or numbness or confusion. He's on 3 L oxygen at home Patient states yesterday they tapped his lung and 3 L were taken out from his right side. No On admission he was saturating 94% on 6 L oxygen via nasal cannula, currently his oxygen requirement went up to 12 L permanent via high flow cannula. CBC showed mild anemia but significant thrombocytopenia at 33, which looks similar to 4 days ago where it was 36 on 01/14/2023. Before that baseline platelet count was 50-80k INR is 1.64. Lactic acid 2.7 Troponin is negative Sodium is 125, glucose elevated morning at 300 on admission. Liver enzymes AST/ALT are within the reference range. Bilirubin slightly up 1.6. ProBNP is low at 197 Chest x-ray showing almost complete opacification of the right lung with some bilateral infiltrates 01/20. Patient seen and examined. Patient is currently on airvo at 15 L flow and 70% FiO2. Gets short of breath on minimal exertion 01/21. Patient seen and examined. Continues to be on airvo heated high flow at 60 L and FiO2 of 90%. Hemoglobin 11.8, platelet count 35, BUN 24, creatinine 0.51. Gets short of breath on minimum exertion. 01/22. Patient seen and examined . Currently on BiPAP, FiO2 100%. Patient is lethargic, get short of breath on conversing. Currently on Lasix drip and IV Zosyn 01/23. Patient seen and examined. Currently in ICU. WBC 3.7, hemoglobin 12.5, sodium 134, potassium 3.8, BUN 50, creatinine 0.88. Platelet count is 21,000 Patient continues to be on BiPAP with an FiO2 of 80%. Patient very lethargic. Unable to maintain conversation REVIEW OF SYSTEMS: Cannot be obtained as patient on BiPAP PHYSICAL EXAMINATION: GENERAL: The patient is alert , tachypneic, sick looking, on BiPAP HEENT: Pupils are round and equally reacting to light. EOMI. No scleral icterus. No conjunctival pallor. Normocephalic, atraumatic. No pharyngeal erythema. No thyromegaly. CARDIOVASCULAR: S1 and S2 present. No murmurs, rubs, or gallops. PULMONARY: Tachypneic, coarse breath sounds bilaterally, no wheeze ABDOMEN: Soft, nontender, nondistended, normoactive bowel sounds. No palpable organomegaly. MUSCULOSKELETAL: No joint swelling or deformity. EXTREMITIES: No cyanosis, clubbing, or pedal edema. NEUROLOGICAL: Gross neurological examination did not reveal any focal deficits. SKIN: No rashes. Assessment and plan Acute respiratory failure Bilateral consolidation suspicious for bilateral covid pneumonia. Rule out bacterial pneumonia Right pleural effusion status post thoracocentesis on 01/18 with tapping 3 L out Apical pneumothorax right side Hypervolemic hyponatremia Severe calorie protein malnutrition Slightly worsening thrombocytopenia in view of patient liver disease Liver cirrhosis History of hep C Thrombocytopenia Diabetes mellitus, with hyperglycemia History of GERD History of osteoarthritis Monitor vital signs Monitor CBC Monitor CMP Continue telemetry monitoring Aggressive bronchopulmonary hygiene Continue BiPAP Continue breathing treatments Continue Lasix drip Continue IV Zosyn Continue Decadron Continue rifaximin Critical care following ID following Labs and medication were reviewed.. Continue same treatment. Continue with symptomatic treatment. Resume home medication. Monitor labs and vitals. DVT and GI prophylaxis. Further recommendations as per clinical course of the patient Dictation was produced using [employer] dictation software. please excuse any grammatical, word or spelling errors. Objective - Vital Signs Vital signs: Vital Signs Temp 97.5 F L 01/23/23 08:00 Pulse 66 01/23/23 09:00 Resp 20 01/23/23 09:00 BP 92/52 01/23/23 09:00 Pulse Ox 92 L 01/23/23 09:00 FiO2 80 01/23/23 09:00 Intake & Output 01/22/23 01/23/23 01/23/23 18:59 06:59 18:59 Intake Total 394.333 210 58.5 Output Total 1999 Balance -1605.667 -1585 -161.5 Weight 62 kg 57.3 kg Intake: IV 220 110 30 Piperacillin-Tazobactam 3 100 .375 gm In Sodium Chloride 0.9% 100 ml @ 25 mls/hr IVPB Q8H JORDAN Rx#: [id number] Sodium Chloride 0.9% 1, 120 110 30 000 ml @ 20 mls/hr IV . Q24H JORDAN Rx#:[id number] Intake, IV Titration 174.333 100 28.5 Amount Furosemide 100 mg In 174.333 100 28.5 Sodium Chloride 0.9% 90 ml @ 10 MG/HR 10 mls/hr IV .Q10H JORDAN Rx#: [id number] Output: Urine 1999 Other: Voiding Method Indwelling Catheter Indwelling Catheter - Labs CBC & Chem 7: 01/23/23 05:34 01/23/23 05:34 Labs: Abnormal Lab Results - Last 24 Hours (Table) 01/22/23 01/22/23 01/22/23 Range/Units 08:20 11:11 17:10 WBC (3.8-10.6) k/uL RBC (4.30-5.90) m/uL Hgb (13.0-17.5) gm/dL Hct (39.0-53.0) % MCV (80.0-100.0) fL MCH (25.0-35.0) pg Plt Count (150-450) k/uL Lymphocytes # (1.0-4.8) k/uL Sodium (137-145) mmol/L BUN (9-20) mg/dL Glucose (74-99) mg/dL POC Glucose (mg/dL) 258 H 311 H 293 H (70-110) mg/dL Calcium (8.4-10.2) mg/dL 01/22/23 01/23/23 01/23/23 Range/Units 20:15 05:34 05:34 WBC 3.7 L (3.8-10.6) k/uL RBC 3.48 L (4.30-5.90) m/uL Hgb 12.5 L (13.0-17.5) gm/dL Hct 36.6 L (39.0-53.0) % MCV 105.1 H (80.0-100.0) fL MCH 35.8 H (25.0-35.0) pg Plt Count 21 L (150-450) k/uL Lymphocytes # 0.1 L (1.0-4.8) k/uL Sodium 134 L (137-145) mmol/L BUN 50 H (9-20) mg/dL Glucose 224 H (74-99) mg/dL POC Glucose (mg/dL) 269 H (70-110) mg/dL Calcium 8.0 L (8.4-10.2) mg/dL 01/23/23 Range/Units 06:38 WBC (3.8-10.6) k/uL RBC (4.30-5.90) m/uL Hgb (13.0-17.5) gm/dL Hct (39.0-53.0) % MCV (80.0-100.0) fL MCH (25.0-35.0) pg Plt Count (150-450) k/uL Lymphocytes # (1.0-4.8) k/uL Sodium (137-145) mmol/L BUN (9-20) mg/dL Glucose (74-99) mg/dL POC Glucose (mg/dL) 216 H (70-110) mg/dL Calcium (8.4-10.2) mg/dL
--- NOTE | 2023-01-23 13:46 | P.PN ---
Subjective Progress Note Date: 01/23/23 Principal diagnosis: Acute hypoxic respiratory failure secondary to right-sided pleural effusion 72-year-old male patient, liver cirrhosis, hepatitis C, alcoholism, diabetes mellitus, recently hospitalized for a large right-sided pleural effusion and shortness of breath, the brain and a total of 3 L of fluid was aspirated from the right lung. He was running a low-grade fever. He also had increased edema in his lower extremities. The patient was given Levaquin and his cultures were negative. He was ultimately discharged home to be readmitted again with worsening shortness of breath and hypoxic respiratory failure. Still having diarrhea about 3-4 episodes of bowel movement. No abdominal pain. No nausea or vomiting. He was on oxygen at 3 L and currently he is on high flow oxygen. In the emergency, he was found to have recurrent right-sided pleural effusion. Ba sed on his borderline respiratory status, the emergency physician performed a thoracentesis on him. He tested positive for Covid 19. His lactic acid level is at 2.7. His hemoglobin is at 12.4, white cell count is at 5.7, he does have chronic pancytopenia related to chronic liver disease. INR is at 1.4, sodium is 125, BUN is at 20 with a creatinine of 0.56. Lactic acid level was at 2.7 up to 2.4. Alkaline phosphatase 205, AST and ALP are normal, troponins are negative. He is cachectic, debilitated with a body mass index of 21.4. Patient was reevaluated today on 01/20/2023, remains on high flow FiO2, airvo at 15 L flow and 70% FiO2 on the patient remains a relatively short of breath, and seems to be quite anxious that scan is 3.8 hemoglobin is 10.9. Sodium is 127 bicarb is 18 BUN is 20 creatinine 0.48 blood sugar is 333 in spite of having 3 L of fluid removed yesterday from his right pleural space, patient continues to have some shortness of breath, chest x-ray is showing bilateral airspace disease, I'm suspecting interstitial edema, and there is also a right sided small apical pneumothorax noted related to his recent thoracentesis. Platelets remained low as 30,000 Patient was reevaluated today on 01/21/2023, patient is requiring more oxygen, his FiO2 is up to 90%, his flow is up to 60 L/m, and the patient remains marginal, hence after regarding the patient today on the floor, and recommended transferring the patient to the ICU. I have a strong feeling that the patient may end up requiring intubation and mechanical ventilation in the meantime I will try the patient on Lasix drip especially with a chest x-ray showing significant pulmonary edema. His previous right sided pneumothorax has resolved his right-sided pleural effusion has become much worse and he has increased opacities consistent with pulmonary edema. ABG showed a pO2 of 61 pCO2 38 pH of 7.36 WBC count is 4.9 hemoglobin 11.8 electrolytes are normal bicarb is normal BUN is 24 creatinine 0.51 Patient was reevaluated today on 01/22/2023, remains in the ICU, I transferred the patient yesterday because of worsening pulmonary status recommended Lasix drip at 10 mg per hour, and the patient remains on Lasix drip. Patient was transitioned from airvo to BiPAP 12/6/100%, O2 saturation is in the high 90s. Some clinical improvement, nonetheless his chest x-ray continues to show bilateral pulmonary edema with right-sided pleural effusion and his urine output is over 200 mL an hour. I am recommending that he continue diuretics before I would consider thoracentesis on this patient. Although thoracentesis may be necessary if no improvement in the next 24 hours. Chest x-ray today continues to show bilateral pleural parenchymal changes with large pleural effusion on the right side, I believe were dealing mostly with pneumonia and pulmonary edema. WBC count is 3.7 hemoglobin is 12.9 electrolytes are normal however his sodium is 129 not much different from yesterday sodium. Renal profile remains abnormal Reevaluated today on 01/23/2023, patient is doing poorly, remains in the ICU, he is marginal at best, remains on BiPAP 12/6, 80% FiO2, and his O2 saturation is in the high 80s and low 90s. Patient developed hypotension last night and he required placement on norepinephrine at 0.05 mcg/kg/m. Lasix is presently on hold, chest x-ray is showing worsening pulmonary edema hence I recommended immediate right-sided thoracentesis, and I was able to drain over 2 L of straw- colored fluid from the right pleural space, with dramatic improvement in his O2 saturation post-thoracentesis although there was evidence of 20% right-sided pneumothorax/trapped lung noted post procedure and the same thing was noted on his previous thoracentesis few days ago. The fluid was sent for different geoff gnostic studies. Patient was placed back on BiPAP, O2 saturations was noted to be about 100% and will titrate his FiO2 down follow-up chest x-ray after right thoracentesis 2 hours after his initial x-ray, showed no major change in the size of the right-sided pneumothorax, hence I will hold on placement of the chest tube at this point I still believe were dealing mostly with a trapped lung. Labs today showed W Jeremy 3.7 hemoglobin is 12.5 *Normal renal profile is normal with BUN is 50 creatinine 0.88 Objective - Vital Signs Vital signs: Vital Signs Temp 97.9 F 01/23/23 12:00 Pulse 76 01/23/23 13:00 Resp 22 01/23/23 13:00 BP 104/54 01/23/23 13:00 Pulse Ox 100 01/23/23 13:00 FiO2 80 01/23/23 13:00 Intake & Output 01/22/23 01/23/23 01/23/23 18:59 06:59 18:59 Intake Total 394.333 210 215.965 Output Total 1999 1795 2430 Balance -1605.667 -1585 -2214.035 Weight 62 kg 57.3 kg Intake: IV 220 110 170 Piperacillin-Tazobactam 3 100 100 .375 gm In Sodium Chloride 0.9% 100 ml @ 25 mls/hr IVPB Q8H JORDAN Rx#: [id number] Sodium Chloride 0.9% 1, 120 110 70 000 ml @ 20 mls/hr IV . Q24H JORDAN Rx#:[id number] Intake, IV Titration 174.333 100 45.965 Amount Furosemide 100 mg In 174.333 100 28.5 Sodium Chloride 0.9% 90 ml @ 10 MG/HR 10 mls/hr IV .Q10H JORDAN Rx#: [id number] Norepinephrine 4 mg In 17.465 Sodium Chloride 0.9% 250 ml @ 0.03 MCG/KG/MIN 6. 549 mls/hr IV .Q24H JORDAN Rx#:[id number] Output: Drainage 1999 Right Chest 1999 Urine 1999 1795 430 Other: Voiding Method Indwelling Catheter Indwelling Catheter - Exam Physical Exam: Revealed a 72-year-old white male, looks frail, chronically ill, less anxious today, on BiPAP. 12/6/80 % Head: Atraumatic, normocephalic. HEENT:[Neck is supple.] [No neck masses.] [No thyromegaly.] [No JVD.] Chest: Rhonchi and crackles noted bilaterally with symmetrical chest expansion Cardiac Exam: [Normal S1 and S2, no S3 gallop, no murmur.] Abdomen: [Soft, nontender, no megaly, no rebound, no guarding, normal bowel sounds.] Mild ascites is suspected. Extremities: [No clubbing, 2 + bipedal edema, no cyanosis.] Neurological Exam: [No focal neurologic deficit.] Alert oriented 3 Psychiatric: Anxious mood, as, normal affect. Skin: No rashes - Labs CBC & Chem 7: 01/23/23 05:34 01/23/23 05:34 Labs: Abnormal Lab Results - Last 24 Hours (Table) 01/22/23 01/22/23 01/23/23 Range/Units 17:10 20:15 05:34 WBC 3.7 L (3.8-10.6) k/uL RBC 3.48 L (4.30-5.90) m/uL Hgb 12.5 L (13.0-17.5) gm/dL Hct 36.6 L (39.0-53.0) % MCV 105.1 H (80.0-100.0) fL MCH 35.8 H (25.0-35.0) pg Plt Count 21 L (150-450) k/uL Lymphocytes # 0.1 L (1.0-4.8) k/uL Sodium (137-145) mmol/L BUN (9-20) mg/dL Glucose (74-99) mg/dL POC Glucose (mg/dL) 293 H 269 H (70-110) mg/dL Calcium (8.4-10.2) mg/dL Lactate Dehydrogenase (120-246) U/L Total Protein (6.3-8.2) g/dL 01/23/23 01/23/23 01/23/23 Range/Units 05:34 05:34 06:38 WBC (3.8-10.6) k/uL RBC (4.30-5.90) m/uL Hgb (13.0-17.5) gm/dL Hct (39.0-53.0) % MCV (80.0-100.0) fL MCH (25.0-35.0) pg Plt Count (150-450) k/uL Lymphocytes # (1.0-4.8) k/uL Sodium 134 L (137-145) mmol/L BUN 50 H (9-20) mg/dL Glucose 224 H (74-99) mg/dL POC Glucose (mg/dL) 216 H (70-110) mg/dL Calcium 8.0 L (8.4-10.2) mg/dL Lactate Dehydrogenase 327 H (120-246) U/L Total Protein 5.0 L (6.3-8.2) g/dL 01/23/23 Range/Units 12:40 WBC (3.8-10.6) k/uL RBC (4.30-5.90) m/uL Hgb (13.0-17.5) gm/dL Hct (39.0-53.0) % MCV (80.0-100.0) fL MCH (25.0-35.0) pg Plt Count (150-450) k/uL Lymphocytes # (1.0-4.8) k/uL Sodium (137-145) mmol/L BUN (9-20) mg/dL Glucose (74-99) mg/dL POC Glucose (mg/dL) 177 H (70-110) mg/dL Calcium (8.4-10.2) mg/dL Lactate Dehydrogenase (120-246) U/L Total Protein (6.3-8.2) g/dL Assessment and Plan Assessment: Impression: Acute hypoxic respiratory failure, worsening bilateral pulmonary edema and pleural effusions Recurrent right-sided pleural effusion secondary to chronic liver disease COVID-19 infection, incidental finding, no clear-cut symptoms of COVID-19 infection underlying bacterial pneumonia is not entirely ruled out, felt to be less likely at this point. Thrombocytopenia secondary to chronic liver disease Chronic anemia Diarrhea most likely secondary to COVID-19 infection Hypoalbuminemia History of liver cirrhosis and ascites History of hepatitis C History of alcoholism Type 2 diabetes Recent history of laparoscopic hernia repair Chronic hyponatremia/hypervolemic hyponatremia secondary to liver disease Right-sided pneumothorax/trapped lung, postthoracentesis Status post repeat thoracentesis on 01/23/2023 Hypovolemic hypotension, patient is obviously intravascularly depleted with significant response to Lasix for the last 24 hours nonetheless because of his hypotension Lasix is now on hold, the patient is requiring norepinephrine. Recommendation: Continue hemodynamic support, continue norepinephrine Continue to hold Lasix for now, Send pleural effusion for different diagnostic studies as the previous pleural effusion was not sent to the ER physician Continue to monitor in the ICU Titrate FiO2 on the BiPAP Repeat chest x-ray in a.m. Continue Aldactone Continue empiric antibiotics/Zosyn Continue Decadron and Xifaxan Patient remains critically ill and very likely the patient may require intubation mechanical ventilation if he does not make a dramatic improvement in the next couple of days. Critical care time is over 30 minutes not including the time for procedure We continue to follow in the ICU. Time with Patient: Greater than 30
--- NOTE | 2023-01-23 14:22 | OP ---
OPERATIVE REPORT DATE OF SERVICE : PROCEDURE PERFORMED: Right-sided thoracentesis. PREOPERATIVE DIAGNOSES: 1. Impending hypoxic respiratory failure. 2. Large right-sided pleural effusion. POSTOPERATIVE DIAGNOSES: 1. Impending hypoxic respiratory failure. 2. Large right-sided pleural effusion. ANESTHESIA USED: 2 mL of 1% lidocaine. DESCRIPTION OF PROCEDURE: The patient was placed in the sitting upright position. The area below the right scapula was prepared in a sterile fashion. Drapes were applied. The fluid was earlier localized by ultrasound guidance, and the area correlated to the eighth intercostal space and tip of the scapula. The area was locally anesthetized with lidocaine. Then, a small 26-gauge needle was inserted at the site and advanced into the pleural space until the fluid was localized. Then, a small tiny incision was made, and a standard thoracentesis catheter and needle were used and advanced into the pleural space. As soon as the fluid was obtained, the catheter was advanced out of the needle into the pleural space, and the needle was pulled out of the pleural space. Freely flowing fluid was removed from the right pleural space. Roughly 2000 mL of straw-colored fluid was removed from the right pleural space. The procedure was well tolerated. No evidence of any immediate complications. However, the right-sided pneumothorax which was noted before could be seen again today, and I believe it is not truly iatrogenic pneumothorax. I believe this is mostly a trapped lung and failure of the lung to re- expand. It is above the 20% pneumothorax noted in the right apex. No intervention is necessary at this point. We will have a repeat chest x-ray in a couple of hours. A repeat chest x-ray done in a couple of hours showed no major change; hence, we will continue to monitor the right-sided, what seems to be, pneumothorax, accepted that really a truly trapped lung. The fluid was sent for different diagnostic studies. The patient's saturation improved significantly after the pleural effusion drained, and he maintained O2 saturation in the 100% through the whole time. MMODL / IJN: [id number] /
[2023-01-23] MEDS: LACTULOSE 20 GM/30 ML CUP PO SCH (15:10)
--- NOTE | 2023-01-23 15:43 | P.CONS ---
History of Present Illness - Reason for Consult Consult date: 01/23/23 thrombocytopenia Requesting physician: Tristan Barfield - Chief Complaint SOB - History of Present Illness Mr. Pearce is a 72-year-old male with a PMH of DMII, asthma/COPD, GERD, OA, cirrhosis, hep C who presented to the ER with C/O progressive SOB, increasing cough and congestion. He was recently inpt for the same symptoms, he had thoracentesis, negative cytology. His symptoms returned and progressed so, he is admitted again, increased O2 needs. He had another thora with 2500cc removed. He had US chest and there is 14.4cm pocket on the rt. He is covid positive. We have been asked to see pt for thrombocytopenia. He opened his eyes to voice but, did not answer any questions. Info taken from chart. Low plt noted since 2017 in this chart, this is the worse they have been baseline 60K range. Do not see that he received heparin this hospitalization. No gross bleeding, Hgb stable since admit. On ofc chart review he was referred to Dr. Grimm for anemia, his visit was in a few weeks. Review of Systems ROS unobtainable: due to mental status Past Medical History Past Medical History: Asthma, Cancer, Diabetes Mellitus, GERD/Reflux, Liver Disease, Osteoarthritis (OA) Additional Past Medical History / Comment(s): basal cell CA face and left chest, cirrhosis of the liver, hepatitis C possibly from blood transfusion as a child, palpable mass right parotid ,left leg arthritis with occasional edema to lower leg, has had recent us to r/o dvt was negative test History of Any Multi-Drug Resistant Organisms: None Reported Past Surgical History: Hernia Repair Additional Past Surgical History / Comment(s): sinus surgery, left wrist tendon injury repair, shunt placed "in liver" per patient, paracentesis 01/12 & 01/14, hernia repair "last week" (possibly 01/07) Past Anesthesia/Blood Transfusion Reactions: No Reported Reaction Past Psychological History: Anxiety, Depression, PTSD Smoking Status: Former smoker Past Alcohol Use History: None Reported Past Drug Use History: None Reported - Past Family History Mother Family Medical History: Cancer Additional Family Medical History / Comment(s): patient is unsure if ovarian or colon Medications and Allergies Home Medications Medication Instructions Recorded Confirmed Type Omalizumab [Xolair] 150 mg SQ Q14D 04/28/18 01/19/23 History Ferrous Sulfate [Iron (65 MG 162.5 mg PO MOWEFR 03/14/21 01/19/23 History Elemental)] Omeprazole 20 mg PO DAILY 03/14/21 01/19/23 History Rifaximin [Xifaxan] 550 mg PO BID 03/14/21 01/19/23 History Fluticasone Propion/Salmeterol 1 puff INHALATION RT-BID 09/07/21 01/19/23 History [Advair 500-50 Diskus] Albuterol Sulfate [Albuterol 2 puff INHALATION RT-QID 11/08/22 01/19/23 History Sulfate Hfa] Spironolactone [Aldactone] 50 mg PO BID 11/08/22 01/19/23 History hydrOXYzine HCL [Atarax] 10 mg PO HS 11/08/22 01/19/23 History Lactulose [Cephulac] 40 gm PO QID PRN 12/23/22 01/19/23 History glipiZIDE 5 mg PO BID 12/23/22 01/19/23 History Ibuprofen [Motrin] 600 mg PO Q6HR PRN #40 tab 12/31/22 01/19/23 Rx Furosemide [Lasix] 10 mg PO MOWEFR 01/10/23 01/19/23 History Lipase/Protease/Amylase [Gordon Lancaster 1 cap PO DIRECTED 01/10/23 01/19/23 History 12,000 Units Capsule] Budesonide-Formot 160-4.5 Mcg 2 puff INHALATION RT-BID 30 Days 01/15/23 01/19/23 Rx [Symbicort 160-4.5 Mcg Inhaler] #1 each Levofloxacin [Levaquin] 500 mg PO DAILY 7 Days #7 tab 01/15/23 01/19/23 Rx Allergies Allergy/AdvReac Type Severity Reaction Status Date / Time cefuroxime [From Ceftin] AdvReac Rash/Hives Verified 01/19/23 13:00 Physical Exam Vitals: Vital Signs Temp Pulse Resp BP Pulse Ox FiO2 01/23/23 13:00 76 22 104/54 100 80 01/23/23 12:45 63 19 112/52 100 01/23/23 12:30 62 19 109/58 100 01/23/23 12:15 58 L 18 106/50 100 01/23/23 12:00 97.9 F 61 21 103/51 100 80 01/23/23 11:45 57 L 18 103/53 100 01/23/23 11:43 80 01/23/23 11:30 57 L 18 105/52 100 01/23/23 11:15 57 L 17 106/56 100 01/23/23 11:00 58 L 19 106/52 100 80 01/23/23 10:45 61 16 118/56 100 01/23/23 10:30 56 L 16 133/62 100 01/23/23 10:15 54 L 19 117/56 100 01/23/23 10:00 54 L 20 92/51 100 80 01/23/23 09:45 81 14 77/45 99 01/23/23 09:30 83 36 H 84/49 92 L 01/23/23 09:15 65 18 84/49 92 L 01/23/23 09:00 66 20 92/52 92 L 80 01/23/23 08:07 80 01/23/23 08:00 97.5 F L 68 21 85/49 91 L 01/23/23 07:00 67 25 H 86/56 91 L 01/23/23 06:00 64 21 87/56 92 L 01/23/23 05:00 72 14 104/52 90 L 01/23/23 04:00 97.5 F L 63 20 88/50 91 L 80 01/23/23 03:30 80 01/23/23 03:00 63 22 97/55 90 L 01/23/23 02:00 65 21 92 L 01/23/23 01:00 66 20 97/56 96 01/23/23 00:27 80 01/23/23 00:00 64 24 105/57 94 L 01/22/23 23:00 73 28 H 98/57 89 L 01/22/23 22:00 71 28 H 103/55 93 L 01/22/23 21:00 70 28 H 99/57 92 L 01/22/23 20:34 80 01/22/23 20:00 97.8 F 75 22 99/56 90 L 80 01/22/23 19:00 71 24 98/55 90 L 01/22/23 18:00 67 28 H 98/52 91 L 01/22/23 17:00 66 28 H 96/54 90 L 01/22/23 16:00 97.1 F L 71 23 110/61 90 L 70 01/22/23 15:51 70 01/22/23 15:00 75 69 H 90/60 90 L 80 01/22/23 14:00 73 21 99/53 92 L Intake and Output 01/22/23 01/23/23 01/23/23 22:59 06:59 14:59 Intake Total 164.833 170 215.965 Output Total 0124 812 2821 Balance -1315.167 -720 -2214.035 Intake: IV 80 70 170 Piperacillin-Tazobactam 3 100 .375 gm In Sodium Chloride 0.9% 100 ml @ 25 mls/hr IVPB Q8H JORDAN Rx#: [id number] Sodium Chloride 0.9% 1, 80 70 70 000 ml @ 20 mls/hr IV . Q24H JORDAN Rx#:[id number] Intake, IV Titration 84.833 100 45.965 Amount Furosemide 100 mg In 84.833 100 28.5 Sodium Chloride 0.9% 90 ml @ 10 MG/HR 10 mls/hr IV .Q10H JORDAN Rx#: [id number] Norepinephrine 4 mg In 17.465 Sodium Chloride 0.9% 250 ml @ 0.03 MCG/KG/MIN 6. 549 mls/hr IV .Q24H JORDAN Rx#:[id number] Output: Drainage 1999 Right Chest 1999 Urine 1480 890 430 Other: Voiding Method Indwelling Catheter Indwelling Catheter Weight 57.3 kg WD, thin, frail 72 yo man, on high flow for nasal cannula, NAD, no swelling in BLE, no visible unusual bruising, hematomas, garcia has clear yellow urine, no oozing seen around invasive lines - Constitutional General appearance: thin Results CBC & Chem 7: 01/23/23 05:34 01/23/23 05:34 Labs: Abnormal Lab Results - Last 24 Hours (Table) 01/22/23 01/22/23 01/23/23 Range/Units 17:10 20:15 05:34 WBC 3.7 L (3.8-10.6) k/uL RBC 3.48 L (4.30-5.90) m/uL Hgb 12.5 L (13.0-17.5) gm/dL Hct 36.6 L (39.0-53.0) % MCV 105.1 H (80.0-100.0) fL MCH 35.8 H (25.0-35.0) pg Plt Count 21 L (150-450) k/uL Lymphocytes # 0.1 L (1.0-4.8) k/uL Sodium (137-145) mmol/L BUN (9-20) mg/dL Glucose (74-99) mg/dL POC Glucose (mg/dL) 293 H 269 H (70-110) mg/dL Calcium (8.4-10.2) mg/dL Lactate Dehydrogenase (120-246) U/L Total Protein (6.3-8.2) g/dL 01/23/23 01/23/23 01/23/23 Range/Units 05:34 05:34 06:38 WBC (3.8-10.6) k/uL RBC (4.30-5.90) m/uL Hgb (13.0-17.5) gm/dL Hct (39.0-53.0) % MCV (80.0-100.0) fL MCH (25.0-35.0) pg Plt Count (150-450) k/uL Lymphocytes # (1.0-4.8) k/uL Sodium 134 L (137-145) mmol/L BUN 50 H (9-20) mg/dL Glucose 224 H (74-99) mg/dL POC Glucose (mg/dL) 216 H (70-110) mg/dL Calcium 8.0 L (8.4-10.2) mg/dL Lactate Dehydrogenase 327 H (120-246) U/L Total Protein 5.0 L (6.3-8.2) g/dL 01/23/23 Range/Units 12:40 WBC (3.8-10.6) k/uL RBC (4.30-5.90) m/uL Hgb (13.0-17.5) gm/dL Hct (39.0-53.0) % MCV (80.0-100.0) fL MCH (25.0-35.0) pg Plt Count (150-450) k/uL Lymphocytes # (1.0-4.8) k/uL Sodium (137-145) mmol/L BUN (9-20) mg/dL Glucose (74-99) mg/dL POC Glucose (mg/dL) 177 H (70-110) mg/dL Calcium (8.4-10.2) mg/dL Lactate Dehydrogenase (120-246) U/L Total Protein (6.3-8.2) g/dL Chest x-ray: report reviewed CT scan - chest: report reviewed Assessment and Plan (1) Pancytopenia Current Visit: Yes Status: Acute Priority: High Code(s): D61.818 - OTHER PANCYTOPENIA SNOMED Code(s): 395190884 Plan: Pancytopenia -Hgb and WBC low but not requiring acute intervention, ANC adequate. -Thrombocytopenia. Noted in chart since 2017, baseline in 60-80K range. -Pt has PMH cirrhosis that can contribute to splenic sequestration and destruction of plt. With chronic liver disease there possible decreased production of thrombopoetin. Chronic condition exacerbated by covid infection -Work up for thrombocytopenia ordered, rule out DIC -No anticoagulation, asa, NSAIDs for plt <50K -CBC daily
[2023-01-23 16:36] LABS: Glucose,Whole Blood 193 mg/dL (70-110)
[2023-01-23 18:29] LABS: INR 1.7 (<1.2)
[2023-01-23 18:30] LABS: Partial Thromboplastin Time 24.7 sec (22.0-30.0); Prothrombin Time 16.9 sec (9.0-12.0)
[2023-01-23 20:20] LABS: Glucose,Whole Blood 202 mg/dL (70-110)
[2023-01-24] MEDS: ALBUTEROL HFA INHALER INHALATION SCH ×7 (00:18→23:52)
[2023-01-24] MEDS: PIPERACILLIN-TAZOBACTAM 3.375 GM in SODIUM CHLORIDE 0.9% 100 ML IVPB SCH ×3 (04:59→20:24)
[2023-01-24] MEDS: FUROSEMIDE 100 MG in SODIUM CHLORIDE 0.9% 90 ML IV SCH ×3 (05:23→20:24)
[2023-01-24 06:12] LABS: HCT 43.4 % (39.0-53.0); HGB 14.4 gm/dL (13.0-17.5); MCH 34.9 pg (25.0-35.0); MCHC 33.2 g/dL (31.0-37.0); MCV 105.3 fL (80.0-100.0); Macrocytosis Moderate; Mean Platelet Volume 8.2; RBC 4.13 m/uL (4.30-5.90); RDW 15.5 % (11.5-15.5); WBC 16.4 k/uL (3.8-10.6)
[2023-01-24 06:30] LABS: Platelet Count 50 k/uL (150-450)
[2023-01-24] MEDS: SODIUM CHLORIDE 0.9% 1,000 ML IV SCH (06:53)
[2023-01-24 06:58] LABS: Glucose,Whole Blood 223 mg/dL (70-110)
[2023-01-24 07:37] LABS: ALT 31 U/L (4-49); African American GFR (CKD) >90 (>60 ml/min/1.73 sqM); Anion Gap 7 mmol/L; Blood Urea Nitrogen 67 mg/dL (9-20); Calcium 8.1 mg/dL (8.4-10.2); Carbon Dioxide 22 mmol/L (22-30); Chloride 110 mmol/L (98-107); Glucose 204 mg/dL (74-99); Non-African American GFR(CKD) 89 (>60 ml/min/1.73 sqM); Sodium 139 mmol/L (137-145); Total Bilirubin 4.2 mg/dL (0.2-1.3)
[2023-01-24 07:45] LABS: AST 85 U/L (17-59); Albumin 2.3 g/dL (3.5-5.0); Alkaline Phosphatase 133 U/L (38-126); Potassium 6.1 mmol/L (3.5-5.1); Total Protein 5.7 g/dL (6.3-8.2)
[2023-01-24] MEDS: DEXAMETHASONE SOD PHOSPHATE 10 MG/ML 1 ML VIAL IVP SCH (08:27)
[2023-01-24] MEDS: INSULIN ASPART (NovoLOG) 100 UNIT/ML VIAL SQ SCH ×3 (08:27→17:12)
[2023-01-24] MEDS: NOREPINEPHRINE 4 MG in SODIUM CHLORIDE 0.9% 250 ML IV SCH ×2 (08:28→13:22)
--- NOTE | 2023-01-24 08:29 | XR ---
EXAMINATION TYPE: XR chest 1V portable DATE OF EXAM: 01/24/2023 COMPARISON: 01/23/2023 HISTORY: Pneumothorax TECHNIQUE: Single frontal view of the chest is obtained. FINDINGS: There is a approximate 20% right-sided pneumothorax which may represent trapped lung with right thoracentesis. Diffuse interstitial infiltrates stable with small residual right pleural effusi on. Heart size is stable. Chronic deformity of the right clavicle. IMPRESSION: Stable approximately 20% right-sided pneumothorax. Persistent diffuse interstitial infi ltrates correlate for atypical pneumonia.
[2023-01-24] MEDS: CHOLECALCIFEROL 25 MCG (1000 IU) TABLET PO SCH (09:00)
[2023-01-24] MEDS: RIFAXIMIN 550 MG TABLET PO SCH ×2 (09:00→20:24)
[2023-01-24] MEDS: FAMOTIDINE 20 MG TAB PO SCH ×2 (09:01→09:02)
[2023-01-24] MEDS: LIPASE 5,000/PROTEASE 17,000/AMYLASE 24,000 PO SCH ×3 (09:01→17:11)
[2023-01-24] MEDS: ASCORBIC ACID 500 MG TAB PO SCH (09:01)
[2023-01-24] MEDS: FERROUS SULFATE ORAL ELIXIR 300 MG/5 ML CUP PO SCH (09:01)
[2023-01-24] MEDS: LACTULOSE 20 GM/30 ML CUP PO SCH (09:02)
[2023-01-24] MEDS: ZINC SULFATE 220 MG CAP PO SCH (09:02)
[2023-01-24] MEDS: SPIRONOLACTONE 25 MG TAB PO SCH ×2 (09:02→20:24)
[2023-01-24] MEDS: MORPHINE SULFATE 4 MG/ML SYRINGE IV PRN (09:26)
[2023-01-24 11:16] LABS: Glucose,Whole Blood 147 mg/dL (70-110)
--- NOTE | 2023-01-24 11:53 | XR ---
EXAMINATION TYPE: XR chest 1V portable DATE OF EXAM: 01/24/2023 COMPARISON: 01/24/2023 HISTORY: confirm NG tube placement TECHNIQUE: Single frontal view of the chest is obtained. FINDINGS: There is an approximate 30% right pneumothorax increased in size. Diffuse interstitial pat tern seen. NG tube is seen with the tip in the level of the gastric body. Diffuse osteopenia. Arthrop athy of the shoulders and degenerative changes of the spine. IMPRESSION: 1. NG tube is seen with the tip at the level of the gastric body. Sidehole the catheter likely at the level the proximal gastric fundus. 2. Persistent interstitial pattern interstitial infiltrates correlate for atypical pneumonia. 3. Right-sided pneumothorax is increased in exam measuring approximately 30%
--- NOTE | 2023-01-24 12:22 | P.PN ---
Subjective Progress Note Date: 01/24/23 Principal diagnosis: Acute hypoxic respiratory failure secondary to right-sided pleural effusion 72-year-old male patient, liver cirrhosis, hepatitis C, alcoholism, diabetes mellitus, recently hospitalized for a large right-sided pleural effusion and shortness of breath, the brain and a total of 3 L of fluid was aspirated from the right lung. He was running a low-grade fever. He also had increased edema in his lower extremities. The patient was given Levaquin and his cultures were negative. He was ultimately discharged home to be readmitted again with worsening shortness of breath and hypoxic respiratory failure. Still having diarrhea about 3-4 episodes of bowel movement. No abdominal pain. No nausea or vomiting. He was on oxygen at 3 L and currently he is on high flow oxygen. In the emergency, he was found to have recurrent right-sided pleural effusion. Ba sed on his borderline respiratory status, the emergency physician performed a thoracentesis on him. He tested positive for Covid 19. His lactic acid level is at 2.7. His hemoglobin is at 12.4, white cell count is at 5.7, he does have chronic pancytopenia related to chronic liver disease. INR is at 1.4, sodium is 125, BUN is at 20 with a creatinine of 0.56. Lactic acid level was at 2.7 up to 2.4. Alkaline phosphatase 205, AST and ALP are normal, troponins are negative. He is cachectic, debilitated with a body mass index of 21.4. Patient was reevaluated today on 01/20/2023, remains on high flow FiO2, airvo at 15 L flow and 70% FiO2 on the patient remains a relatively short of breath, and seems to be quite anxious that scan is 3.8 hemoglobin is 10.9. Sodium is 127 bicarb is 18 BUN is 20 creatinine 0.48 blood sugar is 333 in spite of having 3 L of fluid removed yesterday from his right pleural space, patient continues to have some shortness of breath, chest x-ray is showing bilateral airspace disease, I'm suspecting interstitial edema, and there is also a right sided small apical pneumothorax noted related to his recent thoracentesis. Platelets remained low as 30,000 Patient was reevaluated today on 01/21/2023, patient is requiring more oxygen, his FiO2 is up to 90%, his flow is up to 60 L/m, and the patient remains marginal, hence after regarding the patient today on the floor, and recommended transferring the patient to the ICU. I have a strong feeling that the patient may end up requiring intubation and mechanical ventilation in the meantime I will try the patient on Lasix drip especially with a chest x-ray showing significant pulmonary edema. His previous right sided pneumothorax has resolved his right-sided pleural effusion has become much worse and he has increased opacities consistent with pulmonary edema. ABG showed a pO2 of 61 pCO2 38 pH of 7.36 WBC count is 4.9 hemoglobin 11.8 electrolytes are normal bicarb is normal BUN is 24 creatinine 0.51 Patient was reevaluated today on 01/22/2023, remains in the ICU, I transferred the patient yesterday because of worsening pulmonary status recommended Lasix drip at 10 mg per hour, and the patient remains on Lasix drip. Patient was transitioned from airvo to BiPAP 12/6/100%, O2 saturation is in the high 90s. Some clinical improvement, nonetheless his chest x-ray continues to show bilateral pulmonary edema with right-sided pleural effusion and his urine output is over 200 mL an hour. I am recommending that he continue diuretics before I would consider thoracentesis on this patient. Although thoracentesis may be necessary if no improvement in the next 24 hours. Chest x-ray today continues to show bilateral pleural parenchymal changes with large pleural effusion on the right side, I believe were dealing mostly with pneumonia and pulmonary edema. WBC count is 3.7 hemoglobin is 12.9 electrolytes are normal however his sodium is 129 not much different from yesterday sodium. Renal profile remains abnormal Reevaluated today on 01/23/2023, patient is doing poorly, remains in the ICU, he is marginal at best, remains on BiPAP 12/6, 80% FiO2, and his O2 saturation is in the high 80s and low 90s. Patient developed hypotension last night and he required placement on norepinephrine at 0.05 mcg/kg/m. Lasix is presently on hold, chest x-ray is showing worsening pulmonary edema hence I recommended immediate right-sided thoracentesis, and I was able to drain over 2 L of straw- colored fluid from the right pleural space, with dramatic improvement in his O2 saturation post-thoracentesis although there was evidence of 20% right-sided pneumothorax/trapped lung noted post procedure and the same thing was noted on his previous thoracentesis few days ago. The fluid was sent for different geoff gnostic studies. Patient was placed back on BiPAP, O2 saturations was noted to be about 100% and will titrate his FiO2 down follow-up chest x-ray after right thoracentesis 2 hours after his initial x-ray, showed no major change in the size of the right-sided pneumothorax, hence I will hold on placement of the chest tube at this point I still believe were dealing mostly with a trapped lung. Labs today showed W Jeremy 3.7 hemoglobin is 12.5 *Normal renal profile is normal with BUN is 50 creatinine 0.88 Reevaluated today on 01/24/2023, patient seems to be doing better today, he is on airvo at 70% FiO2 at 60 L flow, O2 saturations in the mid 90s, patient seems to be more comfortable less short of breath, he is still on norepinephrine at 0.071 g/kg/m IV fluids at KVO patient remains on Zosyn for presumptive underlying bacterial pneumonia patient does have COVID-19 infection and possibly COVID-19 pneumonia. Patient looks extremely frail, chronically ill, cachectic, and his overall prognosis remains extremely poor. Chest x-ray was repeated today this morning after a tube placement last nasogastric tube showed slight increase in the size of the pneumothorax hence may consider placement of a thoravent. is 16.4 hemoglobin is 14.4 BUN is 67 creatinine 0.83 patient had an elevated potas sium of 6.1 but the blood was hemolyzed Objective - Vital Signs Vital signs: Vital Signs Temp 98 F 01/24/23 12:00 Pulse 67 01/24/23 12:00 Resp 16 01/24/23 12:00 BP 90/50 01/24/23 12:00 Pulse Ox 93 L 01/24/23 12:00 FiO2 70 01/24/23 12:00 Intake & Output 01/23/23 01/24/23 01/24/23 18:59 06:59 18:59 Intake Total 348.726 419.872 153.902 Output Total 2680 650 265 Balance -2331.274 -230.128 -111.098 Weight 55.7 kg 55.7 kg Intake: IV 250 330 50 Piperacillin-Tazobactam 3 100 200 .375 gm In Sodium Chloride 0.9% 100 ml @ 25 mls/hr IVPB Q8H JORDAN Rx#: [id number] Sodium Chloride 0.9% 1, 150 130 50 000 ml @ 20 mls/hr IV . Q24H JORDAN Rx#:[id number] Intake, IV Titration 98.726 89.872 93.902 Amount Furosemide 100 mg In 28.5 Sodium Chloride 0.9% 90 ml @ 10 MG/HR 10 mls/hr IV .Q10H JORDAN Rx#: [id number] Norepinephrine 4 mg In 70.226 89.872 93.902 Sodium Chloride 0.9% 250 ml @ 0.03 MCG/KG/MIN 6. 549 mls/hr IV .Q24H JORDAN Rx#:[id number] Tube Feeding 10 Output: Drainage 1999 Right Chest 1999 Urine 680 650 265 Other: Voiding Method Indwelling Catheter Indwelling Catheter Indwelling Catheter - Exam Physical Exam: Revealed a 72-year-old white male, looks frail, chronically ill, less anxious today, airflow at 70% and 60 L Head: Atraumatic, normocephalic. HEENT:[Neck is supple.] [No neck masses.] [No thyromegaly.] [No JVD.] Chest: Crackles at the bases persists. Cardiac Exam: [Normal S1 and S2, no S3 gallop, no murmur.] Abdomen: [Soft, nontender, no megaly, no rebound, no guarding, normal bowel sounds.] Mild ascites is suspected. Extremities: [No clubbing, 1 + bipedal edema, no cyanosis.] Neurological Exam: [No focal neurologic deficit.] Alert oriented 3 Psychiatric: Anxious mood, as, normal affect. Skin: No rashes - Labs CBC & Chem 7: 01/24/23 05:56 01/24/23 05:56 Labs: Abnormal Lab Results - Last 24 Hours (Table) 01/23/23 01/23/23 01/23/23 Range/Units 12:40 16:35 17:58 WBC (3.8-10.6) k/uL RBC (4.30-5.90) m/uL MCV (80.0-100.0) fL Plt Count (150-450) k/uL Haptoglobin (31.2-198.0) mg/dL PT 16.9 H (9.0-12.0) sec INR 1.7 H (<1.2) Fibrinogen 166 L (200-500) mg/dL Potassium (3.5-5.1) mmol/L Chloride (98-107) mmol/L BUN (9-20) mg/dL Glucose (74-99) mg/dL POC Glucose (mg/dL) 177 H 193 H (70-110) mg/dL Calcium (8.4-10.2) mg/dL Total Bilirubin (0.2-1.3) mg/dL AST (17-59) U/L Alkaline Phosphatase (38-126) U/L Total Protein (6.3-8.2) g/dL Albumin (3.5-5.0) g/dL 01/23/23 01/24/23 01/24/23 Range/Units 20:19 05:56 05:56 WBC 16.4 H (3.8-10.6) k/uL RBC 4.13 L (4.30-5.90) m/uL MCV 105.3 H (80.0-100.0) fL Plt Count 50 L D (150-450) k/uL Haptoglobin <10.0 L (31.2-198.0) mg/dL PT (9.0-12.0) sec INR (<1.2) Fibrinogen (200-500) mg/dL Potassium (3.5-5.1) mmol/L Chloride (98-107) mmol/L BUN (9-20) mg/dL Glucose (74-99) mg/dL POC Glucose (mg/dL) 202 H (70-110) mg/dL Calcium (8.4-10.2) mg/dL Total Bilirubin (0.2-1.3) mg/dL AST (17-59) U/L Alkaline Phosphatase (38-126) U/L Total Protein (6.3-8.2) g/dL Albumin (3.5-5.0) g/dL 01/24/23 01/24/23 01/24/23 Range/Units 05:56 06:56 11:15 WBC (3.8-10.6) k/uL RBC (4.30-5.90) m/uL MCV (80.0-100.0) fL Plt Count (150-450) k/uL Haptoglobin (31.2-198.0) mg/dL PT (9.0-12.0) sec INR (<1.2) Fibrinogen (200-500) mg/dL Potassium 6.1 H* (3.5-5.1) mmol/L Chloride 110 H (98-107) mmol/L BUN 67 H (9-20) mg/dL Glucose 204 H (74-99) mg/dL POC Glucose (mg/dL) 223 H 147 H (70-110) mg/dL Calcium 8.1 L (8.4-10.2) mg/dL Total Bilirubin 4.2 H (0.2-1.3) mg/dL AST 85 H (17-59) U/L Alkaline Phosphatase 133 H (38-126) U/L Total Protein 5.7 L (6.3-8.2) g/dL Albumin 2.3 L (3.5-5.0) g/dL Assessment and Plan Assessment: Impression: Acute hypoxic respiratory failure, worsening bilateral pulmonary edema and pleural effusions Recurrent right-sided pleural effusion secondary to chronic liver disease COVID-19 infection, incidental finding, no clear-cut symptoms of COVID-19 infection underlying bacterial pneumonia is not entirely ruled out, felt to be less likely at this point. Thrombocytopenia secondary to chronic liver disease Chronic anemia Diarrhea most likely secondary to COVID-19 infection Hypoalbuminemia History of liver cirrhosis and ascites History of hepatitis C History of alcoholism Type 2 diabetes Recent history of laparoscopic hernia repair Chronic hyponatremia/hypervolemic hyponatremia secondary to liver disease Right-sided pneumothorax/trapped lung, postthoracentesis, may consider thoravent placement, especially after reviewing the follow-up chest x-ray this morning after nasogastric tube placement the pneumothorax seems to be a bit larger, up to 30% Status post repeat thoracentesis on 01/23/2023 Hypovolemic hypotension, patient is obviously intravascularly depleted with significant response to Lasix for the last 24 hours nonetheless because of his hypotension Lasix is now on hold, the patient is requiring norepinephrine. Recommendation: Continue hemodynamic support, continue norepinephrine We'll continue to hold diuretics for now Results from pleural effusion are pending Continue to monitor in the ICU Titrate FiO2 accordingly remains on Arava Will consider chest tube placement/thoravent Continue Aldactone Continue empiric antibiotics/Zosyn Continue Decadron and Xifaxan Patient remains critically ill and has very poor prognosis Will discuss with family CODE STATUS again and possibly comfort care on to see the patient has multiple comorbidities and prognosis is poor Critical care time is over 30 minutes not including the time for procedure We continue to follow in the ICU. Time with Patient: Greater than 30
[2023-01-24] MEDS: INSULIN DETEMIR (LEVEMIR) 100 UNIT/ML SYR SQ SCH (13:19)
--- NOTE | 2023-01-24 13:31 | P.PN ---
Subjective Progress Note Date: 01/24/23 This is a pleasant 72 years old male with past medical history ofAsthma, Diabetes Mellitus, GERD/Reflux,Osteoarthritis , cirrhosis of the liver, hepatitis C possibly from blood transfusion as a child, palpable mass right parotid ,left leg arthritis with occasional edema to lower leg Patient was recently discharged from this -01/15, he underwent thoracocentesis was 2.5 fluid removed oriented and thereafter patient was discharged on Levaquin Patient presents because of dyspnea slightly getting worse since been discharged from the hospital. No much coughing., Chest pain. His other complaint is diarrhea also started after discharge. He had 3-4 bouts of bowel movement yesterday. No abdominal pain or vomiting. He has somewhat low appetite. He is in the 3 L oxygen at home. He denies alcohol or smoking or illicit drugs. No headache weakness or numbness or confusion. He's on 3 L oxygen at home Patient states yesterday they tapped his lung and 3 L were taken out from his right side. No On admission he was saturating 94% on 6 L oxygen via nasal cannula, currently his oxygen requirement went up to 12 L permanent via high flow cannula. CBC showed mild anemia but significant thrombocytopenia at 33, which looks similar to 4 days ago where it was 36 on 01/14/2023. Before that baseline platelet count was 50-80k INR is 1.64. Lactic acid 2.7 Troponin is negative Sodium is 125, glucose elevated morning at 300 on admission. Liver enzymes AST/ALT are within the reference range. Bilirubin slightly up 1.6. ProBNP is low at 197 Chest x-ray showing almost complete opacification of the right lung with some bilateral infiltrates 01/20. Patient seen and examined. Patient is currently on airvo at 15 L flow and 70% FiO2. Gets short of breath on minimal exertion 01/21. Patient seen and examined. Continues to be on airvo heated high flow at 60 L and FiO2 of 90%. Hemoglobin 11.8, platelet count 35, BUN 24, creatinine 0.51. Gets short of breath on minimum exertion. 01/22. Patient seen and examined . Currently on BiPAP, FiO2 100%. Patient is lethargic, get short of breath on conversing. Currently on Lasix drip and IV Zosyn 01/23. Patient seen and examined. Currently in ICU. WBC 3.7, hemoglobin 12.5, sodium 134, potassium 3.8, BUN 50, creatinine 0.88. Platelet count is 21,000 Patient continues to be on BiPAP with an FiO2 of 80%. Patient very lethargic. Unable to maintain conversation 01/24. Patient seen and examined. Currently on airvo at 70% FiO2 at 60 L flow. Repeat chest x-ray still showing pneumothorax REVIEW OF SYSTEMS: Denies any chest pain. Denies any nausea or vomiting. Denies any lightheadedness or dizziness PHYSICAL EXAMINATION: GENERAL: The patient is alert , chronically sick-looking HEENT: Pupils are round and equally reacting to light. EOMI. No scleral icterus. No conjunctival pallor. Normocephalic, atraumatic. No pharyngeal erythema. No thyromegaly. CARDIOVASCULAR: S1 and S2 present. No murmurs, rubs, or gallops. PULMONARY: Tachypneic, coarse breath sounds bilaterally, no wheeze ABDOMEN: Soft, nontender, nondistended, normoactive bowel sounds. No palpable organomegaly. MUSCULOSKELETAL: No joint swelling or deformity. EXTREMITIES: No cyanosis, clubbing, or pedal edema. NEUROLOGICAL: Gross neurological examination did not reveal any focal deficits. SKIN: No rashes. Assessment and plan Acute respiratory failure Bilateral consolidation suspicious for bilateral covid pneumonia. Rule out bacterial pneumonia Right pleural effusion status post thoracocentesis on 01/18 with tapping 3 L out Apical pneumothorax right side Hypervolemic hyponatremia Severe calorie protein malnutrition Slightly worsening thrombocytopenia in view of patient liver disease Liver cirrhosis History of hep C Thrombocytopenia Diabetes mellitus, with hyperglycemia History of GERD History of osteoarthritis Monitor vital signs Monitor CBC Monitor CMP Continue telemetry monitoring Aggressive bronchopulmonary hygiene Continue BiPAP Continue breathing treatments Continue Lasix drip Continue IV Zosyn Continue Decadron Continue rifaximin Critical care following, considering chest tube/Thoravent placement ID following Labs and medication were reviewed.. Continue same treatment. Continue with symptomatic treatment. Resume home medication. Monitor labs and vitals. DVT and GI prophylaxis. Further recommendations as per clinical course of the pat ient Dictation was produced using [employer] dictation software. please excuse any grammatical, word or spelling errors. Objective - Vital Signs Vital signs: Vital Signs Temp 98 F 01/24/23 12:00 Pulse 67 01/24/23 12:00 Resp 16 01/24/23 12:00 BP 90/50 01/24/23 12:00 Pulse Ox 93 L 01/24/23 12:00 FiO2 70 01/24/23 12:00 Intake & Output 01/23/23 01/24/23 01/24/23 18:59 06:59 18:59 Intake Total 348.726 419.872 153.902 Output Total 2680 650 265 Balance -2331.274 -230.128 -111.098 Weight 55.7 kg 55.7 kg Intake: IV 250 330 50 Piperacillin-Tazobactam 3 100 200 .375 gm In Sodium Chloride 0.9% 100 ml @ 25 mls/hr IVPB Q8H JORDAN Rx#: [id number] Sodium Chloride 0.9% 1, 150 130 50 000 ml @ 20 mls/hr IV . Q24H JORDAN Rx#:[id number] Intake, IV Titration 98.726 89.872 93.902 Amount Furosemide 100 mg In 28.5 Sodium Chloride 0.9% 90 ml @ 10 MG/HR 10 mls/hr IV .Q10H JORDAN Rx#: [id number] Norepinephrine 4 mg In 70.226 89.872 93.902 Sodium Chloride 0.9% 250 ml @ 0.03 MCG/KG/MIN 6. 549 mls/hr IV .Q24H JORDAN Rx#:[id number] Tube Feeding 10 Output: Drainage 1999 Right Chest 1999 Urine 680 650 265 Other: Voiding Method Indwelling Catheter Indwelling Catheter Indwelling Catheter - Labs CBC & Chem 7: 01/24/23 05:56 01/24/23 05:56 Labs: Abnormal Lab Results - Last 24 Hours (Table) 01/23/23 01/23/23 01/23/23 Range/Units 16:35 17:58 20:19 WBC (3.8-10.6) k/uL RBC (4.30-5.90) m/uL MCV (80.0-100.0) fL Plt Count (150-450) k/uL Haptoglobin (31.2-198.0) mg/dL PT 16.9 H (9.0-12.0) sec INR 1.7 H (<1.2) Fibrinogen 166 L (200-500) mg/dL Potassium (3.5-5.1) mmol/L Chloride (98-107) mmol/L BUN (9-20) mg/dL Glucose (74-99) mg/dL POC Glucose (mg/dL) 193 H 202 H (70-110) mg/dL Calcium (8.4-10.2) mg/dL Total Bilirubin (0.2-1.3) mg/dL AST (17-59) U/L Alkaline Phosphatase (38-126) U/L Total Protein (6.3-8.2) g/dL Albumin (3.5-5.0) g/dL 01/24/23 01/24/23 01/24/23 Range/Units 05:56 05:56 05:56 WBC 16.4 H (3.8-10.6) k/uL RBC 4.13 L (4.30-5.90) m/uL MCV 105.3 H (80.0-100.0) fL Plt Count 50 L D (150-450) k/uL Haptoglobin <10.0 L (31.2-198.0) mg/dL PT (9.0-12.0) sec INR (<1.2) Fibrinogen (200-500) mg/dL Potassium 6.1 H* (3.5-5.1) mmol/L Chloride 110 H (98-107) mmol/L BUN 67 H (9-20) mg/dL Glucose 204 H (74-99) mg/dL POC Glucose (mg/dL) (70-110) mg/dL Calcium 8.1 L (8.4-10.2) mg/dL Total Bilirubin 4.2 H (0.2-1.3) mg/dL AST 85 H (17-59) U/L Alkaline Phosphatase 133 H (38-126) U/L Total Protein 5.7 L (6.3-8.2) g/dL Albumin 2.3 L (3.5-5.0) g/dL 01/24/23 01/24/23 Range/Units 06:56 11:15 WBC (3.8-10.6) k/uL RBC (4.30-5.90) m/uL MCV (80.0-100.0) fL Plt Count (150-450) k/uL Haptoglobin (31.2-198.0) mg/dL PT (9.0-12.0) sec INR (<1.2) Fibrinogen (200-500) mg/dL Potassium (3.5-5.1) mmol/L Chloride (98-107) mmol/L BUN (9-20) mg/dL Glucose (74-99) mg/dL POC Glucose (mg/dL) 223 H 147 H (70-110) mg/dL Calcium (8.4-10.2) mg/dL Total Bilirubin (0.2-1.3) mg/dL AST (17-59) U/L Alkaline Phosphatase (38-126) U/L Total Protein (6.3-8.2) g/dL Albumin (3.5-5.0) g/dL
--- NOTE | 2023-01-24 14:03 | XR ---
EXAMINATION TYPE: XR chest 1V DATE OF EXAM: 01/24/2023 1:51 PM COMPARISON: Chest radiographs from 01/24/2023 TECHNIQUE: XR chest 1V Frontal view of the chest. CLINICAL INDICATION:Male, 72 years old with history of rt chest tube/thoravent placement; FINDINGS: Lungs/Pleura: Decreased small right pneumothorax. No pleural effusion. Similar patchy perihilar opaci ties. Pulmonary vascularity: Unremarkable. Heart/mediastinum: Cardiomediastinal silhouette is stable. Musculoskeletal: No acute osseous pathology. Other findings: None Lines/Tubes: NG tube courses below the diaphragm in appropriate position. Interval placement of thoravent. IMPRESSION: 1. Decreased now 15% right pneumothorax status post thoravent placement. 2. Persistent perihilar interstitial opacities. Correlate for atypical pneumonia.
[2023-01-24 14:11] LABS: Iron 108 UG/DL (65-175); Total Iron Binding Capacity 123 UG/DL (228-460)
--- NOTE | 2023-01-24 15:48 | P.PN ---
Subjective Progress Note Date: 01/24/23 Principal diagnosis: Thrombocytopenia Patient remains on high flow oxygen, tired. No bleeding reported Objective - Vital Signs Vital signs: Vital Signs Temp 98 F 01/24/23 12:00 Pulse 71 01/24/23 14:00 Resp 3 L 01/24/23 14:00 BP 113/47 01/24/23 14:00 Pulse Ox 97 01/24/23 14:00 FiO2 70 01/24/23 13:28 Intake & Output 01/23/23 01/24/23 01/24/23 18:59 06:59 18:59 Intake Total 348.726 419.872 183.902 Output Total 2680 650 365 Balance -2331.274 -230.128 -181.098 Weight 55.7 kg 55.7 kg Intake: IV 250 330 80 Piperacillin-Tazobactam 3 100 200 .375 gm In Sodium Chloride 0.9% 100 ml @ 25 mls/hr IVPB Q8H JORDAN Rx#: [id number] Sodium Chloride 0.9% 1, 150 130 80 000 ml @ 20 mls/hr IV . Q24H JORDAN Rx#:[id number] Intake, IV Titration 98.726 89.872 93.902 Amount Furosemide 100 mg In 28.5 Sodium Chloride 0.9% 90 ml @ 10 MG/HR 10 mls/hr IV .Q10H JORDAN Rx#: [id number] Norepinephrine 4 mg In 70.226 89.872 93.902 Sodium Chloride 0.9% 250 ml @ 0.03 MCG/KG/MIN 6. 549 mls/hr IV .Q24H JORDAN Rx#:[id number] Tube Feeding 10 Output: Drainage 2000 Right Chest 1999 Urine 680 650 365 Other: Voiding Method Indwelling Catheter Indwelling Catheter Indwelling Catheter - Constitutional General appearance: Present: no acute distress, thin - Peripheral edema leg Peripheral Edema: bilateral: None - Genitourinary Genitourinary Comment(s): Yellow urine seen and garcia collection device - Labs CBC & Chem 7: 01/24/23 05:56 01/24/23 05:56 Labs: Abnormal Lab Results - Last 24 Hours (Table) 01/23/23 01/23/23 01/23/23 Range/Units 16:35 17:58 17:58 WBC (3.8-10.6) k/uL RBC (4.30-5.90) m/uL MCV (80.0-100.0) fL Plt Count (150-450) k/uL Haptoglobin (31.2-198.0) mg/dL PT 16.9 H (9.0-12.0) sec INR 1.7 H (<1.2) Fibrinogen 166 L (200-500) mg/dL Potassium (3.5-5.1) mmol/L Chloride (98-107) mmol/L BUN (9-20) mg/dL Glucose (74-99) mg/dL POC Glucose (mg/dL) 193 H (70-110) mg/dL Calcium (8.4-10.2) mg/dL TIBC 123 L (228-460) UG/DL % Saturation 87.80 H (15.00-50.00) Transferrin 87.7 L (204.0-354.0) mg/dL Total Bilirubin (0.2-1.3) mg/dL AST (17-59) U/L Alkaline Phosphatase (38-126) U/L Total Protein (6.3-8.2) g/dL Albumin (3.5-5.0) g/dL 01/23/23 01/24/23 01/24/23 Range/Units 20:19 05:56 05:56 WBC 16.4 H (3.8-10.6) k/uL RBC 4.13 L (4.30-5.90) m/uL MCV 105.3 H (80.0-100.0) fL Plt Count 50 L D (150-450) k/uL Haptoglobin <10.0 L (31.2-198.0) mg/dL PT (9.0-12.0) sec INR (<1.2) Fibrinogen (200-500) mg/dL Potassium (3.5-5.1) mmol/L Chloride (98-107) mmol/L BUN (9-20) mg/dL Glucose (74-99) mg/dL POC Glucose (mg/dL) 202 H (70-110) mg/dL Calcium (8.4-10.2) mg/dL TIBC (228-460) UG/DL % Saturation (15.00-50.00) Transferrin (204.0-354.0) mg/dL Total Bilirubin (0.2-1.3) mg/dL AST (17-59) U/L Alkaline Phosphatase (38-126) U/L Total Protein (6.3-8.2) g/dL Albumin (3.5-5.0) g/dL 01/24/23 01/24/23 01/24/23 Range/Units 05:56 06:56 11:15 WBC (3.8-10.6) k/uL RBC (4.30-5.90) m/uL MCV (80.0-100.0) fL Plt Count (150-450) k/uL Haptoglobin (31.2-198.0) mg/dL PT (9.0-12.0) sec INR (<1.2) Fibrinogen (200-500) mg/dL Potassium 6.1 H* (3.5-5.1) mmol/L Chloride 110 H (98-107) mmol/L BUN 67 H (9-20) mg/dL Glucose 204 H (74-99) mg/dL POC Glucose (mg/dL) 223 H 147 H (70-110) mg/dL Calcium 8.1 L (8.4-10.2) mg/dL TIBC (228-460) UG/DL % Saturation (15.00-50.00) Transferrin (204.0-354.0) mg/dL Total Bilirubin 4.2 H (0.2-1.3) mg/dL AST 85 H (17-59) U/L Alkaline Phosphatase 133 H (38-126) U/L Total Protein 5.7 L (6.3-8.2) g/dL Albumin 2.3 L (3.5-5.0) g/dL - Imaging and Cardiology Chest x-ray: report reviewed Assessment and Plan (1) Pancytopenia Current Visit: Yes Status: Acute Priority: High Code(s): D61.818 - OTHER PANCYTOPENIA SNOMED Code(s): 301749350 Plan: Pancytopenia -Hgb normal today and WBC elevated today. No acute intervention. -Thrombocytopenia. Noted in chart since 2017, baseline in 60-80K range. Plt 50K today. -Pt has PMH cirrhosis that can contribute to splenic sequestration and destruction of plt. With chronic liver disease there possible decreased production of thrombopoetin. Chronic condition exacerbated by covid infection. With treatment of covid infection and administration of steroids pt counts are stable. -Work up for thrombocytopenia in process -Interestingly patient's bilirubin is elevated, haptoglobin is less than 10 but hemoglobin is normal. Subclinical hemolysis? Literature search did reveal study about low haptoglobin in Covid patients. Will monitor Hgb and haptoglobin. -Platelets improved to 50,000 today, INR 1.7 and fibrinogen 166. Subclinical DIC. No acute intervention. Continue to monitor platelets. Continue to monitor coags. Continue to monitor fibrinogen. Administer cryoprecipitate for a fibrinogen less than 100. -No anticoagulation, asa, NSAIDs for plt <50k. Use SCDs for now Doctor attests: I performed a history and physical examination of this patient, developed impression and plan of care. Discussed with dictator. I agree with dictators note, documented as a scribe.
[2023-01-24 16:17] LABS: Glucose,Whole Blood 191 mg/dL (70-110)
[2023-01-24 16:44] LABS: Vitamin B12 >3600.0 pg/mL (200.0-944.0)
[2023-01-24 18:08] LABS: HIV 2 AB Non-Reactive (Non-Reactive); HIV AB P24 Non-Reactive (Non-Reactive); HIV P24 AG Non-Reactive (Non-Reactive)
[2023-01-24 18:42] LABS: Hepatitis C IgG Antibody Reactive (Non-Reactive)
[2023-01-24 18:46] LABS: Hepatitis A Antibody IgM Nonreactive; Hepatitis B Core IgM Nonreactive; Hepatitis B Surface Antigen Nonreactive
--- NOTE | 2023-01-24 19:06 | XR ---
EXAMINATION TYPE: XR chest 1V portable DATE OF EXAM: 01/24/2023 6:54 PM COMPARISON: Chest radiographs from TECHNIQUE: XR chest 1V portable Frontal view of the chest. CLINICAL INDICATION:Male, 72 years old with history of new onset hypoxia; FINDINGS: Lungs/Pleura: Right-sided pneumothorax has increased in size. Interstitial edema within the bilateral lungs, left greater than right. No focal consolidation. Small right pleural effusion suggested. Pulmonary vascularity: Pulmonary vascular congestion. Heart/mediastinum: Cardiomediastinal silhouette is unremarkable. Musculoskeletal: No acute osseous pathology. Other findings: None Lines/Tubes: Nasogastric tube with its distal tip and side-port projecting under the diaphragm. Right thoracotomy tube is present with increasing right pneumothorax. IMPRESSION: 1. Mildly increased right pneumothorax size compared to prior with visceral pleural line seen in the medial aspect of the right lung. 2. Pulmonary vascular congestion correlate with serum BNP. 3. Small right pleural effusion.
--- NOTE | 2023-01-24 20:37 | OP ---
OPERATIVE REPORT DATE OF SERVICE : PROCEDURE PERFORMED: Placement of a right-sided chest tube/Thora-Vent. PREOPERATIVE DIAGNOSIS: Right-sided pneumothorax/trapped lung. POSTOPERATIVE DIAGNOSIS: Right-sided pneumothorax/trapped lung. ANESTHESIA USED: 4 mL of 1% lidocaine. DESCRIPTION OF PROCEDURE: The patient was placed in the sitting upright position, the area at the level of the 3rd intercostal space and midclavicular line was prepared in a sterile fashion, drapes were applied. Then the area was locally anesthetized with lidocaine. A small tiny stab incision was made at the same site, then using an 11-Japanese Thora-Vent with trocar, the trocar and the catheter were advanced at the same site just above the third intercostal space into the area of the pleural space and as the space was entered, the catheter was advanced over the trocar, and the trocar was pulled out of the pleural space. The Thora-Vent was secured by tape over the anterior chest wall, and connected to a Pleur-Evac. There was evidence of air leak, the procedure was well tolerated, no complications, chest x-ray showed adequate placement of the tube and significant improvement in the right-sided pneumothorax. MMODL / IJN: [id number] /
[2023-01-24 22:31] LABS: Glucose, BF Source Pleural Fluid; Glucose, Body Fluid 233 mg/dL; LDH, Body Fluid Source Pleural Fluid; T. Protein, Body Fluid Source Pleural Fluid; Total Protein, Body Fluid 647 mg/dL
[2023-01-24 23:41] LABS: Appearance,BF Hazy (Clear)
[2023-01-24 23:49] LABS: Glucose,Whole Blood 187 mg/dL (70-110)
[2023-01-25] MEDS: INSULIN ASPART (NovoLOG) 100 UNIT/ML VIAL SQ SCH ×4 (00:20→18:10)
[2023-01-25] MEDS: SODIUM CHLORIDE 0.9% 1,000 ML IV SCH (00:21)
[2023-01-25] MEDS: MORPHINE SULFATE 4 MG/ML SYRINGE IV PRN ×2 (03:42→11:52)
[2023-01-25] MEDS: ALBUTEROL HFA INHALER INHALATION SCH ×6 (04:04→23:17)
[2023-01-25] MEDS: PIPERACILLIN-TAZOBACTAM 3.375 GM in SODIUM CHLORIDE 0.9% 100 ML IVPB SCH ×3 (05:01→20:03)
[2023-01-25 06:33] LABS: HCT 38.9 % (39.0-53.0); HGB 12.8 gm/dL (13.0-17.5); MCH 34.4 pg (25.0-35.0); MCHC 32.9 g/dL (31.0-37.0); MCV 104.5 fL (80.0-100.0); Macrocytosis Moderate; Mean Platelet Volume 7.6; RBC 3.72 m/uL (4.30-5.90); RDW 15.7 % (11.5-15.5); WBC 14.1 k/uL (3.8-10.6)
[2023-01-25 06:37] LABS: Platelet Count 26 k/uL (150-450)
[2023-01-25 06:48] LABS: Partial Thromboplastin Time 26.5 sec (22.0-30.0); Prothrombin Time 19.4 sec (9.0-12.0)
[2023-01-25 06:51] LABS: ALT 28 U/L (4-49); AST 64 U/L (17-59); African American GFR (CKD) >90 (>60 ml/min/1.73 sqM); Albumin 1.9 g/dL (3.5-5.0); Alkaline Phosphatase 165 U/L (38-126); Anion Gap 5 mmol/L; Blood Urea Nitrogen 68 mg/dL (9-20); Calcium 8.4 mg/dL (8.4-10.2); Carbon Dioxide 27 mmol/L (22-30); Chloride 111 mmol/L (98-107); Glucose 153 mg/dL (74-99); Non-African American GFR(CKD) 88 (>60 ml/min/1.73 sqM); Potassium 3.7 mmol/L (3.5-5.1); Sodium 143 mmol/L (137-145); Total Bilirubin 3.2 mg/dL (0.2-1.3)
[2023-01-25 07:07] LABS: Glucose,Whole Blood 154 mg/dL (70-110)
[2023-01-25] MEDS: INSULIN DETEMIR (LEVEMIR) 100 UNIT/ML SYR SQ SCH (07:20)
[2023-01-25] MEDS: FUROSEMIDE 100 MG in SODIUM CHLORIDE 0.9% 90 ML IV SCH ×2 (07:21→12:50)
[2023-01-25] MEDS: LIPASE 5,000/PROTEASE 17,000/AMYLASE 24,000 PO SCH ×3 (07:21→15:58)
--- NOTE | 2023-01-25 07:34 | XR ---
EXAMINATION TYPE: XR chest 1V portable DATE OF EXAM: 01/25/2023 5:49 AM COMPARISON: Chest radiographs from 01/24/2023 TECHNIQUE: XR chest 1V portable Portable AP radiograph of the chest. CLINICAL INDICATION:Male, 72 years old with history of ptx, pleural effusions; FINDINGS: Lungs/Pleura: Increased right pneumothorax. Small right pleural effusion. Similar patchy perihilar op acities. Pulmonary vascularity: Unremarkable. Heart/mediastinum: Cardiomediastinal silhouette is stable in size. Minimally shifted to the left. Musculoskeletal: No acute osseous pathology. Other findings: None Lines/Tubes: Thoravent remains in place. Interval removal of NG tube. IMPRESSION: 1. Increased moderate sized right pneumothorax with thoravent in place. 2. Persistent perihilar interstitial opacities. Correlate for atypical pneumonia versus pulmonary ed yordy. 3. Small right pleural effusion.
[2023-01-25] MEDS: POTASSIUM CHLORIDE 10 MEQ in WATER FOR INJECTION 1 100ML.BAG IVPB SCH ×2 (07:56→08:00)
[2023-01-25] MEDS: DEXAMETHASONE SOD PHOSPHATE 10 MG/ML 1 ML VIAL IVP SCH (07:56)
[2023-01-25] MEDS: ZINC SULFATE 220 MG CAP PO SCH (08:12)
[2023-01-25] MEDS: FAMOTIDINE 20 MG TAB PO SCH ×2 (08:12→20:02)
[2023-01-25] MEDS: LACTULOSE 20 GM/30 ML CUP PO SCH (08:12)
[2023-01-25] MEDS: CHOLECALCIFEROL 25 MCG (1000 IU) TABLET PO SCH (08:12)
[2023-01-25] MEDS: ASCORBIC ACID 500 MG TAB PO SCH (08:12)
--- NOTE | 2023-01-25 09:20 | XR ---
EXAMINATION TYPE: XR chest 1V portable DATE OF EXAM: 01/25/2023 9:09 AM COMPARISON: Chest radiographs from earlier today TECHNIQUE: XR chest 1V portable Portable AP radiograph of the chest. CLINICAL INDICATION:Male, 72 years old with history of Pneumothorax; FINDINGS: Lungs/Pleura: Slightly decreased right pneumothorax. No sizable pleural effusion.Improved right lung airspace opacities. Similar left lung interstitial opacities. Pulmonary vascularity: Unremarkable. Heart/mediastinum: Cardiomediastinal silhouette is stable in size. No shift. Musculoskeletal: No acute osseous pathology. Other findings: Subcutaneous emphysema identified within the right upper chest wall. Lines/Tubes: Thoravent remains in place. IMPRESSION: 1. Slightly decreased right pneumothorax with thoravent in place. 2. Improved right lung airspace opacities with continued left lung interstitial opacities.
--- NOTE | 2023-01-25 11:03 | P.PN ---
Subjective Progress Note Date: 01/25/23 Principal diagnosis: Acute hypoxic respiratory failure secondary to right-sided pleural effusion 72-year-old male patient, liver cirrhosis, hepatitis C, alcoholism, diabetes mellitus, recently hospitalized for a large right-sided pleural effusion and shortness of breath, the brain and a total of 3 L of fluid was aspirated from the right lung. He was running a low-grade fever. He also had increased edema in his lower extremities. The patient was given Levaquin and his cultures were negative. He was ultimately discharged home to be readmitted again with worsening shortness of breath and hypoxic respiratory failure. Still having diarrhea about 3-4 episodes of bowel movement. No abdominal pain. No nausea or vomiting. He was on oxygen at 3 L and currently he is on high flow oxygen. In the emergency, he was found to have recurrent right-sided pleural effusion. Ba sed on his borderline respiratory status, the emergency physician performed a thoracentesis on him. He tested positive for Covid 19. His lactic acid level is at 2.7. His hemoglobin is at 12.4, white cell count is at 5.7, he does have chronic pancytopenia related to chronic liver disease. INR is at 1.4, sodium is 125, BUN is at 20 with a creatinine of 0.56. Lactic acid level was at 2.7 up to 2.4. Alkaline phosphatase 205, AST and ALP are normal, troponins are negative. He is cachectic, debilitated with a body mass index of 21.4. Patient was reevaluated today on 01/20/2023, remains on high flow FiO2, airvo at 15 L flow and 70% FiO2 on the patient remains a relatively short of breath, and seems to be quite anxious that scan is 3.8 hemoglobin is 10.9. Sodium is 127 bicarb is 18 BUN is 20 creatinine 0.48 blood sugar is 333 in spite of having 3 L of fluid removed yesterday from his right pleural space, patient continues to have some shortness of breath, chest x-ray is showing bilateral airspace disease, I'm suspecting interstitial edema, and there is also a right sided small apical pneumothorax noted related to his recent thoracentesis. Platelets remained low as 30,000 Patient was reevaluated today on 01/21/2023, patient is requiring more oxygen, his FiO2 is up to 90%, his flow is up to 60 L/m, and the patient remains marginal, hence after regarding the patient today on the floor, and recommended transferring the patient to the ICU. I have a strong feeling that the patient may end up requiring intubation and mechanical ventilation in the meantime I will try the patient on Lasix drip especially with a chest x-ray showing significant pulmonary edema. His previous right sided pneumothorax has resolved his right-sided pleural effusion has become much worse and he has increased opacities consistent with pulmonary edema. ABG showed a pO2 of 61 pCO2 38 pH of 7.36 WBC count is 4.9 hemoglobin 11.8 electrolytes are normal bicarb is normal BUN is 24 creatinine 0.51 Patient was reevaluated today on 01/22/2023, remains in the ICU, I transferred the patient yesterday because of worsening pulmonary status recommended Lasix drip at 10 mg per hour, and the patient remains on Lasix drip. Patient was transitioned from airvo to BiPAP 12/6/100%, O2 saturation is in the high 90s. Some clinical improvement, nonetheless his chest x-ray continues to show bilateral pulmonary edema with right-sided pleural effusion and his urine output is over 200 mL an hour. I am recommending that he continue diuretics before I would consider thoracentesis on this patient. Although thoracentesis may be necessary if no improvement in the next 24 hours. Chest x-ray today continues to show bilateral pleural parenchymal changes with large pleural effusion on the right side, I believe were dealing mostly with pneumonia and pulmonary edema. WBC count is 3.7 hemoglobin is 12.9 electrolytes are normal however his sodium is 129 not much different from yesterday sodium. Renal profile remains abnormal Reevaluated today on 01/23/2023, patient is doing poorly, remains in the ICU, he is marginal at best, remains on BiPAP 12/6, 80% FiO2, and his O2 saturation is in the high 80s and low 90s. Patient developed hypotension last night and he required placement on norepinephrine at 0.05 mcg/kg/m. Lasix is presently on hold, chest x-ray is showing worsening pulmonary edema hence I recommended immediate right-sided thoracentesis, and I was able to drain over 2 L of straw- colored fluid from the right pleural space, with dramatic improvement in his O2 saturation post-thoracentesis although there was evidence of 20% right-sided pneumothorax/trapped lung noted post procedure and the same thing was noted on his previous thoracentesis few days ago. The fluid was sent for different geoff gnostic studies. Patient was placed back on BiPAP, O2 saturations was noted to be about 100% and will titrate his FiO2 down follow-up chest x-ray after right thoracentesis 2 hours after his initial x-ray, showed no major change in the size of the right-sided pneumothorax, hence I will hold on placement of the chest tube at this point I still believe were dealing mostly with a trapped lung. Labs today showed W Jeremy 3.7 hemoglobin is 12.5 *Normal renal profile is normal with BUN is 50 creatinine 0.88 Reevaluated today on 01/24/2023, patient seems to be doing better today, he is on airvo at 70% FiO2 at 60 L flow, O2 saturations in the mid 90s, patient seems to be more comfortable less short of breath, he is still on norepinephrine at 0.071 g/kg/m IV fluids at KVO patient remains on Zosyn for presumptive underlying bacterial pneumonia patient does have COVID-19 infection and possibly COVID-19 pneumonia. Patient looks extremely frail, chronically ill, cachectic, and his overall prognosis remains extremely poor. Chest x-ray was repeated today this morning after a tube placement last nasogastric tube showed slight increase in the size of the pneumothorax hence may consider placement of a thoravent. is 16.4 hemoglobin is 14.4 BUN is 67 creatinine 0.83 patient had an elevated potas sium of 6.1 but the blood was hemolyzed Reevaluated today on , patient remains in the ICU, basically about the same, he is now on a nonrebreather mask, patient pulled out his nasogastric tube yesterday, and another one will be placed today. His chest x-ray showed increase in the size of the right-sided pneumothorax however after flushing the thoravent, there was evidence of improvement in air bubbles and leak through the pleural VAC, hence the lung will expand slowly. And no need to change the chest tube at this point or place another one. Patient is still requiring norepinephrine at 0.03 mcg/kg/m his IV fluids remain at KVO. Remains on Zosyn, remains on steroids, patient is marginal at best WBC count is 14.1 hemoglobin is 12.8 INR is 2.0 twice are normal ammonia level yesterday was normal renal profile is normal on a chest x-ray as noted above, cultures from the pleural effusion has been negative so far Objective - Vital Signs Vital signs: Vital Signs Temp 97.8 F 01/25/23 08:00 Pulse 62 01/25/23 08:15 Resp 6 L 01/25/23 08:15 BP 107/52 01/25/23 08:15 Pulse Ox 90 L 01/25/23 08:15 FiO2 90 01/25/23 10:43 Intake & Output 01/24/23 01/25/23 01/25/23 18:59 06:59 18:59 Intake Total 283.902 645.407 240 Output Total 480 364 520 Balance -196.098 281.407 -280 Weight 55.7 kg 54 kg Intake: IV 120 230 40 Sodium Chloride 0.9% 1, 120 230 40 000 ml @ 20 mls/hr IV . Q24H JORDAN Rx#:[id number] Intake, IV Titration 93.902 155.407 200 Amount Norepinephrine 4 mg In 93.902 155.407 Sodium Chloride 0.9% 250 ml @ 0.03 MCG/KG/MIN 6. 549 mls/hr IV .Q24H JORDAN Rx#:[id number] Potassium Chloride 10 meq 200 In Water For Injection 1 100ml.bag @ 100 mls/hr IVPB Q1H JORDAN Rx#: [id number] Tube Feeding 70 210 Other 50 Output: Chest Tube Drainage 350 Thora-Vent Right Upper 350 Anterior Chest Urine 480 364 170 Other: Voiding Method Indwelling Catheter Indwelling Catheter Indwelling Catheter # Bowel Movements 1 - Exam Physical Exam: Revealed a 72-year-old white male, looks frail, chronically ill, on non-rebreather mask Head: Atraumatic, normocephalic. HEENT:[Neck is supple.] [No neck masses.] [No thyromegaly.] [No JVD.] Chest: Crackles at the bases persists. Right-sided thoravent noted. Air leak in the Pleur-evac was noted with bubbling after flushing the chest tube Cardiac Exam: [Normal S1 and S2, no S3 gallop, no murmur.] Abdomen: [Soft, nontender, no megaly, no rebound, no guarding, normal bowel sounds.] Mild ascites is suspected. Extremities: [No clubbing, 1 + bipedal edema, no cyanosis.] Neurological Exam: [No focal neurologic deficit.] Alert oriented 3 Psychiatric: Anxious mood, as, normal affect. Skin: No rashes - Labs CBC & Chem 7: 01/25/23 05:39 01/25/23 05:39 Labs: Abnormal Lab Results - Last 24 Hours (Table) 01/23/23 01/23/23 01/23/23 Range/Units 04:00 17:58 17:58 WBC (3.8-10.6) k/uL RBC (4.30-5.90) m/uL Hgb (13.0-17.5) gm/dL Hct (39.0-53.0) % MCV (80.0-100.0) fL RDW (11.5-15.5) % Plt Count (150-450) k/uL PT (9.0-12.0) sec INR (<1.2) Fibrinogen (200-500) mg/dL Chloride (98-107) mmol/L BUN (9-20) mg/dL Glucose (74-99) mg/dL POC Glucose (mg/dL) (70-110) mg/dL TIBC 123 L (228-460) UG/DL % Saturation 87.80 H (15.00-50.00) Transferrin 87.7 L (204.0-354.0) mg/dL Ferritin 763.0 H (22.0-322.0) ng/mL Total Bilirubin (0.2-1.3) mg/dL AST (17-59) U/L Alkaline Phosphatase (38-126) U/L Total Protein (6.3-8.2) g/dL Albumin (3.5-5.0) g/dL Vitamin B12 >3600.0 H (200.0-944.0) pg/mL Fluid Appearance Hazy A (Clear) Hep C IgG Ab Reactive A (Non-Reactive) 01/24/23 01/24/23 01/24/23 Range/Units 11:15 16:15 23:48 WBC (3.8-10.6) k/uL RBC (4.30-5.90) m/uL Hgb (13.0-17.5) gm/dL Hct (39.0-53.0) % MCV (80.0-100.0) fL RDW (11.5-15.5) % Plt Count (150-450) k/uL PT (9.0-12.0) sec INR (<1.2) Fibrinogen (200-500) mg/dL Chloride (98-107) mmol/L BUN (9-20) mg/dL Glucose (74-99) mg/dL POC Glucose (mg/dL) 147 H 191 H 187 H (70-110) mg/dL TIBC (228-460) UG/DL % Saturation (15.00-50.00) Transferrin (204.0-354.0) mg/dL Ferritin (22.0-322.0) ng/mL Total Bilirubin (0.2-1.3) mg/dL AST (17-59) U/L Alkaline Phosphatase (38-126) U/L Total Protein (6.3-8.2) g/dL Albumin (3.5-5.0) g/dL Vitamin B12 (200.0-944.0) pg/mL Fluid Appearance (Clear) Hep C IgG Ab (Non-Reactive) 01/25/23 01/25/23 01/25/23 Range/Units 05:39 05:39 05:39 WBC 14.1 H (3.8-10.6) k/uL RBC 3.72 L (4.30-5.90) m/uL Hgb 12.8 L (13.0-17.5) gm/dL Hct 38.9 L (39.0-53.0) % MCV 104.5 H (80.0-100.0) fL RDW 15.7 H (11.5-15.5) % Plt Count 26 L (150-450) k/uL PT 19.4 H (9.0-12.0) sec INR 2.0 H (<1.2) Fibrinogen 91 L (200-500) mg/dL Chloride (98-107) mmol/L BUN (9-20) mg/dL Glucose (74-99) mg/dL POC Glucose (mg/dL) (70-110) mg/dL TIBC (228-460) UG/DL % Saturation (15.00-50.00) Transferrin (204.0-354.0) mg/dL Ferritin (22.0-322.0) ng/mL Total Bilirubin (0.2-1.3) mg/dL AST (17-59) U/L Alkaline Phosphatase (38-126) U/L Total Protein (6.3-8.2) g/dL Albumin (3.5-5.0) g/dL Vitamin B12 (200.0-944.0) pg/mL Fluid Appearance (Clear) Hep C IgG Ab (Non-Reactive) 01/25/23 01/25/23 Range/Units 05:39 07:05 WBC (3.8-10.6) k/uL RBC (4.30-5.90) m/uL Hgb (13.0-17.5) gm/dL Hct (39.0-53.0) % MCV (80.0-100.0) fL RDW (11.5-15.5) % Plt Count (150-450) k/uL PT (9.0-12.0) sec INR (<1.2) Fibrinogen (200-500) mg/dL Chloride 111 H (98-107) mmol/L BUN 68 H (9-20) mg/dL Glucose 153 H (74-99) mg/dL POC Glucose (mg/dL) 154 H (70-110) mg/dL TIBC (228-460) UG/DL % Saturation (15.00-50.00) Transferrin (204.0-354.0) mg/dL Ferritin (22.0-322.0) ng/mL Total Bilirubin 3.2 H (0.2-1.3) mg/dL AST 64 H (17-59) U/L Alkaline Phosphatase 165 H (38-126) U/L Total Protein 5.0 L (6.3-8.2) g/dL Albumin 1.9 L (3.5-5.0) g/dL Vitamin B12 (200.0-944.0) pg/mL Fluid Appearance (Clear) Hep C IgG Ab (Non-Reactive) Microbiology - Last 24 Hours (Table) 01/23/23 04:00 Gram Stain - Preliminary Pleural Fluid Body Fluid Culture - Preliminary Assessment and Plan Assessment: Impression: Acute hypoxic respiratory failure, worsening bilateral pulmonary edema and pleural effusions Recurrent right-sided pleural effusion secondary to chronic liver disease COVID-19 infection, incidental finding, no clear-cut symptoms of COVID-19 infection underlying bacterial pneumonia is not entirely ruled out Thrombocytopenia secondary to chronic liver disease Chronic anemia Diarrhea most likely secondary to COVID-19 infection Hypoalbuminemia History of liver cirrhosis and ascites History of hepatitis C History of alcoholism Type 2 diabetes Recent history of laparoscopic hernia repair Chronic hyponatremia/hypervolemic hyponatremia secondary to liver disease, resolved Right-sided pneumothorax/trapped lung, postthoracentesis, Status post right sided chest tube/thoravent placement, right lung fails to fully expand Hypovolemic hypotension, we will avoid significant volume since the patient gets more pulmonary edema with fluids given and will continue for now norepinephrine. Recommendation: Continue hemodynamic support, continue norepinephrine We'll continue to hold diuretics for now Cultures from pleural effusion are negative Continue to monitor in the ICU Titrate FiO2 accordingly Continue Aldactone Continue empiric antibiotics/Zosyn Continue Decadron and Xifaxan Patient remains critically ill and has very poor prognosis DO NOT RESUSCITATE CODE STATUS Critical care time is over 30 minutes We continue to follow in the ICU. Time with Patient: Greater than 30
[2023-01-25] MEDS: SPIRONOLACTONE 25 MG TAB PO SCH ×2 (11:11→20:02)
[2023-01-25] MEDS: RIFAXIMIN 550 MG TABLET PO SCH ×2 (11:11→20:02)
[2023-01-25] MEDS ORDERED: HYDROmorphone 1 MG/ML 1 ML SYRINGE IVP STA (11:46)
[2023-01-25 12:02] LABS: Glucose,Whole Blood 150 mg/dL (70-110)
--- NOTE | 2023-01-25 13:10 | P.PN ---
Subjective Progress Note Date: 01/25/23 This is a pleasant 72 years old male with past medical history ofAsthma, Diabetes Mellitus, GERD/Reflux,Osteoarthritis , cirrhosis of the liver, hepatitis C possibly from blood transfusion as a child, palpable mass right parotid ,left leg arthritis with occasional edema to lower leg Patient was recently discharged from this -01/15, he underwent thoracocentesis was 2.5 fluid removed oriented and thereafter patient was discharged on Levaquin Patient presents because of dyspnea slightly getting worse since been discharged from the hospital. No much coughing., Chest pain. His other complaint is diarrhea also started after discharge. He had 3-4 bouts of bowel movement yesterday. No abdominal pain or vomiting. He has somewhat low appetite. He is in the 3 L oxygen at home. He denies alcohol or smoking or illicit drugs. No headache weakness or numbness or confusion. He's on 3 L oxygen at home Patient states yesterday they tapped his lung and 3 L were taken out from his right side. No On admission he was saturating 94% on 6 L oxygen via nasal cannula, currently his oxygen requirement went up to 12 L permanent via high flow cannula. CBC showed mild anemia but significant thrombocytopenia at 33, which looks similar to 4 days ago where it was 36 on 01/14/2023. Before that baseline platelet count was 50-80k INR is 1.64. Lactic acid 2.7 Troponin is negative Sodium is 125, glucose elevated morning at 300 on admission. Liver enzymes AST/ALT are within the reference range. Bilirubin slightly up 1.6. ProBNP is low at 197 Chest x-ray showing almost complete opacification of the right lung with some bilateral infiltrates 01/20. Patient seen and examined. Patient is currently on airvo at 15 L flow and 70% FiO2. Gets short of breath on minimal exertion 01/21. Patient seen and examined. Continues to be on airvo heated high flow at 60 L and FiO2 of 90%. Hemoglobin 11.8, platelet count 35, BUN 24, creatinine 0.51. Gets short of breath on minimum exertion. 01/22. Patient seen and examined . Currently on BiPAP, FiO2 100%. Patient is lethargic, get short of breath on conversing. Currently on Lasix drip and IV Zosyn 01/23. Patient seen and examined. Currently in ICU. WBC 3.7, hemoglobin 12.5, sodium 134, potassium 3.8, BUN 50, creatinine 0.88. Platelet count is 21,000 Patient continues to be on BiPAP with an FiO2 of 80%. Patient very lethargic. Unable to maintain conversation 01/24. Patient seen and examined. Currently on airvo at 70% FiO2 at 60 L flow. Repeat chest x-ray still showing pneumothorax 01/25. Patient seen and examined. Lab work showed occlusive 14.1, hemoglobin 12.8, platelet count 26, sodium 143, potassium 3.7, BUN 68, creatinine 0.87. Currently on nonrebreather mask. Thoravent in place. REVIEW OF SYSTEMS: Denies any chest pain. Denies any nausea or vomiting. Denies any lightheadedness or dizziness PHYSICAL EXAMINATION: GENERAL: The patient is alert , chronically sick-looking HEENT: Pupils are round and equally reacting to light. EOMI. No scleral icterus. No conjunctival pallor. Normocephalic, atraumatic. No pharyngeal erythema. No thyromegaly. CARDIOVASCULAR: S1 and S2 present. No murmurs, rubs, or gallops. PULMONARY: Tachypneic, coarse breath sounds bilaterally, no wheeze ABDOMEN: Soft, nontender, nondistended, normoactive bowel sounds. No palpable organomegaly. MUSCULOSKELETAL: No joint swelling or deformity. EXTREMITIES: No cyanosis, clubbing, or pedal edema. NEUROLOGICAL: Gross neurological examination did not reveal any focal deficits. SKIN: No rashes. Assessment and plan Acute respiratory failure Bilateral consolidation suspicious for bilateral covid pneumonia. Rule out bacterial pneumonia Right pleural effusion status post thoracocentesis on 01/18 with tapping 3 L out Apical pneumothorax right side Hypervolemic hyponatremia Severe calorie protein malnutrition Slightly worsening thrombocytopenia in view of patient liver disease Liver cirrhosis History of hep C Thrombocytopenia Diabetes mellitus, with hyperglycemia History of GERD History of osteoarthritis Monitor vital signs Monitor CBC Monitor CMP Thrombocytopenia could be secondary to patient history of cirrhosis and COVID-19 infection Continue telemetry monitoring Aggressive bronchopulmonary hygiene Continue BiPAP Continue breathing treatments Continue Lasix drip Continue IV Zosyn Continue Decadron Continue rifaximin Critical care following,Thoravent in place ID following Labs and medication were reviewed.. Continue same treatment. Continue with symptomatic treatment. Resume home medication. Monitor labs and vitals. DVT and GI prophylaxis. Further recommendations as per clinical course of the patient Dictation was produced using surespotation software. please excuse any grammatical, word or spelling errors. Objective - Vital Signs Vital signs: Vital Signs Temp 97.8 F 01/25/23 08:00 Pulse 62 01/25/23 08:15 Resp 6 L 01/25/23 08:15 BP 107/52 01/25/23 08:15 Pulse Ox 90 L 01/25/23 08:15 FiO2 90 01/25/23 08:00 Intake & Output 01/24/23 01/25/23 01/25/23 18:59 06:59 18:59 Intake Total 283.902 645.407 240 Output Total 480 364 520 Balance -196.098 281.407 -280 Weight 55.7 kg 54 kg Intake: IV 120 230 40 Sodium Chloride 0.9% 1, 120 230 40 000 ml @ 20 mls/hr IV . Q24H JORDAN Rx#:[id number] Intake, IV Titration 93.902 155.407 200 Amount Norepinephrine 4 mg In 93.902 155.407 Sodium Chloride 0.9% 250 ml @ 0.03 MCG/KG/MIN 6. 549 mls/hr IV .Q24H JORDAN Rx#:[id number] Potassium Chloride 10 meq 200 In Water For Injection 1 100ml.bag @ 100 mls/hr IVPB Q1H JORDAN Rx#: [id number] Tube Feeding 70 210 Other 50 Output: Chest Tube Drainage 350 Thora-Vent Right Upper 350 Anterior Chest Urine 480 364 170 Other: Voiding Method Indwelling Catheter Indwelling Catheter Indwelling Catheter # Bowel Movements 1 - Labs CBC & Chem 7: 01/25/23 05:39 01/25/23 05:39 Labs: Abnormal Lab Results - Last 24 Hours (Table) 01/23/23 01/23/23 01/23/23 Range/Units 04:00 17:58 17:58 WBC (3.8-10.6) k/uL RBC (4.30-5.90) m/uL Hgb (13.0-17.5) gm/dL Hct (39.0-53.0) % MCV (80.0-100.0) fL RDW (11.5-15.5) % Plt Count (150-450) k/uL Haptoglobin (31.2-198.0) mg/dL PT (9.0-12.0) sec INR (<1.2) Fibrinogen (200-500) mg/dL Chloride (98-107) mmol/L BUN (9-20) mg/dL Glucose (74-99) mg/dL POC Glucose (mg/dL) (70-110) mg/dL TIBC 123 L (228-460) UG/DL % Saturation 87.80 H (15.00-50.00) Transferrin 87.7 L (204.0-354.0) mg/dL Ferritin 763.0 H (22.0-322.0) ng/mL Total Bilirubin (0.2-1.3) mg/dL AST (17-59) U/L Alkaline Phosphatase (38-126) U/L Total Protein (6.3-8.2) g/dL Albumin (3.5-5.0) g/dL Vitamin B12 >3600.0 H (200.0-944.0) pg/mL Fluid Appearance Hazy A (Clear) Hep C IgG Ab Reactive A (Non-Reactive) 01/24/23 01/24/23 01/24/23 Range/Units 05:56 11:15 16:15 WBC (3.8-10.6) k/uL RBC (4.30-5.90) m/uL Hgb (13.0-17.5) gm/dL Hct (39.0-53.0) % MCV (80.0-100.0) fL RDW (11.5-15.5) % Plt Count (150-450) k/uL Haptoglobin <10.0 L (31.2-198.0) mg/dL PT (9.0-12.0) sec INR (<1.2) Fibrinogen (200-500) mg/dL Chloride (98-107) mmol/L BUN (9-20) mg/dL Glucose (74-99) mg/dL POC Glucose (mg/dL) 147 H 191 H (70-110) mg/dL TIBC (228-460) UG/DL % Saturation (15.00-50.00) Transferrin (204.0-354.0) mg/dL Ferritin (22.0-322.0) ng/mL Total Bilirubin (0.2-1.3) mg/dL AST (17-59) U/L Alkaline Phosphatase (38-126) U/L Total Protein (6.3-8.2) g/dL Albumin (3.5-5.0) g/dL Vitamin B12 (200.0-944.0) pg/mL Fluid Appearance (Clear) Hep C IgG Ab (Non-Reactive) 01/24/23 01/25/23 01/25/23 Range/Units 23:48 05:39 05:39 WBC 14.1 H (3.8-10.6) k/uL RBC 3.72 L (4.30-5.90) m/uL Hgb 12.8 L (13.0-17.5) gm/dL Hct 38.9 L (39.0-53.0) % MCV 104.5 H (80.0-100.0) fL RDW 15.7 H (11.5-15.5) % Plt Count 26 L (150-450) k/uL Haptoglobin (31.2-198.0) mg/dL PT (9.0-12.0) sec INR (<1.2) Fibrinogen 91 L (200-500) mg/dL Chloride (98-107) mmol/L BUN (9-20) mg/dL Glucose (74-99) mg/dL POC Glucose (mg/dL) 187 H (70-110) mg/dL TIBC (228-460) UG/DL % Saturation (15.00-50.00) Transferrin (204.0-354.0) mg/dL Ferritin (22.0-322.0) ng/mL Total Bilirubin (0.2-1.3) mg/dL AST (17-59) U/L Alkaline Phosphatase (38-126) U/L Total Protein (6.3-8.2) g/dL Albumin (3.5-5.0) g/dL Vitamin B12 (200.0-944.0) pg/mL Fluid Appearance (Clear) Hep C IgG Ab (Non-Reactive) 01/25/23 01/25/23 01/25/23 Range/Units 05:39 05:39 07:05 WBC (3.8-10.6) k/uL RBC (4.30-5.90) m/uL Hgb (13.0-17.5) gm/dL Hct (39.0-53.0) % MCV (80.0-100.0) fL RDW (11.5-15.5) % Plt Count (150-450) k/uL Haptoglobin (31.2-198.0) mg/dL PT 19.4 H (9.0-12.0) sec INR 2.0 H (<1.2) Fibrinogen (200-500) mg/dL Chloride 111 H (98-107) mmol/L BUN 68 H (9-20) mg/dL Glucose 153 H (74-99) mg/dL POC Glucose (mg/dL) 154 H (70-110) mg/dL TIBC (228-460) UG/DL % Saturation (15.00-50.00) Transferrin (204.0-354.0) mg/dL Ferritin (22.0-322.0) ng/mL Total Bilirubin 3.2 H (0.2-1.3) mg/dL AST 64 H (17-59) U/L Alkaline Phosphatase 165 H (38-126) U/L Total Protein 5.0 L (6.3-8.2) g/dL Albumin 1.9 L (3.5-5.0) g/dL Vitamin B12 (200.0-944.0) pg/mL Fluid Appearance (Clear) Hep C IgG Ab (Non-Reactive) Microbiology - Last 24 Hours (Table) 01/23/23 04:00 Gram Stain - Preliminary Pleural Fluid
[2023-01-25] MEDS: NOREPINEPHRINE 4 MG in SODIUM CHLORIDE 0.9% 250 ML IV SCH (15:55)
[2023-01-25 17:49] LABS: Glucose,Whole Blood 110 mg/dL (70-110)
[2023-01-25 23:52] LABS: Glucose,Whole Blood 155 mg/dL (70-110)
[2023-01-26] MEDS: INSULIN ASPART (NovoLOG) 100 UNIT/ML VIAL SQ SCH ×4 (00:21→17:25)
[2023-01-26] MEDS: SODIUM CHLORIDE 0.9% 1,000 ML IV SCH (01:13)
[2023-01-26] MEDS: PIPERACILLIN-TAZOBACTAM 3.375 GM in SODIUM CHLORIDE 0.9% 100 ML IVPB SCH ×2 (03:31→12:04)
[2023-01-26] MEDS: ALBUTEROL HFA INHALER INHALATION SCH ×5 (04:16→20:19)
[2023-01-26 05:48] LABS: Glucose,Whole Blood 284 mg/dL (70-110)
[2023-01-26] MEDS: LIPASE 5,000/PROTEASE 17,000/AMYLASE 24,000 PO SCH ×3 (06:30→17:16)
[2023-01-26] MEDS: INSULIN DETEMIR (LEVEMIR) 100 UNIT/ML SYR SQ SCH ×2 (06:31→20:17)
[2023-01-26 07:39] LABS: HCT 41.8 % (39.0-53.0); HGB 13.5 gm/dL (13.0-17.5); Hypochromasia Slight; MCH 34.6 pg (25.0-35.0); MCHC 32.3 g/dL (31.0-37.0); MCV 107.2 fL (80.0-100.0); Macrocytosis Marked; Mean Platelet Volume 8.3; RDW 15.1 % (11.5-15.5); WBC 13.1 k/uL (3.8-10.6)
[2023-01-26 07:47] LABS: Platelet Count 20 k/uL (150-450)
[2023-01-26] MEDS: ZINC SULFATE 220 MG CAP PO SCH (07:52)
[2023-01-26] MEDS: DEXAMETHASONE SOD PHOSPHATE 10 MG/ML 1 ML VIAL IVP SCH (07:52)
[2023-01-26] MEDS: LACTULOSE 20 GM/30 ML CUP PO SCH (07:52)
[2023-01-26] MEDS: FAMOTIDINE 20 MG TAB PO SCH ×2 (07:53→20:17)
[2023-01-26] MEDS: ASCORBIC ACID 500 MG TAB PO SCH (07:53)
[2023-01-26] MEDS: SPIRONOLACTONE 25 MG TAB PO SCH ×2 (07:53→20:17)
[2023-01-26] MEDS: CHOLECALCIFEROL 25 MCG (1000 IU) TABLET PO SCH (07:53)
[2023-01-26] MEDS: FUROSEMIDE 100 MG in SODIUM CHLORIDE 0.9% 90 ML IV SCH (07:54)
[2023-01-26] MEDS: RIFAXIMIN 550 MG TABLET PO SCH (07:54)
--- NOTE | 2023-01-26 07:59 | XR ---
EXAMINATION TYPE: XR chest 1V portable DATE OF EXAM: 01/26/2023 5:19 AM COMPARISON: Chest radiographs from 01/25/2023 TECHNIQUE: XR chest 1V portable Portable AP radiograph of the chest. CLINICAL INDICATION:Male, 72 years old with history of ptx, pleural effusions; FINDINGS: Lungs/Pleura: Decreased right pneumothorax. No sizable pleural effusion. Redemonstration of bilateral interstitial lung opacities with left greater the right. Pulmonary vascularity: Unremarkable. Heart/mediastinum: Cardiomediastinal silhouette is stable in size. No shift. Musculoskeletal: No acute osseous pathology. Lines/Tubes: Thoravent remains in place. No placement of NG tube in appropriate position with tip in the left upper quadrant. IMPRESSION: 1. Decrease in now small right pneumothorax with thoravent in place. 2. Redemonstration of bilateral interstitial lung opacities. 3. Interval placement of NG tube in appropriate position.
[2023-01-26] MEDS: FUROSEMIDE 10 MG/ML 4 ML VIAL IV SCH ×2 (08:16→17:15)
[2023-01-26 08:17] LABS: INR 1.8 (<1.2); Partial Thromboplastin Time 26.1 sec (22.0-30.0); Prothrombin Time 18.1 sec (9.0-12.0)
[2023-01-26 08:30] LABS: African American GFR (CKD) >90 (>60 ml/min/1.73 sqM); Anion Gap 6 mmol/L; Blood Urea Nitrogen 71 mg/dL (9-20); Calcium 8.8 mg/dL (8.4-10.2); Carbon Dioxide 24 mmol/L (22-30); Chloride 115 mmol/L (98-107); Glucose 270 mg/dL (74-99); Non-African American GFR(CKD) >90 (>60 ml/min/1.73 sqM); Sodium 145 mmol/L (137-145)
--- NOTE | 2023-01-26 08:37 | P.PN ---
Subjective Progress Note Date: 01/25/23 Principal diagnosis: Pneumonia Patient is a 72-year-old male with a past medical history significant for diabetes mellitus reflux cirrhosis of the liver osteoarthritis and asthma, patient is vaccinated for covid 19, both the patient and the developed respiratory symptoms and the tested positive for covid 19 about a week before presentation to the hospital, patient was admitted to the cardiology floor did have worsening of his respiratory status requiring transfer to the ICU. on today's evaluation that is 01/25/2023 the patient remains to be afebrile, the patient is requiring more supplemental oxygen currently on a nonrebreather mask patient is requiring low-dose pressor support remains to be lethargic and elevated good historian no vomiting diarrhea or any other changes reported by nursing staff. Patient white count is down to 14.1 creatinine 0.87 sputum cultures currently pending Objective - Vital Signs Vital signs: Vital Signs Temp 97.8 F 01/25/23 08:00 Pulse 62 01/25/23 08:15 Resp 6 L 01/25/23 08:15 BP 107/52 01/25/23 08:15 Pulse Ox 90 L 01/25/23 08:15 FiO2 90 01/25/23 10:43 Intake & Output 01/24/23 01/25/23 01/25/23 18:59 06:59 18:59 Intake Total 283.902 645.407 240 Output Total 480 364 520 Balance -196.098 281.407 -280 Weight 55.7 kg 54 kg Intake: IV 120 230 40 Sodium Chloride 0.9% 1, 120 230 40 000 ml @ 20 mls/hr IV . Q24H [facility] Rx#:[id number] Intake, IV Titration 93.902 155.407 200 Amount Norepinephrine 4 mg In 93.902 155.407 Sodium Chloride 0.9% 250 ml @ 0.03 MCG/KG/MIN 6. 549 mls/hr IV .Q24H [facility] Rx#:[id number] Potassium Chloride 10 meq 200 In Water For Injection 1 100ml.bag @ 100 mls/hr IVPB Q1H [facility] Rx#: [id number] Tube Feeding 70 210 Other 50 Output: Chest Tube Drainage 350 Thora-Vent Right Upper 350 Anterior Chest Urine 480 364 170 Other: Voiding Method Indwelling Catheter Indwelling Catheter Indwelling Catheter # Bowel Movements 1 - Labs CBC & Chem 7: 01/26/23 07:19 01/25/23 05:39 Labs: Abnormal Lab Results - Last 24 Hours (Table) 01/23/23 01/23/23 01/23/23 Range/Units 04:00 17:58 17:58 WBC (3.8-10.6) k/uL RBC (4.30-5.90) m/uL Hgb (13.0-17.5) gm/dL Hct (39.0-53.0) % MCV (80.0-100.0) fL RDW (11.5-15.5) % Plt Count (150-450) k/uL PT (9.0-12.0) sec INR (<1.2) Fibrinogen (200-500) mg/dL Chloride (98-107) mmol/L BUN (9-20) mg/dL Glucose (74-99) mg/dL POC Glucose (mg/dL) (70-110) mg/dL TIBC 123 L (228-460) UG/DL % Saturation 87.80 H (15.00-50.00) Transferrin 87.7 L (204.0-354.0) mg/dL Ferritin 763.0 H (22.0-322.0) ng/mL Total Bilirubin (0.2-1.3) mg/dL AST (17-59) U/L Alkaline Phosphatase (38-126) U/L Total Protein (6.3-8.2) g/dL Albumin (3.5-5.0) g/dL Vitamin B12 >3600.0 H (200.0-944.0) pg/mL Fluid Appearance Hazy A (Clear) Hep C IgG Ab Reactive A (Non-Reactive) 01/24/23 01/24/23 01/24/23 Range/Units 11:15 16:15 23:48 WBC (3.8-10.6) k/uL RBC (4.30-5.90) m/uL Hgb (13.0-17.5) gm/dL Hct (39.0-53.0) % MCV (80.0-100.0) fL RDW (11.5-15.5) % Plt Count (150-450) k/uL PT (9.0-12.0) sec INR (<1.2) Fibrinogen (200-500) mg/dL Chloride (98-107) mmol/L BUN (9-20) mg/dL Glucose (74-99) mg/dL POC Glucose (mg/dL) 147 H 191 H 187 H (70-110) mg/dL TIBC (228-460) UG/DL % Saturation (15.00-50.00) Transferrin (204.0-354.0) mg/dL Ferritin (22.0-322.0) ng/mL Total Bilirubin (0.2-1.3) mg/dL AST (17-59) U/L Alkaline Phosphatase (38-126) U/L Total Protein (6.3-8.2) g/dL Albumin (3.5-5.0) g/dL Vitamin B12 (200.0-944.0) pg/mL Fluid Appearance (Clear) Hep C IgG Ab (Non-Reactive) 01/25/23 01/25/23 01/25/23 Range/Units 05:39 05:39 05:39 WBC 14.1 H (3.8-10.6) k/uL RBC 3.72 L (4.30-5.90) m/uL Hgb 12.8 L (13.0-17.5) gm/dL Hct 38.9 L (39.0-53.0) % MCV 104.5 H (80.0-100.0) fL RDW 15.7 H (11.5-15.5) % Plt Count 26 L (150-450) k/uL PT 19.4 H (9.0-12.0) sec INR 2.0 H (<1.2) Fibrinogen 91 L (200-500) mg/dL Chloride (98-107) mmol/L BUN (9-20) mg/dL Glucose (74-99) mg/dL POC Glucose (mg/dL) (70-110) mg/dL TIBC (228-460) UG/DL % Saturation (15.00-50.00) Transferrin (204.0-354.0) mg/dL Ferritin (22.0-322.0) ng/mL Total Bilirubin (0.2-1.3) mg/dL AST (17-59) U/L Alkaline Phosphatase (38-126) U/L Total Protein (6.3-8.2) g/dL Albumin (3.5-5.0) g/dL Vitamin B12 (200.0-944.0) pg/mL Fluid Appearance (Clear) Hep C IgG Ab (Non-Reactive) 01/25/23 01/25/23 Range/Units 05:39 07:05 WBC (3.8-10.6) k/uL RBC (4.30-5.90) m/uL Hgb (13.0-17.5) gm/dL Hct (39.0-53.0) % MCV (80.0-100.0) fL RDW (11.5-15.5) % Plt Count (150-450) k/uL PT (9.0-12.0) sec INR (<1.2) Fibrinogen (200-500) mg/dL Chloride 111 H (98-107) mmol/L BUN 68 H (9-20) mg/dL Glucose 153 H (74-99) mg/dL POC Glucose (mg/dL) 154 H (70-110) mg/dL TIBC (228-460) UG/DL % Saturation (15.00-50.00) Transferrin (204.0-354.0) mg/dL Ferritin (22.0-322.0) ng/mL Total Bilirubin 3.2 H (0.2-1.3) mg/dL AST 64 H (17-59) U/L Alkaline Phosphatase 165 H (38-126) U/L Total Protein 5.0 L (6.3-8.2) g/dL Albumin 1.9 L (3.5-5.0) g/dL Vitamin B12 (200.0-944.0) pg/mL Fluid Appearance (Clear) Hep C IgG Ab (Non-Reactive) Microbiology - Last 24 Hours (Table) 01/23/23 04:00 Gram Stain - Preliminary Pleural Fluid Body Fluid Culture - Preliminary Assessment and Plan (1) Pneumonia Current Visit: Yes Status: Acute Code(s): J18.9 - PNEUMONIA, UNSPECIFIED ORGANISM SNOMED Code(s): 883794666 (2) Coronavirus infection Current Visit: Yes Status: Acute Code(s): B34.2 - CORONAVIRUS INFECTION, UNSPECIFIED SNOMED Code(s): 049296062 (3) Pleural effusion Current Visit: Yes Status: Acute Code(s): J90 - PLEURAL EFFUSION, NOT ELSEWHERE CLASSIFIED SNOMED Code(s): 60670610 Plan: 1patient with the acute respiratory failure which is likely multifactorial in this patient tested positive for covid 19 more than a week ago and also history of recurrent right-sided effusion with worsening effusion and airspace opacities concerning for possible secondary bacterial pneumonia 2-cephalosporin ALLERGY that would limit the number of antibiotic safety use 3leukocytosis possibly steroid related And is trending down, sputum cultures are currently pending. 4patient to continue the current treatment of Zosyn while waiting for culture to finalize continue supportive care prognosis remains to be guarded Dictation was produced using [employer] dictation software. please excuse any grammatical, word or spelling errors.
[2023-01-26 09:09] LABS: Potassium 4.9 mmol/L (3.5-5.1)
--- NOTE | 2023-01-26 10:31 | P.PN ---
Subjective Progress Note Date: 01/26/23 Principal diagnosis: Acute hypoxic respiratory failure secondary to right-sided pleural effusion 72-year-old male patient, liver cirrhosis, hepatitis C, alcoholism, diabetes mellitus, recently hospitalized for a large right-sided pleural effusion and shortness of breath, the brain and a total of 3 L of fluid was aspirated from the right lung. He was running a low-grade fever. He also had increased edema in his lower extremities. The patient was given Levaquin and his cultures were negative. He was ultimately discharged home to be readmitted again with worsening shortness of breath and hypoxic respiratory failure. Still having diarrhea about 3-4 episodes of bowel movement. No abdominal pain. No nausea or vomiting. He was on oxygen at 3 L and currently he is on high flow oxygen. In the emergency, he was found to have recurrent right-sided pleural effusion. Ba sed on his borderline respiratory status, the emergency physician performed a thoracentesis on him. He tested positive for Covid 19. His lactic acid level is at 2.7. His hemoglobin is at 12.4, white cell count is at 5.7, he does have chronic pancytopenia related to chronic liver disease. INR is at 1.4, sodium is 125, BUN is at 20 with a creatinine of 0.56. Lactic acid level was at 2.7 up to 2.4. Alkaline phosphatase 205, AST and ALP are normal, troponins are negative. He is cachectic, debilitated with a body mass index of 21.4. Patient was reevaluated today on 01/20/2023, remains on high flow FiO2, airvo at 15 L flow and 70% FiO2 on the patient remains a relatively short of breath, and seems to be quite anxious that scan is 3.8 hemoglobin is 10.9. Sodium is 127 bicarb is 18 BUN is 20 creatinine 0.48 blood sugar is 333 in spite of having 3 L of fluid removed yesterday from his right pleural space, patient continues to have some shortness of breath, chest x-ray is showing bilateral airspace disease, I'm suspecting interstitial edema, and there is also a right sided small apical pneumothorax noted related to his recent thoracentesis. Platelets remained low as 30,000 Patient was reevaluated today on 01/21/2023, patient is requiring more oxygen, his FiO2 is up to 90%, his flow is up to 60 L/m, and the patient remains marginal, hence after regarding the patient today on the floor, and recommended transferring the patient to the ICU. I have a strong feeling that the patient may end up requiring intubation and mechanical ventilation in the meantime I will try the patient on Lasix drip especially with a chest x-ray showing significant pulmonary edema. His previous right sided pneumothorax has resolved his right-sided pleural effusion has become much worse and he has increased opacities consistent with pulmonary edema. ABG showed a pO2 of 61 pCO2 38 pH of 7.36 WBC count is 4.9 hemoglobin 11.8 electrolytes are normal bicarb is normal BUN is 24 creatinine 0.51 Patient was reevaluated today on 01/22/2023, remains in the ICU, I transferred the patient yesterday because of worsening pulmonary status recommended Lasix drip at 10 mg per hour, and the patient remains on Lasix drip. Patient was transitioned from airvo to BiPAP 12/6/100%, O2 saturation is in the high 90s. Some clinical improvement, nonetheless his chest x-ray continues to show bilateral pulmonary edema with right-sided pleural effusion and his urine output is over 200 mL an hour. I am recommending that he continue diuretics before I would consider thoracentesis on this patient. Although thoracentesis may be necessary if no improvement in the next 24 hours. Chest x-ray today continues to show bilateral pleural parenchymal changes with large pleural effusion on the right side, I believe were dealing mostly with pneumonia and pulmonary edema. WBC count is 3.7 hemoglobin is 12.9 electrolytes are normal however his sodium is 129 not much different from yesterday sodium. Renal profile remains abnormal Reevaluated today on 01/23/2023, patient is doing poorly, remains in the ICU, he is marginal at best, remains on BiPAP 12/6, 80% FiO2, and his O2 saturation is in the high 80s and low 90s. Patient developed hypotension last night and he required placement on norepinephrine at 0.05 mcg/kg/m. Lasix is presently on hold, chest x-ray is showing worsening pulmonary edema hence I recommended immediate right-sided thoracentesis, and I was able to drain over 2 L of straw- colored fluid from the right pleural space, with dramatic improvement in his O2 saturation post-thoracentesis although there was evidence of 20% right-sided pneumothorax/trapped lung noted post procedure and the same thing was noted on his previous thoracentesis few days ago. The fluid was sent for different geoff gnostic studies. Patient was placed back on BiPAP, O2 saturations was noted to be about 100% and will titrate his FiO2 down follow-up chest x-ray after right thoracentesis 2 hours after his initial x-ray, showed no major change in the size of the right-sided pneumothorax, hence I will hold on placement of the chest tube at this point I still believe were dealing mostly with a trapped lung. Labs today showed W Jeremy 3.7 hemoglobin is 12.5 *Normal renal profile is normal with BUN is 50 creatinine 0.88 Reevaluated today on 01/24/2023, patient seems to be doing better today, he is on airvo at 70% FiO2 at 60 L flow, O2 saturations in the mid 90s, patient seems to be more comfortable less short of breath, he is still on norepinephrine at 0.071 g/kg/m IV fluids at KVO patient remains on Zosyn for presumptive underlying bacterial pneumonia patient does have COVID-19 infection and possibly COVID-19 pneumonia. Patient looks extremely frail, chronically ill, cachectic, and his overall prognosis remains extremely poor. Chest x-ray was repeated today this morning after a tube placement last nasogastric tube showed slight increase in the size of the pneumothorax hence may consider placement of a thoravent. is 16.4 hemoglobin is 14.4 BUN is 67 creatinine 0.83 patient had an elevated potas sium of 6.1 but the blood was hemolyzed Reevaluated today on , patient remains in the ICU, basically about the same, he is now on a nonrebreather mask, patient pulled out his nasogastric tube yesterday, and another one will be placed today. His chest x-ray showed increase in the size of the right-sided pneumothorax however after flushing the thoravent, there was evidence of improvement in air bubbles and leak through the pleural VAC, hence the lung will expand slowly. And no need to change the chest tube at this point or place another one. Patient is still requiring norepinephrine at 0.03 mcg/kg/m his IV fluids remain at KVO. Remains on Zosyn, remains on steroids, patient is marginal at best WBC count is 14.1 hemoglobin is 12.8 INR is 2.0 twice are normal ammonia level yesterday was normal renal profile is normal on a chest x-ray as noted above, cultures from the pleural effusion has been negative so far Reevaluated today on 01/26/2023, remains in the ICU, remains marginal at best, with very marginal and poor pulmonary status. Patient remains on airvo, and his airvo now is at 50% FiO2 with 60 L flow. O2 saturation is in the 90s. Last night he was placed on BiPAP 12/80%. Patient is still requiring norepinephrine at 0.03 mcg/kg/m. His chest x-ray today showed improvement in his right-sided pneumothorax, better expansion of the right lung, continues to have ongoing air leak, and some interstitial edema is noted on the chest x-ray. Patient is going to be back on Lasix 40 mg IV push every 8 hours today. And he remains on Zosyn, remains on steroids, continues to look frail, chronically ill, and cachectic, seems to have almost a picture of failure to thrive. His W BC count is 13.1 hemoglobin is 13.5 his INR is 1.8 lites are normal BUN is 71 creatinine 0.78. Patient had a nasogastric tube placed again yesterday, and he is now on enteral feeding. CODE STATUS has been discussed with the and his CODE STATUS was changed to DO NOT RESUSCITATE, again I have a strong feeling that the patient will do poorly and his overall prognosis remains extremely poor and he seems to be again a picture of failure to thrive Objective - Vital Signs Vital signs: Vital Signs Temp 97.6 F 01/26/23 08:00 Pulse 89 01/26/23 08:00 Resp 11 L 01/26/23 07:00 BP 110/46 01/26/23 08:00 Pulse Ox 97 01/26/23 08:00 FiO2 50 01/26/23 08:00 Intake & Output 01/25/23 01/26/23 01/26/23 18:59 06:59 18:59 Intake Total 707.593 888.946 255 Output Total 845 415 640 Balance -137.407 473.946 -385 Weight 54.8 kg Intake: IV 240 340 80 Piperacillin-Tazobactam 3 100 .375 gm In Sodium Chloride 0.9% 100 ml @ 25 mls/hr IVPB Q8H [facility] Rx#: [id number] Sodium Chloride 0.9% 1, 240 240 80 000 ml @ 20 mls/hr IV . Q24H [facility] Rx#:[id number] Intake, IV Titration 298.593 68.946 Amount Norepinephrine 4 mg In 98.593 68.946 Sodium Chloride 0.9% 250 ml @ 0.03 MCG/KG/MIN 6. 549 mls/hr IV .Q24H [facility] Rx#:[id number] Potassium Chloride 10 meq 200 In Water For Injection 1 100ml.bag @ 100 mls/hr IVPB Q1H [facility] Rx#: [id number] Tube Feeding 90 390 175 Blood Product 79 Pooled Cryoprecipitate 79 Unit [id number] Other 90 Output: Chest Tube Drainage 350 Thora-Vent Right Upper 350 Anterior Chest Urine 495 415 640 Other: Voiding Method Indwelling Catheter Indwelling Catheter Indwelling Catheter - Exam Physical Exam: Revealed a 72-year-old white male, looks frail, chronically ill, on airvo, seems to be a bit more comfortable with his pulmonary status today compared to yesterday. Head: Atraumatic, normocephalic. HEENT:[Neck is supple.] [No neck masses.] [No thyromegaly.] [No JVD.] Chest: Crackles at the bases persists. Right-sided thoravent noted. Air leak in the Pleur-evac was noted Cardiac Exam: [Normal S1 and S2, no S3 gallop, no murmur.] Abdomen: [Soft, nontender, no megaly, no rebound, no guarding, normal bowel sounds.] Mild ascites is suspected. Extremities: [No clubbing, 1 + bipedal edema, no cyanosis.] Neurological Exam: [No focal neurologic deficit.] Alert oriented 3 Psychiatric: Anxious mood, as, normal affect. Skin: No rashes - Labs CBC & Chem 7: 01/26/23 07:19 01/26/23 07:19 Labs: Abnormal Lab Results - Last 24 Hours (Table) 01/25/23 01/25/23 01/26/23 Range/Units 12:01 23:40 05:37 WBC (3.8-10.6) k/uL RBC (4.30-5.90) m/uL MCV (80.0-100.0) fL Plt Count (150-450) k/uL Macrocytosis PT (9.0-12.0) sec INR (<1.2) Fibrinogen (200-500) mg/dL Chloride (98-107) mmol/L BUN (9-20) mg/dL Glucose (74-99) mg/dL POC Glucose (mg/dL) 150 H 155 H 284 H (70-110) mg/dL 01/26/23 01/26/23 01/26/23 Range/Units 07:19 07:19 07:19 WBC 13.1 H (3.8-10.6) k/uL RBC 3.90 L (4.30-5.90) m/uL MCV 107.2 H (80.0-100.0) fL Plt Count 20 L (150-450) k/uL Macrocytosis Marked A PT 18.1 H (9.0-12.0) sec INR 1.8 H (<1.2) Fibrinogen 95 L (200-500) mg/dL Chloride 115 H (98-107) mmol/L BUN 71 H (9-20) mg/dL Glucose 270 H (74-99) mg/dL POC Glucose (mg/dL) (70-110) mg/dL Microbiology - Last 24 Hours (Table) 01/23/23 04:00 Gram Stain - Preliminary Pleural Fluid Body Fluid Culture - Preliminary Assessment and Plan Assessment: Impression: Acute hypoxic respiratory failure, worsening bilateral pulmonary edema and pleural effusions Recurrent right-sided pleural effusion secondary to chronic liver disease COVID-19 infection, incidental finding, no clear-cut symptoms of COVID-19 infection underlying bacterial pneumonia is not entirely ruled out Thrombocytopenia secondary to chronic liver disease Chronic anemia Diarrhea most likely secondary to COVID-19 infection, resolved Hypoalbuminemia, moderate severe protein calorie malnutrition, also secondary to his liver disease. History of liver cirrhosis and ascites History of hepatitis C History of alcoholism Type 2 diabetes Recent history of laparoscopic hernia repair Chronic hyponatremia/hypervolemic hyponatremia secondary to liver disease, res olved Right-sided pneumothorax/trapped lung, postthoracentesis, Status post right sided chest tube/thoravent placement, slight improvement noted in the expansion of the right lung today based on the chest x-ray from today. Hypovolemic hypotension, trying to avoid high volume resuscitation on this p atient as he develops worsening pulmonary edema, hence will continue norepinephrine and titrate accordingly Recommendation: Continue hemodynamic support, continue norepinephrine Restart Lasix at 40 mg IV push every 8 hours Continue to monitor in the ICU Continue chest tube to suction Continue to titrate FiO2 and maintaining O2 saturation above 90% presently on airvo 50% FiO2 and 60 L flow Continue empiric Zosyn Continue Decadron and Xifaxan Patient remains critically ill and has very poor prognosis DO NOT RESUSCITATE CODE STATUS Critical care time is over 30 minutes Time with Patient: Greater than 30
[2023-01-26 11:39] LABS: Glucose,Whole Blood 298 mg/dL (70-110)
[2023-01-26] MEDS: MORPHINE SULFATE 4 MG/ML SYRINGE IV PRN (12:04)
--- NOTE | 2023-01-26 12:07 | P.PN ---
Subjective Progress Note Date: 01/26/23 This is a pleasant 72 years old male with past medical history ofAsthma, Diabetes Mellitus, GERD/Reflux,Osteoarthritis , cirrhosis of the liver, hepatitis C possibly from blood transfusion as a child, palpable mass right parotid ,left leg arthritis with occasional edema to lower leg Patient was recently discharged from this -01/15, he underwent thoracocentesis was 2.5 fluid removed oriented and thereafter patient was discharged on Levaquin Patient presents because of dyspnea slightly getting worse since been discharged from the hospital. No much coughing., Chest pain. His other complaint is diarrhea also started after discharge. He had 3-4 bouts of bowel movement yesterday. No abdominal pain or vomiting. He has somewhat low appetite. He is in the 3 L oxygen at home. He denies alcohol or smoking or illicit drugs. No headache weakness or numbness or confusion. He's on 3 L oxygen at home Patient states yesterday they tapped his lung and 3 L were taken out from his right side. No On admission he was saturating 94% on 6 L oxygen via nasal cannula, currently his oxygen requirement went up to 12 L permanent via high flow cannula. CBC showed mild anemia but significant thrombocytopenia at 33, which looks similar to 4 days ago where it was 36 on 01/14/2023. Before that baseline platelet count was 50-80k INR is 1.64. Lactic acid 2.7 Troponin is negative Sodium is 125, glucose elevated morning at 300 on admission. Liver enzymes AST/ALT are within the reference range. Bilirubin slightly up 1.6. ProBNP is low at 197 Chest x-ray showing almost complete opacification of the right lung with some bilateral infiltrates 01/20. Patient seen and examined. Patient is currently on airvo at 15 L flow and 70% FiO2. Gets short of breath on minimal exertion 01/21. Patient seen and examined. Continues to be on airvo heated high flow at 60 L and FiO2 of 90%. Hemoglobin 11.8, platelet count 35, BUN 24, creatinine 0.51. Gets short of breath on minimum exertion. 01/22. Patient seen and examined . Currently on BiPAP, FiO2 100%. Patient is lethargic, get short of breath on conversing. Currently on Lasix drip and IV Zosyn 01/23. Patient seen and examined. Currently in ICU. WBC 3.7, hemoglobin 12.5, sodium 134, potassium 3.8, BUN 50, creatinine 0.88. Platelet count is 21,000 Patient continues to be on BiPAP with an FiO2 of 80%. Patient very lethargic. Unable to maintain conversation 01/24. Patient seen and examined. Currently on airvo at 70% FiO2 at 60 L flow. Repeat chest x-ray still showing pneumothorax 01/25. Patient seen and examined. Lab work showed occlusive 14.1, hemoglobin 12.8, platelet count 26, sodium 143, potassium 3.7, BUN 68, creatinine 0.87. Currently on nonrebreather mask. Thoravent in place. 01/26. Patient seen and examined. WBC 13.1, hemoglobin 13.5, INR 1.8, blood sugars elevated, increase Levemir to 10 units twice a day REVIEW OF SYSTEMS: Denies any chest pain. Denies any nausea or vomiting. Denies any lightheadedness or dizziness PHYSICAL EXAMINATION: GENERAL: The patient is alert , chronically sick-looking HEENT: Pupils are round and equally reacting to light. EOMI. No scleral icterus. No conjunctival pallor. Normocephalic, atraumatic. No pharyngeal erythema. No thyromegaly. CARDIOVASCULAR: S1 and S2 present. No murmurs, rubs, or gallops. PULMONARY: Tachypneic, coarse breath sounds bilaterally, no wheeze ABDOMEN: Soft, nontender, nondistended, normoactive bowel sounds. No palpable organomegaly. MUSCULOSKELETAL: No joint swelling or deformity. EXTREMITIES: No cyanosis, clubbing, or pedal edema. NEUROLOGICAL: Gross neurological examination did not reveal any focal deficits. SKIN: No rashes. Assessment and plan Acute respiratory failure Bilateral consolidation suspicious for bilateral covid pneumonia. Rule out bacterial pneumonia Right pleural effusion status post thoracocentesis on 01/18 with tapping 3 L out Apical pneumothorax right side Hypervolemic hyponatremia Severe calorie protein malnutrition Slightly worsening thrombocytopenia in view of patient liver disease Liver cirrhosis History of hep C Thrombocytopenia Diabetes mellitus, with hyperglycemia History of GERD History of osteoarthritis Monitor vital signs Monitor CBC Monitor CMP Thrombocytopenia could be secondary to patient history of cirrhosis and COVID-19 infection Continue telemetry monitoring Aggressive bronchopulmonary hygiene Continue breathing treatments Continue IV Zosyn Continue IV Lasix 40 mg every 8 Patient requiring low-dose of Levophed Monitor blood sugar levels, continue current insulin regimen, increase Levemir 10 units twice a day Continue Decadron Continue rifaximin Critical care following,Thoravent in place ID following Labs and medication were reviewed.. Continue same treatment. Continue with symptomatic treatment. Resume home medication. Monitor labs and vitals. DVT and GI prophylaxis. Further recommendations as per clinical course of the patient Dictation was produced using [employer] dictation software. please excuse any grammatical, word or spelling errors. Objective - Vital Signs Vital signs: Vital Signs Temp 97.6 F 01/26/23 08:00 Pulse 89 01/26/23 08:00 Resp 11 L 01/26/23 07:00 BP 110/46 01/26/23 08:00 Pulse Ox 97 01/26/23 08:00 FiO2 50 01/26/23 08:00 Intake & Output 01/25/23 01/26/23 01/26/23 18:59 06:59 18:59 Intake Total 707.593 888.946 190 Output Total 845 415 340 Balance -137.407 473.946 -150 Weight 54.8 kg Intake: IV 240 340 60 Piperacillin-Tazobactam 3 100 .375 gm In Sodium Chloride 0.9% 100 ml @ 25 mls/hr IVPB Q8H JORDAN Rx#: [id number] Sodium Chloride 0.9% 1, 240 240 60 000 ml @ 20 mls/hr IV . Q24H JORDAN Rx#:[id number] Intake, IV Titration 298.593 68.946 Amount Norepinephrine 4 mg In 98.593 68.946 Sodium Chloride 0.9% 250 ml @ 0.03 MCG/KG/MIN 6. 549 mls/hr IV .Q24H JORDAN Rx#:[id number] Potassium Chloride 10 meq 200 In Water For Injection 1 100ml.bag @ 100 mls/hr IVPB Q1H JORDAN Rx#: [id number] Tube Feeding 90 390 130 Blood Product 79 Pooled Cryoprecipitate 79 Unit [id number] Other 90 Output: Chest Tube Drainage 350 Thora-Vent Right Upper 350 Anterior Chest Urine 495 415 340 Other: Voiding Method Indwelling Catheter Indwelling Catheter Indwelling Catheter - Labs CBC & Chem 7: 01/26/23 07:19 01/26/23 07:19 Labs: Abnormal Lab Results - Last 24 Hours (Table) 01/25/23 01/25/23 01/26/23 Range/Units 12:01 23:40 05:37 WBC (3.8-10.6) k/uL RBC (4.30-5.90) m/uL MCV (80.0-100.0) fL Plt Count (150-450) k/uL Macrocytosis PT (9.0-12.0) sec INR (<1.2) Fibrinogen (200-500) mg/dL POC Glucose (mg/dL) 150 H 155 H 284 H (70-110) mg/dL 01/26/23 01/26/23 Range/Units 07:19 07:19 WBC 13.1 H (3.8-10.6) k/uL RBC 3.90 L (4.30-5.90) m/uL MCV 107.2 H (80.0-100.0) fL Plt Count 20 L (150-450) k/uL Macrocytosis Marked A PT 18.1 H (9.0-12.0) sec INR 1.8 H (<1.2) Fibrinogen 95 L (200-500) mg/dL POC Glucose (mg/dL) (70-110) mg/dL Microbiology - Last 24 Hours (Table) 01/23/23 04:00 Gram Stain - Preliminary Pleural Fluid Body Fluid Culture - Preliminary
--- NOTE | 2023-01-26 16:37 | P.PN ---
Subjective Progress Note Date: 01/26/23 Principal diagnosis: Pneumonia Patient is a 72-year-old male with a past medical history significant for diabetes mellitus reflux cirrhosis of the liver osteoarthritis and asthma, patient is vaccinated for covid 19, both the patient and the developed respiratory symptoms and the tested positive for covid 19 about a week before presentation to the hospital, patient was admitted to the cardiology floor did have worsening of his respiratory status requiring transfer to the ICU. on today's evaluation that is 01/26/2023, the patient remains to be febrile, t he patient is requiring care airvo and is currently on 50% FiO2 with 60 L oxygen, the patient is awake but not a very good historian still requiring low- dose pressor support no vomiting or diarrhea has been reported Patient did have a hemoglobin of 13.5, white count is 13.1, creatinine 0.78, pleural fluid cultures are currently pending Objective - Vital Signs Vital signs: Vital Signs Temp 98.1 F 01/26/23 12:00 Pulse 70 01/26/23 12:00 Resp 11 L 01/26/23 07:00 BP 101/54 01/26/23 12:00 Pulse Ox 93 L 01/26/23 12:00 FiO2 60 01/26/23 12:00 Intake & Output 01/25/23 01/26/23 01/26/23 18:59 06:59 18:59 Intake Total 707.593 888.946 464 Output Total 871 604 4876 Balance -137.407 473.946 -626 Weight 54.8 kg Intake: IV 240 340 120 Piperacillin-Tazobactam 3 100 .375 gm In Sodium Chloride 0.9% 100 ml @ 25 mls/hr IVPB Q8H JORDAN Rx#: [id number] Sodium Chloride 0.9% 1, 240 240 120 000 ml @ 20 mls/hr IV . Q24H JORDAN Rx#:[id number] Intake, IV Titration 298.593 68.946 Amount Norepinephrine 4 mg In 98.593 68.946 Sodium Chloride 0.9% 250 ml @ 0.03 MCG/KG/MIN 6. 549 mls/hr IV .Q24H JORDAN Rx#:[id number] Potassium Chloride 10 meq 200 In Water For Injection 1 100ml.bag @ 100 mls/hr IVPB Q1H JORDAN Rx#: [id number] Tube Feeding 90 390 265 Blood Product 79 79 Pooled Cryoprecipitate 79 Unit [id number] Pooled Cryoprecipitate 79 Unit [id number] Other 90 Output: Chest Tube Drainage 350 Thora-Vent Right Upper 350 Anterior Chest Urine 697 703 9193 Other: Voiding Method Indwelling Catheter Indwelling Catheter Indwelling Catheter - Exam GENERAL DESCRIPTION: An elderly male lying in bed in no distress RESPIRATORY SYSTEM: Unlabored breathing , coarse breath sounds bilaterally HEART: S1 S2 regular rate and rhythm , ABDOMEN: Soft , no tenderness EXTREMITIES: No edema feet - Labs CBC & Chem 7: 01/26/23 07:19 01/26/23 07:19 Labs: Abnormal Lab Results - Last 24 Hours (Table) 01/25/23 01/26/23 01/26/23 Range/Units 23:40 05:37 07:19 WBC (3.8-10.6) k/uL RBC (4.30-5.90) m/uL MCV (80.0-100.0) fL Plt Count (150-450) k/uL Macrocytosis PT (9.0-12.0) sec INR (<1.2) Fibrinogen (200-500) mg/dL Chloride 115 H (98-107) mmol/L BUN 71 H (9-20) mg/dL Glucose 270 H (74-99) mg/dL POC Glucose (mg/dL) 155 H 284 H (70-110) mg/dL 01/26/23 01/26/23 01/26/23 Range/Units 07:19 07:19 11:37 WBC 13.1 H (3.8-10.6) k/uL RBC 3.90 L (4.30-5.90) m/uL MCV 107.2 H (80.0-100.0) fL Plt Count 20 L (150-450) k/uL Macrocytosis Marked A PT 18.1 H (9.0-12.0) sec INR 1.8 H (<1.2) Fibrinogen 95 L (200-500) mg/dL Chloride (98-107) mmol/L BUN (9-20) mg/dL Glucose (74-99) mg/dL POC Glucose (mg/dL) 298 H (70-110) mg/dL Microbiology - Last 24 Hours (Table) 01/23/23 04:00 Gram Stain - Preliminary Pleural Fluid Body Fluid Culture - Preliminary Assessment and Plan (1) Pneumonia Current Visit: Yes Status: Acute Code(s): J18.9 - PNEUMONIA, UNSPECIFIED OR GANISM SNOMED Code(s): 943566747 (2) Coronavirus infection Current Visit: Yes Status: Acute Code(s): B34.2 - CORONAVIRUS INFECTION, UNSPECIFIED SNOMED Code(s): 839445480 (3) Pleural effusion Current Visit: Yes Status: Acute Code(s): J90 - PLEURAL EFFUSION, NOT ELSEWHERE CLASSIFIED SNOMED Code(s): 30548263 Plan: 1patient with the acute respiratory failure which is likely multifactorial in this patient tested positive for covid 19 more than a week ago and also history of recurrent right-sided effusion with worsening effusion and airspace opacities concerning for possible secondary bacterial pneumonia 2-cephalosporin ALLERGY that would limit the number of antibiotic safety use 3leukocytosis possibly steroid related And is trending down, though her fluid cultures are currently pending. 4patient to continue with Zosyn while waiting for culture to finalize continue supportive care Dictation was produced using [employer] dictation software. please excuse any grammatical, word or spelling errors. Time with Patient: Less than 30
[2023-01-26 17:24] LABS: Glucose,Whole Blood 294 mg/dL (70-110)
[2023-01-26 23:21] LABS: Glucose,Whole Blood 224 mg/dL (70-110)
[2023-01-27] MEDS: ALBUTEROL HFA INHALER INHALATION SCH ×7 (00:06→23:57)
[2023-01-27] MEDS: FUROSEMIDE 10 MG/ML 4 ML VIAL IV SCH ×2 (00:13→07:59)
[2023-01-27] MEDS: INSULIN ASPART (NovoLOG) 100 UNIT/ML VIAL SQ SCH ×6 (00:15→18:13)
[2023-01-27] MEDS ORDERED: LORazepam 2 MG/ML INJ IV ONE (01:27)
[2023-01-27] MEDS: SODIUM CHLORIDE 0.9% 1,000 ML IV SCH (01:49)
[2023-01-27] MEDS: MORPHINE SULFATE 4 MG/ML SYRINGE IVP PRN (05:12)
[2023-01-27 05:43] LABS: Glucose,Whole Blood 266 mg/dL (70-110)
[2023-01-27 06:07] LABS: HCT 39.1 % (39.0-53.0); HGB 12.8 gm/dL (13.0-17.5); MCH 34.8 pg (25.0-35.0); MCHC 32.7 g/dL (31.0-37.0); MCV 106.4 fL (80.0-100.0); Macrocytosis Moderate; Mean Platelet Volume 7.7; RBC 3.68 m/uL (4.30-5.90); RDW 15.2 % (11.5-15.5); WBC 9.5 k/uL (3.8-10.6)
[2023-01-27 06:09] LABS: Platelet Count 14 k/uL (150-450)
[2023-01-27 06:13] LABS: ALT 50 U/L (4-49); AST 93 U/L (17-59); African American GFR (CKD) >90 (>60 ml/min/1.73 sqM); Albumin 1.9 g/dL (3.5-5.0); Alkaline Phosphatase 291 U/L (38-126); Anion Gap 2 mmol/L; Blood Urea Nitrogen 74 mg/dL (9-20); Carbon Dioxide 33 mmol/L (22-30); Chloride 111 mmol/L (98-107); Glucose 292 mg/dL (74-99); Non-African American GFR(CKD) 87 (>60 ml/min/1.73 sqM); Sodium 146 mmol/L (137-145); Total Bilirubin 2.7 mg/dL (0.2-1.3); Total Protein 5.1 g/dL (6.3-8.2)
[2023-01-27 06:17] LABS: INR 1.6 (<1.2); Partial Thromboplastin Time 23.7 sec (22.0-30.0); Prothrombin Time 15.6 sec (9.0-12.0)
[2023-01-27] MEDS: LIPASE 5,000/PROTEASE 17,000/AMYLASE 24,000 PO SCH ×3 (06:29→15:33)
[2023-01-27] MEDS: INSULIN DETEMIR (LEVEMIR) 100 UNIT/ML SYR SQ SCH (06:30)
--- NOTE | 2023-01-27 07:40 | XR ---
EXAMINATION TYPE: XR chest 1V portable DATE OF EXAM: 01/27/2023 5:37 AM COMPARISON: Chest radiographs from 01/26/2023 TECHNIQUE: XR chest 1V portable Portable AP radiograph of the chest. CLINICAL INDICATION:Male, 72 years old with history of ptx, pleural effusions; FINDINGS: Lungs/Pleura: No pleural effusion. Slightly increased small right apical pneumothorax. Redemonstratio n of bilateral interstitial lung opacities with left greater the right. Pulmonary vascularity: Unremarkable. Heart/mediastinum: Cardiomediastinal silhouette is stable in size. No shift. Musculoskeletal: No acute osseous pathology. Right chest wall subcutaneous emphysema. Lines/Tubes: Thoravent remains in place. NG tube in stable position. IMPRESSION: 1. Slightly increased small right apical pneumothorax with thoravent in place. 2. Redemonstration of bilateral interstitial lung opacities. 3. Stable NG tube.
[2023-01-27] MEDS: LACTULOSE 20 GM/30 ML CUP PO SCH (07:57)
[2023-01-27] MEDS: DEXAMETHASONE SOD PHOSPHATE 10 MG/ML 1 ML VIAL IVP SCH (07:57)
[2023-01-27] MEDS: ASCORBIC ACID 500 MG TAB PO SCH (07:58)
[2023-01-27] MEDS: ZINC SULFATE 220 MG CAP PO SCH (07:58)
[2023-01-27] MEDS: SPIRONOLACTONE 25 MG TAB PO SCH ×2 (07:59→22:00)
[2023-01-27] MEDS: FAMOTIDINE 20 MG TAB PO SCH ×2 (07:59→22:00)
[2023-01-27] MEDS: CHOLECALCIFEROL 25 MCG (1000 IU) TABLET PO SCH (07:59)
[2023-01-27] MEDS: NOREPINEPHRINE 4 MG in SODIUM CHLORIDE 0.9% 250 ML IV SCH ×2 (07:59→08:15)
[2023-01-27] MEDS: FERROUS SULFATE ORAL ELIXIR 300 MG/5 ML CUP PO SCH (08:00)
--- NOTE | 2023-01-27 11:03 | P.PN ---
Subjective Progress Note Date: 01/27/23 Principal diagnosis: Acute hypoxic respiratory failure secondary to right-sided pleural effusion 72-year-old male patient, liver cirrhosis, hepatitis C, alcoholism, diabetes mellitus, recently hospitalized for a large right-sided pleural effusion and shortness of breath, the brain and a total of 3 L of fluid was aspirated from the right lung. He was running a low-grade fever. He also had increased edema in his lower extremities. The patient was given Levaquin and his cultures were negative. He was ultimately discharged home to be readmitted again with worsening shortness of breath and hypoxic respiratory failure. Still having diarrhea about 3-4 episodes of bowel movement. No abdominal pain. No nausea or vomiting. He was on oxygen at 3 L and currently he is on high flow oxygen. In the emergency, he was found to have recurrent right-sided pleural effusion. Ba sed on his borderline respiratory status, the emergency physician performed a thoracentesis on him. He tested positive for Covid 19. His lactic acid level is at 2.7. His hemoglobin is at 12.4, white cell count is at 5.7, he does have chronic pancytopenia related to chronic liver disease. INR is at 1.4, sodium is 125, BUN is at 20 with a creatinine of 0.56. Lactic acid level was at 2.7 up to 2.4. Alkaline phosphatase 205, AST and ALP are normal, troponins are negative. He is cachectic, debilitated with a body mass index of 21.4. Patient was reevaluated today on 01/20/2023, remains on high flow FiO2, airvo at 15 L flow and 70% FiO2 on the patient remains a relatively short of breath, and seems to be quite anxious that scan is 3.8 hemoglobin is 10.9. Sodium is 127 bicarb is 18 BUN is 20 creatinine 0.48 blood sugar is 333 in spite of having 3 L of fluid removed yesterday from his right pleural space, patient continues to have some shortness of breath, chest x-ray is showing bilateral airspace disease, I'm suspecting interstitial edema, and there is also a right sided small apical pneumothorax noted related to his recent thoracentesis. Platelets remained low as 30,000 Patient was reevaluated today on 01/21/2023, patient is requiring more oxygen, his FiO2 is up to 90%, his flow is up to 60 L/m, and the patient remains marginal, hence after regarding the patient today on the floor, and recommended transferring the patient to the ICU. I have a strong feeling that the patient may end up requiring intubation and mechanical ventilation in the meantime I will try the patient on Lasix drip especially with a chest x-ray showing significant pulmonary edema. His previous right sided pneumothorax has resolved his right-sided pleural effusion has become much worse and he has increased opacities consistent with pulmonary edema. ABG showed a pO2 of 61 pCO2 38 pH of 7.36 WBC count is 4.9 hemoglobin 11.8 electrolytes are normal bicarb is normal BUN is 24 creatinine 0.51 Patient was reevaluated today on 01/22/2023, remains in the ICU, I transferred the patient yesterday because of worsening pulmonary status recommended Lasix drip at 10 mg per hour, and the patient remains on Lasix drip. Patient was transitioned from airvo to BiPAP 12/6/100%, O2 saturation is in the high 90s. Some clinical improvement, nonetheless his chest x-ray continues to show bilateral pulmonary edema with right-sided pleural effusion and his urine output is over 200 mL an hour. I am recommending that he continue diuretics before I would consider thoracentesis on this patient. Although thoracentesis may be necessary if no improvement in the next 24 hours. Chest x-ray today continues to show bilateral pleural parenchymal changes with large pleural effusion on the right side, I believe were dealing mostly with pneumonia and pulmonary edema. WBC count is 3.7 hemoglobin is 12.9 electrolytes are normal however his sodium is 129 not much different from yesterday sodium. Renal profile remains abnormal Reevaluated today on 01/23/2023, patient is doing poorly, remains in the ICU, he is marginal at best, remains on BiPAP 12/6, 80% FiO2, and his O2 saturation is in the high 80s and low 90s. Patient developed hypotension last night and he required placement on norepinephrine at 0.05 mcg/kg/m. Lasix is presently on hold, chest x-ray is showing worsening pulmonary edema hence I recommended immediate right-sided thoracentesis, and I was able to drain over 2 L of straw- colored fluid from the right pleural space, with dramatic improvement in his O2 saturation post-thoracentesis although there was evidence of 20% right-sided pneumothorax/trapped lung noted post procedure and the same thing was noted on his previous thoracentesis few days ago. The fluid was sent for different geoff gnostic studies. Patient was placed back on BiPAP, O2 saturations was noted to be about 100% and will titrate his FiO2 down follow-up chest x-ray after right thoracentesis 2 hours after his initial x-ray, showed no major change in the size of the right-sided pneumothorax, hence I will hold on placement of the chest tube at this point I still believe were dealing mostly with a trapped lung. Labs today showed W Jeremy 3.7 hemoglobin is 12.5 *Normal renal profile is normal with BUN is 50 creatinine 0.88 Reevaluated today on 01/24/2023, patient seems to be doing better today, he is on airvo at 70% FiO2 at 60 L flow, O2 saturations in the mid 90s, patient seems to be more comfortable less short of breath, he is still on norepinephrine at 0.071 g/kg/m IV fluids at KVO patient remains on Zosyn for presumptive underlying bacterial pneumonia patient does have COVID-19 infection and possibly COVID-19 pneumonia. Patient looks extremely frail, chronically ill, cachectic, and his overall prognosis remains extremely poor. Chest x-ray was repeated today this morning after a tube placement last nasogastric tube showed slight increase in the size of the pneumothorax hence may consider placement of a thoravent. is 16.4 hemoglobin is 14.4 BUN is 67 creatinine 0.83 patient had an elevated potas sium of 6.1 but the blood was hemolyzed Reevaluated today on , patient remains in the ICU, basically about the same, he is now on a nonrebreather mask, patient pulled out his nasogastric tube yesterday, and another one will be placed today. His chest x-ray showed increase in the size of the right-sided pneumothorax however after flushing the thoravent, there was evidence of improvement in air bubbles and leak through the pleural VAC, hence the lung will expand slowly. And no need to change the chest tube at this point or place another one. Patient is still requiring norepinephrine at 0.03 mcg/kg/m his IV fluids remain at KVO. Remains on Zosyn, remains on steroids, patient is marginal at best WBC count is 14.1 hemoglobin is 12.8 INR is 2.0 twice are normal ammonia level yesterday was normal renal profile is normal on a chest x-ray as noted above, cultures from the pleural effusion has been negative so far Reevaluated today on 01/26/2023, remains in the ICU, remains marginal at best, with very marginal and poor pulmonary status. Patient remains on airvo, and his airvo now is at 50% FiO2 with 60 L flow. O2 saturation is in the 90s. Last night he was placed on BiPAP 12/6/80%. Patient is still requiring norepinephrine at 0.03 mcg/kg/m. His chest x-ray today showed improvement in his right-sided pneumothorax, better expansion of the right lung, continues to have ongoing air leak, and some interstitial edema is noted on the chest x-ray. Patient is going to be back on Lasix 40 mg IV push every 8 hours today. And he remains on Zosyn, remains on steroids, continues to look frail, chronically ill, and cachectic, seems to have almost a picture of failure to thrive. His W BC count is 13.1 hemoglobin is 13.5 his INR is 1.8 lites are normal BUN is 71 creatinine 0.78. Patient had a nasogastric tube placed again yesterday, and he is now on enteral feeding. CODE STATUS has been discussed with the and his CODE STATUS was changed to DO NOT RESUSCITATE, again I have a strong feeling that the patient will do poorly and his overall prognosis remains extremely poor and he seems to be again a picture of failure to thrive Reevaluated today on 01/27/2023, remains in the ICU, marginal at best. Patient remains on airvo, 60% FiO2 60 L flow, remains on norepinephrine at 0.03 mcg/kg/m, his chest x-ray is showing improvement in his right-sided pneumothorax but the lung still not fully expanded patient had over 2 L of fluid drained from the right pleural space from the chest tube which I placed couple of days ago. Patient is clinically dehydrated hence I'm planning to stop his diuretics for now, but would not push significant volume since the patient could develop worsening fluid retention and worsening bilateral pleural effusions. Patient continues to have air leak in the pleural VAC, his platelets remain low and hematology is addressing his platelets may need couple of units of platelets today. Platelets are down to 14,000. Patient did receive cryoprecipitate yesterday from hematology/oncology his fibrinogen level was 95, and it is 123 today and clinically the patient is basically about the same, he seems to be very frail, chronically ill, and I still believe the patient has a picture of failure to thrive Objective - Vital Signs Vital signs: Vital Signs Temp 97.6 F 01/27/23 08:00 Pulse 83 01/27/23 08:30 Resp 12 01/27/23 08:30 BP 92/48 01/27/23 08:30 Pulse Ox 94 L 01/27/23 08:30 FiO2 60 01/27/23 08:00 Intake & Output 01/26/23 01/27/23 01/27/23 18:59 06:59 18:59 Intake Total 995.078 870 201.53 Output Total 2130 1005 595 Balance -1134.922 -135 -393.47 Weight 52.6 kg Intake: IV 260 240 40 Sodium Chloride 0.9% 1, 260 240 40 000 ml @ 20 mls/hr IV . Q24H JORDAN Rx#:[id number] Intake, IV Titration 76.078 71.53 Amount Norepinephrine 4 mg In 76.078 71.53 Sodium Chloride 0.9% 250 ml @ 0.03 MCG/KG/MIN 6. 549 mls/hr IV .Q24H JORDAN Rx#:[id number] Tube Feeding 580 540 90 Blood Product 79 Pooled Cryoprecipitate 79 Unit [id number] Other 90 Output: Chest Tube Drainage 450 200 400 Thora-Vent Right Upper 450 200 400 Anterior Chest Urine 1680 805 195 Other: Voiding Method Indwelling Catheter Indwelling Catheter Indwelling Catheter - Exam Physical Exam: Revealed a 72-year-old white male, looks frail, chronically ill, on airvo, not in respiratory distress. Head: Atraumatic, normocephalic. HEENT:[Neck is supple.] [No neck masses.] [No thyromegaly.] [No JVD.] Chest: Crackles at the bases persists. Right-sided thoravent noted. Air leak in the Pleur-evac was noted, almost 2 L of fluid noted in the Pleur-evac from the last 2 days. Cardiac Exam: [Normal S1 and S2, no S3 gallop, no murmur.] Abdomen: [Soft, nontender, no megaly, no rebound, no guarding, normal bowel sounds.] Mild ascites is suspected. Extremities: [No clubbing, no edema, no cyanosis.] Neurological Exam: [No focal neurologic deficit.] Alert oriented 3 Psychiatric: Anxious mood, as, normal affect. Skin: No rashes - Labs CBC & Chem 7: 01/27/23 05:38 01/27/23 05:38 Labs: Abnormal Lab Results - Last 24 Hours (Table) 01/26/23 01/26/23 01/26/23 Range/Units 11:37 17:23 23:19 RBC (4.30-5.90) m/uL Hgb (13.0-17.5) gm/dL MCV (80.0-100.0) fL Plt Count (150-450) k/uL Haptoglobin (31.2-198.0) mg/dL PT (9.0-12.0) sec INR (<1.2) Fibrinogen (200-500) mg/dL Sodium (137-145) mmol/L Chloride (98-107) mmol/L Carbon Dioxide (22-30) mmol/L BUN (9-20) mg/dL Glucose (74-99) mg/dL POC Glucose (mg/dL) 298 H 294 H 224 H (70-110) mg/dL Total Bilirubin (0.2-1.3) mg/dL AST (17-59) U/L ALT (4-49) U/L Alkaline Phosphatase (38-126) U/L Total Protein (6.3-8.2) g/dL Albumin (3.5-5.0) g/dL 01/27/23 01/27/23 01/27/23 Range/Units 05:38 05:38 05:38 RBC 3.68 L (4.30-5.90) m/uL Hgb 12.8 L (13.0-17.5) gm/dL MCV 106.4 H (80.0-100.0) fL Plt Count 14 L* (150-450) k/uL Haptoglobin <10.0 L (31.2-198.0) mg/dL PT 15.6 H (9.0-12.0) sec INR 1.6 H (<1.2) Fibrinogen 123 L (200-500) mg/dL Sodium (137-145) mmol/L Chloride (98-107) mmol/L Carbon Dioxide (22-30) mmol/L BUN (9-20) mg/dL Glucose (74-99) mg/dL POC Glucose (mg/dL) (70-110) mg/dL Total Bilirubin (0.2-1.3) mg/dL AST (17-59) U/L ALT (4-49) U/L Alkaline Phosphatase (38-126) U/L Total Protein (6.3-8.2) g/dL Albumin (3.5-5.0) g/dL 01/27/23 01/27/23 Range/Units 05:38 05:42 RBC (4.30-5.90) m/uL Hgb (13.0-17.5) gm/dL MCV (80.0-100.0) fL Plt Count (150-450) k/uL Haptoglobin (31.2-198.0) mg/dL PT (9.0-12.0) sec INR (<1.2) Fibrinogen (200-500) mg/dL Sodium 146 H (137-145) mmol/L Chloride 111 H (98-107) mmol/L Carbon Dioxide 33 H (22-30) mmol/L BUN 74 H (9-20) mg/dL Glucose 292 H (74-99) mg/dL POC Glucose (mg/dL) 266 H (70-110) mg/dL Total Bilirubin 2.7 H (0.2-1.3) mg/dL AST 93 H (17-59) U/L ALT 50 H (4-49) U/L Alkaline Phosphatase 291 H (38-126) U/L Total Protein 5.1 L (6.3-8.2) g/dL Albumin 1.9 L (3.5-5.0) g/dL Microbiology - Last 24 Hours (Table) 01/23/23 04:00 Gram Stain - Preliminary Pleural Fluid Body Fluid Culture - Preliminary Assessment and Plan Assessment: Impression: Acute hypoxic respiratory failure, worsening bilateral pulmonary edema and pleural effusions Recurrent right-sided pleural effusion secondary to chronic liver disease COVID-19 infection, incidental finding, no clear-cut symptoms of COVID-19 infection underlying bacterial pneumonia is not entirely ruled out Thrombocytopenia secondary to chronic liver disease Chronic anemia Diarrhea most likely secondary to COVID-19 infection, resolved Hypoalbuminemia, moderate severe protein calorie malnutrition, also secondary to his liver disease. History of liver cirrhosis and ascites History of hepatitis C History of alcoholism Type 2 diabetes Recent history of laparoscopic hernia repair Chronic hyponatremia/hypervolemic hyponatremia secondary to liver disease, resolved Right-sided pneumothorax/trapped lung, postthoracentesis, Status post right sided chest tube/thoravent placement, slight improvement noted in the expansion of the right lung today based on the chest x-ray from today. Hypovolemic hypotension, trying to avoid high volume resuscitation on this patient as he develops worsening pulmonary edema, hence will continue norepinephrine and titrate accordingly Recommendation: Continue norepinephrine, and titrate accordingly Hold Lasix, discontinue for now. Continue to monitor in the ICU Continue chest tube to suction Continue to titrate FiO2 and maintaining O2 saturation above 90% Continue empiric Zosyn Continue Decadron and Xifaxan Oncology is addressing his thrombocytopenia. Continue lactulose. Continue insulin and address accordingly Continue Pepcid Continue COVID-19 cocktail and syncope Patient remains critically ill and has very poor prognosis DO NOT RESUSCITATE CODE STATUS Critical care time is over 30 minutes Time with Patient: Greater than 30
[2023-01-27 11:43] LABS: Glucose,Whole Blood 293 mg/dL (70-110)
[2023-01-27] MEDS ORDERED: AMIODARONE 360 MG in DEXTROSE 5% IN WATER 200 ML IV ONE ×2 (13:42)
[2023-01-27] MEDS ORDERED: DEXTROSE 5% IN WATER 100 ML with AMIODARONE 150 MG IV ONE (13:42)
--- NOTE | 2023-01-27 14:37 | P.PN ---
Subjective Progress Note Date: 01/27/23 This is a pleasant 72 years old male with past medical history ofAsthma, Diabetes Mellitus, GERD/Reflux,Osteoarthritis , cirrhosis of the liver, hepatitis C possibly from blood transfusion as a child, palpable mass right parotid ,left leg arthritis with occasional edema to lower leg Patient was recently discharged from this -01/15, he underwent thoracocentesis was 2.5 fluid removed oriented and thereafter patient was discharged on Levaquin Patient presents because of dyspnea slightly getting worse since been discharged from the hospital. No much coughing., Chest pain. His other complaint is diarrhea also started after discharge. He had 3-4 bouts of bowel movement yesterday. No abdominal pain or vomiting. He has somewhat low appetite. He is in the 3 L oxygen at home. He denies alcohol or smoking or illicit drugs. No headache weakness or numbness or confusion. He's on 3 L oxygen at home Patient states yesterday they tapped his lung and 3 L were taken out from his right side. No On admission he was saturating 94% on 6 L oxygen via nasal cannula, currently his oxygen requirement went up to 12 L permanent via high flow cannula. CBC showed mild anemia but significant thrombocytopenia at 33, which looks similar to 4 days ago where it was 36 on 01/14/2023. Before that baseline platelet count was 50-80k INR is 1.64. Lactic acid 2.7 Troponin is negative Sodium is 125, glucose elevated morning at 300 on admission. Liver enzymes AST/ALT are within the reference range. Bilirubin slightly up 1.6. ProBNP is low at 197 Chest x-ray showing almost complete opacification of the right lung with some bilateral infiltrates 01/20. Patient seen and examined. Patient is currently on airvo at 15 L flow and 70% FiO2. Gets short of breath on minimal exertion 01/21. Patient seen and examined. Continues to be on airvo heated high flow at 60 L and FiO2 of 90%. Hemoglobin 11.8, platelet count 35, BUN 24, creatinine 0.51. Gets short of breath on minimum exertion. 01/22. Patient seen and examined . Currently on BiPAP, FiO2 100%. Patient is lethargic, get short of breath on conversing. Currently on Lasix drip and IV Zosyn 01/23. Patient seen and examined. Currently in ICU. WBC 3.7, hemoglobin 12.5, sodium 134, potassium 3.8, BUN 50, creatinine 0.88. Platelet count is 21,000 Patient continues to be on BiPAP with an FiO2 of 80%. Patient very lethargic. Unable to maintain conversation 01/24. Patient seen and examined. Currently on airvo at 70% FiO2 at 60 L flow. Repeat chest x-ray still showing pneumothorax 01/25. Patient seen and examined. Lab work showed occlusive 14.1, hemoglobin 12.8, platelet count 26, sodium 143, potassium 3.7, BUN 68, creatinine 0.87. Currently on nonrebreather mask. Thoravent in place. 01/26. Patient seen and examined. WBC 13.1, hemoglobin 13.5, INR 1.8, blood sugars elevated, increase Levemir to 10 units twice a day 01/27. Patient seen and examined. Patient continues to be on heated high flow oxygen 60 L and FiO2 of 60%. Blood sugars were elevated, Levemir dose increased to 15 units twice a day. Patient received cryoprecipitate yesterday from hematology oncology. Continues to be on tube feeding REVIEW OF SYSTEMS: Denies any chest pain. Denies any nausea or vomiting. Denies any lightheadedness or dizziness PHYSICAL EXAMINATION: GENERAL: The patient is alert , chronically sick-looking HEENT: Pupils are round and equally reacting to light. EOMI. No scleral icterus. No conjunctival pallor. Normocephalic, atraumatic. No pharyngeal erythema. No thyromegaly. CARDIOVASCULAR: S1 and S2 present. No murmurs, rubs, or gallops. PULMONARY: coarse breath sounds bilaterally, no wheeze ABDOMEN: Soft, nontender, nondistended, normoactive bowel sounds. No palpable organomegaly. MUSCULOSKELETAL: No joint swelling or deformity. EXTREMITIES: No cyanosis, clubbing, or pedal edema. NEUROLOGICAL: Gross neurological examination did not reveal any focal deficits. SKIN: No rashes. Assessment and plan Acute respiratory failure Bilateral consolidation suspicious for bilateral covid pneumonia. Rule out bacterial pneumonia Right pleural effusion status post thoracocentesis on 01/18 with tapping 3 L out Apical pneumothorax right side Hypervolemic hyponatremia Severe calorie protein malnutrition Slightly worsening thrombocytopenia in view of patient liver disease Liver cirrhosis History of hep C Thrombocytopenia Diabetes mellitus, with hyperglycemia History of GERD History of osteoarthritis Monitor vital signs Monitor CBC Monitor CMP Thrombocytopenia could be secondary to patient history of cirrhosis and COVID-19 infection Continue telemetry monitoring Aggressive bronchopulmonary hygiene Continue breathing treatments Continue IV Zosyn DC diuretic Continue Levophed Monitor blood sugar levels, continue current insulin regimen, increase Levemir 15 units twice a day Continue Decadron Continue rifaximin Critical care following,Thoravent in place ID following Hematology oncology following for thrombocytopenia Labs and medication were reviewed.. Continue same treatment. Continue with symptomatic treatment. Resume home medication. Monitor labs and vitals. DVT and GI prophylaxis. Further recommendations as per clinical course of the patient Dictation was produced using [employer] dictation software. please excuse any grammatical, word or spelling errors. Objective - Vital Signs Vital signs: Vital Signs Temp 97.6 F 01/27/23 12:00 Pulse 94 01/27/23 13:30 Resp 11 L 01/27/23 13:30 BP 96/59 01/27/23 13:30 Pulse Ox 95 01/27/23 13:30 FiO2 60 01/27/23 12:00 Intake & Output 01/26/23 01/27/23 01/27/23 18:59 06:59 18:59 Intake Total 995.078 870 552.944 Output Total 2130 1005 1830 Balance -1134.922 -135 -1277.056 Weight 52.6 kg Intake: IV 260 240 140 Sodium Chloride 0.9% 1, 260 240 140 000 ml @ 20 mls/hr IV . Q24H JORDAN Rx#:[id number] Intake, IV Titration 76.078 97.944 Amount Norepinephrine 4 mg In 76.078 97.944 Sodium Chloride 0.9% 250 ml @ 0.03 MCG/KG/MIN 6. 549 mls/hr IV .Q24H JORDAN Rx#:[id number] Tube Feeding 580 540 315 Blood Product 79 Pooled Cryoprecipitate 79 Unit [id number] Other 90 Output: Chest Tube Drainage 489 504 0534 Thora-Vent Right Upper 581 295 0045 Anterior Chest Urine 1680 805 430 Other: Voiding Method Indwelling Catheter Indwelling Catheter Indwelling Catheter - Labs CBC & Chem 7: 01/27/23 05:38 01/27/23 05:38 Labs: Abnormal Lab Results - Last 24 Hours (Table) 01/26/23 01/26/23 01/27/23 Range/Units 17:23 23:19 05:38 RBC (4.30-5.90) m/uL Hgb (13.0-17.5) gm/dL MCV (80.0-100.0) fL Plt Count (150-450) k/uL Haptoglobin <10.0 L (31.2-198.0) mg/dL PT (9.0-12.0) sec INR (<1.2) Fibrinogen (200-500) mg/dL Sodium (137-145) mmol/L Chloride (98-107) mmol/L Carbon Dioxide (22-30) mmol/L BUN (9-20) mg/dL Glucose (74-99) mg/dL POC Glucose (mg/dL) 294 H 224 H (70-110) mg/dL Total Bilirubin (0.2-1.3) mg/dL AST (17-59) U/L ALT (4-49) U/L Alkaline Phosphatase (38-126) U/L Total Protein (6.3-8.2) g/dL Albumin (3.5-5.0) g/dL 01/27/23 01/27/23 01/27/23 Range/Units 05:38 05:38 05:38 RBC 3.68 L (4.30-5.90) m/uL Hgb 12.8 L (13.0-17.5) gm/dL MCV 106.4 H (80.0-100.0) fL Plt Count 14 L* (150-450) k/uL Haptoglobin (31.2-198.0) mg/dL PT 15.6 H (9.0-12.0) sec INR 1.6 H (<1.2) Fibrinogen 123 L (200-500) mg/dL Sodium 146 H (137-145) mmol/L Chloride 111 H (98-107) mmol/L Carbon Dioxide 33 H (22-30) mmol/L BUN 74 H (9-20) mg/dL Glucose 292 H (74-99) mg/dL POC Glucose (mg/dL) (70-110) mg/dL Total Bilirubin 2.7 H (0.2-1.3) mg/dL AST 93 H (17-59) U/L ALT 50 H (4-49) U/L Alkaline Phosphatase 291 H (38-126) U/L Total Protein 5.1 L (6.3-8.2) g/dL Albumin 1.9 L (3.5-5.0) g/dL 01/27/23 01/27/23 Range/Units 05:42 11:41 RBC (4.30-5.90) m/uL Hgb (13.0-17.5) gm/dL MCV (80.0-100.0) fL Plt Count (150-450) k/uL Haptoglobin (31.2-198.0) mg/dL PT (9.0-12.0) sec INR (<1.2) Fibrinogen (200-500) mg/dL Sodium (137-145) mmol/L Chloride (98-107) mmol/L Carbon Dioxide (22-30) mmol/L BUN (9-20) mg/dL Glucose (74-99) mg/dL POC Glucose (mg/dL) 266 H 293 H (70-110) mg/dL Total Bilirubin (0.2-1.3) mg/dL AST (17-59) U/L ALT (4-49) U/L Alkaline Phosphatase (38-126) U/L Total Protein (6.3-8.2) g/dL Albumin (3.5-5.0) g/dL Microbiology - Last 24 Hours (Table) 01/23/23 04:00 Gram Stain - Preliminary Pleural Fluid Body Fluid Culture - Preliminary
[2023-01-27] MEDS ORDERED: DIGOXIN 250 MCG/ML 2 ML AMP IVP ONE ×3 (15:24→18:30)
[2023-01-27] MEDS: METOPROLOL TARTRATE 25 MG TAB PO SCH ×2 (15:32→22:21)
--- NOTE | 2023-01-27 15:38 | P.CRDCN ---
History of Present Illness Consult date: 01/27/23 History of present illness: History of Present Illness: The patient is a 72-year-old male with a known history of alcoholic liver cirrhosis hepatitis C diabetes who was admitted to the hospital on January 18 was progressive dyspnea and large right-sided pleural effusion and has underwent thoracentesis with removal of 3 L. He continues to be in the ICU with chest tube and significant drainage. Today he went into atrial fibrillation with rapid ventricle response. Cardiology consultation was requested. Patient is awake but confused. I am not able to obtain an accurate history. According to the nursing staff and the records it is no history of cardiac disease, heart failure or ischemic heart disease. He has been in sinus mechanism since admission. He tested positive for COVID-19 on admission. He is on norepinephrine as well his intravenous diuretics. He has a feeding tube. He was started on IV amiodarone and persistent to be tachycardic. There is no complaints of chest discomfort or change in his breathing status. The patient is cachectic. As an outpatient there is no documentation of diabetes or hypertension. The patient is DO NOT RESUSCITATE Medications: As outpatient Aldactone 50 mg twice a day omeprazole, Levaquin, Lasix. He is on insulin after admission in addition to the IV amiodarone started earlier. Review of Systems: Could not obtain accurate review of system. Physical Examination: 72-year-old male, alert confused cachectic appears to be older than stated age,Blood pressure 90/60, Heart rate 140 Head: Normocephalic. Eyes: Sclerae nonicteric. Neck: Good carotid upstroke, no bruit, no jugular venous distention. Lungs: Decreased breath sounds anteriorly Heart: Irregular rate and rhythm, tachycardic S1-S2, no S3, no rub. No murmur. Abdomen: Soft nontender, positive bowel sounds no organomegaly. Extremities: No edema, intact distal pulses. Labs: Hemoglobin 12.8, platelets 14,000, BUN 74, creatinine 0.89, potassium 4.0. Total bilirubin 2.7. AST 93, ALT 50. Impression: 1. Atrial fibrillation, new onset with rapid ventricle response 2. Liver cirrhosis with recurrent pleural effusion and respiratory failure 3. Severe thrombocytopenia 4. Hypotension 5. COVID-19 infection 6. History of hepatitis C 7. Right-sided pneumothorax Plan: 1. Continue IV amiodarone but was close follow-up of liver function, once rate is controlled we'll recommend to stop 2. Add oral beta misa 3. IV digoxin 4. Not a candidate for anticoagulation because of severe thrombocytopenia 5. Obtain an echocardiogram with Doppler 6. Depending on his progress further recommendations will be made 7. Prognosis is poor, thank you for this consult we will follow with you. Past Medical History Past Medical History: Asthma, Cancer, Diabetes Mellitus, GERD/Reflux, Liver Disease, Osteoarthritis (OA) Additional Past Medical History / Comment(s): basal cell CA face and left chest, cirrhosis of the liver, hepatitis C possibly from blood transfusion as a child, palpable mass right parotid ,left leg arthritis with occasional edema to lower leg, has had recent us to r/o dvt was negative test History of Any Multi-Drug Resistant Organisms: None Reported Past Surgical History: Hernia Repair Additional Past Surgical History / Comment(s): sinus surgery, left wrist tendon injury repair, shunt placed "in liver" per patient, paracentesis 01/12 & 01/14, hernia repair "last week" (possibly 01/07) Past Anesthesia/Blood Transfusion Reactions: No Reported Reaction Past Psychological History: Anxiety, Depression, PTSD Smoking Status: Former smoker Past Alcohol Use History: None Reported Past Drug Use History: None Reported - Past Family History Mother Family Medical History: Cancer Additional Family Medical History / Comment(s): patient is unsure if ovarian or colon Medications and Allergies Home Medications Medication Instructions Recorded Confirmed Type Omalizumab [Xolair] 150 mg SQ Q14D 04/28/18 01/19/23 History Ferrous Sulfate [Iron (65 MG 162.5 mg PO MOWEFR 03/14/21 01/19/23 History Elemental)] Omeprazole 20 mg PO DAILY 03/14/21 01/19/23 History Rifaximin [Xifaxan] 550 mg PO BID 03/14/21 01/19/23 History Fluticasone Propion/Salmeterol 1 puff INHALATION RT-BID 09/07/21 01/19/23 History [Advair 500-50 Diskus] Albuterol Sulfate [Albuterol 2 puff INHALATION RT-QID 11/08/22 01/19/23 History Sulfate Hfa] Spironolactone [Aldactone] 50 mg PO BID 11/08/22 01/19/23 History hydrOXYzine HCL [Atarax] 10 mg PO HS 11/08/22 01/19/23 History Lactulose [Cephulac] 40 gm PO QID PRN 12/23/22 01/19/23 History glipiZIDE 5 mg PO BID 12/23/22 01/19/23 History Ibuprofen [Motrin] 600 mg PO Q6HR PRN #40 tab 12/31/22 01/19/23 Rx Furosemide [Lasix] 10 mg PO MOWEFR 01/10/23 01/19/23 History Lipase/Protease/Amylase [[place] 1 cap PO DIRECTED 01/10/23 01/19/23 History 12,000 Units Capsule] Budesonide-Formot 160-4.5 Mcg 2 puff INHALATION RT-BID 30 Days 01/15/23 01/19/23 Rx [Symbicort 160-4.5 Mcg Inhaler] #1 each Levofloxacin [Levaquin] 500 mg PO DAILY 7 Days #7 tab 01/15/23 01/19/23 Rx Allergies Allergy/AdvReac Type Severity Reaction Status Date / Time cefuroxime [From Ceftin] AdvReac Rash/Hives Verified 01/19/23 13:00 Physical Exam Vitals: Vital Signs Temp Pulse Resp BP Pulse Ox FiO2 01/27/23 15:20 95 50 01/27/23 14:30 140 H 14 82/66 94 L 01/27/23 14:00 152 H 14 90/57 95 01/27/23 13:30 94 11 L 96/59 95 01/27/23 13:00 92 9 L 100/58 94 L 01/27/23 12:30 96 15 91/50 95 01/27/23 12:00 97.6 F 81 14 86/53 95 60 01/27/23 11:30 75 12 89/52 96 01/27/23 11:22 96 50 01/27/23 11:00 73 10 L 90/51 95 01/27/23 10:30 75 10 L 90/54 93 L 01/27/23 10:00 80 12 101/56 96 01/27/23 09:30 84 12 101/58 95 01/27/23 09:00 85 9 L 92/55 94 L 01/27/23 08:30 83 12 92/48 94 L 01/27/23 08:00 97.6 F 80 13 87/48 89 L 60 01/27/23 07:30 79 13 87/48 94 L 01/27/23 07:25 94 L 50 01/27/23 07:00 76 12 85/47 94 L 01/27/23 06:30 79 11 L 88/49 93 L 01/27/23 06:00 84 10 L 88/51 95 01/27/23 05:30 91 13 107/69 96 01/27/23 05:00 18 107/57 91 L 01/27/23 04:30 96 14 98/59 93 L 01/27/23 04:11 93 L 50 01/27/23 04:00 97.8 F 83 7 L 103/54 96 50 01/27/23 03:30 90 14 109/65 95 01/27/23 03:00 89 11 L 92/46 97 01/27/23 02:30 79 15 104/55 97 01/27/23 02:00 89 13 109/72 98 01/27/23 01:30 92 12 110/62 98 01/27/23 01:00 103 H 19 108/57 94 L 01/27/23 00:30 86 13 109/61 99 01/27/23 00:02 60 01/27/23 00:00 98 F 96 10 L 109/59 97 55 01/26/23 23:30 86 13 105/59 98 01/26/23 23:07 96 7 L 105/59 95 01/26/23 23:00 80 11 L 104/50 95 01/26/23 22:30 85 14 101/52 93 L 01/26/23 22:00 73 13 98/41 95 01/26/23 21:30 73 14 97/60 91 L 01/26/23 21:00 82 12 98/61 94 L 01/26/23 20:30 93 16 94/52 95 01/26/23 20:22 96 55 01/26/23 20:00 97.9 F 79 11 L 101/59 97 55 01/26/23 19:30 91 14 103/59 97 01/26/23 19:00 98 15 103/58 96 01/26/23 18:30 90 14 89/47 96 01/26/23 18:00 75 14 100/51 98 01/26/23 17:30 82 11 L 98/54 96 01/26/23 17:00 86 21 103/52 92 L 01/26/23 16:30 73 15 91/47 90 L 01/26/23 16:00 97.9 F 80 13 97/55 86 L 60 01/26/23 15:34 70 Intake and Output 01/27/23 01/27/23 01/27/23 06:59 14:59 22:59 Intake Total 645 552.944 Output Total 725 1830 Balance -80 -1277.056 Intake: IV 180 140 Sodium Chloride 0.9% 1, 180 140 000 ml @ 20 mls/hr IV . Q24H [facility] Rx#:[id number] Intake, IV Titration 97.944 Amount Norepinephrine 4 mg In 97.944 Sodium Chloride 0.9% 250 ml @ 0.03 MCG/KG/MIN 6. 549 mls/hr IV .Q24H [facility] Rx#:[id number] Tube Feeding 405 315 Other 60 Output: Chest Tube Drainage 200 1400 Thora-Vent Right Upper 200 1400 Anterior Chest Urine 525 430 Other: Voiding Method Indwelling Catheter Indwelling Catheter Weight 52.6 kg Results 01/27/23 05:38 01/27/23 05:38 Cardiac Enzymes 01/27/23 Range/Units 05:38 AST 93 H (17-59) U/L Coagulation 01/27/23 Range/Units 05:38 PT 15.6 H (9.0-12.0) sec APTT 23.7 (22.0-30.0) sec CBC 01/27/23 Range/Units 05:38 WBC 9.5 (3.8-10.6) k/uL RBC 3.68 L (4.30-5.90) m/uL Hgb 12.8 L (13.0-17.5) gm/dL Hct 39.1 (39.0-53.0) % Plt Count 14 L* (150-450) k/uL Comprehensive Metabolic Panel 01/27/23 Range/Units 05:38 Sodium 146 H (137-145) mmol/L Potassium 4.0 (3.5-5.1) mmol/L Chloride 111 H (98-107) mmol/L Carbon Dioxide 33 H (22-30) mmol/L BUN 74 H (9-20) mg/dL Creatinine 0.89 (0.66-1.25) mg/dL Glucose 292 H (74-99) mg/dL Calcium 9.0 (8.4-10.2) mg/dL AST 93 H (17-59) U/L ALT 50 H (4-49) U/L Alkaline Phosphatase 291 H (38-126) U/L Total Protein 5.1 L (6.3-8.2) g/dL Albumin 1.9 L (3.5-5.0) g/dL Current Medications Generic Name Dose Route Start Last Admin Trade Name Freq PRN Reason Stop Dose Admin Albuterol Sulfate 4 puff 01/19/23 04:00 01/27/23 15:20 Albuterol Hfa Inhaler INHALATION Not Given RT-Q4H [facility] Lipase/Protease/Amylase 2 each 01/20/23 12:30 01/27/23 12:24 Lipase 5,000/Protease 17,000/Amylase 24,000 PO 2 each AC-TID [facility] Administration Ascorbic Acid 1,000 mg 01/19/23 12:45 01/27/23 07:58 Ascorbic Acid 500 Mg Tab PO 1,000 mg DAILY [facility] Administration Cholecalciferol 100 mcg 01/19/23 12:45 01/27/23 07:59 Cholecalciferol 25 Mcg (1000 Iu) Tablet PO 100 mcg DAILY [facility] Administration Dexamethasone Sodium Phosphate 6 mg 01/19/23 09:00 01/27/23 07:57 Dexamethasone Sod Phosphate 10 Mg/Ml 1 Ml Vial IVP 6 mg DAILY [facility] Administration Digoxin 250 mcg 01/27/23 18:30 Digoxin 250 Mcg/Ml 2 Ml Amp IVP 01/27/23 18:31 ONCE ONE Digoxin 0.125 mcg 01/28/23 09:00 Digoxin 250 Mcg/Ml 2 Ml Amp IVP DAILY [facility] Famotidine 20 mg 01/22/23 21:00 01/27/23 07:59 Famotidine 20 Mg Tab PO 20 mg Q12HR [facility] Administration Ferrous Sulfate 162 mg 01/20/23 10:00 01/27/23 08:00 Ferrous Sulfate Oral Elixir 300 Mg/5 Ml Cup PO 162 mg MOWEFR [facility] Administration Guaifenesin/Dextromethorphan 10 ml 01/19/23 22:22 01/19/23 22:34 Guaifenesin-Dm 100-10mg/5ml 10 Ml Cup PO 10 ml Q6HR PRN Administration Cough Sodium Chloride 1,000 mls @ 20 mls/hr 01/19/23 01:00 01/27/23 01:49 Saline 0.9% IV 20 mls/hr .Q24H [facility] Administration Norepinephrine Bitartrate 4 mg 254 mls @ 6.549 mls/hr 01/23/23 07:30 01/27/23 14:18 / Sodium Chloride IV 0.08 mcg/kg/min .Q24H [facility] 17.465 mls/hr Titration Protocol 0.03 MCG/KG/MIN Amiodarone HCl 360 mg/ 200 mls @ 33.333 mls/hr 01/27/23 13:42 01/27/23 13:50 Dextrose/Water IV 01/27/23 19:41 1 mg/min .Q6H ONE 33.333 mls/hr Administration Protocol 1 MG/MIN Amiodarone HCl 450 mg/ 250 mls @ 16.667 mls/hr 01/27/23 19:45 Dextrose/Water IV 01/28/23 13:44 .Q15H [facility] Protocol 0.5 MG/MIN Insulin Aspart 0 unit 01/24/23 18:00 01/27/23 12:25 Insulin Aspart (Novolog) 100 Unit/Ml Vial SQ 9 unit Q6HR [facility] Administration Protocol Insulin Aspart 4 unit 01/27/23 12:00 01/27/23 12:28 Insulin Aspart (Novolog) 100 Unit/Ml Vial SQ 4 unit Q6H [facility] Administration Insulin Detemir 15 unit 01/27/23 21:00 Insulin Detemir (Levemir) 100 Unit/Ml Syr SQ BID@0700,2100 [facility] Lactulose 20 gm 01/23/23 13:45 01/27/23 07:57 Lactulose 20 Gm/30 Ml Cup PO 20 gm DAILY [facility] Administration Metoprolol Tartrate 25 mg 01/27/23 15:24 Metoprolol Tartrate 25 Mg Tab PO BID [facility] Morphine Sulfate 4 mg 01/26/23 15:20 01/27/23 05:12 Morphine Sulfate 4 Mg/Ml Syringe IVP 4 mg Q4HR PRN Administration Pain Naloxone HCl 0.2 mg 01/19/23 00:52 Naloxone 0.4 Mg/Ml 1 Ml Vial IV Q2M PRN Opioid Reversal Ondansetron HCl 4 mg 01/19/23 00:52 Ondansetron 4 Mg/2 Ml Vial IVP Q8HR PRN Nausea And Vomiting Spironolactone 25 mg 01/21/23 14:00 01/27/23 07:59 Spironolactone 25 Mg Tab PO 25 mg BID [facility] Administration Zinc Sulfate 220 mg 01/19/23 12:45 01/27/23 07:58 Zinc Sulfate 220 Mg Cap PO 220 mg DAILY [facility] Administration Intake and Output 01/27/23 01/27/23 01/27/23 06:59 14:59 22:59 Intake Total 645 552.944 Output Total 725 1830 Balance -80 -1277.056 Intake: IV 180 140 Sodium Chloride 0.9% 1, 180 140 000 ml @ 20 mls/hr IV . Q24H [facility] Rx#:[id number] Intake, IV Titration 97.944 Amount Norepinephrine 4 mg In 97.944 Sodium Chloride 0.9% 250 ml @ 0.03 MCG/KG/MIN 6. 549 mls/hr IV .Q24H [facility] Rx#:[id number] Tube Feeding 405 315 Other 60 Output: Chest Tube Drainage 200 1400 Thora-Vent Right Upper 200 1400 Anterior Chest Urine 525 430 Other: Voiding Method Indwelling Catheter Indwelling Catheter Weight 52.6 kg 01/27/23 05:38 01/27/23 05:38
--- NOTE | 2023-01-27 16:35 | P.PN ---
Subjective Progress Note Date: 01/27/23 -No significant clinical improvement over the past few days -Remains on high flow oxygen and Levophed -Remains intermittently responsive per nursing staff Objective - Vital Signs Vital signs: Vital Signs Temp 97.9 F 01/27/23 16:00 Pulse 74 01/27/23 16:00 Resp 13 01/27/23 16:00 BP 106/71 01/27/23 16:00 Pulse Ox 94 L 01/27/23 16:00 FiO2 60 01/27/23 16:00 Intake & Output 01/26/23 01/27/23 01/27/23 18:59 06:59 18:59 Intake Total 995.078 870 682.944 Output Total 2130 1005 2290 Balance -1134.922 -135 -1607.056 Weight 52.6 kg Intake: IV 260 240 180 Sodium Chloride 0.9% 1, 260 240 180 000 ml @ 20 mls/hr IV . Q24H [facility] Rx#:[id number] Intake, IV Titration 76.078 97.944 Amount Norepinephrine 4 mg In 76.078 97.944 Sodium Chloride 0.9% 250 ml @ 0.03 MCG/KG/MIN 6. 549 mls/hr IV .Q24H [facility] Rx#:[id number] Tube Feeding 580 540 405 Blood Product 79 Pooled Cryoprecipitate 79 Unit [id number] Other 90 Output: Chest Tube Drainage 228 517 7008 Thora-Vent Right Upper 281 985 4112 Anterior Chest Urine 1680 805 490 Other: Voiding Method Indwelling Catheter Indwelling Catheter Indwelling Catheter - Constitutional Constitutional Comment(s): Lying in bed General appearance: Present: no acute distress - EENT Eyes: Present: EOMI - Respiratory Details: No acute respiratory distress - Cardiovascular Details: Regularly irregular as noted on heart rate monitor in room - Neurologic Neurologic: Absent: focal deficits - Labs CBC & Chem 7: 01/27/23 05:38 01/27/23 05:38 Labs: Abnormal Lab Results - Last 24 Hours (Table) 01/26/23 01/26/23 01/27/23 Range/Units 17:23 23:19 05:38 RBC (4.30-5.90) m/uL Hgb (13.0-17.5) gm/dL MCV (80.0-100.0) fL Plt Count (150-450) k/uL Haptoglobin <10.0 L (31.2-198.0) mg/dL PT (9.0-12.0) sec INR (<1.2) Fibrinogen (200-500) mg/dL Sodium (137-145) mmol/L Chloride (98-107) mmol/L Carbon Dioxide (22-30) mmol/L BUN (9-20) mg/dL Glucose (74-99) mg/dL POC Glucose (mg/dL) 294 H 224 H (70-110) mg/dL Total Bilirubin (0.2-1.3) mg/dL AST (17-59) U/L ALT (4-49) U/L Alkaline Phosphatase (38-126) U/L Total Protein (6.3-8.2) g/dL Albumin (3.5-5.0) g/dL 01/27/23 01/27/23 01/27/23 Range/Units 05:38 05:38 05:38 RBC 3.68 L (4.30-5.90) m/uL Hgb 12.8 L (13.0-17.5) gm/dL MCV 106.4 H (80.0-100.0) fL Plt Count 14 L* (150-450) k/uL Haptoglobin (31.2-198.0) mg/dL PT 15.6 H (9.0-12.0) sec INR 1.6 H (<1.2) Fibrinogen 123 L (200-500) mg/dL Sodium 146 H (137-145) mmol/L Chloride 111 H (98-107) mmol/L Carbon Dioxide 33 H (22-30) mmol/L BUN 74 H (9-20) mg/dL Glucose 292 H (74-99) mg/dL POC Glucose (mg/dL) (70-110) mg/dL Total Bilirubin 2.7 H (0.2-1.3) mg/dL AST 93 H (17-59) U/L ALT 50 H (4-49) U/L Alkaline Phosphatase 291 H (38-126) U/L Total Protein 5.1 L (6.3-8.2) g/dL Albumin 1.9 L (3.5-5.0) g/dL 01/27/23 01/27/23 Range/Units 05:42 11:41 RBC (4.30-5.90) m/uL Hgb (13.0-17.5) gm/dL MCV (80.0-100.0) fL Plt Count (150-450) k/uL Haptoglobin (31.2-198.0) mg/dL PT (9.0-12.0) sec INR (<1.2) Fibrinogen (200-500) mg/dL Sodium (137-145) mmol/L Chloride (98-107) mmol/L Carbon Dioxide (22-30) mmol/L BUN (9-20) mg/dL Glucose (74-99) mg/dL POC Glucose (mg/dL) 266 H 293 H (70-110) mg/dL Total Bilirubin (0.2-1.3) mg/dL AST (17-59) U/L ALT (4-49) U/L Alkaline Phosphatase (38-126) U/L Total Protein (6.3-8.2) g/dL Albumin (3.5-5.0) g/dL Microbiology - Last 24 Hours (Table) 01/23/23 04:00 Gram Stain - Preliminary Pleural Fluid Body Fluid Culture - Preliminary Assessment and Plan (1) Pneumonia due to COVID-19 virus Current Visit: Yes Status: Acute Code(s): U07.1 - COVID-19; J12.82 - PNEUMONIA DUE TO CORONAVIRUS DISEASE 2018 SNOMED Code(s): 337777776869513021 (2) Thrombocytopenia Current Visit: Yes Status: Acute Code(s): D69.6 - THROMBOCYTOPENIA, UNSPECIFIED SNOMED Code(s): 644116095 (3) DIC (disseminated intravascular coagulation) Current Visit: Yes Status: Acute Code(s): D65 - DISSEMINATED INTRAVASCULAR COAGULATION SNOMED Code(s): 39059431 Plan: Thrombocytopenia with associated DIC -Platelets 14 with normal WBC and hemoglobin -Thrombocytopenia noted in chart since 2017, baseline in 60-80K range -Pt has PMH cirrhosis that can contribute to splenic sequestration and destruction of plt. With chronic liver disease there possible decreased product ion of thrombopoetin. Chronic condition exacerbated by COVID infection -Fibrinogen was less than 100 on 01/25/2023 and 01/26/2023 and has received 2 units of cryoprecipitate on each day associated with DIC secondary to COVID pneumonia -Low haptoglobin is not associated with clinical hemolysis as his hemoglobin has remained stable -He has had previously elevated total bilirubin in the past, which could be due to previously noted liver disease along with possible component of Gilbert's syndrome -Low haptoglobin is likely related to either subclinical hemolysis or underlying COVID-19 infection, which has been previously reported in severe COVID infections -Continue to monitor cryoprecipitate daily and transfuse for fibrinogen of less than 100 -No platelet transfusions required at this time given there is no evidence of clinical bleeding -Transfuse for platelet counts less than or equal to 10,000 or bleeding -No anticoagulation, asa, NSAIDs for plt <50k. Use SCDs for now #COVID-19 pneumonia -Management per primary ICU team
--- NOTE | 2023-01-27 16:39 | P.PN ---
Subjective Progress Note Date: 01/27/23 Principal diagnosis: Pneumonia Patient is a 72-year-old male with a past medical history significant for diabetes mellitus reflux cirrhosis of the liver osteoarthritis and asthma, patient is vaccinated for covid 19, both the patient and the developed respiratory symptoms and the tested positive for covid 19 about a week before presentation to the hospital, patient was admitted to the cardiology floor did have worsening of his respiratory status requiring transfer to the ICU. on today's evaluation that is 01/27/2023 the patient is afebrile the patient is still on Airvo 60% FiO2 and is on low-dose pressors support in the form of norepinephrine, the patient did remain in A. fib with RVR patient remains to be lethargic and unable to provide any history and vomiting diarrhea or any other changes reported by the nursing staff Patient did have a hemoglobin of 12.1 white count is 9.5 creatinine is 0.89, pleural fluid cultures pending Objective - Vital Signs Vital signs: Vital Signs Temp 97.9 F 01/27/23 16:00 Pulse 74 01/27/23 16:00 Resp 13 01/27/23 16:00 BP 106/71 01/27/23 16:00 Pulse Ox 94 L 01/27/23 16:00 FiO2 60 01/27/23 16:00 Intake & Output 01/26/23 01/27/23 01/27/23 18:59 06:59 18:59 Intake Total 995.078 870 682.944 Output Total 2130 1005 2290 Balance -1134.922 -135 -1607.056 Weight 52.6 kg Intake: IV 260 240 180 Sodium Chloride 0.9% 1, 260 240 180 000 ml @ 20 mls/hr IV . Q24H [facility] Rx#:[id number] Intake, IV Titration 76.078 97.944 Amount Norepinephrine 4 mg In 76.078 97.944 Sodium Chloride 0.9% 250 ml @ 0.03 MCG/KG/MIN 6. 549 mls/hr IV .Q24H [facility] Rx#:[id number] Tube Feeding 580 540 405 Blood Product 79 Pooled Cryoprecipitate 79 Unit [id number] Other 90 Output: Chest Tube Drainage 194 765 9316 Thora-Vent Right Upper 083 574 1504 Anterior Chest Urine 1680 805 490 Other: Voiding Method Indwelling Catheter Indwelling Catheter Indwelling Catheter - Exam GENERAL DESCRIPTION: An elderly male lying in bed in no distress RESPIRATORY SYSTEM: Unlabored breathing , coarse breath sounds bilaterally HEART: S1 S2 regular rate and rhythm , ABDOMEN: Soft , no tenderness EXTREMITIES: No edema feet - Labs CBC & Chem 7: 01/27/23 05:38 01/27/23 05:38 Labs: Abnormal Lab Results - Last 24 Hours (Table) 01/26/23 01/26/23 01/27/23 Range/Units 17:23 23:19 05:38 RBC (4.30-5.90) m/uL Hgb (13.0-17.5) gm/dL MCV (80.0-100.0) fL Plt Count (150-450) k/uL Haptoglobin <10.0 L (31.2-198.0) mg/dL PT (9.0-12.0) sec INR (<1.2) Fibrinogen (200-500) mg/dL Sodium (137-145) mmol/L Chloride (98-107) mmol/L Carbon Dioxide (22-30) mmol/L BUN (9-20) mg/dL Glucose (74-99) mg/dL POC Glucose (mg/dL) 294 H 224 H (70-110) mg/dL Total Bilirubin (0.2-1.3) mg/dL AST (17-59) U/L ALT (4-49) U/L Alkaline Phosphatase (38-126) U/L Total Protein (6.3-8.2) g/dL Albumin (3.5-5.0) g/dL 01/27/23 01/27/23 01/27/23 Range/Units 05:38 05:38 05:38 RBC 3.68 L (4.30-5.90) m/uL Hgb 12.8 L (13.0-17.5) gm/dL MCV 106.4 H (80.0-100.0) fL Plt Count 14 L* (150-450) k/uL Haptoglobin (31.2-198.0) mg/dL PT 15.6 H (9.0-12.0) sec INR 1.6 H (<1.2) Fibrinogen 123 L (200-500) mg/dL Sodium 146 H (137-145) mmol/L Chloride 111 H (98-107) mmol/L Carbon Dioxide 33 H (22-30) mmol/L BUN 74 H (9-20) mg/dL Glucose 292 H (74-99) mg/dL POC Glucose (mg/dL) (70-110) mg/dL Total Bilirubin 2.7 H (0.2-1.3) mg/dL AST 93 H (17-59) U/L ALT 50 H (4-49) U/L Alkaline Phosphatase 291 H (38-126) U/L Total Protein 5.1 L (6.3-8.2) g/dL Albumin 1.9 L (3.5-5.0) g/dL 01/27/23 01/27/23 Range/Units 05:42 11:41 RBC (4.30-5.90) m/uL Hgb (13.0-17.5) gm/dL MCV (80.0-100.0) fL Plt Count (150-450) k/uL Haptoglobin (31.2-198.0) mg/dL PT (9.0-12.0) sec INR (<1.2) Fibrinogen (200-500) mg/dL Sodium (137-145) mmol/L Chloride (98-107) mmol/L Carbon Dioxide (22-30) mmol/L BUN (9-20) mg/dL Glucose (74-99) mg/dL POC Glucose (mg/dL) 266 H 293 H (70-110) mg/dL Total Bilirubin (0.2-1.3) mg/dL AST (17-59) U/L ALT (4-49) U/L Alkaline Phosphatase (38-126) U/L Total Protein (6.3-8.2) g/dL Albumin (3.5-5.0) g/dL Microbiology - Last 24 Hours (Table) 01/23/23 04:00 Gram Stain - Preliminary Pleural Fluid Body Fluid Culture - Preliminary Assessment and Plan (1) Pneumonia Current Visit: Yes Status: Acute Code(s): J18.9 - PNEUMONIA, UNSPECIFIED ORGANISM SNOMED Code(s): 831827065 (2) Coronavirus infection Current Visit: Yes Status: Acute Code(s): B34.2 - CORONAVIRUS INFECTION, UNSPECIFIED SNOMED Code(s): 979233285 (3) Pleural effusion Current Visit: Yes Status: Acute Code(s): J90 - PLEURAL EFFUSION, NOT ELSEWHERE CLASSIFIED SNOMED Code(s): 05714649 Plan: 1patient with the acute respiratory failure which is likely multifactorial in this patient tested positive for covid 19 more than a week ago and also history of recurrent right-sided effusion with worsening effusion and airspace opacities concerning for possible secondary bacterial pneumonia 2-cephalosporin ALLERGY that would limit the number of antibiotic safety use 3leukocytosis possibly steroid related And the patient white count has normalized, the patient pleural fluid cultures are currently pending. 4patient to continue with Zosyn and monitor clinical course closely Dictation was produced using [employer] dictation software. please excuse any grammatical, word or spelling errors.
[2023-01-27 17:38] LABS: Glucose,Whole Blood 307 mg/dL (70-110)
[2023-01-27] MEDS ORDERED: INSULIN DETEMIR (LEVEMIR) 100 UNIT/ML SYR SQ SCH (21:00)
[2023-01-27 23:20] LABS: Glucose,Whole Blood 177 mg/dL (70-110)
[2023-01-28] MEDS: INSULIN ASPART (NovoLOG) 100 UNIT/ML VIAL SQ SCH ×6 (00:30→18:40)
[2023-01-28] MEDS: MORPHINE SULFATE 4 MG/ML SYRINGE IVP PRN ×4 (00:31→20:35)
[2023-01-28] MEDS: NOREPINEPHRINE 4 MG in SODIUM CHLORIDE 0.9% 250 ML IV SCH ×3 (03:16→22:36)
[2023-01-28] MEDS: ALBUTEROL HFA INHALER INHALATION SCH ×6 (04:30→23:27)
[2023-01-28 05:27] LABS: Basophils % (A) 0 %; Eosinophils % (A) 0 %; HCT 43.4 % (39.0-53.0); HGB 14.4 gm/dL (13.0-17.5); Lymphocytes # (A) 0.2 k/uL (1.0-4.8); Lymphocytes % (A) 1 %; MCH 35.3 pg (25.0-35.0); MCHC 33.2 g/dL (31.0-37.0); MCV 106.1 fL (80.0-100.0); Macrocytosis Moderate; Mean Platelet Volume 9.3; Monocytes # (A) 0.4 k/uL (0-1.0); Monocytes % (A) 2 %; Neutrophils # (A) 24.9 k/uL (1.3-7.7); Neutrophils % (A) 97 %; RBC 4.09 m/uL (4.30-5.90); RDW 15.5 % (11.5-15.5); WBC 25.6 k/uL (3.8-10.6)
[2023-01-28 05:36] LABS: Platelet Count 31 k/uL (150-450)
[2023-01-28 05:37] LABS: ALT 86 U/L (4-49); AST 151 U/L (17-59); African American GFR (CKD) >90 (>60 ml/min/1.73 sqM); Alkaline Phosphatase 350 U/L (38-126); Anion Gap 1 mmol/L; Blood Urea Nitrogen 79 mg/dL (9-20); Calcium 9.5 mg/dL (8.4-10.2); Carbon Dioxide 33 mmol/L (22-30); Chloride 115 mmol/L (98-107); Glucose 73 mg/dL (74-99); Non-African American GFR(CKD) >90 (>60 ml/min/1.73 sqM); Potassium 4.1 mmol/L (3.5-5.1); Sodium 149 mmol/L (137-145); Total Bilirubin 4.2 mg/dL (0.2-1.3); Total Protein 5.5 g/dL (6.3-8.2)
[2023-01-28 05:38] LABS: INR 1.6 (<1.2); Partial Thromboplastin Time 24.6 sec (22.0-30.0); Prothrombin Time 15.6 sec (9.0-12.0)
[2023-01-28 05:53] LABS: Glucose,Whole Blood 71 mg/dL (70-110)
[2023-01-28 06:28] LABS: Glucose,Whole Blood 67 mg/dL (70-110)
[2023-01-28] MEDS ORDERED: DEXTROSE 50% SYRINGE 50 ML IVP STA (06:36)
[2023-01-28] MEDS: LIPASE 5,000/PROTEASE 17,000/AMYLASE 24,000 PO SCH ×3 (06:43→17:56)
[2023-01-28] MEDS: SODIUM CHLORIDE 0.9% 1,000 ML IV SCH (07:12)
[2023-01-28] MEDS: AMIODARONE 450 MG in DEXTROSE 5% IN WATER 250 ML IV SCH ×4 (07:14→10:21)
[2023-01-28 07:45] LABS: Glucose,Whole Blood 110 mg/dL (70-110)
[2023-01-28] MEDS: DEXAMETHASONE SOD PHOSPHATE 10 MG/ML 1 ML VIAL IVP SCH (08:39)
[2023-01-28] MEDS: FAMOTIDINE 20 MG TAB PO SCH ×2 (08:40→20:31)
[2023-01-28] MEDS: ZINC SULFATE 220 MG CAP PO SCH (08:40)
[2023-01-28] MEDS: DIGOXIN 250 MCG/ML 2 ML AMP IVP SCH (08:40)
[2023-01-28] MEDS: ASCORBIC ACID 500 MG TAB PO SCH (08:40)
[2023-01-28] MEDS: SPIRONOLACTONE 25 MG TAB PO SCH ×2 (08:40→20:31)
[2023-01-28] MEDS: CHOLECALCIFEROL 25 MCG (1000 IU) TABLET PO SCH (08:42)
[2023-01-28] MEDS: LACTULOSE 20 GM/30 ML CUP PO SCH (08:42)
[2023-01-28] MEDS ORDERED: DIGOXIN 250 MCG/ML 2 ML AMP IVP SCH (09:00)
[2023-01-28] MEDS: METOPROLOL TARTRATE 25 MG TAB PO SCH ×2 (10:34→20:31)
[2023-01-28 11:59] LABS: Glucose,Whole Blood 130 mg/dL (70-110)
--- NOTE | 2023-01-28 12:07 | P.PN ---
Subjective Progress Note Date: 01/28/23 Principal diagnosis: Respiratory failure. Reevaluated today on , patient remains in the ICU, basically about the same, he is now on a nonrebreather mask, patient pulled out his nasogastric tube yesterday, and another one will be placed today. His chest x-ray showed incre ase in the size of the right-sided pneumothorax however after flushing the thoravent, there was evidence of improvement in air bubbles and leak through the pleural VAC, hence the lung will expand slowly. And no need to change the chest tube at this point or place another one. Patient is still requiring norepinephrine at 0.03 mcg/kg/m his IV fluids remain at KVO. Remains on Zosyn, remains on steroids, patient is marginal at best WBC count is 14.1 hemoglobin is 12.8 INR is 2.0 twice are normal ammonia level yesterday was normal renal profile is normal on a chest x-ray as noted above, cultures from the pleural effusion has been negative so far Reevaluated today on 01/26/2023, remains in the ICU, remains marginal at best, with very marginal and poor pulmonary status. Patient remains on airvo, and his airvo now is at 50% FiO2 with 60 L flow. O2 saturation is in the 90s. Last night he was placed on BiPAP 12//80%. Patient is still requiring norepinephrine at 0.03 mcg/kg/m. His chest x-ray today showed improvement in his right-sided pneumothorax, better expansion of the right lung, continues to have ongoing air leak, and some interstitial edema is noted on the chest x-ray. Patient is going to be back on Lasix 40 mg IV push every 8 hours today. And he remains on Zosyn, remains on steroids, continues to look frail, chronically ill, and cachectic, seems to have almost a picture of failure to thrive. His W BC count is 13.1 hemoglobin is 13.5 his INR is 1.8 lites are normal BUN is 71 creatinine 0.78. Patient had a nasogastric tube placed again yesterday, and he is now on enteral feeding. CODE STATUS has been discussed with the and his CODE STATUS was changed to DO NOT RESUSCITATE, again I have a strong feeling that the patient will do poorly and his overall prognosis remains extremely poor and he seems to be again a picture of failure to thrive Reevaluated today on 01/27/2023, remains in the ICU, marginal at best. Patient remains on airvo, 60% FiO2 60 L flow, remains on norepinephrine at 0.03 mcg/kg/m, his chest x-ray is showing improvement in his right-sided pneumothorax but the lung still not fully expanded patient had over 2 L of fluid drained from the right pleural space from the chest tube which I placed couple of days ago. Patient is clinically dehydrated hence I'm planning to stop his diuretics for now, but would not push significant volume since the patient could develop worsening fluid retention and worsening bilateral pleural effusions. Patient continues to have air leak in the pleural VAC, his platelets remain low and hematology is addressing his platelets may need couple of units of platelets today. Platelets are down to 14,000. Patient did receive cryoprecipitate yesterday from hematology/oncology his fibrinogen level was 95, and it is 123 today and clinically the patient is basically about the same, he seems to be very frail, chronically ill, and I still believe the patient has a picture of failure to thrive Progress note dated 01/28/2023. The patient is seen today in intensive care unit, room 258. Currently, the patient is on BiPAP, with settings of 12/6, and 60%. He has been between AIRVO, and BiPAP. He was admitted on January 19, for a right-sided pleural effusion, and hypoxemic respiratory failure. The patient had a trapped lung, following a thoracentesis, and had a Thora vent placed on January 24. The patient is currently a DO NOT RESUSCITATE. Unfortunately, the patient remains on saline at 20 mL an hour, and norepinephrine at about 4 mcg/m. The patient is receiving Nepro at 45 mL an hour, which is goal. The patient is a DO NOT RESUSCITATE patient. We will talk further with the family about CODE STATUS, possible comfort care. White count was 25.6, hemoglobin 14.4, hematocrit 43.4, and a platelet count 31,000. PT 15.6 INR 1.6. Sodium 149, potassium 4.1, chlorides 1:15, CO2 33, BUN 79, and creatinine 0.67. AST is 151, ALT is 86, now quit phosphatase is 350. Albumin is only 2.0. Microbiologic studies are negative. Chest x-ray shows an increased right apical pneumothorax, and Thora vent device is in place. It should be pointed out that the patient has had 3 admissions recently, for shortness of breath, and pleural effusion. Objective - Vital Signs Vital signs: Vital Signs Temp 97.7 F 01/28/23 08:00 Pulse 73 01/28/23 10:00 Resp 16 01/28/23 10:00 BP 83/55 01/28/23 10:00 Pulse Ox 89 L 01/28/23 10:00 FiO2 60 01/28/23 10:00 Intake & Output 01/27/23 01/28/23 01/28/23 18:59 06:59 18:59 Intake Total 963.498 691.463 475.531 Output Total 2785 670 625 Balance -1821.502 21.463 -149.469 Weight 53.1 kg Intake: IV 220 240 80 Sodium Chloride 0.9% 1, 220 240 80 000 ml @ 20 mls/hr IV . Q24H [facility] Rx#:[id number] Intake, IV Titration 248.498 226.463 125.531 Amount Amiodarone 360 mg In 150.554 Dextrose 5% in Water 200 ml @ 1 MG/MIN 33.333 mls/ hr IV .Q6H [facility] Rx#: [id number] Norepinephrine 4 mg In 97.944 226.463 125.531 Sodium Chloride 0.9% 250 ml @ 0.03 MCG/KG/MIN 6. 549 mls/hr IV .Q24H [facility] Rx#:[id number] Tube Feeding 495 225 180 Other 90 Output: Chest Tube Drainage 2200 200 550 Thora-Vent Right Upper 2200 200 550 Anterior Chest Urine 585 470 75 Other: Voiding Method Indwelling Catheter Indwelling Catheter Indwelling Catheter # Bowel Movements 1 - Exam No acute distress, poorly responsive, with BiPAP mask in place. HEENT examination is grossly unremarkable. Neck supple. Full range of motion. No adenopathy thyromegaly or neck vein distention. Cardiovascular examination reveals regular rhythm rate. S1-S2 normal. No S3 or S4. No discernible murmur noted. Heart rate 73 bpm. Heart sounds are distant. Lungs reveal scattered bilateral rhonchi. Diminished breath sounds on the right. No crackles. Saturations are in the low 90s. Abdomen soft, without bowel sounds. Extremities are intact. No cyanosis clubbing or edema. Skin is without rash or lesion. Neurologic examination is brief but nonfocal. - Labs CBC & Chem 7: 01/28/23 04:32 01/28/23 04:32 Labs: Abnormal Lab Results - Last 24 Hours (Table) 01/27/23 01/27/23 01/28/23 Range/Units 17:37 23:20 04:32 WBC (3.8-10.6) k/uL RBC (4.30-5.90) m/uL MCV (80.0-100.0) fL MCH (25.0-35.0) pg Plt Count (150-450) k/uL Neutrophils # (1.3-7.7) k/uL Lymphocytes # (1.0-4.8) k/uL PT 15.6 H (9.0-12.0) sec INR 1.6 H (<1.2) Fibrinogen 114 L (200-500) mg/dL Sodium (137-145) mmol/L Chloride (98-107) mmol/L Carbon Dioxide (22-30) mmol/L BUN (9-20) mg/dL Glucose (74-99) mg/dL POC Glucose (mg/dL) 307 H 177 H (70-110) mg/dL Total Bilirubin (0.2-1.3) mg/dL AST (17-59) U/L ALT (4-49) U/L Alkaline Phosphatase (38-126) U/L Total Protein (6.3-8.2) g/dL Albumin (3.5-5.0) g/dL 01/28/23 01/28/23 01/28/23 Range/Units 04:32 04:32 06:27 WBC 25.6 H (3.8-10.6) k/uL RBC 4.09 L (4.30-5.90) m/uL MCV 106.1 H (80.0-100.0) fL MCH 35.3 H (25.0-35.0) pg Plt Count 31 L D (150-450) k/uL Neutrophils # 24.9 H (1.3-7.7) k/uL Lymphocytes # 0.2 L (1.0-4.8) k/uL PT (9.0-12.0) sec INR (<1.2) Fibrinogen (200-500) mg/dL Sodium 149 H (137-145) mmol/L Chloride 115 H (98-107) mmol/L Carbon Dioxide 33 H (22-30) mmol/L BUN 79 H (9-20) mg/dL Glucose 73 L (74-99) mg/dL POC Glucose (mg/dL) 67 L (70-110) mg/dL Total Bilirubin 4.2 H (0.2-1.3) mg/dL AST 151 H (17-59) U/L ALT 86 H (4-49) U/L Alkaline Phosphatase 350 H (38-126) U/L Total Protein 5.5 L (6.3-8.2) g/dL Albumin 2.0 L (3.5-5.0) g/dL Microbiology - Last 24 Hours (Table) 01/23/23 04:00 Gram Stain - Final Pleural Fluid Body Fluid Culture - Final Assessment and Plan Assessment: Acute hypoxemic respiratory failure, secondary to recurrent right-sided pleural effusion, and pulmonary edema. Recurrent right-sided pleural effusion, status post multiple thoracentesis. History of hepatitis C, with chronic liver disease. Coronavirus infection, without coronavirus associated pneumonia. Thrombocytopenia, secondary to chronic liver disease. Anemia of chronic disease. S/P Thora-vent placement, right side, for trapped lung, following thoracentesis. Coronavirus-associated diarrhea, resolved. History of liver cirrhosis and ascites. History of hepatitis C. History of alcoholism. History of type 2 diabetes mellitus. Recent laparoscopic hernia repair. Multiple other medical problems and comorbidities. Plan: Plan dated 01/28/2023. The patient's overall prognosis in my opinion is very poor. We will have a discussion with the family members, about further care for this patient, and possible comfort care. The patient's currently on BiPAP, with an FiO2 of 60%. He has been between BiPAP, and AIRVO. The right-sided pneumothorax is minimally larger. The patient remains on norepinephrine at about 4 mcg/m. He is getting tube feedings. He is currently a DO NOT RESUSCITATE patient. Labs, x-rays, and medications are reviewed. We will continue to follow the patient and make recommendations. Prognosis is certainly poor. Time with Patient: Greater than 30
--- NOTE | 2023-01-28 12:09 | P.PN ---
Subjective Progress Note Date: 01/28/23 Principal diagnosis: COVID Patient was seen in the ICU today. Patient is somnolent. Currently on BiPAP, platelets improved today at 31,000, fibrinogen 114. Objective - Vital Signs Vital signs: Vital Signs Temp 97.7 F 01/28/23 08:00 Pulse 73 01/28/23 10:00 Resp 16 01/28/23 10:00 BP 83/55 01/28/23 10:00 Pulse Ox 89 L 01/28/23 10:00 FiO2 60 01/28/23 10:00 Intake & Output 01/27/23 01/28/23 01/28/23 18:59 06:59 18:59 Intake Total 963.498 691.463 475.531 Output Total 2785 670 625 Balance -1821.502 21.463 -149.469 Weight 53.1 kg Intake: IV 220 240 80 Sodium Chloride 0.9% 1, 220 240 80 000 ml @ 20 mls/hr IV . Q24H [facility] Rx#:[id number] Intake, IV Titration 248.498 226.463 125.531 Amount Amiodarone 360 mg In 150.554 Dextrose 5% in Water 200 ml @ 1 MG/MIN 33.333 mls/ hr IV .Q6H [facility] Rx#: [id number] Norepinephrine 4 mg In 97.944 226.463 125.531 Sodium Chloride 0.9% 250 ml @ 0.03 MCG/KG/MIN 6. 549 mls/hr IV .Q24H [facility] Rx#:[id number] Tube Feeding 495 225 180 Other 90 Output: Chest Tube Drainage 2200 200 550 Thora-Vent Right Upper 2200 200 550 Anterior Chest Urine 585 470 75 Other: Voiding Method Indwelling Catheter Indwelling Catheter Indwelling Catheter # Bowel Movements 1 - Constitutional General appearance: Present: thin - EENT Eyes: Present: anicteric sclerae - Respiratory Details: breathing even and unlabored, on bipap - Cardiovascular Details: skin warm and dry - Integumentary Integumentary: Absent: cyanotic, jaundiced - Musculoskeletal Musculoskeletal: Present: generalized weakness - Labs CBC & Chem 7: 01/28/23 04:32 01/28/23 04:32 Labs: Abnormal Lab Results - Last 24 Hours (Table) 01/27/23 01/27/23 01/28/23 Range/Units 17:37 23:20 04:32 WBC (3.8-10.6) k/uL RBC (4.30-5.90) m/uL MCV (80.0-100.0) fL MCH (25.0-35.0) pg Plt Count (150-450) k/uL Neutrophils # (1.3-7.7) k/uL Lymphocytes # (1.0-4.8) k/uL PT 15.6 H (9.0-12.0) sec INR 1.6 H (<1.2) Fibrinogen 114 L (200-500) mg/dL Sodium (137-145) mmol/L Chloride (98-107) mmol/L Carbon Dioxide (22-30) mmol/L BUN (9-20) mg/dL Glucose (74-99) mg/dL POC Glucose (mg/dL) 307 H 177 H (70-110) mg/dL Total Bilirubin (0.2-1.3) mg/dL AST (17-59) U/L ALT (4-49) U/L Alkaline Phosphatase (38-126) U/L Total Protein (6.3-8.2) g/dL Albumin (3.5-5.0) g/dL 01/28/23 01/28/23 01/28/23 Range/Units 04:32 04:32 06:27 WBC 25.6 H (3.8-10.6) k/uL RBC 4.09 L (4.30-5.90) m/uL MCV 106.1 H (80.0-100.0) fL MCH 35.3 H (25.0-35.0) pg Plt Count 31 L D (150-450) k/uL Neutrophils # 24.9 H (1.3-7.7) k/uL Lymphocytes # 0.2 L (1.0-4.8) k/uL PT (9.0-12.0) sec INR (<1.2) Fibrinogen (200-500) mg/dL Sodium 149 H (137-145) mmol/L Chloride 115 H (98-107) mmol/L Carbon Dioxide 33 H (22-30) mmol/L BUN 79 H (9-20) mg/dL Glucose 73 L (74-99) mg/dL POC Glucose (mg/dL) 67 L (70-110) mg/dL Total Bilirubin 4.2 H (0.2-1.3) mg/dL AST 151 H (17-59) U/L ALT 86 H (4-49) U/L Alkaline Phosphatase 350 H (38-126) U/L Total Protein 5.5 L (6.3-8.2) g/dL Albumin 2.0 L (3.5-5.0) g/dL Microbiology - Last 24 Hours (Table) 01/23/23 04:00 Gram Stain - Final Pleural Fluid Body Fluid Culture - Final Assessment and Plan (1) Coronavirus infection Current Visit: Yes Status: Acute Priority: High Code(s): B34.2 - CORONAVIRUS INFECTION, UNSPECIFIED SNOMED Code(s): 287540049 (2) DIC (disseminated intravascular coagulation) Current Visit: Yes Status: Acute Priority: High Code(s): D65 - DISSEMINATED INTRAVASCULAR COAGULATION SNOMED Code(s): 96298710 Plan: Thrombocytopenia with associated DIC -Platelets improved today, 31,000. Hemoglobin stable, 14.4 -Thrombocytopenia noted in chart since 2017, baseline in 60-80K range -Pt has PMH cirrhosis that can contribute to splenic sequestration and destruction of plt. With chronic liver disease there possible decreased production of thrombopoetin. Chronic condition exacerbated by COVID infection -Fibrinogen was less than 100 on 01/25/2023 and 01/26/2023 and has received 2 units of cryoprecipitate on each day associated with DIC secondary to COVID pneumonia. Fibrinogen 114 today -Low haptoglobin is not associated with clinical hemolysis as his hemoglobin has remained stable -He has had previously elevated total bilirubin in the past, which could be due to previously noted liver disease along with possible component of Gilbert's syndrome -Low haptoglobin is likely related to either subclinical hemolysis or underlying COVID-19 infection, which has been previously reported in severe COVID infections -Continue to monitor cryoprecipitate daily and transfuse for fibrinogen of less than 100 -No platelet transfusions required at this time given there is no evidence of clinical bleeding -Transfuse for platelet counts less than or equal to 10,000 or bleeding -No anticoagulation, asa, NSAIDs for plt <50k. Use SCDs for now #COVID-19 pneumonia -Management per primary ICU team
[2023-01-28 13:38] VITALS: BMI 18.3
--- NOTE | 2023-01-28 14:54 | P.PN ---
Subjective Progress Note Date: 01/28/23 This is a pleasant 72 years old male with past medical history ofAsthma, Diabetes Mellitus, GERD/Reflux,Osteoarthritis , cirrhosis of the liver, hepatitis C possibly from blood transfusion as a child, palpable mass right parotid ,left leg arthritis with occasional edema to lower leg Patient was recently discharged from this -01/15, he underwent thoracocentesis was 2.5 fluid removed oriented and thereafter patient was discharged on Levaquin Patient presents because of dyspnea slightly getting worse since been discharged from the hospital. No much coughing., Chest pain. His other complaint is diarrhea also started after discharge. He had 3-4 bouts of bowel movement yesterday. No abdominal pain or vomiting. He has somewhat low appetite. He is in the 3 L oxygen at home. He denies alcohol or smoking or illicit drugs. No headache weakness or numbness or confusion. He's on 3 L oxygen at home Patient states yesterday they tapped his lung and 3 L were taken out from his right side. No On admission he was saturating 94% on 6 L oxygen via nasal cannula, currently his oxygen requirement went up to 12 L permanent via high flow cannula. CBC showed mild anemia but significant thrombocytopenia at 33, which looks similar to 4 days ago where it was 36 on 01/14/2023. Before that baseline platelet count was 50-80k INR is 1.64. Lactic acid 2.7 Troponin is negative Sodium is 125, glucose elevated morning at 300 on admission. Liver enzymes AST/ALT are within the reference range. Bilirubin slightly up 1.6. ProBNP is low at 197 Chest x-ray showing almost complete opacification of the right lung with some bilateral infiltrates 01/20. Patient seen and examined. Patient is currently on airvo at 15 L flow and 70% FiO2. Gets short of breath on minimal exertion 01/21. Patient seen and examined. Continues to be on airvo heated high flow at 60 L and FiO2 of 90%. Hemoglobin 11.8, platelet count 35, BUN 24, creatinine 0.51. Gets short of breath on minimum exertion. 01/22. Patient seen and examined . Currently on BiPAP, FiO2 100%. Patient is lethargic, get short of breath on conversing. Currently on Lasix drip and IV Zosyn 01/23. Patient seen and examined. Currently in ICU. WBC 3.7, hemoglobin 12.5, sodium 134, potassium 3.8, BUN 50, creatinine 0.88. Platelet count is 21,000 Patient continues to be on BiPAP with an FiO2 of 80%. Patient very lethargic. Unable to maintain conversation 01/24. Patient seen and examined. Currently on airvo at 70% FiO2 at 60 L flow. Repeat chest x-ray still showing pneumothorax 01/25. Patient seen and examined. Lab work showed occlusive 14.1, hemoglobin 12.8, platelet count 26, sodium 143, potassium 3.7, BUN 68, creatinine 0.87. Currently on nonrebreather mask. Thoravent in place. 01/26. Patient seen and examined. WBC 13.1, hemoglobin 13.5, INR 1.8, blood sugars elevated, increase Levemir to 10 units twice a day 01/27. Patient seen and examined. Patient continues to be on heated high flow oxygen 60 L and FiO2 of 60%. Blood sugars were elevated, Levemir dose increased to 15 units twice a day. Patient received cryoprecipitate yesterday from hematology oncology. Continues to be on tube feeding 01/28. Patient seen and examined. Blood work this morning showed WBC 25.6, hemoglobin 40.4, platelet count 31, sodium 149, potassium 4.1, BUN 79, creatinine 0.67. Blood sugars have been on the low side, we'll adjust Levemir and DC scheduled NovoLog insulin. Discussed with patient's was at the bedside, she understands that the patient health has deteriorated a lot and that she is not looking at a good outcome. Patient wants to think about possible comfort care REVIEW OF SYSTEMS: Denies any chest pain. Denies any nausea or vomiting. Denies any lightheadedness or dizziness PHYSICAL EXAMINATION: GENERAL: The patient is alert , chronically sick-looking, cachectic HEENT: Pupils are round and equally reacting to light. EOMI. No scleral icterus. No conjunctival pallor. Normocephalic, atraumatic. No pharyngeal erythema. No thyromegaly. CARDIOVASCULAR: S1 and S2 present. No murmurs, rubs, or gallops. PULMONARY: coarse breath sounds bilaterally, no wheeze ABDOMEN: Soft, nontender, nondistended, normoactive bowel sounds. No palpable organomegaly. MUSCULOSKELETAL: No joint swelling or deformity. EXTREMITIES: No cyanosis, clubbing, or pedal edema. NEUROLOGICAL: Gross neurological examination did not reveal any focal deficits. SKIN: No rashes. Assessment and plan Acute respiratory failure Bilateral consolidation suspicious for bilateral covid pneumonia. Rule out bacterial pneumonia A. fib with RVR Right pleural effusion status post thoracocentesis on 01/18 with tapping 3 L out Apical pneumothorax right side Hypervolemic hyponatremia Severe calorie protein malnutrition Slightly worsening thrombocytopenia in view of patient liver disease Liver cirrhosis History of hep C Thrombocytopenia Diabetes mellitus, with hyperglycemia History of GERD History of osteoarthritis Monitor vital signs Monitor CBC Monitor CMP Thrombocytopenia could be secondary to patient history of cirrhosis and COVID-19 infection, received 2 doses of cryoprecipitate's per hematology Continue telemetry monitoring Aggressive bronchopulmonary hygiene Continue breathing treatments Continue amiodarone, , Lopressor, not a candidate for oral anticoagulation because of thrombocytopenia Monitor blood sugar levels, continue current insulin regimen, decrease Levemir 12 units twice a day, continue sliding scale insulin Continue Decadron Continue rifaximin Critical care following,Thoravent in place ID following Hematology oncology following for thrombocytopenia Cardiology following Labs and medication were reviewed.. Continue same treatment. Continue with symptomatic treatment. Resume home medication. Monitor labs and vitals. DVT and GI prophylaxis. Further recommendations as per clinical course of the p atient Dictation was produced using [employer] dictation software. please excuse any grammatical, word or spelling errors. Objective - Vital Signs Vital signs: Vital Signs Temp 97.7 F 01/28/23 08:00 Pulse 71 01/28/23 08:30 Resp 18 01/28/23 08:30 BP 100/58 01/28/23 08:30 Pulse Ox 93 L 01/28/23 08:30 FiO2 60 01/28/23 08:00 Intake & Output 01/27/23 01/28/23 01/28/23 18:59 06:59 18:59 Intake Total 963.498 691.463 65 Output Total 2785 670 565 Balance -1821.502 21.463 -500 Weight 53.1 kg Intake: IV 220 240 20 Sodium Chloride 0.9% 1, 220 240 20 000 ml @ 20 mls/hr IV . Q24H [facility] Rx#:[id number] Intake, IV Titration 248.498 226.463 Amount Amiodarone 360 mg In 150.554 Dextrose 5% in Water 200 ml @ 1 MG/MIN 33.333 mls/ hr IV .Q6H [facility] Rx#: [id number] Norepinephrine 4 mg In 97.944 226.463 Sodium Chloride 0.9% 250 ml @ 0.03 MCG/KG/MIN 6. 549 mls/hr IV .Q24H [facility] Rx#:[id number] Tube Feeding 495 225 45 Output: Chest Tube Drainage 2200 200 550 Thora-Vent Right Upper 2200 200 550 Anterior Chest Urine 585 470 15 Other: Voiding Method Indwelling Catheter Indwelling Catheter - Labs CBC & Chem 7: 01/28/23 04:32 01/28/23 04:32 Labs: Abnormal Lab Results - Last 24 Hours (Table) 01/27/23 01/27/23 01/27/23 Range/Units 11:41 17:37 23:20 WBC (3.8-10.6) k/uL RBC (4.30-5.90) m/uL MCV (80.0-100.0) fL MCH (25.0-35.0) pg Plt Count (150-450) k/uL Neutrophils # (1.3-7.7) k/uL Lymphocytes # (1.0-4.8) k/uL PT (9.0-12.0) sec INR (<1.2) Fibrinogen (200-500) mg/dL Sodium (137-145) mmol/L Chloride (98-107) mmol/L Carbon Dioxide (22-30) mmol/L BUN (9-20) mg/dL Glucose (74-99) mg/dL POC Glucose (mg/dL) 293 H 307 H 177 H (70-110) mg/dL Total Bilirubin (0.2-1.3) mg/dL AST (17-59) U/L ALT (4-49) U/L Alkaline Phosphatase (38-126) U/L Total Protein (6.3-8.2) g/dL Albumin (3.5-5.0) g/dL 01/28/23 01/28/23 01/28/23 Range/Units 04:32 04:32 04:32 WBC 25.6 H (3.8-10.6) k/uL RBC 4.09 L (4.30-5.90) m/uL MCV 106.1 H (80.0-100.0) fL MCH 35.3 H (25.0-35.0) pg Plt Count 31 L D (150-450) k/uL Neutrophils # 24.9 H (1.3-7.7) k/uL Lymphocytes # 0.2 L (1.0-4.8) k/uL PT 15.6 H (9.0-12.0) sec INR 1.6 H (<1.2) Fibrinogen 114 L (200-500) mg/dL Sodium 149 H (137-145) mmol/L Chloride 115 H (98-107) mmol/L Carbon Dioxide 33 H (22-30) mmol/L BUN 79 H (9-20) mg/dL Glucose 73 L (74-99) mg/dL POC Glucose (mg/dL) (70-110) mg/dL Total Bilirubin 4.2 H (0.2-1.3) mg/dL AST 151 H (17-59) U/L ALT 86 H (4-49) U/L Alkaline Phosphatase 350 H (38-126) U/L Total Protein 5.5 L (6.3-8.2) g/dL Albumin 2.0 L (3.5-5.0) g/dL 01/28/23 Range/Units 06:27 WBC (3.8-10.6) k/uL RBC (4.30-5.90) m/uL MCV (80.0-100.0) fL MCH (25.0-35.0) pg Plt Count (150-450) k/uL Neutrophils # (1.3-7.7) k/uL Lymphocytes # (1.0-4.8) k/uL PT (9.0-12.0) sec INR (<1.2) Fibrinogen (200-500) mg/dL Sodium (137-145) mmol/L Chloride (98-107) mmol/L Carbon Dioxide (22-30) mmol/L BUN (9-20) mg/dL Glucose (74-99) mg/dL POC Glucose (mg/dL) 67 L (70-110) mg/dL Total Bilirubin (0.2-1.3) mg/dL AST (17-59) U/L ALT (4-49) U/L Alkaline Phosphatase (38-126) U/L Total Protein (6.3-8.2) g/dL Albumin (3.5-5.0) g/dL Microbiology - Last 24 Hours (Table) 01/23/23 04:00 Gram Stain - Preliminary Pleural Fluid Body Fluid Culture - Preliminary
--- NOTE | 2023-01-28 15:11 | P.PN ---
Subjective History of Present Illness: The patient is a 72-year-old male with a known history of alcoholic liver cirrhosis hepatitis C diabetes who was admitted to the hospital on January 18 was progressive dyspnea and large right-sided pleural effusion and has underwent thoracentesis with removal of 3 L. He continues to be in the ICU with chest tube and significant drainage. Today he went into atrial fibrillation with rapid ventricle response. Cardiology consultation was requested. Patient is awake but confused. I am not able to obtain an accurate history. According to the nursing staff and the records it is no history of cardiac disease, heart failure or ischemic heart disease. He has been in sinus mechanism since admission. He tested positive for COVID-19 on admission. He is on norepinephrine as well his intravenous diuretics. He has a feeding tube. He was started on IV amiodarone and persistent to be tachycardic. There is no complaints of chest discomfort or change in his breathing status. The patient is cachectic. As an outpatient there is no documentation of diabetes or hypertension. The patient is DO NOT RESUSCITATE Medications: As outpatient Aldactone 50 mg twice a day omeprazole, Levaquin, Lasix. He is on insulin after admission in addition to the IV amiodarone started earlier. 01/28 Patient remains in ICU and remains confused. Remains on BiPAP. Norepinephrine at 0.08. Receiving tube feeds and noted to be hypernatremic. Urine output approximately 30 mL per hour. No further amiodarone given his liver cirrhosis however liver enzymes appears stable. Platelets are in the 30s however no significant bleeding. Remains in sinus rhythm. Physical Examination: 72-year-old male, alert confused cachectic appears to be older than stated age Head: Normocephalic. Eyes: Sclerae nonicteric. Neck: Good carotid upstroke, no bruit, no jugular venous distention. Lungs: Decreased breath sounds anteriorly Heart: Regular rate and rhythm, tachycardic S1-S2, no S3, no rub. No murmur. Abdomen: Soft nontender, positive bowel sounds no organomegaly. Extremities: No edema, intact distal pulses. Impression: 1. Atrial fibrillation, new onset currently sinus 2. Liver cirrhosis with recurrent pleural effusion and respiratory failure 3. Severe thrombocytopenia 4. Hypotension 5. COVID-19 infection 6. History of hepatitis C 7. Right-sided pneumothorax Plan: Patient is back in sinus rhythm. Continue digoxin as well as metoprolol as tolerated. Hold further amiodarone unless has significant RVR episodes. Dm nue with norepinephrine as needed. Echocardiogram pending. Prognosis guarded. Continue supportive care. No anticoagulation given cirrhosis, thrombocytopenia. Objective - Vital Signs Vital signs: Vital Signs Temp 97.5 F L 01/28/23 12:00 Pulse 70 01/28/23 14:00 Resp 16 01/28/23 14:00 BP 101/60 01/28/23 14:00 Pulse Ox 94 L 01/28/23 14:00 FiO2 60 01/28/23 14:00 Intake & Output 01/27/23 01/28/23 01/28/23 18:59 06:59 18:59 Intake Total 963.498 691.463 635.531 Output Total 2785 670 690 Balance -1821.502 21.463 -54.469 Weight 53.1 kg 53.1 kg Intake: IV 220 240 120 Sodium Chloride 0.9% 1, 220 240 120 000 ml @ 20 mls/hr IV . Q24H [facility] Rx#:[id number] Intake, IV Titration 248.498 226.463 125.531 Amount Amiodarone 360 mg In 150.554 Dextrose 5% in Water 200 ml @ 1 MG/MIN 33.333 mls/ hr IV .Q6H [facility] Rx#: [id number] Norepinephrine 4 mg In 97.944 226.463 125.531 Sodium Chloride 0.9% 250 ml @ 0.03 MCG/KG/MIN 6. 549 mls/hr IV .Q24H [facility] Rx#:[id number] Tube Feeding 495 225 270 Other 120 Output: Chest Tube Drainage 2200 200 550 Thora-Vent Right Upper 2200 200 550 Anterior Chest Urine 585 470 140 Other: Voiding Method Indwelling Catheter Indwelling Catheter Indwelling Catheter # Bowel Movements 1 - Labs CBC & Chem 7: 01/28/23 04:32 01/28/23 04:32 Labs: Abnormal Lab Results - Last 24 Hours (Table) 01/27/23 01/27/23 01/28/23 Range/Units 17:37 23:20 04:32 WBC (3.8-10.6) k/uL RBC (4.30-5.90) m/uL MCV (80.0-100.0) fL MCH (25.0-35.0) pg Plt Count (150-450) k/uL Neutrophils # (1.3-7.7) k/uL Lymphocytes # (1.0-4.8) k/uL PT 15.6 H (9.0-12.0) sec INR 1.6 H (<1.2) Fibrinogen 114 L (200-500) mg/dL Sodium (137-145) mmol/L Chloride (98-107) mmol/L Carbon Dioxide (22-30) mmol/L BUN (9-20) mg/dL Glucose (74-99) mg/dL POC Glucose (mg/dL) 307 H 177 H (70-110) mg/dL Total Bilirubin (0.2-1.3) mg/dL AST (17-59) U/L ALT (4-49) U/L Alkaline Phosphatase (38-126) U/L Total Protein (6.3-8.2) g/dL Albumin (3.5-5.0) g/dL 01/28/23 01/28/23 01/28/23 Range/Units 04:32 04:32 06:27 WBC 25.6 H (3.8-10.6) k/uL RBC 4.09 L (4.30-5.90) m/uL MCV 106.1 H (80.0-100.0) fL MCH 35.3 H (25.0-35.0) pg Plt Count 31 L D (150-450) k/uL Neutrophils # 24.9 H (1.3-7.7) k/uL Lymphocytes # 0.2 L (1.0-4.8) k/uL PT (9.0-12.0) sec INR (<1.2) Fibrinogen (200-500) mg/dL Sodium 149 H (137-145) mmol/L Chloride 115 H (98-107) mmol/L Carbon Dioxide 33 H (22-30) mmol/L BUN 79 H (9-20) mg/dL Glucose 73 L (74-99) mg/dL POC Glucose (mg/dL) 67 L (70-110) mg/dL Total Bilirubin 4.2 H (0.2-1.3) mg/dL AST 151 H (17-59) U/L ALT 86 H (4-49) U/L Alkaline Phosphatase 350 H (38-126) U/L Total Protein 5.5 L (6.3-8.2) g/dL Albumin 2.0 L (3.5-5.0) g/dL 01/28/23 Range/Units 11:58 WBC (3.8-10.6) k/uL RBC (4.30-5.90) m/uL MCV (80.0-100.0) fL MCH (25.0-35.0) pg Plt Count (150-450) k/uL Neutrophils # (1.3-7.7) k/uL Lymphocytes # (1.0-4.8) k/uL PT (9.0-12.0) sec INR (<1.2) Fibrinogen (200-500) mg/dL Sodium (137-145) mmol/L Chloride (98-107) mmol/L Carbon Dioxide (22-30) mmol/L BUN (9-20) mg/dL Glucose (74-99) mg/dL POC Glucose (mg/dL) 130 H (70-110) mg/dL Total Bilirubin (0.2-1.3) mg/dL AST (17-59) U/L ALT (4-49) U/L Alkaline Phosphatase (38-126) U/L Total Protein (6.3-8.2) g/dL Albumin (3.5-5.0) g/dL Microbiology - Last 24 Hours (Table) 01/23/23 04:00 Gram Stain - Final Pleural Fluid Body Fluid Culture - Final
[2023-01-28 18:08] LABS: Glucose,Whole Blood 234 mg/dL (70-110)
[2023-01-28 20:22] LABS: Glucose,Whole Blood 284 mg/dL (70-110)
[2023-01-28] MEDS ORDERED: INSULIN DETEMIR (LEVEMIR) 100 UNIT/ML SYR SQ SCH (21:00)
[2023-01-28] MEDS ORDERED: SODIUM CHLORIDE 0.9% 500 ML 500 ML IV ONE ×2 (23:14→23:16)
[2023-01-28 23:53] LABS: Glucose,Whole Blood 445 mg/dL (70-110)
[2023-01-29] MEDS: INSULIN ASPART (NovoLOG) 100 UNIT/ML VIAL SQ SCH ×2 (00:10→06:01)
[2023-01-29] MEDS: MORPHINE SULFATE 4 MG/ML SYRINGE IVP PRN ×3 (00:10→09:15)
[2023-01-29 01:02] LABS: Glucose,Whole Blood 318 mg/dL (70-110)
[2023-01-29] MEDS: SODIUM CHLORIDE 0.9% 1,000 ML IV SCH (01:34)
[2023-01-29 01:58] LABS: Glucose,Whole Blood 291 mg/dL (70-110)
[2023-01-29] MEDS ORDERED: FUROSEMIDE 10 MG/ML 4 ML VIAL IV STA (02:10)
[2023-01-29] MEDS: ALBUTEROL HFA INHALER INHALATION SCH ×2 (02:57→08:32)
[2023-01-29 05:53] LABS: Glucose,Whole Blood 242 mg/dL (70-110)
[2023-01-29] MEDS: NOREPINEPHRINE 4 MG in SODIUM CHLORIDE 0.9% 250 ML IV SCH (06:10)
[2023-01-29] MEDS: LIPASE 5,000/PROTEASE 17,000/AMYLASE 24,000 PO SCH (06:11)
[2023-01-29 06:21] LABS: Anisocytosis Slight; HCT 48.5 % (39.0-53.0); HGB 15.3 gm/dL (13.0-17.5); Hypochromasia Slight; MCH 34.9 pg (25.0-35.0); MCHC 31.5 g/dL (31.0-37.0); MCV 110.6 fL (80.0-100.0); Macrocytosis Marked; Mean Platelet Volume 11.4; RBC 4.39 m/uL (4.30-5.90); RDW 16.4 % (11.5-15.5)
[2023-01-29 06:23] LABS: Platelet Count 30 k/uL (150-450)
[2023-01-29 06:24] LABS: ALT 168 U/L (4-49); AST 282 U/L (17-59); African American GFR (CKD) 68 (>60 ml/min/1.73 sqM); Anion Gap 9 mmol/L; Calcium 8.9 mg/dL (8.4-10.2); Carbon Dioxide 24 mmol/L (22-30); Chloride 116 mmol/L (98-107); Glucose 273 mg/dL (74-99); Non-African American GFR(CKD) 58 (>60 ml/min/1.73 sqM); Potassium 4.9 mmol/L (3.5-5.1); Sodium 149 mmol/L (137-145); Total Bilirubin 5.3 mg/dL (0.2-1.3); Total Protein 5.5 g/dL (6.3-8.2)
[2023-01-29 06:58] LABS: Lymphocytes # (M) 0.28 k/uL (1.0-4.8); Monocytes # (M) 0.56 k/uL (0-1.0); Neutrophils # (M) 26.97 k/uL (1.3-7.7); Neutrophils % (M) 97 %; Nucleated Red Blood Cells 2 /100 WBC (0-0); Total Cells Counted 100; WBC 27.8 k/uL (3.8-10.6)
[2023-01-29 06:59] LABS: Anisocytosis (M) Present; Polychromasia Present
[2023-01-29] MEDS ORDERED: INSULIN DETEMIR (LEVEMIR) 100 UNIT/ML SYR SQ SCH (07:00)
[2023-01-29 07:11] LABS: INR 1.8 (<1.2); Partial Thromboplastin Time 26.1 sec (22.0-30.0); Prothrombin Time 18.2 sec (9.0-12.0)
[2023-01-29 07:21] LABS: Fibrinogen <70 mg/dL (200-500)
[2023-01-29 07:32] LABS: Alkaline Phosphatase 641 U/L (38-126); Blood Urea Nitrogen 117 mg/dL (9-20)
--- NOTE | 2023-01-29 07:58 | P.PN ---
Subjective Progress Note Date: 01/28/23 Principal diagnosis: Pneumonia Patient is a 72-year-old male with a past medical history significant for diabetes mellitus reflux cirrhosis of the liver osteoarthritis and asthma, patient is vaccinated for covid 19, both the patient and the developed respiratory symptoms and the tested positive for covid 19 about a week before presentation to the hospital, patient was admitted to the cardiology floor did have worsening of his respiratory status requiring transfer to the ICU. on today's evaluation that is 01/28/2023 the patient remains to be afebrile gregorio ent declines low-dose classes" patient remains to be BiPAP dependent lethargic and improved blood in the history no vomiting diarrhea has been reported by the nursing staff. Patient white count did jump from 5.6 today platelet count is up to 31 creatinine 0.67 with pleural fluid culture has been negative Objective - Vital Signs Vital signs: Vital Signs Temp 97.7 F 01/28/23 08:00 Pulse 73 01/28/23 10:00 Resp 16 01/28/23 10:00 BP 83/55 01/28/23 10:00 Pulse Ox 89 L 01/28/23 10:00 FiO2 60 01/28/23 10:00 Intake & Output 01/27/23 01/28/23 01/28/23 18:59 06:59 18:59 Intake Total 963.498 691.463 635.531 Output Total 2785 670 690 Balance -1821.502 21.463 -54.469 Weight 53.1 kg Intake: IV 220 240 120 Sodium Chloride 0.9% 1, 220 240 120 000 ml @ 20 mls/hr IV . Q24H [facility] Rx#:[id number] Intake, IV Titration 248.498 226.463 125.531 Amount Amiodarone 360 mg In 150.554 Dextrose 5% in Water 200 ml @ 1 MG/MIN 33.333 mls/ hr IV .Q6H [facility] Rx#: [id number] Norepinephrine 4 mg In 97.944 226.463 125.531 Sodium Chloride 0.9% 250 ml @ 0.03 MCG/KG/MIN 6. 549 mls/hr IV .Q24H [facility] Rx#:[id number] Tube Feeding 495 225 270 Other 120 Output: Chest Tube Drainage 2200 200 550 Thora-Vent Right Upper 2200 200 550 Anterior Chest Urine 585 470 140 Other: Voiding Method Indwelling Catheter Indwelling Catheter Indwelling Catheter # Bowel Movements 1 - Exam GENERAL DESCRIPTION: An elderly male lying in bed in no distress RESPIRATORY SYSTEM: Unlabored breathing , coarse breath sounds bilaterally HEART: S1 S2 regular rate and rhythm , ABDOMEN: Soft , no tenderness EXTREMITIES: No edema feet - Labs CBC & Chem 7: 01/29/23 05:32 01/29/23 05:32 Labs: Abnormal Lab Results - Last 24 Hours (Table) 01/27/23 01/27/23 01/28/23 Range/Units 17:37 23:20 04:32 WBC (3.8-10.6) k/uL RBC (4.30-5.90) m/uL MCV (80.0-100.0) fL MCH (25.0-35.0) pg Plt Count (150-450) k/uL Neutrophils # (1.3-7.7) k/uL Lymphocytes # (1.0-4.8) k/uL PT 15.6 H (9.0-12.0) sec INR 1.6 H (<1.2) Fibrinogen 114 L (200-500) mg/dL Sodium (137-145) mmol/L Chloride (98-107) mmol/L Carbon Dioxide (22-30) mmol/L BUN (9-20) mg/dL Glucose (74-99) mg/dL POC Glucose (mg/dL) 307 H 177 H (70-110) mg/dL Total Bilirubin (0.2-1.3) mg/dL AST (17-59) U/L ALT (4-49) U/L Alkaline Phosphatase (38-126) U/L Total Protein (6.3-8.2) g/dL Albumin (3.5-5.0) g/dL 01/28/23 01/28/23 01/28/23 Range/Units 04:32 04:32 06:27 WBC 25.6 H (3.8-10.6) k/uL RBC 4.09 L (4.30-5.90) m/uL MCV 106.1 H (80.0-100.0) fL MCH 35.3 H (25.0-35.0) pg Plt Count 31 L D (150-450) k/uL Neutrophils # 24.9 H (1.3-7.7) k/uL Lymphocytes # 0.2 L (1.0-4.8) k/uL PT (9.0-12.0) sec INR (<1.2) Fibrinogen (200-500) mg/dL Sodium 149 H (137-145) mmol/L Chloride 115 H (98-107) mmol/L Carbon Dioxide 33 H (22-30) mmol/L BUN 79 H (9-20) mg/dL Glucose 73 L (74-99) mg/dL POC Glucose (mg/dL) 67 L (70-110) mg/dL Total Bilirubin 4.2 H (0.2-1.3) mg/dL AST 151 H (17-59) U/L ALT 86 H (4-49) U/L Alkaline Phosphatase 350 H (38-126) U/L Total Protein 5.5 L (6.3-8.2) g/dL Albumin 2.0 L (3.5-5.0) g/dL 01/28/23 Range/Units 11:58 WBC (3.8-10.6) k/uL RBC (4.30-5.90) m/uL MCV (80.0-100.0) fL MCH (25.0-35.0) pg Plt Count (150-450) k/uL Neutrophils # (1.3-7.7) k/uL Lymphocytes # (1.0-4.8) k/uL PT (9.0-12.0) sec INR (<1.2) Fibrinogen (200-500) mg/dL Sodium (137-145) mmol/L Chloride (98-107) mmol/L Carbon Dioxide (22-30) mmol/L BUN (9-20) mg/dL Glucose (74-99) mg/dL POC Glucose (mg/dL) 130 H (70-110) mg/dL Total Bilirubin (0.2-1.3) mg/dL AST (17-59) U/L ALT (4-49) U/L Alkaline Phosphatase (38-126) U/L Total Protein (6.3-8.2) g/dL Albumin (3.5-5.0) g/dL Microbiology - Last 24 Hours (Table) 01/23/23 04:00 Gram Stain - Final Pleural Fluid Body Fluid Culture - Final Assessment and Plan (1) Pneumonia Current Visit: Yes Status: Acute Code(s): J18.9 - PNEUMONIA, UNSPECIFIED ORGANISM SNOMED Code(s): 248243636 (2) Coronavirus infection Current Visit: Yes Status: Acute Priority: High Code(s): B34.2 - CORONAVIRUS INFECTION, UNSPECIFIED SNOMED Code(s): 064764839 (3) Pleural effusion Current Visit: Yes Status: Acute Code(s): J90 - PLEURAL EFFUSION, NOT ELSEWHERE CLASSIFIED SNOMED Code(s): 00200878 Plan: 1patient with the acute respiratory failure which is likely multifactorial in this patient tested positive for covid 19 more than a week ago and also history of recurrent right-sided effusion with worsening effusion and airspace opacities concerning for possible secondary bacterial pneumonia 2-cephalosporin ALLERGY that would limit the number of antibiotic safety use 3leukocytosis possibly steroid related the patient white count initially normalized slightly trending up and will monitor closely. 4-Patient has received adequate antibiotic therapy with a culture negative and significant thrombocytopenia will monitor the patient closely off antibiotic therapy at bed side multiple questions and considering hospice which is appropriate for him Dictation was produced using [employer] dictation software. please excuse any grammatical, word or spelling errors.
--- NOTE | 2023-01-29 08:11 | P.PN ---
Subjective History of Present Illness: The patient is a 72-year-old male with a known history of alcoholic liver cirrhosis hepatitis C diabetes who was admitted to the hospital on January 18 was progressive dyspnea and large right-sided pleural effusion and has underwent thoracentesis with removal of 3 L. He continues to be in the ICU with chest tube and significant drainage. Today he went into atrial fibrillation with rapid ventricle response. Cardiology consultation was requested. Patient is awake but confused. I am not able to obtain an accurate history. According to the nursing staff and the records it is no history of cardiac disease, heart failure or ischemic heart disease. He has been in sinus mechanism since admission. He tested positive for COVID-19 on admission. He is on norepinephrine as well his intravenous diuretics. He has a feeding tube. He was started on IV amiodarone and persistent to be tachycardic. There is no complaints of chest discomfort or change in his breathing status. The patient is cachectic. As an outpatient there is no documentation of diabetes or hypertension. The patient is DO NOT RESUSCITATE Medications: As outpatient Aldactone 50 mg twice a day omeprazole, Levaquin, Lasix. He is on insulin after admission in addition to the IV amiodarone started earlier. 01/28 Patient remains in ICU and remains confused. Remains on BiPAP. Norepinephrine at 0.08. Receiving tube feeds and noted to be hypernatremic. Urine output approximately 30 mL per hour. No further amiodarone given his liver cirrhosis however liver enzymes appears stable. Platelets are in the 30s however no significant bleeding. Remains in sinus rhythm. 01/29 Patient with worsening oxygen saturation requirements increased up to 80%. He remains lethargic on ventilator, not responding to verbal stimuli. Echo pending. Remains on small dose norepinephrine. BUN increasing with minimal urine output, still receiving tube feeds from NG tube. Increasing AST, ALT, bilirubin. Remains in sinus rhythm, sinus tachycardia. Physical Examination: 72-year-old male, alert confused cachectic appears to be older than stated age Head: Normocephalic. Eyes: Sclerae nonicteric. Neck: Good carotid upstroke, no bruit, no jugular venous distention. Lungs: Decreased breath sounds anteriorly Heart: Regular rate and rhythm, tachycardic S1-S2, no S3, no rub. No murmur. Abdomen: Soft nontender, positive bowel sounds no organomegaly. Extremities: No edema, intact distal pulses. Impression: 1. Atrial fibrillation, new onset currently sinus 2. Liver cirrhosis with recurrent pleural effusion and respiratory failure 3. Severe thrombocytopenia 4. Hypotension 5. COVID-19 infection 6. History of hepatitis C 7. Right-sided pneumothorax Plan: Flovent still in place. Unfortunately patient without any significant improvement and needing more oxygen requirements. If anything patient clinically appears dry with decreased urine output and may consider increased fluid bolus and does not appear related to heart failure. Remains in sinus rhythm. Continue with supportive care. Prognosis guarded. Please call with any questions. Objective - Vital Signs Vital signs: Vital Signs Temp 97.7 F 01/29/23 04:00 Pulse 115 H 01/29/23 07:30 Resp 37 H 01/29/23 07:30 BP 123/69 01/29/23 07:30 Pulse Ox 83 L 01/29/23 07:30 FiO2 80 01/29/23 06:30 Intake & Output 01/28/23 01/29/23 01/29/23 18:59 06:59 18:59 Intake Total 0236.975 4116.552 65 Output Total 1375 1136 205 Balance -128.481 538.552 -140 Weight 53.1 kg 52.6 kg Intake: IV 240 730 20 Sodium Chloride 0.9% 1, 240 230 20 000 ml @ 20 mls/hr IV . Q24H [facility] Rx#:[id number] Sodium Chloride 0.9% 500 500 ml 500 ml @ 999 mls/hr IV .Q31M [facility] Rx#:[id number] Intake, IV Titration 256.519 314.552 Amount Norepinephrine 4 mg In 256.519 314.552 Sodium Chloride 0.9% 250 ml @ 0.03 MCG/KG/MIN 6. 549 mls/hr IV .Q24H [facility] Rx#:[id number] Tube Feeding 540 540 45 Other 210 90 Output: Chest Tube Drainage 1090 980 200 Thora-Vent Right Upper 1090 980 200 Anterior Chest Urine 285 156 5 Other: Voiding Method Indwelling Catheter Indwelling Catheter # Bowel Movements 1 1 - Labs CBC & Chem 7: 01/29/23 05:32 01/29/23 05:32 Labs: Abnormal Lab Results - Last 24 Hours (Table) 01/28/23 01/28/23 01/28/23 Range/Units 11:58 18:06 20:21 WBC (3.8-10.6) k/uL MCV (80.0-100.0) fL RDW (11.5-15.5) % Plt Count (150-450) k/uL Neutrophils # (Manual) (1.3-7.7) k/uL Lymphocytes # (Manual) (1.0-4.8) k/uL Nucleated RBCs (0-0) /100 WBC Macrocytosis PT (9.0-12.0) sec INR (<1.2) Fibrinogen (200-500) mg/dL Sodium (137-145) mmol/L Chloride (98-107) mmol/L BUN (9-20) mg/dL Glucose (74-99) mg/dL POC Glucose (mg/dL) 130 H 234 H 284 H (70-110) mg/dL Total Bilirubin (0.2-1.3) mg/dL AST (17-59) U/L ALT (4-49) U/L Alkaline Phosphatase (38-126) U/L Total Protein (6.3-8.2) g/dL Albumin (3.5-5.0) g/dL 01/28/23 01/29/23 01/29/23 Range/Units 23:52 01:00 01:56 WBC (3.8-10.6) k/uL MCV (80.0-100.0) fL RDW (11.5-15.5) % Plt Count (150-450) k/uL Neutrophils # (Manual) (1.3-7.7) k/uL Lymphocytes # (Manual) (1.0-4.8) k/uL Nucleated RBCs (0-0) /100 WBC Macrocytosis PT (9.0-12.0) sec INR (<1.2) Fibrinogen (200-500) mg/dL Sodium (137-145) mmol/L Chloride (98-107) mmol/L BUN (9-20) mg/dL Glucose (74-99) mg/dL POC Glucose (mg/dL) 445 H 318 H 291 H (70-110) mg/dL Total Bilirubin (0.2-1.3) mg/dL AST (17-59) U/L ALT (4-49) U/L Alkaline Phosphatase (38-126) U/L Total Protein (6.3-8.2) g/dL Albumin (3.5-5.0) g/dL 01/29/23 01/29/23 01/29/23 Range/Units 05:32 05:32 05:32 WBC 27.8 H (3.8-10.6) k/uL MCV 110.6 H (80.0-100.0) fL RDW 16.4 H (11.5-15.5) % Plt Count 30 L (150-450) k/uL Neutrophils # (Manual) 26.97 H (1.3-7.7) k/uL Lymphocytes # (Manual) 0.28 L (1.0-4.8) k/uL Nucleated RBCs 2 H (0-0) /100 WBC Macrocytosis Marked A PT 18.2 H (9.0-12.0) sec INR 1.8 H (<1.2) Fibrinogen <70 L* (200-500) mg/dL Sodium 149 H (137-145) mmol/L Chloride 116 H (98-107) mmol/L BUN 117 H* (9-20) mg/dL Glucose 273 H (74-99) mg/dL POC Glucose (mg/dL) (70-110) mg/dL Total Bilirubin 5.3 H (0.2-1.3) mg/dL AST 282 H (17-59) U/L ALT 168 H (4-49) U/L Alkaline Phosphatase 641 H (38-126) U/L Total Protein 5.5 L (6.3-8.2) g/dL Albumin 2.0 L (3.5-5.0) g/dL 01/29/23 Range/Units 05:52 WBC (3.8-10.6) k/uL MCV (80.0-100.0) fL RDW (11.5-15.5) % Plt Count (150-450) k/uL Neutrophils # (Manual) (1.3-7.7) k/uL Lymphocytes # (Manual) (1.0-4.8) k/uL Nucleated RBCs (0-0) /100 WBC Macrocytosis PT (9.0-12.0) sec INR (<1.2) Fibrinogen (200-500) mg/dL Sodium (137-145) mmol/L Chloride (98-107) mmol/L BUN (9-20) mg/dL Glucose (74-99) mg/dL POC Glucose (mg/dL) 242 H (70-110) mg/dL Total Bilirubin (0.2-1.3) mg/dL AST (17-59) U/L ALT (4-49) U/L Alkaline Phosphatase (38-126) U/L Total Protein (6.3-8.2) g/dL Albumin (3.5-5.0) g/dL Microbiology - Last 24 Hours (Table) 01/23/23 04:00 Gram Stain - Final Pleural Fluid Body Fluid Culture - Final
[2023-01-29] MEDS: CHOLECALCIFEROL 25 MCG (1000 IU) TABLET PO SCH (08:27)
[2023-01-29] MEDS: ASCORBIC ACID 500 MG TAB PO SCH (08:28)
[2023-01-29] MEDS: METOPROLOL TARTRATE 25 MG TAB PO SCH (08:28)
[2023-01-29] MEDS: SPIRONOLACTONE 25 MG TAB PO SCH (08:28)
[2023-01-29] MEDS: ZINC SULFATE 220 MG CAP PO SCH (08:28)
[2023-01-29] MEDS: FAMOTIDINE 20 MG TAB PO SCH (08:28)
[2023-01-29] MEDS: DEXAMETHASONE SOD PHOSPHATE 10 MG/ML 1 ML VIAL IVP SCH (08:29)
--- NOTE | 2023-01-29 08:37 | XR ---
EXAMINATION TYPE: XR chest 1V portable DATE OF EXAM: 01/29/2023 COMPARISON: 01/27/2023 HISTORY: Right pneumothorax TECHNIQUE: Single frontal view of the chest is obtained. FINDINGS: Chest tube remains in place. There is a small 5-10% right-sided pneumothorax. Suspect a de gree of pneumomediastinum with air extending in the soft tissues of the neck. Interstitial infiltrate s and left basilar consolidation are stable. NG tube is seen abdomen. Gastric bubble markedly distended. Metallic stent in the right upper quadrant. There is air surroundi ng the cardiac silhouette suggestive of pneumopericardium. Right-sided chest tube in stable position. IMPRESSION: 1. Pneumothorax measures approximately 5-10% diffuse interstitial and left lower lobe infiltrate stab le. However, there is now a 5-10% left-sided pneumothorax. Report called to patient's nurse. 2. There appears to be within the soft tissues of the neck suggestive of pneumomediastinum. Also susp ect pneumopericardium. 3. There is marked distention of the gastric bubble.
[2023-01-29 08:55] VITALS: TEMP 97.2
[2023-01-29 09:20] VITALS: BP 71/52; PULSE 110; RESP 32
[2023-01-29] MEDS: DIGOXIN 250 MCG/ML 2 ML AMP IVP SCH (09:22)
[2023-01-29] MEDS: LACTULOSE 20 GM/30 ML CUP PO SCH (09:23)
[2023-01-29] MEDS ORDERED: MORPHINE SULFATE 2 MG/ML SYRINGE IV PRN (09:29)
[2023-01-29] MEDS ORDERED: ATROPINE OPHTH SOLN 1% 5ML BTL SUBLINGUAL PRN (09:29)
[2023-01-29] MEDS ORDERED: LORazepam 2 MG/ML INJ IV PRN (09:29)
[2023-01-29] MEDS ORDERED: MORPHINE SULFATE 4 MG/ML SYRINGE IV PRN (09:29)
[2023-01-29] MEDS ORDERED: MORPHINE SULFATE 4 MG/ML SYRINGE IVP ONE (10:00)
[2023-01-29] MEDS ORDERED: MORPHINE SULFATE (100 MG/2 ML) 100 MG in SODIUM CHLORIDE 0.9% 100 ML IV SCH (10:00)
[2023-01-29] MEDS ORDERED: LORazepam 2 MG/ML INJ IV ONE (10:00)
--- NOTE | 2023-01-29 11:15 | P.PN ---
Subjective Progress Note Date: 01/29/23 Principal diagnosis: Respiratory failure. Reevaluated today on , patient remains in the ICU, basically about the same, he is now on a nonrebreather mask, patient pulled out his nasogastric tube yesterday, and another one will be placed today. His chest x-ray showed incre ase in the size of the right-sided pneumothorax however after flushing the thoravent, there was evidence of improvement in air bubbles and leak through the pleural VAC, hence the lung will expand slowly. And no need to change the chest tube at this point or place another one. Patient is still requiring norepinephrine at 0.03 mcg/kg/m his IV fluids remain at KVO. Remains on Zosyn, remains on steroids, patient is marginal at best WBC count is 14.1 hemoglobin is 12.8 INR is 2.0 twice are normal ammonia level yesterday was normal renal profile is normal on a chest x-ray as noted above, cultures from the pleural effusion has been negative so far Reevaluated today on 01/26/2023, remains in the ICU, remains marginal at best, with very marginal and poor pulmonary status. Patient remains on airvo, and his airvo now is at 50% FiO2 with 60 L flow. O2 saturation is in the 90s. Last night he was placed on BiPAP 12//80%. Patient is still requiring norepinephrine at 0.03 mcg/kg/m. His chest x-ray today showed improvement in his right-sided pneumothorax, better expansion of the right lung, continues to have ongoing air leak, and some interstitial edema is noted on the chest x-ray. Patient is going to be back on Lasix 40 mg IV push every 8 hours today. And he remains on Zosyn, remains on steroids, continues to look frail, chronically ill, and cachectic, seems to have almost a picture of failure to thrive. His W BC count is 13.1 hemoglobin is 13.5 his INR is 1.8 lites are normal BUN is 71 creatinine 0.78. Patient had a nasogastric tube placed again yesterday, and he is now on enteral feeding. CODE STATUS has been discussed with the and his CODE STATUS was changed to DO NOT RESUSCITATE, again I have a strong feeling that the patient will do poorly and his overall prognosis remains extremely poor and he seems to be again a picture of failure to thrive Reevaluated today on 01/27/2023, remains in the ICU, marginal at best. Patient remains on airvo, 60% FiO2 60 L flow, remains on norepinephrine at 0.03 mcg/kg/m, his chest x-ray is showing improvement in his right-sided pneumothorax but the lung still not fully expanded patient had over 2 L of fluid drained from the right pleural space from the chest tube which I placed couple of days ago. Patient is clinically dehydrated hence I'm planning to stop his diuretics for now, but would not push significant volume since the patient could develop worsening fluid retention and worsening bilateral pleural effusions. Patient continues to have air leak in the pleural VAC, his platelets remain low and hematology is addressing his platelets may need couple of units of platelets today. Platelets are down to 14,000. Patient did receive cryoprecipitate yesterday from hematology/oncology his fibrinogen level was 95, and it is 123 today and clinically the patient is basically about the same, he seems to be very frail, chronically ill, and I still believe the patient has a picture of failure to thrive Progress note dated 01/28/2023. The patient is seen today in intensive care unit, room 258. Currently, the patient is on BiPAP, with settings of 12/6, and 60%. He has been between AIRVO, and BiPAP. He was admitted on January 19, for a right-sided pleural effusion, and hypoxemic respiratory failure. The patient had a trapped lung, following a thoracentesis, and had a Thora vent placed on January 24. The patient is currently a DO NOT RESUSCITATE. Unfortunately, the patient remains on saline at 20 mL an hour, and norepinephrine at about 4 mcg/m. The patient is receiving Nepro at 45 mL an hour, which is goal. The patient is a DO NOT RESUSCITATE patient. We will talk further with the family about CODE STATUS, possible comfort care. White count was 25.6, hemoglobin 14.4, hematocrit 43.4, and a platelet count 31,000. PT 15.6 INR 1.6. Sodium 149, potassium 4.1, chlorides 1:15, CO2 33, BUN 79, and creatinine 0.67. AST is 151, ALT is 86, now quit phosphatase is 350. Albumin is only 2.0. Microbiologic studies are negative. Chest x-ray shows an increased right apical pneumothorax, and Thora vent device is in place. It should be pointed out that the patient has had 3 admissions recently, for shortness of breath, and pleural effusion. Progress note dated 01/29/2023. The patient is seen today in room 258, intensive care unit. The patient remains on BiPAP, with settings of 12/8 and 80% FiO2. The patient is receiving saline at 20 mL an hour, and norepinephrine at 9 mcg/m. The patient's respiratory rate is anywhere from 35-50 breaths per minute. I contacted the on the phone, Ruy munoz, and told her, that the patient's overall prognosis is very poor. Labs include a white count of 27.8, hemoglobin 15.3, hematocrit 48.5, and a platelet count of 30,000. Sodium 149, potassium 4.9, chlorides 116, CO2 24, BUN 117, and creatinine 1.25. AST was 282 with an ALT of 168. Albumin is 2. Chest x-ray shows a 5-10% pneumothorax, on the right, and a new pneumothorax, 5-10% on the left. Objective - Vital Signs Vital signs: Vital Signs Temp 97.2 F L 01/29/23 08:00 Pulse 110 H 01/29/23 09:15 Resp 32 H 01/29/23 09:15 BP 71/52 01/29/23 09:15 Pulse Ox 84 L 01/29/23 09:15 FiO2 80 01/29/23 09:00 Intake & Output 01/28/23 01/29/23 01/29/23 18:59 06:59 18:59 Intake Total 6384.509 4315.552 381.776 Output Total 1375 1136 409 Balance -128.481 538.552 -27.224 Weight 53.1 kg 52.6 kg Intake: IV 240 730 60 Sodium Chloride 0.9% 1, 240 230 60 000 ml @ 20 mls/hr IV . Q24H [facility] Rx#:[id number] Sodium Chloride 0.9% 500 500 ml 500 ml @ 999 mls/hr IV .Q31M [facility] Rx#:[id number] Intake, IV Titration 256.519 314.552 156.776 Amount Morphine Sulfate (100 mg/ 1.700 2 ml) 100 mg In Sodium Chloride 0.9% 100 ml @ 4 MG/HR 4.08 mls/hr IV . Q24H [facility] Rx#:[id number] Norepinephrine 4 mg In 256.519 314.552 155.076 Sodium Chloride 0.9% 250 ml @ 0.03 MCG/KG/MIN 6. 549 mls/hr IV .Q24H [facility] Rx#:[id number] Tube Feeding 540 540 135 Other 210 90 30 Output: Chest Tube Drainage 1090 980 400 Thora-Vent Right Upper 1090 980 400 Anterior Chest Urine 285 156 9 Other: Voiding Method Indwelling Catheter Indwelling Catheter Indwelling Catheter # Bowel Movements 1 1 - Exam Acute respiratory distress, poorly responsive, with BiPAP mask in place. HEENT examination is grossly unremarkable. Neck supple. Full range of motion. No adenopathy thyromegaly or neck vein distention. Cardiovascular examination reveals regular rhythm rate. S1-S2 normal. No S3 or S4. No discernible murmur noted. Heart rate 110 bpm. Heart sounds are distant. Lungs reveal scattered bilateral rhonchi. Diminished breath sounds on the right. No crackles. Saturations are in the mid 80s. Abdomen soft, without bowel sounds. Extremities are intact. No cyanosis clubbing or edema. Skin is without rash or lesion. Neurologic examination is brief but nonfocal. - Labs CBC & Chem 7: 01/29/23 05:32 01/29/23 05:32 Labs: Abnormal Lab Results - Last 24 Hours (Table) 01/28/23 01/28/23 01/28/23 Range/Units 11:58 18:06 20:21 WBC (3.8-10.6) k/uL MCV (80.0-100.0) fL RDW (11.5-15.5) % Plt Count (150-450) k/uL Neutrophils # (Manual) (1.3-7.7) k/uL Lymphocytes # (Manual) (1.0-4.8) k/uL Nucleated RBCs (0-0) /100 WBC Macrocytosis PT (9.0-12.0) sec INR (<1.2) Fibrinogen (200-500) mg/dL Sodium (137-145) mmol/L Chloride (98-107) mmol/L BUN (9-20) mg/dL Glucose (74-99) mg/dL POC Glucose (mg/dL) 130 H 234 H 284 H (70-110) mg/dL Total Bilirubin (0.2-1.3) mg/dL AST (17-59) U/L ALT (4-49) U/L Alkaline Phosphatase (38-126) U/L Total Protein (6.3-8.2) g/dL Albumin (3.5-5.0) g/dL 01/28/23 01/29/23 01/29/23 Range/Units 23:52 01:00 01:56 WBC (3.8-10.6) k/uL MCV (80.0-100.0) fL RDW (11.5-15.5) % Plt Count (150-450) k/uL Neutrophils # (Manual) (1.3-7.7) k/uL Lymphocytes # (Manual) (1.0-4.8) k/uL Nucleated RBCs (0-0) /100 WBC Macrocytosis PT (9.0-12.0) sec INR (<1.2) Fibrinogen (200-500) mg/dL Sodium (137-145) mmol/L Chloride (98-107) mmol/L BUN (9-20) mg/dL Glucose (74-99) mg/dL POC Glucose (mg/dL) 445 H 318 H 291 H (70-110) mg/dL Total Bilirubin (0.2-1.3) mg/dL AST (17-59) U/L ALT (4-49) U/L Alkaline Phosphatase (38-126) U/L Total Protein (6.3-8.2) g/dL Albumin (3.5-5.0) g/dL 01/29/23 01/29/23 01/29/23 Range/Units 05:32 05:32 05:32 WBC 27.8 H (3.8-10.6) k/uL MCV 110.6 H (80.0-100.0) fL RDW 16.4 H (11.5-15.5) % Plt Count 30 L (150-450) k/uL Neutrophils # (Manual) 26.97 H (1.3-7.7) k/uL Lymphocytes # (Manual) 0.28 L (1.0-4.8) k/uL Nucleated RBCs 2 H (0-0) /100 WBC Macrocytosis Marked A PT 18.2 H (9.0-12.0) sec INR 1.8 H (<1.2) Fibrinogen <70 L* (200-500) mg/dL Sodium 149 H (137-145) mmol/L Chloride 116 H (98-107) mmol/L BUN 117 H* (9-20) mg/dL Glucose 273 H (74-99) mg/dL POC Glucose (mg/dL) (70-110) mg/dL Total Bilirubin 5.3 H (0.2-1.3) mg/dL AST 282 H (17-59) U/L ALT 168 H (4-49) U/L Alkaline Phosphatase 641 H (38-126) U/L Total Protein 5.5 L (6.3-8.2) g/dL Albumin 2.0 L (3.5-5.0) g/dL 01/29/23 Range/Units 05:52 WBC (3.8-10.6) k/uL MCV (80.0-100.0) fL RDW (11.5-15.5) % Plt Count (150-450) k/uL Neutrophils # (Manual) (1.3-7.7) k/uL Lymphocytes # (Manual) (1.0-4.8) k/uL Nucleated RBCs (0-0) /100 WBC Macrocytosis PT (9.0-12.0) sec INR (<1.2) Fibrinogen (200-500) mg/dL Sodium (137-145) mmol/L Chloride (98-107) mmol/L BUN (9-20) mg/dL Glucose (74-99) mg/dL POC Glucose (mg/dL) 242 H (70-110) mg/dL Total Bilirubin (0.2-1.3) mg/dL AST (17-59) U/L ALT (4-49) U/L Alkaline Phosphatase (38-126) U/L Total Protein (6.3-8.2) g/dL Albumin (3.5-5.0) g/dL Microbiology - Last 24 Hours (Table) 01/23/23 04:00 Gram Stain - Final Pleural Fluid Body Fluid Culture - Final Assessment and Plan Assessment: Acute hypoxemic respiratory failure, secondary to recurrent right-sided pleural effusion, and pulmonary edema. Impending melvin respiratory failure. Recurrent right-sided pleural effusion, status post multiple thoracentesis. History of hepatitis C, with chronic liver disease. Coronavirus infection, without coronavirus associated pneumonia. Thrombocytopenia, secondary to chronic liver disease. Anemia of chronic disease. S/P Thora-vent placement, right side, for trapped lung, following thoracentesis. Coronavirus-associated diarrhea, resolved. History of liver cirrhosis and ascites. History of hepatitis C. History of alcoholism. History of type 2 diabetes mellitus. Recent laparoscopic hernia repair. Multiple other medical problems and comorbidities. Plan: Plan dated 01/28/2023. The patient's overall prognosis in my opinion is very poor. We will have a dis cussion with the family members, about further care for this patient, and possible comfort care. The patient's currently on BiPAP, with an FiO2 of 60%. He has been between BiPAP, and AIRVO. The right-sided pneumothorax is minimally larger. The patient remains on norepinephrine at about 4 mcg/m. He is getting tube feedings. He is currently a DO NOT RESUSCITATE patient. Labs, x-rays, and medications are reviewed. We will continue to follow the patient and make recommendations. Prognosis is certainly poor. Plan dated 01/29/2023. The patient's overall condition, and prognosis, has worsened significantly, and the last 24 hours. The patient's oxygen requirements have gone up significan tly, the patient's respiratory rate is anywhere from 30-50 breaths per minute. The patient continues on norepinephrine, at 9 mcg/m. I made a phone call from the patient's , Guillermina, and told her that there is nothing more that we could do for her , and recommended that we move to comfort care. The patient was already a DO NOT RESUSCITATE patient. She was in agreement, and, comfort care orders were placed. The patient is not likely to last another hour or so. Additional recommendations and suggestions are forthcoming. The was trying to get into the hospital, to see her . Time with Patient: Greater than 30
--- NOTE | 2023-01-29 11:28 | P.PN ---
Subjective Progress Note Date: 01/29/23 Principal diagnosis: COVID Patient was seen in the ICU today, family at bedside. He remains on BiPAP. Platelets stable today at 30,000. Fibrinogen <70, additional unit of cryopre cipitate ordered. However, upon today's visit, family has decided on comfort care measures. Discussed with family at bedside lab results in regards to his DIC. They wish to not give cryoprecipitate at this time and proceed with comfort care. Objective - Vital Signs Vital signs: Vital Signs Temp 97.2 F L 01/29/23 08:00 Pulse 110 H 01/29/23 09:15 Resp 32 H 01/29/23 09:15 BP 71/52 01/29/23 09:15 Pulse Ox 84 L 01/29/23 09:15 FiO2 80 01/29/23 09:00 Intake & Output 01/28/23 01/29/23 01/29/23 18:59 06:59 18:59 Intake Total 0023.697 6927.552 381.776 Output Total 1375 1136 409 Balance -128.481 538.552 -27.224 Weight 53.1 kg 52.6 kg Intake: IV 240 730 60 Sodium Chloride 0.9% 1, 240 230 60 000 ml @ 20 mls/hr IV . Q24H [facility] Rx#:[id number] Sodium Chloride 0.9% 500 500 ml 500 ml @ 999 mls/hr IV .Q31M [facility] Rx#:[id number] Intake, IV Titration 256.519 314.552 156.776 Amount Morphine Sulfate (100 mg/ 1.700 2 ml) 100 mg In Sodium Chloride 0.9% 100 ml @ 4 MG/HR 4.08 mls/hr IV . Q24H [facility] Rx#:[id number] Norepinephrine 4 mg In 256.519 314.552 155.076 Sodium Chloride 0.9% 250 ml @ 0.03 MCG/KG/MIN 6. 549 mls/hr IV .Q24H [facility] Rx#:[id number] Tube Feeding 540 540 135 Other 210 90 30 Output: Chest Tube Drainage 1090 980 400 Thora-Vent Right Upper 1090 980 400 Anterior Chest Urine 285 156 9 Other: Voiding Method Indwelling Catheter Indwelling Catheter Indwelling Catheter # Bowel Movements 1 1 - Constitutional General appearance: Present: thin - Respiratory Details: breathing labored, bipap in place - Integumentary Integumentary: Absent: cyanotic - Psychiatric Psychiatric Comment(s): somnolent - Labs CBC & Chem 7: 01/29/23 05:32 01/29/23 05:32 Labs: Abnormal Lab Results - Last 24 Hours (Table) 01/28/23 01/28/23 01/28/23 Range/Units 11:58 18:06 20:21 WBC (3.8-10.6) k/uL MCV (80.0-100.0) fL RDW (11.5-15.5) % Plt Count (150-450) k/uL Neutrophils # (Manual) (1.3-7.7) k/uL Lymphocytes # (Manual) (1.0-4.8) k/uL Nucleated RBCs (0-0) /100 WBC Macrocytosis PT (9.0-12.0) sec INR (<1.2) Fibrinogen (200-500) mg/dL Sodium (137-145) mmol/L Chloride (98-107) mmol/L BUN (9-20) mg/dL Glucose (74-99) mg/dL POC Glucose (mg/dL) 130 H 234 H 284 H (70-110) mg/dL Total Bilirubin (0.2-1.3) mg/dL AST (17-59) U/L ALT (4-49) U/L Alkaline Phosphatase (38-126) U/L Total Protein (6.3-8.2) g/dL Albumin (3.5-5.0) g/dL 01/28/23 01/29/23 01/29/23 Range/Units 23:52 01:00 01:56 WBC (3.8-10.6) k/uL MCV (80.0-100.0) fL RDW (11.5-15.5) % Plt Count (150-450) k/uL Neutrophils # (Manual) (1.3-7.7) k/uL Lymphocytes # (Manual) (1.0-4.8) k/uL Nucleated RBCs (0-0) /100 WBC Macrocytosis PT (9.0-12.0) sec INR (<1.2) Fibrinogen (200-500) mg/dL Sodium (137-145) mmol/L Chloride (98-107) mmol/L BUN (9-20) mg/dL Glucose (74-99) mg/dL POC Glucose (mg/dL) 445 H 318 H 291 H (70-110) mg/dL Total Bilirubin (0.2-1.3) mg/dL AST (17-59) U/L ALT (4-49) U/L Alkaline Phosphatase (38-126) U/L Total Protein (6.3-8.2) g/dL Albumin (3.5-5.0) g/dL 01/29/23 01/29/23 01/29/23 Range/Units 05:32 05:32 05:32 WBC 27.8 H (3.8-10.6) k/uL MCV 110.6 H (80.0-100.0) fL RDW 16.4 H (11.5-15.5) % Plt Count 30 L (150-450) k/uL Neutrophils # (Manual) 26.97 H (1.3-7.7) k/uL Lymphocytes # (Manual) 0.28 L (1.0-4.8) k/uL Nucleated RBCs 2 H (0-0) /100 WBC Macrocytosis Marked A PT 18.2 H (9.0-12.0) sec INR 1.8 H (<1.2) Fibrinogen <70 L* (200-500) mg/dL Sodium 149 H (137-145) mmol/L Chloride 116 H (98-107) mmol/L BUN 117 H* (9-20) mg/dL Glucose 273 H (74-99) mg/dL POC Glucose (mg/dL) (70-110) mg/dL Total Bilirubin 5.3 H (0.2-1.3) mg/dL AST 282 H (17-59) U/L ALT 168 H (4-49) U/L Alkaline Phosphatase 641 H (38-126) U/L Total Protein 5.5 L (6.3-8.2) g/dL Albumin 2.0 L (3.5-5.0) g/dL 01/29/23 Range/Units 05:52 WBC (3.8-10.6) k/uL MCV (80.0-100.0) fL RDW (11.5-15.5) % Plt Count (150-450) k/uL Neutrophils # (Manual) (1.3-7.7) k/uL Lymphocytes # (Manual) (1.0-4.8) k/uL Nucleated RBCs (0-0) /100 WBC Macrocytosis PT (9.0-12.0) sec INR (<1.2) Fibrinogen (200-500) mg/dL Sodium (137-145) mmol/L Chloride (98-107) mmol/L BUN (9-20) mg/dL Glucose (74-99) mg/dL POC Glucose (mg/dL) 242 H (70-110) mg/dL Total Bilirubin (0.2-1.3) mg/dL AST (17-59) U/L ALT (4-49) U/L Alkaline Phosphatase (38-126) U/L Total Protein (6.3-8.2) g/dL Albumin (3.5-5.0) g/dL Microbiology - Last 24 Hours (Table) 01/23/23 04:00 Gram Stain - Final Pleural Fluid Body Fluid Culture - Final Assessment and Plan (1) Coronavirus infection Current Visit: Yes Status: Acute Priority: High Code(s): B34.2 - CORONAVIRUS INFECTION, UNSPECIFIED SNOMED Code(s): 678594832 (2) DIC (disseminated intravascular coagulation) Current Visit: Yes Status: Acute Priority: High Code(s): D65 - DISSEMINATED INTRAVASCULAR COAGULATION SNOMED Code(s): 49470276 Plan: Thrombocytopenia with associated DIC -Platelets stable today, 30,000. Hemoglobin 15.3 -Thrombocytopenia noted in chart since 2017, baseline in 60-80K range -Pt has PMH cirrhosis that can contribute to splenic sequestration and destruction of plt. With chronic liver disease there possible decreased production of thrombopoetin. Chronic condition exacerbated by COVID infection -Fibrinogen was less than 100 on 01/25/2023 and 01/26/2023 and has received 2 units of cryoprecipitate on each day associated with DIC secondary to COVID pneumonia. Fibrinogen 70 today, additional unit of cryoprecipitate ordered. However, upon today's visit, family has decided on comfort care measures. Discussed with family lab results in regards to his DIC. They wish to not give cryoprecipitate at this time and proceed with comfort care. We will sign off from a hematology standpoint, please do not hesitate to reach out to our service if needed #COVID-19 pneumonia -Management per primary ICU team
--- NOTE | 2023-01-29 13:45 | P.DS ---
Providers Date of admission: 01/19/23 00:52 Expected date of discharge: 01/29/23 Attending physician: Tanner Pacheco Consults: 01/19/23 00:52 Consult Physician Routine Consulting Provider: Stu Welch Consult Reason/Comments: known Do you want consulting provider notified?: Yes 01/21/23 09:23 Consult Physician Routine Consulting Provider: Delicia Sheth Consult Reason/Comments: COVID-19 pneumonia Do you want consulting provider notified?: Yes 01/23/23 09:22 Consult Physician Routine Consulting Provider: Delmar Blake Consult Reason/Comments: Thrombocytopenia Do you want consulting provider notified?: Yes Primary care physician: Taiwo Ac [facility] Course: Discharge diagnoses; Acute respiratory failure Bilateral consolidation suspicious for bilateral covid pneumonia. Rule out bacterial pneumonia A. fib with RVR Right pleural effusion status post thoracocentesis on 01/18 with tapping 3 L out Apical pneumothorax right side Hypervolemic hyponatremia Severe calorie protein malnutrition Slightly worsening thrombocytopenia in view of patient liver disease Liver cirrhosis History of hep C Thrombocytopenia Diabetes mellitus, with hyperglycemia History of GERD History of osteoarthritis Hospital course; This is a pleasant 72 years old male with past medical history ofAsthma, Diabetes Mellitus, GERD/Reflux,Osteoarthritis , cirrhosis of the liver, hepatitis C possibly from blood transfusion as a child, palpable mass right parotid ,left leg arthritis with occasional edema to lower leg Patient was recently discharged from this -01/15, he underwent thoracocentesis was 2.5 fluid removed oriented and thereafter patient was discharged on Levaquin Patient presents because of dyspnea slightly getting worse since been discharged from the hospital. No much coughing., Chest pain. His other complaint is diarrhea also started after discharge. He had 3-4 bouts of bowel movement yesterday. No abdominal pain or vomiting. He has somewhat low appetite. He is in the 3 L oxygen at home. He denies alcohol or smoking or illicit drugs. No headache weakness or numbness or confusion. He's on 3 L oxygen at home Patient states yesterday they tapped his lung and 3 L were taken out from his right side. No On admission he was saturating 94% on 6 L oxygen via nasal cannula, currently his oxygen requirement went up to 12 L permanent via high flow cannula. CBC showed mild anemia but significant thrombocytopenia at 33, which looks similar to 4 days ago where it was 36 on 01/14/2023. Before that baseline platelet count was 50-80k INR is 1.64. Lactic acid 2.7 Troponin is negative Sodium is 125, glucose elevated morning at 300 on admission. Liver enzymes AST/ALT are within the reference range. Bilirubin slightly up 1.6. ProBNP is low at 197 Chest x-ray showing almost complete opacification of the right lung with some bilateral infiltrates 01/20. Patient seen and examined. Patient is currently on airvo at 15 L flow and 70% FiO2. Gets short of breath on minimal exertion 01/21. Patient seen and examined. Continues to be on airvo heated high flow at 60 L and FiO2 of 90%. Hemoglobin 11.8, platelet count 35, BUN 24, creatinine 0.51. Gets short of breath on minimum exertion. 01/22. Patient seen and examined . Currently on BiPAP, FiO2 100%. Patient is lethargic, get short of breath on conversing. Currently on Lasix drip and IV Zosyn 01/23. Patient seen and examined. Currently in ICU. WBC 3.7, hemoglobin 12.5, sodium 134, potassium 3.8, BUN 50, creatinine 0.88. Platelet count is 21,000 Patient continues to be on BiPAP with an FiO2 of 80%. Patient very lethargic. Unable to maintain conversation 01/24. Patient seen and examined. Currently on airvo at 70% FiO2 at 60 L flow. Repeat chest x-ray still showing pneumothorax 01/25. Patient seen and examined. Lab work showed occlusive 14.1, hemoglobin 12.8, platelet count 26, sodium 143, potassium 3.7, BUN 68, creatinine 0.87. Currently on nonrebreather mask. Thoravent in place. 01/26. Patient seen and examined. WBC 13.1, hemoglobin 13.5, INR 1.8, blood sugars elevated, increase Levemir to 10 units twice a day 01/27. Patient seen and examined. Patient continues to be on heated high flow oxygen 60 L and FiO2 of 60%. Blood sugars were elevated, Levemir dose increased to 15 units twice a day. Patient received cryoprecipitate yesterday from hematology oncology. Continues to be on tube feeding 01/28. Patient seen and examined. Blood work this morning showed WBC 25.6, hemoglobin 40.4, platelet count 31, sodium 149, potassium 4.1, BUN 79, creatinine 0.67. Blood sugars have been on the low side, we'll adjust Levemir and DC scheduled NovoLog insulin. Discussed with patient's was at the bedside, she understands that the patient health has deteriorated a lot and that she is not looking at a good outcome. Patient wants to think about possible comfort care 01/29. Patient respiratory status deteriorated this morning. Critical care discussed with patient and family and they decided to proceed with comfort care. Patient was pronounced on 01/29/23 at 11:13 AM Dictation was produced using [employer] dictation software. please excuse any grammatical, word or spelling errors. Patient Condition at Discharge: Poor Plan - Discharge Summary Discharge Rx Participant: No New Discharge Prescriptions: No Action Omalizumab [Xolair] 150 mg SQ Q14D Rifaximin [Xifaxan] 550 mg PO BID Fluticasone Propion/Salmeterol [Advair 500-50 Diskus] 1 puff INHALATION RT- BID glipiZIDE 5 mg PO BID Ibuprofen [Motrin] 600 mg PO Q6HR PRN #40 tab PRN Reason: Pain Levofloxacin [Levaquin] 500 mg PO DAILY 7 Days #7 tab Omeprazole 20 mg PO DAILY Ferrous Sulfate [Iron (65 MG Elemental)] 162.5 mg PO MOWEFR hydrOXYzine HCL [Atarax] 10 mg PO HS Spironolactone [Aldactone] 50 mg PO BID Albuterol Sulfate [Albuterol Sulfate Hfa] 2 puff INHALATION RT-QID Lactulose [Cephulac] 40 gm PO QID PRN PRN Reason: Constipation Furosemide [Lasix] 10 mg PO MOWEFR Lipase/Protease/Amylase [Creon Dr 12,000 Units Capsule] 1 cap PO DIRECTED Budesonide-Formot 160-4.5 Mcg [Symbicort 160-4.5 Mcg Inhaler] 2 puff INHALATION RT-BID 30 Days #1 each Discharge Medication List Omalizumab [Xolair] 150 mg SQ Q14D 04/28/18 [History] Ferrous Sulfate [Iron (65 MG Elemental)] 162.5 mg PO MOWEFR 03/14/21 [History] Omeprazole 20 mg PO DAILY 03/14/21 [History] Rifaximin [Xifaxan] 550 mg PO BID 03/14/21 [History] Fluticasone Propion/Salmeterol [Advair 500-50 Diskus] 1 puff INHALATION RT-BID 09/07/21 [History] Albuterol Sulfate [Albuterol Sulfate Hfa] 2 puff INHALATION RT-QID 11/08/22 [History] Spironolactone [Aldactone] 50 mg PO BID 11/08/22 [History] hydrOXYzine HCL [Atarax] 10 mg PO HS 11/08/22 [History] Lactulose [Cephulac] 40 gm PO QID PRN 12/23/22 [History] glipiZIDE 5 mg PO BID 12/23/22 [History] Ibuprofen [Motrin] 600 mg PO Q6HR PRN #40 tab 12/31/22 [Rx] Furosemide [Lasix] 10 mg PO MOWEFR 01/10/23 [History] Lipase/Protease/Amylase [Creon Dr 12,000 Units Capsule] 1 cap PO DIRECTED 01/10/23 [History] Budesonide-Formot 160-4.5 Mcg [Symbicort 160-4.5 Mcg Inhaler] 2 puff INHALATION RT-BID 30 Days #1 each 01/15/23 [Rx] Levofloxacin [Levaquin] 500 mg PO DAILY 7 Days #7 tab 01/15/23 [Rx] Follow up Appointment(s)/Referral(s): Esther Zamora,Home Care [NON-STAFF] - Taiwo Ac [Primary Care Provider] - 1-2 days
--- NOTE | 2023-01-29 18:47 | CA ---
Transthoracic Echo Report Name: Jorge Luis Pearce Age: 72 Gender: M : 1950 Exam Date: 01/29/2023 07:51 Exam Location: [facility] Ht (in): 67 Wt (lb): 117 Ordering Physician: Rick Groves MD ([id number]) Attending/Referring Phys: Juan Santo MD Aligner Yair Shah Procedure CPT: Indications: afib Cardiac Hx: Technical Quality: Very technically difficult and limited study Contrast 1: Total Dose (mL): Contrast 2: Total Dose (mL): MEASUREMENTS (Male / Female) Normal Values 2D ECHO LV Diastolic Diameter PLAX 3.3 cm 4.2 - 5.9 / 3.9 - 5.3 cm LV Systolic Diameter PLAX 2.6 cm IVS Diastolic Thickness 1.6 cm 0.6 - 1.0 / 0.6 - 0.9 cm LVPW Diastolic Thickness 1.5 cm 0.6 - 1.0 / 0.6 - 0.9 cm LV Relative Wall Thickness 1.0 RV Internal Dim ED PLAX 3.5 cm FINDINGS Left Ventricle Right Ventricle Right Atrium Left Atrium Mitral Valve Aortic Valve Tricuspid Valve Pulmonic Valve Pericardium Possible small anterior pericardial effusion. Aorta CONCLUSIONS Very limited visualization secondary to overlying lung and respirations. Small pericardial effusion Please reattempt echocardiogram if clinically indicated Previewed by: Dr Rich Anderson (Electronically Signed) Final Date: 29 January 2023 18:45
[2023-01-30] MEDS ORDERED: FAMOTIDINE 20 MG TAB PO SCH (09:00)
--- NOTE | 2023-01-30 16:02 | CDI ---
Documentation Clarification Form Date: 01/30/2023 03:33:00 PM From: Cheryl Snell RN, CCDS Email: [email or web address] Admit Date: 01/19/2023 12:52:00 AM Patient Name: Jorge Luis Pearce Visit Number: [id number] Discharge Date: 01/29/2023 01:14:00 PM ATTENTION: The Clinical Documentation Specialists (CDI) and [facility] Coding Staff appreciate your assistance in clarifying documentation. Please respond to the clarification below the line at the bottom and electronically sign. The CDI & [facility] Coding staff will review the response and follow-up if needed. Please note: Queries are made part of the Legal Health Record. If you have any questions, please contact the author of this message via ITS. Dr. Tristan Barfield The patient had Covid pneumonia, abnormal labs and vital signs. Based on this information and the findings below, is there an additional diagnosis that is clinically appropriate for this patient? History/Risk Factors: Recent discharge for pleural effusion and thoracentesis, liver cirrhosis, hepatitis C, DM. Admitted with SOB, hypoxic respiratory failure, found to have Covid pneumonia and pleural effusion. Clinical Indicators: Discharge summary: acute hypoxic respiratory failure, BL consolidation suspicious for BL Covid pneumonia, rule out bacterial pneumonia, right pleural effusion s/p thoracentesis on 01/18 with tapping 3L out. 01/19 + Covid-19 01/19 Lactic acid: 2.7-2.7-2.4-2.2-1.8 01/19 Vital signs: Temp 97.5-99.1, HR 101, RR 22-24-16, pox 90-95% Treatment: IV Levophed titrated 01/23-01/29 01/21 ID Consult: "acute respiratory failure which is likely multifactorial in this patient tested positive for covid 19 more than a week ago and also history of recurrent right-sided effusion with worsening effusion and airspace opacities concerning for possible secondary bacterial pneumonia." Antibiotics: IV Zosyn 01/19-01/26; Rifaximin 550mg po BID 01/19-01/26 IV Bolus: 1L bolus 0.9 NS on 01/19 Is there an additional diagnosis that is clinically appropriate for this patient? [ ] Viral Sepsis, present on admission [ ] Viral Sepsis, developed during stay, not present on admission [ ] Other, please specify [ ] Unable to determine SIRS Criteria: 2 or more of the following may indicate SIRS Temperature < 96.8F (36C) or > 101.0F (38.3C) Heart Rate > 90 bpm Respiratory Rate > 20 breaths/min or PaCO2 < 32 mmHg White Blood Cell Count > 12,000 or < 4,000 cells/mm3 or > 10% bands MTDD
== END 2023-01-29 13:14 | disposition expired | DRG 177 ==
LOC: EC 23:03 → 3SCARD 01-19 00:52 → 2SICU 01-21 13:00
PROVIDERS: ADMIT Hospitalist; ATTEND Hospitalist
PROC: 0W9930Z Drainage of Right Pleural Cavity with Drainage Device, Percutaneous Approach (ICD-10-PCS; principal; 2023-01-18)
PROC: 5A09457 Assistance with Respiratory Ventilation, 24-96 Consecutive Hours, Continuous Positive Airway Pressure (ICD-10-PCS; 2023-01-22)
PROC: 0W993ZX Drainage of Right Pleural Cavity, Percutaneous Approach, Diagnostic (ICD-10-PCS; 2023-01-23)
PROC: 0W9930Z Drainage of Right Pleural Cavity with Drainage Device, Percutaneous Approach (ICD-10-PCS; 2023-01-24)
PROC: 30233M1 Transfusion of Nonautologous Plasma Cryoprecipitate into Peripheral Vein, Percutaneous Approach (ICD-10-PCS; 2023-01-25)
PROC: 3E033XZ Introduction of Vasopressor into Peripheral Vein, Percutaneous Approach (ICD-10-PCS; 2023-01-28)
DX: U07.1 COVID-19 (principal); D65 Disseminated intravascular coagulation [defibrination syndrome]; J96.01 Acute respiratory failure with hypoxia; E43 Unspecified severe protein-calorie malnutrition; J12.82 Pneumonia due to coronavirus disease 2019; J15.9 Unspecified bacterial pneumonia; D61.818 Other pancytopenia; R64 Cachexia; A08.39 Other viral enteritis; E87.1 Hypo-osmolality and hyponatremia; J93.83 Other pneumothorax; J44.0 Chronic obstructive pulmonary disease with (acute) lower respiratory infection; J81.1 Chronic pulmonary edema; J91.8 Pleural effusion in other conditions classified elsewhere; Z68.1 Body mass index [BMI] 19.9 or less, adult; I95.9 Hypotension, unspecified; K70.30 Alcoholic cirrhosis of liver without ascites; E11.65 Type 2 diabetes mellitus with hyperglycemia; I48.91 Unspecified atrial fibrillation; F10.20 Alcohol dependence, uncomplicated; Z79.4 Long term (current) use of insulin; Z51.5 Encounter for palliative care; Z66 Do not resuscitate; D63.8 Anemia in other chronic diseases classified elsewhere; R62.7 Adult failure to thrive; E88.09 Other disorders of plasma-protein metabolism, not elsewhere classified; E80.4 Gilbert syndrome; B19.20 Unspecified viral hepatitis C without hepatic coma; E86.0 Dehydration; E86.1 Hypovolemia; E87.70 Fluid overload, unspecified; K21.9 Gastro-esophageal reflux disease without esophagitis; M19.90 Unspecified osteoarthritis, unspecified site; F32.A Depression, unspecified; F43.10 Post-traumatic stress disorder, unspecified; Z79.51 Long term (current) use of inhaled steroids; Z79.84 Long term (current) use of oral hypoglycemic drugs; Z79.899 Other long term (current) drug therapy; Z85.828 Personal history of other malignant neoplasm of skin; Z87.891 Personal history of nicotine dependence; Z71.3 Dietary counseling and surveillance; Z88.1 Allergy status to other antibiotic agents
CPT/HCPCS: 36415; 36556; 36600; 71045; 71275; 76604; 80048; 80053; 80074; 82140; 82607; 82728; 82747; 82805; 82945; 83010; 83540; 83550; 83605; 83615; 83735; 83880; 84145; 84155; 84157; 84443; 84484; 85025; 85027; 85384; 85610; 85730; 86140; 86850; 86900; 86901; 87070; 87205; 87324; 87390; 87636; 88108; 88305; 89050; 93306; 94640; 94660; 94760; 96374; 99291